=== PATIENT | male | born 1940 | race Caucasian/White ===

== ENCOUNTER → 2017-12-02 09:15 | Outpatient (CLI) | payer OTHER, SELFPAY ==
[2017-12-02 10:15] LABS: Add Manual Diff / Slide Review NO; Basophils Percent Auto 0.9 % (0-2); Eosinophils Percent Auto 2.8 % (2-4); Hematocrit 45.8 % (41-53); Hemoglobin 15.9 g/dL (13.5-17.5); Lymphocytes Percent Auto 15.2 % (25-40); Mean Corpuscular HGB Conc 34.8 % (30-36); Mean Corpuscular Hemoglobin 34.3 PG (26-34); Mean Corpuscular Volume 98.5 fL (80-100); Monocytes Percent Auto 8.2 % (3-14); Neutrophils Absolute Auto 5300 /uL (3000-5900); Neutrophils Percent Auto 72.9 % (50-75); Platelet Count 234 X10^3/uL (150-400); Red Blood Cell Count 4.65 X10^6/uL (4.5-5.9); Red Cell Distribution Width 12.9 % (11.6-14.8); White Blood Cell Count 7.3 X10^3/uL (4.5-11.0)
[2017-12-02 10:36] LABS: Alanine Aminotransferase 32 IU/L (21-72); Albumin 4.3 g/dL (3.5-5.0); Albumin Globulin Ratio 1.4 (1.0-2.8); Alkaline Phosphatase 86 U/L (38-126); Aspartate Aminotransferase 28 IU/L (17-59); BUN Creatinine Ratio 14.4 (6-22); Bilirubin Total 0.9 mg/dL (0.2-1.3); Cholesterol 197 mg/dL (140-199); Estimated Glomerular Filt Rate > 60.0 mL/min (>60); Glucose 118 mg/dL (80-110); HDL Cholesterol 64 mg/dL (40-60); HEMOLYSIS < 15 (0-50); LDL Cholesterol Calculated 93 mg/dL (<100); Sodium 140 mmol/L (137-145); Total Protein 7.3 g/dL (6.3-8.2); Triglycerides 199 mg/dL (35-150)
[2017-12-02 11:02] LABS: Thyroid Stimulating Hormone 1.26 uIU/mL (0.47-4.68)
[2017-12-02 12:19] LABS: Appearance Urine UA CLEAR; Bilirubin Urine UA NEGATIVE (NEGATIVE); Color Urine UA YELLOW; Glucose Urine UA NEGATIVE (Normal); Ketones Urine UA NEGATIVE (NEGATIVE); Leukocyte Esterase Urine UA NEGATIVE (NEGATIVE); Nitrite Urine UA NEGATIVE (NEGATIVE); Occult Blood Urine UA NEGATIVE (Negative); Protein Urine UA NEGATIVE (Negative)
[2017-12-02 12:35] LABS: Culture Indicated Urine Cult Not Indicated; Squamous Epithelial Cell Urine 0-1 /HPF; WBC Urine 0-1/HPF (0-5/HPF)
== END ==
PROVIDERS: PCP Family Medicine; Visit Provider Family Medicine
DX: I10 Essential (primary) hypertension (principal); E78.5 Hyperlipidemia, unspecified; Z12.5 Encounter for screening for malignant neoplasm of prostate
CPT/HCPCS: 36415; 80053; 80061; 81001; 84153; 84443; 85025

== ENCOUNTER → 2018-05-24 09:34 | Outpatient (CLI) | payer OTHER, SELFPAY ==
[2018-05-24 10:29] LABS: Hematocrit 44.9 % (41-53); Hemoglobin 15.9 g/dL (13.5-17.5); Mean Corpuscular HGB Conc 35.3 % (30-36); Platelet Count 246 X10^3/uL (150-400); Red Blood Cell Count 4.53 X10^6/uL (4.5-5.9); Red Cell Distribution Width 12.7 % (11.6-14.8); White Blood Cell Count 5.5 X10^3/uL (4.5-11.0)
[2018-05-24 10:44] LABS: Alanine Aminotransferase 43 IU/L (21-72); Albumin 4.6 g/dL (3.5-5.0); Albumin Globulin Ratio 1.8 (1.0-2.8); Alkaline Phosphatase 77 U/L (38-126); Aspartate Aminotransferase 44 IU/L (17-59); BUN Creatinine Ratio 18.8 (6-22); Bilirubin Total 0.6 mg/dL (0.2-1.3); Blood Urea Nitrogen 15 mg/dL (9-20); Calcium 10.7 mg/dL (8.4-10.2); Carbon Dioxide 28 mmol/L (22-32); Chloride 94 mmol/L (98-107); Cholesterol 176 mg/dL (140-199); Estimated Glomerular Filt Rate > 60.0 mL/min (>60); Globulin 2.6 g/dL (1.7-4.1); Glucose 100 mg/dL (80-110); HDL Cholesterol 83 mg/dL (40-60); HEMOLYSIS < 15 (0-50); LDL Cholesterol Calculated 64 mg/dL (<100); Potassium 4.3 mmol/L (3.4-5.1); Sodium 140 mmol/L (137-145); Total Protein 7.2 g/dL (6.3-8.2); Triglycerides 144 mg/dL (35-150)
[2018-05-24 11:29] LABS: Thyroid Stimulating Hormone 0.83 uIU/mL (0.47-4.68)
== END ==
PROVIDERS: PCP Family Medicine; Visit Provider Family Medicine
DX: E78.5 Hyperlipidemia, unspecified (principal); I10 Essential (primary) hypertension; R73.9 Hyperglycemia, unspecified; Z51.81 Encounter for therapeutic drug level monitoring
CPT/HCPCS: 36415; 80053; 80061; 84443; 85027

== ENCOUNTER → 2018-10-27 09:17 | Outpatient (CLI) | payer OTHER, SELFPAY ==
[2018-10-27 09:58] LABS: Add Manual Diff / Slide Review NO; Basophils Absolute Auto 0 /uL (0-100); Basophils Percent Auto 0.9 % (0-2); Eosinophils Absolute Auto 200 /uL (0-450); Eosinophils Percent Auto 3.2 % (2-4); Hematocrit 47.5 % (41-53); Hemoglobin 16.6 g/dL (13.5-17.5); Lymphocytes Absolute Auto 1100 /uL (1100-4500); Lymphocytes Percent Auto 20.4 % (25-40); Mean Corpuscular Hemoglobin 34.3 PG (26-34); Mean Corpuscular Volume 98.1 fL (80-100); Monocytes Absolute Auto 600 /uL (0-900); Monocytes Percent Auto 11.4 % (3-14); Neutrophils Absolute Auto 3300 /uL (1500-7000); Neutrophils Percent Auto 64.1 % (50-75); Platelet Count 272 X10^3/uL (150-400); Red Blood Cell Count 4.84 X10^6/uL (4.5-5.9); Red Cell Distribution Width 12.8 % (11.6-14.8); White Blood Cell Count 5.2 X10^3/uL (4.5-11.0)
[2018-10-27 10:10] LABS: Alanine Aminotransferase 50 IU/L (21-72); Albumin 4.3 g/dL (3.5-5.0); Albumin Globulin Ratio 1.5 (1.0-2.8); Alkaline Phosphatase 81 U/L (38-126); Aspartate Aminotransferase 45 IU/L (17-59); BUN Creatinine Ratio 22.5 (6-22); Bilirubin Total 0.8 mg/dL (0.2-1.3); Blood Urea Nitrogen 18 mg/dL (9-20); Calcium 10.1 mg/dL (8.4-10.2); Carbon Dioxide 29 mmol/L (22-32); Chloride 91 mmol/L (98-107); Cholesterol 152 mg/dL (140-199); Estimated Glomerular Filt Rate > 60.0 mL/min (>60); Globulin 2.9 g/dL (1.7-4.1); Glucose 99 mg/dL (80-110); HDL Cholesterol 56 mg/dL (40-60); HEMOLYSIS < 15 (0-50); LDL Cholesterol Calculated 60 mg/dL (<100); Potassium 3.7 mmol/L (3.4-5.1); Sodium 132 mmol/L (137-145); Total Protein 7.2 g/dL (6.3-8.2); Triglycerides 181 mg/dL (35-150)
== END ==
PROVIDERS: PCP Family Medicine; Visit Provider Family Medicine
DX: E78.5 Hyperlipidemia, unspecified (principal); I10 Essential (primary) hypertension; M10.9 Gout, unspecified
CPT/HCPCS: 36415; 80053; 80061; 85025

== ENCOUNTER → 2018-12-13 14:42 | Outpatient (CLI) | payer OTHER, SELFPAY ==
[2018-12-13 15:40] LABS: BUN Creatinine Ratio 17.5 (6-22); Blood Urea Nitrogen 14 mg/dL (9-20); Calcium 10.3 mg/dL (8.4-10.2); Carbon Dioxide 29 mmol/L (22-32); Chloride 92 mmol/L (98-107); Estimated Glomerular Filt Rate > 60.0 mL/min (>60); Glucose 116 mg/dL (80-110); HEMOLYSIS < 15 (0-50); Magnesium 1.2 mg/dL (1.6-2.3); Potassium 3.6 mmol/L (3.4-5.1); Sodium 133 mmol/L (137-145)
[2018-12-13 16:12] LABS: Thyroid Stimulating Hormone 1.16 uIU/mL (0.47-4.68)
[2018-12-15 16:52] LABS: Osmolality, Serum 280 mosm/kg (260-310)
== END ==
PROVIDERS: PCP Family Medicine; Visit Provider Internal Medicine Cardiovascular Disease
DX: I48.91 Unspecified atrial fibrillation (principal); E87.1 Hypo-osmolality and hyponatremia
CPT/HCPCS: 36415; 80048; 83735; 83930; 84443

== ENCOUNTER → 2018-12-15 07:52 | Outpatient (CLI) | payer OTHER, SELFPAY ==
--- NOTE | 2018-12-15 | DI.ECHO.S_ITS ---
[facility] +---------+ [facility] +---------+ : : [address] : : : : [id number] : : : : Phone: [phone]+ Echocardiogram Report + + :Name: LAY DUNHAM Study Date: 12/15/2018 Height: 73 in : :[facility] Weight: 210 lb : : Gender: Male BSA: 2.2 m2 : :: 1940 Age: 78 yrs BP: 160/78 mmHg: :Reason For Study: Atrial fibrillation : :Ordering Physician: Amaya : :Philippeiwdixon Performed By: Razia Suarez : :Referring: Dorothy Rosa : + + Interpretation Summary The left ventricle is normal in size. The ejection fraction is estimated to be 45-50%. Compared to the prior exam, the left ventricular function is reduced. There is hypokinesis of mid to distal anterior septum, apex, mid to distal anterior wall, mid to distal anterolateral as well as posterolateral wall and distal inferior septum. In comparison to previous study worsening hypokinesis of anterolateral and posterolateral wall seen. MV E/A: 3.3 Med Peak E' Pancho: 4.2 cm/sec E/E' med: 28.7 The right ventricle is grossly normal size. The right ventricular systolic function is normal. The aortic valve is moderately calcified. Leaflet mobility is moderately reduced. The peak aortic velocity is 2.5 m/sec. The peak aortic velocity on the previous exam was 2.9 m/sec. The aortic valve mean gradient is 15 mmHg. The calculated aortic valve area is 1.2 cm2. There is mild to moderate aortic stenosis. There is mild aortic regurgitation. Compared to the prior echo study, there has been no change in the severity of aortic regurgitation. There is mild tricuspid regurgitation. The right ventricular systolic pressure is estimated to be at least 46 mmHg based on an estimated right atrial pressure of 3 mm Hg. Compared to the prior echo exam, there has been an increase in the severity of pulmonary hypertension. Procedure: A two-dimensional transthoracic echocardiogram with color flow and Doppler was performed. The study quality was technically adequate. Comparison is made with the echocardiogram of 11-01-17. The patient was in normal sinus rhythm during the exam. Left Ventricle: The left ventricle is normal in size. There is normal left ventricular wall thickness. There is no thrombus. The ejection fraction is estimated to be 45-50%. Compared to the prior exam, the left ventricular function is reduced. There is hypokinesis of mid to distal anterior septum, apex, mid to distal anterior wall, mid to distal anterolateral as well as posterolateral wall and distal inferior septum. In comparison to previous study worsening hypokinesis of anterolateral and posterolateral wall seen. MV E/A: 3.3 Med Peak E' Pancho: 4.2 cm/sec E/E' med: 28.7. Right Ventricle: The right ventricle is grossly normal size. The right ventricular systolic function is normal. Atria: The left atrium is moderately dilated. The left atrium has mildly increased in size since the prior echo exam. Right atrium not well visualized. The interatrial septum is intact with no evidence for an atrial septal defect. Mitral Valve: The mitral valve leaflets appear mildly thickened, but open well. There is mild mitral annular calcification. The mitral valve leaflets are slightly calcified. There is systolic anterior motion of the chordal apparatus. There is mild mitral regurgitation. Aortic Valve: The aortic valve is moderately calcified. Leaflet mobility is moderately reduced. The aortic valve is not well visualized. The calculated aortic valve area is 1.2 cm2. The aortic valve area is 1.1 centimeters squared by planimetry. The peak aortic velocity is 2.5 m/sec. The peak aortic velocity on the previous exam was 2.9 m/sec. The aortic valve mean gradient is 15 mmHg. Severity ratio is 0.28. There is mild to moderate aortic stenosis. There is no hemodynamically significant valvular aortic stenosis. There is mild aortic regurgitation. Compared to the prior echo study, there has been no change in the severity of aortic regurgitation. Tricuspid Valve: The tricuspid valve leaflets are thin and pliable. There is mild tricuspid regurgitation. The right ventricular systolic pressure is estimated to be at least 46 mmHg based on an estimated right atrial pressure of 3 mm Hg. Compared to the prior echo exam, there has been an increase in the severity of pulmonary hypertension. Pulmonic Valve: The pulmonic valve is not well seen, but is grossly normal. There is mild to moderate pulmonic regurgitation. Great Vessels: The aortic root is normal size. The ascending aorta is mildly enlarged. The aortic arch is normal in size. There has been no significant change since the previous study. The IVC is of normal diameter and collapses greater than 50% with a sniff. This suggests a low right atrial pressure of 3 mm Hg. Pericardium/ Pleura There is no pericardial effusion. There is no pleural effusion. MMode/2D Measurements & Calculations LVIDd: 5.1 cm LVOT diam: 2.3 cm LVIDs: 3.3 cm Ao root diam: 3.7 cm FS: 35.5 % Aortic Jxn: 3.2 cm EPSS: 1.3 cm asc Aorta Diam: 3.7 cm IVSd: 1.0 cm Ao Arch Diam (Prox Trans): 3.1 cm LVPWd: 0.90 cm LV vu. diameter/BSA (cm/m^2): 2.3 LV sys. diameter/BSA (cm/m^2): 1.5 LA dimension: 5.1 cm RA long axis: 5.6 cm LA A2 area: 29.5 cm2 RA area: 21.6 cm2 LA A4 area: 26.3 cm2 RA vol: 70.3 ml LA length (vol): 6.3 cm RA : 32.0 ml/m2 LA vol: 104.8 ml IVC diam: 2.0 cm LA vol index: 47.7 ml/m2 RVDd major: 6.2 cm RVD1 (basal): 4.1 cm RVD2 (mid): 3.7 cm CAROLYNE (plan): 1.1 cm2 Doppler Measurements & Calculations Ao V2 max: 264.6 cm/sec LVOT Max Pancho: 79.9 cm/sec Ao V2 mean: 179.7 cm/sec LV V1 max P.6 mmHg Ao max P.0 mmHg LV V1 VTI: 18.3 cm Ao mean P.0 mmHg CAROLYNE(I,D): 1.2 cm2 Ao V2 VTI: 65.8 cm CAROLYNE(V,D): 1.3 cm2 sev ratio: 0.28 CAROLYNE indexed to BSA (cm^2/m^2): 0.55 MV E max pancho: 120.9 cm/sec TR max pancho: 325.9 cm/sec MV A max pancho: 36.6 cm/sec TR max P.5 mmHg MV E/A: 3.3 PA V2 max: 89.1 cm/sec Med Peak E' Pancho: 4.2 cm/sec PA V2 mean: 50.6 cm/sec E/E' med: 28.7 PA mean P.2 mmHg Lat Peak E' Pancho: 8.8 cm/sec PA Accel Time: 0.08 sec E/E' lat: 13.7 E/e' average: 21.2 MV dec time: 0.17 sec MV P1/2t: 51.5 msec MV 2t max pancho: 121.2 cm/sec SV(LVOT): 78.8 ml MVA(2t): 4.3 cm2 Reading Physician:HALEY
== END ==
PROVIDERS: PCP Family Medicine; Visit Provider Internal Medicine Cardiovascular Disease
DX: I08.3 Combined rheumatic disorders of mitral, aortic and tricuspid valves (principal); I48.91 Unspecified atrial fibrillation; I77.89 Other specified disorders of arteries and arterioles
CPT/HCPCS: 93306

== ENCOUNTER → 2019-01-19 11:01 | Outpatient (CLI) | payer OTHER, SELFPAY ==
[2019-01-19 12:50] LABS: BUN Creatinine Ratio 13.8 (6-22); Blood Urea Nitrogen 11 mg/dL (9-20); Calcium 10.1 mg/dL (8.4-10.2); Carbon Dioxide 29 mmol/L (22-32); Chloride 92 mmol/L (98-107); Estimated Glomerular Filt Rate > 60.0 mL/min (>60); Glucose 108 mg/dL (80-110); HEMOLYSIS < 15 (0-50); Magnesium 1.3 mg/dL (1.6-2.3); Potassium 3.5 mmol/L (3.4-5.1); Sodium 134 mmol/L (137-145)
[2019-01-20 14:54] LABS: Calcium 10.4 mg/dL (8.6-10.3); Parathyroid Hormone, Intact 74 pg/mL (14-64)
== END ==
PROVIDERS: PCP Family Medicine; Visit Provider Internal Medicine Cardiovascular Disease
DX: I48.91 Unspecified atrial fibrillation (principal)
CPT/HCPCS: 36415; 80048; 83735; 83970

== ENCOUNTER → 2019-01-25 13:43 | Outpatient (CLI) | payer OTHER, SELFPAY ==
--- NOTE | 2019-01-25 14:47 | PM.TREADMILL ---
Cardiac Stress Test Report Referral & Results Date Patient Seen: 01/25/19 Requesting provider: Amaya Singh Indication: Atrial fibrillation Rest ECG: Atrial fibrillation with controlled ventricular response and PVCs Procedure Note: After both written and verbal informed consent the patient had an IV started by the diagnostic imaging RN, and then was hooked up to the treadmill monitoring system. The Lexiscan material, and then the Cardiolite tracer, were administered sequentially. An additional 3 min was spent monitoring the patient while supine on the gurney. The patient had a normal response to all infused materials. Impression: Normal response to materials as above Please see perfusion imaging report for details regarding possible ischemia Please note: Actual ECG tracings can be found in the PACS system.
--- NOTE | 2019-01-27 07:39 | DI.NM.S_ITS ---
DATE OF SERVICE: 01/25/2019 REFERRING PROVIDER: Amaya Singh MD INDICATIONS: The patient is a 78-year-old male with known moderate aortic stenosis, coronary artery disease, and atrial fibrillation. CARDIAC STRESS: The patient received 0.4 mg of regadenoson per protocol with a normal hemodynamic response. His resting heart rate was 78 bpm in atrial fibrillation and increased to a maximum of 91 bpm. He had occasional PVCs but no other arrhythmias besides his atrial fibrillation. He had no chest discomfort. His resting ECG shows no significant ST segment abnormalities and there are no significant ST segment shifts with exercise. Per protocol, 25.0 mCi of technetium-99 Myoview was injected and the patient was imaged 20 minutes later using a gated SPECT acquisition protocol. He returned the following day and was reinjected with an additional 25.7 mCi of technetium-99 Myoview and was imaged 30 minutes later, again using a gated SPECT acquisition protocol. FINDINGS: 1. Raw Data: There is fair myocardial tracer uptake. The lung/heart ratio is normal at 0.32 with a normal TID ratio of 1.05. 2. Quantitative Gated SPECT: Post-stress ejection fraction is estimated at 58% with hypokinesis of the distal anterior wall, apex, and distal inferior wall. This hypokinesis appears to persist to some degree on the resting images, although with some improvement. There are no other focal wall motion abnormalities. The resting ejection fraction is 60% with an end-diastolic volume of 161 mL. 3. Myocardial Perfusion Imaging: Post-stress supine images show a severe perfusion defect in the distal anterior wall, apex, and distal inferior wall, including the septum. This defect persists on the prone images. The resting images show a similar perfusion defect, although with some improvement, particularly at the periphery of the defect. CONCLUSIONS: 1. Abnormal myocardial perfusion study. 2. Moderate-sized partially reversible but predominantly fixed perfusion defect involving the distal portion of the anterior wall, apex, and distal inferior wall and septum. 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 3. Borderline reduced left ventricular systolic function with a wall motion abnormality in the distribution above that appears to improve slightly on the resting images, again suggesting scar intermixed with ischemia. 4. No angina or ECG evidence of ischemia with pharmacologic stress. He had underlying atrial fibrillation with controlled ventricular response with occasional PVCs but no complex ventricular ectopy. Red Polk - RS/fn/ts doc#: [id number]/job#: [id number] dd: 01/26/2019 14:45:00 dt: 01/27/2019 06:51:00 DICTATING MD/COPIES TO: Obed Sexton MD; Amaya Singh MD COPIES MNE: VIDA; CJ
== END ==
PROVIDERS: PCP Family Medicine; Visit Provider Nurse Practitioner
DX: I35.0 Nonrheumatic aortic (valve) stenosis (principal); I25.10 Atherosclerotic heart disease of native coronary artery without angina pectoris; I48.91 Unspecified atrial fibrillation
CPT/HCPCS: 78452; 93016; 93017; 93018; A9502; J2785

== ENCOUNTER → 2019-02-22 10:48 | Outpatient (CLI) | payer OTHER, SELFPAY ==
[2019-02-22 11:41] LABS: Blood Urea Nitrogen 12 mg/dL (9-20); Calcium 10.7 mg/dL (8.4-10.2); Carbon Dioxide 34 mmol/L (22-32); Chloride 94 mmol/L (98-107); Estimated Glomerular Filt Rate > 60.0 mL/min (>60); Glucose 118 mg/dL (80-110); HEMOLYSIS < 15 (0-50); Magnesium 1.4 mg/dL (1.6-2.3); Sodium 137 mmol/L (137-145)
== END ==
PROVIDERS: Family Provider Family Medicine; PCP Family Medicine; Visit Provider Internal Medicine Cardiovascular Disease
DX: E83.42 Hypomagnesemia (principal); E83.52 Hypercalcemia
CPT/HCPCS: 36415; 80048; 83735

== ENCOUNTER → 2019-03-06 08:50 | Outpatient (CLI) | payer OTHER, SELFPAY ==
[2019-03-06 09:46] LABS: Alanine Aminotransferase 18 IU/L (21-72); Albumin 4.3 g/dL (3.5-5.0); Albumin Globulin Ratio 1.3 (1.0-2.8); Alkaline Phosphatase 85 U/L (38-126); Aspartate Aminotransferase 24 IU/L (17-59); BUN Creatinine Ratio 16.7 (6-22); Bilirubin Total 0.8 mg/dL (0.2-1.3); Blood Urea Nitrogen 15 mg/dL (9-20); Calcium 10.3 mg/dL (8.4-10.2); Carbon Dioxide 31 mmol/L (22-32); Chloride 98 mmol/L (98-107); Cholesterol 186 mg/dL (140-199); Estimated Glomerular Filt Rate > 60.0 mL/min (>60); Globulin 3.2 g/dL (1.7-4.1); Glucose 120 mg/dL (80-110); HDL Cholesterol 61 mg/dL (40-60); HEMOLYSIS < 15 (0-50); LDL Cholesterol Calculated 82 mg/dL (<100); Potassium 3.9 mmol/L (3.4-5.1); Sodium 138 mmol/L (137-145); Total Protein 7.5 g/dL (6.3-8.2); Triglycerides 213 mg/dL (35-150)
== END ==
PROVIDERS: PCP Family Medicine; Visit Provider Family Medicine
DX: I10 Essential (primary) hypertension (principal); E78.5 Hyperlipidemia, unspecified
CPT/HCPCS: 36415; 80053; 80061

== ENCOUNTER → 2019-03-07 14:01 | Outpatient (CLI) | payer OTHER, SELFPAY ==
[2019-03-07 15:56] LABS: Hemoglobin A1C% w Est Avg Glu 5.2 % (4.0-6.0)
== END ==
PROVIDERS: PCP Family Medicine; Visit Provider Family Medicine
DX: R73.09 Other abnormal glucose (principal)
CPT/HCPCS: 83036

== ENCOUNTER → 2019-03-16 11:52 | Outpatient (CLI) | payer OTHER, SELFPAY ==
[2019-03-16 14:06] LABS: Blood Urea Nitrogen 16 mg/dL (9-20); Calcium 10.7 mg/dL (8.4-10.2); Carbon Dioxide 28 mmol/L (22-32); Chloride 99 mmol/L (98-107); Estimated Glomerular Filt Rate > 60.0 mL/min (>60); Glucose 123 mg/dL (80-110); HEMOLYSIS < 15 (0-50); Magnesium 1.6 mg/dL (1.6-2.3); Sodium 139 mmol/L (137-145)
== END ==
PROVIDERS: PCP Family Medicine; Visit Provider Internal Medicine Cardiovascular Disease
DX: I10 Essential (primary) hypertension (principal)
CPT/HCPCS: 36415; 80048; 83735

== ENCOUNTER → 2019-06-20 13:08 | Outpatient (CLI) | payer OTHER, SELFPAY ==
[2019-06-20 13:46] LABS: Blood Urea Nitrogen 15 mg/dL (9-20); Calcium 10.2 mg/dL (8.4-10.2); Carbon Dioxide 30 mmol/L (22-32); Chloride 97 mmol/L (98-107); Estimated Glomerular Filt Rate > 60.0 mL/min (>60); Glucose 120 mg/dL (80-110); HEMOLYSIS < 15 (0-50); Potassium 4.2 mmol/L (3.4-5.1); Sodium 136 mmol/L (137-145)
== END ==
PROVIDERS: PCP Family Medicine; Visit Provider Internal Medicine Cardiovascular Disease
DX: I10 Essential (primary) hypertension (principal)
CPT/HCPCS: 36415; 80048

== ENCOUNTER → 2019-12-03 10:20 | Outpatient (CLI) | payer MEDICARE, SELFPAY ==
[2019-12-03 11:14] LABS: Add Manual Diff / Slide Review NO; Basophils Absolute Auto 0 /uL (0-100); Basophils Percent Auto 0.7 % (0-2); Eosinophils Absolute Auto 100 /uL (0-450); Eosinophils Percent Auto 1.9 % (2-4); Hematocrit 46.3 % (41-53); Hemoglobin 16.2 g/dL (13.5-17.5); Lymphocytes Absolute Auto 1200 /uL (1100-4500); Lymphocytes Percent Auto 18.5 % (25-40); Mean Corpuscular Hemoglobin 34.9 PG (26-34); Mean Corpuscular Volume 99.8 fL (80-100); Monocytes Absolute Auto 500 /uL (0-900); Monocytes Percent Auto 8.2 % (3-14); Neutrophils Absolute Auto 4700 /uL (1500-7000); Neutrophils Percent Auto 70.7 % (50-75); Platelet Count 222 X10^3/uL (150-400); Red Blood Cell Count 4.63 X10^6/uL (4.5-5.9); Red Cell Distribution Width 13.4 % (11.6-14.8); White Blood Cell Count 6.6 X10^3/uL (4.5-11.0)
[2019-12-03 11:18] LABS: Hemoglobin A1C% w Est Avg Glu 5.4 % (4.0-6.0)
[2019-12-03 11:30] LABS: Alanine Aminotransferase 25 IU/L (<50); Albumin 4.4 g/dL (3.5-5.0); Albumin Globulin Ratio 1.5 (1.0-2.8); Alkaline Phosphatase 141 U/L (38-126); Aspartate Aminotransferase 34 IU/L (17-59); BUN Creatinine Ratio 13.3 (6-22); Bilirubin Total 0.7 mg/dL (0.2-1.3); Blood Urea Nitrogen 11 mg/dL (9-20); Calcium 10.4 mg/dL (8.4-10.2); Carbon Dioxide 29 mmol/L (22-32); Chloride 99 mmol/L (98-107); Cholesterol 164 mg/dL (140-199); Estimated Glomerular Filt Rate > 60.0 mL/min (>60); Globulin 2.9 g/dL (1.7-4.1); Glucose 121 mg/dL (80-110); HDL Cholesterol 61 mg/dL (40-60); HEMOLYSIS < 15 (0-50); LDL Cholesterol Calculated 71 mg/dL (<100); Sodium 138 mmol/L (137-145); Total Protein 7.3 g/dL (6.3-8.2); Triglycerides 162 mg/dL (35-150)
[2019-12-03 12:13] LABS: Thyroid Stimulating Hormone 1.06 uIU/mL (0.47-4.68)
[2019-12-03 14:05] LABS: Appearance Urine UA CLEAR; Bilirubin Urine UA NEGATIVE (NEGATIVE); Color Urine UA YELLOW; Glucose Urine UA NEGATIVE (Negative); Ketones Urine UA TRACE (NEGATIVE); Leukocyte Esterase Urine UA NEGATIVE (NEGATIVE); Nitrite Urine UA NEGATIVE (Negative); Occult Blood Urine UA NEGATIVE (Negative); Protein Urine UA 1+ (Negative); pH Urine UA 7.5 (4.5-8.0)
== END ==
PROVIDERS: PCP Internal Medicine; Referring Provider Family Medicine; Visit Provider Family Medicine
DX: E78.5 Hyperlipidemia, unspecified (principal); I10 Essential (primary) hypertension; L98.9 Disorder of the skin and subcutaneous tissue, unspecified; R73.9 Hyperglycemia, unspecified; Z86.79 Personal history of other diseases of the circulatory system
CPT/HCPCS: 36415; 80053; 80061; 81003; 83036; 84443; 85025

== ENCOUNTER 2020-04-04 03:48 | Emergency (ER) | payer MEDICARE, SELFPAY ==
[2020-04-04 03:50] VITALS: BP 183/101; PULSE 72; RESP 18; TEMP 36.6; O2SAT 97
--- NOTE | 2020-04-04 03:54 | DI.CT.S_ITS ---
PROCEDURE: CT HEAD/BRAIN WO CON INDICATIONS: Fall on Eliquis with laceration right-sided head TECHNIQUE: Noncontrast 4.5 mm thick angled axial sections acquired from the foramen magnum to the vertex, with coronal and sagittal reformats. For radiation dose reduction, the following was used: automated exposure control, adjustment of mA and/or kV according to patient size. COMPARISON: None. FINDINGS: Image quality: Excellent. CSF spaces: Basal cisterns are patent. No extra-axial fluid collections. The ventricles are symmetric in size and shape. Brain: No intracranial bleeds or masses. There is cerebral volume loss for age, with resultant ventricular and sulcal prominence. There are periventricular and deep white matter chronic small vessel ischemic changes. There is intracranial internal carotid artery atherosclerosis. Skull and face: Calvarium and visualized facial bones appear intact, without suspicious lesions. Right frontal scalp laceration Sinuses: Visualized sinuses and mastoids are clear. IMPRESSION: 1. No acute intracranial process. Right frontal scalp laceration. 2. Moderate atrophy and chronic microvascular ischemic changes. The above findings are concordant with preliminary report. Dictated by: Erika Bai M.D. on 04/04/2020 at 7:36 Approved by: Erika Bai M.D. on 04/04/2020 at 7:37
--- NOTE | 2020-04-04 03:54 | ED.GENADULT ---
HPI - General Adult General Chief complaint: Trauma Stated complaint: fell out of bed/cut on forehead Time Seen by Provider: 04/04/20 03:50 Source: patient Mode of arrival: Ambulatory Limitations: no limitations History of Present Illness HPI narrative: 79-year-old male on Eliquis for atrial fibrillation here for evaluation of injuries that he sustained when he rolled out of bed this evening. Patient states that he thinks he was just sleeping to close the edge of the bed and he rolled out of bed hitting his head on a nightstand. No loss conscious. No neck pain. Did sustain a cut to his right forehead abrasion left side of his face. No other injuries reported from the event by the patient. Modified trauma called secondary to his fall on Eliquis. Related Data Home Medications Medication Instructions Recorded Confirmed ASPIRIN (Aspirin EC) 81 mg PO Q DAY #0 11/30/10 03/17/20 latanoprost [Xalatan] 1 drp OPHTH QDAY #0 11/23/11 03/17/20 cholecalciferol (vitamin D3) 125 5,000 unit PO DAILY 04/18/19 03/17/20 mcg (5,000 unit) capsule magnesium oxide 800 mg PO DAILY 04/18/19 03/17/20 kkvwuqhhqjse-hddhneji-bdyavz 1 tab PO DAILY 04/18/19 03/17/20 omega-3 fatty acids-fish oil 360 1 cap PO DAILY 04/18/19 03/17/20 mg-1,200 mg capsule potassium chloride 20 mEq 20 meq PO DAILY 04/18/19 03/17/20 tablet,extended release colchicine 0.6 mg tablet 0.6 mg PO BID PRN tab 12/17/19 03/17/20 omeprazole 20 mg capsule,delayed 20 mg PO DAILY 12/17/19 03/17/20 release timolol 0.5 % eye drops 1 drop EYE-BOTH .Q MORNING ml 12/17/19 03/17/20 Previous Rx's Medication Instructions Recorded apixaban 5 mg tablet 5 mg PO BID #60 tab 04/18/19 atorvastatin 40 mg tablet 40 mg PO HS #90 tab 04/18/19 lisinopril 40 mg tablet 40 mg PO DAILY #90 tab 12/17/19 hydrochlorothiazide 25 mg tablet See Rx Instructions .ROUTE 02/26/20 .COMPLEX #45 tablet metoprolol tartrate 100 mg tablet See Rx Instructions .ROUTE 02/26/20 .COMPLEX #180 tablet amlodipine 5 mg tablet 5 mg PO BID #180 tab 03/17/20 Allergies Allergy/AdvReac Type Severity Reaction Status Date / Time No Known Drug Allergies Allergy Verified 03/17/20 10:14 Review of Systems Constitutional Constitutional: Denies headache(s) ENT Ears, Nose, Mouth, and Throat: Denies headache(s) and Denies neck pain Cardiovascular Cardiovascular: Denies chest pain and Denies dyspnea Respiratory Respiratory: Denies dyspnea Musculoskeletal Musculoskeletal: Denies arthralgias, Denies back pain, Denies myalgias and Denies neck pain Integumentary/Breasts Skin/Breast: Denies rash Comments: Cut to right forehead abrasion left side of his Neurologic Neurologic: Denies behavioral changes and Denies headache(s) Psychiatric Psychiatric: Denies behavioral changes Hematologic/Lymphatic Comments: On anticoagulation Allergic/Immunologic Allergic/Immunologic: Denies urticaria Patient History Medical History Aortic stenosis (Chronic) Bilateral carotid artery disease (Chronic) CAD (coronary atherosclerotic disease) (Chronic 11/30/10) Chronic gout, unspecified, 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) Essential (primary) hypertension (Chronic 02/09/16) GERD without esophagitis (Chronic) Hypercalcemia (Chronic) Hyperglycemia (Chronic) Hyperlipidemia (Chronic) Hyperparathyroidism (Chronic) 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) Ischemic cardiomyopathy (Chronic) Permanent atrial fibrillation (Chronic) Rheumatoid arthritis (Chronic) Social History Smoking Status: Never smoker alcohol intake: current Smoking Status: Never smoker Exam Initial Vital Signs Initial Vital Signs: Vital Signs Temperature 97.8 F 04/04/20 03:50 Pulse Rate 72 04/04/20 03:50 Respiratory Rate 18 04/04/20 03:50 Blood Pressure 183/101 H 04/04/20 03:50 Pulse Oximetry 97 04/04/20 03:50 Const General: cooperative, healthy appearing, comfortable and well developed Limitations: mental status not altered HENMT Head: laceration Nose: external nose normal Face and sinus: abrasion Mouth: oral mucosae normal Teeth and gingiva: dentition normal Resp Effort & Inspection: normal respiratory effort Cardio Rate: regular rate Skin Other: 4 cm linear laceration to the right forehead. Patient with a quarter-size abrasion to the left cheek. No active bleeding. Neuro General: patient alert, patient awake and patient oriented x3 Extrem General: normal to inspection and capillary refill normal Psych Appearance: grossly normal and well kempt Procedures Laceration Repair Laceration 1: Site: other (Right forehead) Side (If applicable): right Size (cm): 4 Description: linear Depth: simple, single layer Local Anesthetic: lidocaine 1% and with bicarb Amount of anesthesia used (mL): 5 Pre-repair: wound explored Skin layer closed with: other (Chromic) Size (cm): 4-0 Number of sutures: 6 Technique: simple, interrupted Scores GCS [place] coma scale eye opening: Spontaneous Mounika coma scale verbal response: Orientated [place] coma scale motor response: Obey commands Mounika coma scale total score: 15 Nexus Score for C-Spine Focal Neurologic deficit present: No Midline spinal tenderness present: No Altered level of conciousness present: No Intoxication present: No Distracting Injury Present: No Nexus Criteria for C-spine: 0 Course Orders Ordered: ED Orders 04/04/20 03:54 CT head/brain wo con Stat Discontinued Medications Bacitracin (Bacitracin) 1 applic TOP NOW ONE Stop: 04/04/20 04:06 Last Admin: 04/04/20 04:09 Dose: 1 applic Documented by: AIDA Diphtheria/Tetanus/Acell Pertussis (Adacel) 0.5 ml IM .ONCE ONE Stop: 04/04/20 04:06 Last Admin: 04/04/20 04:10 Dose: 0.5 ml Documented by: AIDA Lidocaine/Sodium Bicarbonate (Buffered Lidocaine 10 Ml Syr) 10 ml INJ NOW ONE Stop: 04/04/20 04:06 Last Admin: 04/04/20 04:09 Dose: 10 ml Documented by: AIDA Vital Signs Vital signs: Vital Signs - 8 hr 04/04/20 03:50 04/04/20 04:02 Temperature 97.8 F Pulse Rate 72 64 Respiratory Rate 18 16 Blood Pressure 183/101 H 148/71 H Pulse Oximetry 97 96 Medical Decision Making Imaging Data CT scan - head: Radiologist's Impression: No acute bleed MDM Narrative Medical decision making narrative: Head CT is unremarkable. This does appear to be a mechanical fall as he rolled out of bed. The laceration on his right forehead was closed as described above. The abrasion left studies for Headings no intervention. No other injuries were reported from the patient or found on the exam from the event. Will hold on further radiologic studies for now. His cervical spine is cleared by nexus criteria. Patient was given care instructions return precautions. His tetanus shot was updated. He expressed understanding and agreement. Discharge Plan Departure Patient Disposition: Home Clinical Impression: Laceration, Abrasion of skin Fall Qualifiers: Encounter type: initial encounter Qualified Code(s): W19.XXXA - Unspecified fall, initial encounter Instructions: DI for Laceration Repair Activity Restrictions/Additional Instructions: Continue all of your medications as directed. The stitches that were placed today are absorbable and should come out on their own. After 24 hours you can shower like normal. Use soap and water like normal. Contact your primary provider for follow-up. Your tetanus shot was updated today. Return to the emergency department for any new or worsening symptoms Prescriptions: No Action ASPIRIN (Aspirin EC) 81 mg PO Q DAY Qty: 0 RF: 0 latanoprost [Xalatan] 0.005 % drops 1 drp OPHTH QDAY Qty: 0 RF: 0 hydrochlorothiazide 25 mg tablet See Rx Instructions .ROUTE .COMPLEX Qty: 45 RF: 1 metoprolol tartrate 100 mg tablet See Rx Instructions .ROUTE .COMPLEX Qty: 180 RF: 1 Eliquis 5 mg tablet 5 mg PO BID Qty: 60 RF: 0 atorvastatin 40 mg tablet 40 mg PO HS Qty: 90 RF: 1 potassium chloride 20 mEq tablet extended release 20 meq PO DAILY RF: 0 magnesium oxide 400 mg magnesium tablet 800 mg PO DAILY RF: 0 pzupdocroxkx-lbehwtcl-hmsjff Tablet 1 tab PO DAILY RF: 0 omega-3 fatty acids-fish oil [Fish Oil] 360-1,200 mg capsule 1 cap PO DAILY RF: 0 cholecalciferol (vitamin D3) 5,000 unit capsule 5,000 unit PO DAILY RF: 0 timolol 0.5 % drops 1 drop EYE-BOTH .Q MORNING RF: 0 omeprazole 20 mg capsule,delayed release(DR/EC) 20 mg PO DAILY RF: 0 colchicine 0.6 mg tablet 0.6 mg PO BID PRNRF: 0 lisinopril 40 mg tablet 40 mg PO DAILY Qty: 90 RF: 3 amlodipine 5 mg tablet 5 mg PO BID Qty: 180 RF: 1 Referrals: Shukri Plata MD [Primary Care Provider] -
[2020-04-04 04:02] VITALS: BP 148/71; PULSE 64; RESP 16; O2SAT 96
[2020-04-04] MEDS: LIDO 1%/SOD BICARB 8.4% (10ML) 10 ML SYRINGE INJ (04:09)
[2020-04-04] MEDS: BACITRACIN OINT 0.9 GM PCKT 1 APPLIC TOP (04:09)
[2020-04-04] MEDS: TET,DIPH,PERTUSS(ACELL),VAC/PF 0.5 ML SYRINGE IM (04:10)
--- NOTE | 2020-04-04 04:13 | PC.NURSE ---
Elodia MADSEN charting and assessing under supervision of Iman Mathews RN.
[2020-04-04 04:38] VITALS: BP 138/65; PULSE 63; RESP 16; O2SAT 97
== END 2020-04-04 04:46 | disposition home or self-care (01) ==
PROVIDERS: Emergency Provider Emergency Medicine; PCP Internal Medicine
DX: S01.81XA Laceration without foreign body of other part of head, initial encounter (principal); W06.XXXA Fall from bed, initial encounter; I48.91 Unspecified atrial fibrillation; Z79.01 Long term (current) use of anticoagulants; Z23 Encounter for immunization
CPT/HCPCS: 12013; 70450; 90471; 99284; 90715

== ENCOUNTER 2020-05-28 20:27 | Emergency (ER) | payer MEDICARE, SELFPAY ==
[2020-05-28 20:30] VITALS: BP 156/97; PULSE 89; RESP 20; TEMP 36.9; O2SAT 97
--- NOTE | 2020-05-28 20:31 | DI.CT.S_ITS ---
PROCEDURE: CT HEAD/BRAIN WO CON INDICATIONS: fall, +anticoag, unable to ambulate after fall TECHNIQUE: Noncontrast 4.5 mm thick angled axial sections acquired from the foramen magnum to the vertex, with coronal and sagittal reformats. For radiation dose reduction, the following was used: automated exposure control, adjustment of mA and/or kV according to patient size. COMPARISON: [facility], CT, CT HEAD/BRAIN WO CON, 04/04/2020, 4:05. FINDINGS: Image quality: Excellent. CSF spaces: Basal cisterns are patent. No extra-axial fluid collections. The ventricles are symmetric in size and shape. Brain: No intracranial bleeds or masses. There is marked cerebral volume loss for age, with resultant ventricular and sulcal prominence. There are extensive periventricular and deep white matter chronic small vessel ischemic changes. There is intracranial internal carotid artery atherosclerosis. Skull and face: Calvarium and visualized facial bones appear intact, without suspicious lesions. Sinuses: Visualized sinuses and mastoids are clear. IMPRESSION: 1. No acute intracranial findings. 2. Extensive findings likely associated with chronic microvascular ischemic changes. Dictated by: Em Veloz M.D. on 05/28/2020 at 20:51 Approved by: Em Veloz M.D. on 05/28/2020 at 20:53
--- NOTE | 2020-05-28 20:56 | PC.NURSE ---
He has superficial scratch like lac on left cheek,cleaned with soap and water.
[2020-05-28 21:16] LABS: Bacteria Urine None Seen
[2020-05-28 21:18] LABS: Appearance Urine UA CLEAR; Bilirubin Urine UA NEGATIVE (NEGATIVE); Color Urine UA YELLOW; Glucose Urine UA NEGATIVE (Negative); Ketones Urine UA NEGATIVE (NEGATIVE); Leukocyte Esterase Urine UA NEGATIVE (NEGATIVE); Nitrite Urine UA NEGATIVE (Negative); Occult Blood Urine UA NEGATIVE (Negative); Protein Urine UA 2+ (Negative); Urobilinogen Urine UA 0.2 E.U./dL (0.2)
[2020-05-28 21:27] LABS: Add Manual Diff / Slide Review NO; Basophils Absolute Auto 100 /uL (0-100); Basophils Percent Auto 0.9 % (0-2); Eosinophils Absolute Auto 200 /uL (0-450); Eosinophils Percent Auto 2.1 % (2-4); Hematocrit 44.4 % (41-53); Hemoglobin 15.2 g/dL (13.5-17.5); Lymphocytes Absolute Auto 1300 /uL (1100-4500); Lymphocytes Percent Auto 17.4 % (25-40); Mean Corpuscular HGB Conc 34.3 % (30-36); Mean Corpuscular Hemoglobin 34.2 PG (26-34); Mean Corpuscular Volume 99.8 fL (80-100); Monocytes Absolute Auto 800 /uL (0-900); Monocytes Percent Auto 10.3 % (3-14); Neutrophils Absolute Auto 5400 /uL (1500-7000); Neutrophils Percent Auto 69.3 % (50-75); Platelet Count 212 X10^3/uL (150-400); Red Blood Cell Count 4.45 X10^6/uL (4.5-5.9); White Blood Cell Count 7.8 X10^3/uL (4.5-11.0)
[2020-05-28 21:29] LABS: Culture Indicated Urine Cult Not Indicated; RBC Urine 0-1/HPF (0-5/HPF); WBC Urine 0-1/HPF (0-5/HPF)
[2020-05-28 21:35] LABS: Alanine Aminotransferase 22 IU/L (<50); Albumin 4.2 g/dL (3.5-5.0); Albumin Globulin Ratio 1.4 (1.0-2.8); Alkaline Phosphatase 83 U/L (38-126); Aspartate Aminotransferase 28 IU/L (17-59); BUN Creatinine Ratio 12.6 (6-22); Bilirubin Total 0.6 mg/dL (0.2-1.3); Blood Urea Nitrogen 14 mg/dL (9-20); Calcium 9.9 mg/dL (8.4-10.2); Carbon Dioxide 27 mmol/L (22-32); Chloride 97 mmol/L (98-107); Estimated Glomerular Filt Rate > 60.0 mL/min (>60); Glucose 111 mg/dL (80-110); HEMOLYSIS < 15 (0-50); Potassium 3.6 mmol/L (3.4-5.1); Sodium 135 mmol/L (137-145); Total Protein 7.2 g/dL (6.3-8.2)
--- NOTE | 2020-05-28 22:15 | ED.FALL ---
HPI - Fall General Chief Complaint: Trauma Stated Complaint: fall Time Seen by Provider: 05/28/20 21:07 Source: patient and family Mode of arrival: Family Vehicle History of Present Illness HPI Narrative: 80-year-old gentleman with a history of atrial fibrillation on Eliquis, hypertension, hyperlipidemia who was leaning over to clean up after his dog and after leaning down continued to fall forward. He has a small abrasion to the right side of his cheek and does report minor contusion to his head is he landed on the ground. Once down he had some difficulty standing again due to bilateral lower extremity weakness. He complains of no headache, no altered mental status, no recent fevers, cough abdominal pain, chest pain, dyspnea. He had his both note that he has been far less active over the last number of months to years and as he has become less active he has become more deconditioned, having more gait instability and more overall weakness. Related Data Home Medications Medication Instructions Recorded Confirmed ASPIRIN (Aspirin EC) 81 mg PO Q DAY #0 11/30/10 03/17/20 latanoprost [Xalatan] 1 drp [facility] QDAY #0 11/23/11 03/17/20 cholecalciferol (vitamin D3) 125 5,000 unit PO DAILY 04/18/19 03/17/20 mcg (5,000 unit) capsule magnesium oxide 800 mg PO DAILY 04/18/19 03/17/20 qskgicqsyhxi-akgithse-fdestw 1 tab PO DAILY 04/18/19 03/17/20 omega-3 fatty acids-fish oil 360 1 cap PO DAILY 04/18/19 03/17/20 mg-1,200 mg capsule potassium chloride 20 mEq 20 meq PO DAILY 04/18/19 03/17/20 tablet,extended release colchicine 0.6 mg tablet 0.6 mg PO BID PRN tab 12/17/19 03/17/20 omeprazole 20 mg capsule,delayed 20 mg PO DAILY 12/17/19 03/17/20 release timolol 0.5 % eye drops 1 drop EYE-BOTH .Q MORNING ml 12/17/19 03/17/20 Previous Rx's Medication Instructions Recorded apixaban 5 mg tablet 5 mg PO BID #60 tab 04/18/19 atorvastatin 40 mg tablet 40 mg PO HS #90 tab 04/18/19 lisinopril 40 mg tablet 40 mg PO DAILY #90 tab 12/17/19 hydrochlorothiazide 25 mg tablet See Rx Instructions .ROUTE 02/26/20 .COMPLEX #45 tablet metoprolol tartrate 100 mg tablet See Rx Instructions .ROUTE 02/26/20 .COMPLEX #180 tablet amlodipine 5 mg tablet 5 mg PO BID #180 tab 03/17/20 Allergies Allergy/AdvReac Type Severity Reaction Status Date / Time No Known Drug Allergies Allergy Verified 03/17/20 10:14 Review of Systems Review of Systems Narrative: Remainder of review of systems including constitutional, ENT, cardiovascular, respiratory, GI, , musculoskeletal, skin, neurologic and psychiatric systems reviewed and are unremarkable except as noted in HPI. 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 Able to give a complete and coherent history. HEENT: Moist mucous membranes, normal sclera with reactive pupils, mild abrasion to the left cheek and angle of the jaw not requiring any suturing Neck: No midline tenderness, supple Respiratory: Lungs are clear to auscultation, no wheezing no rales no rhonchi. Full and symmetrical air movement Cardiac: Regular rate and rhythm no murmurs no bruits Skin: Warm and dry, no rashes Neurologic: Globally weak but Grossly neurologically intact with no obvious asymmetries or abnormalities Extremities: Minor abrasion to the left wrist and right elbow, well perfused Psych: Cooperative, appropriate insight and affect Initial Vital Signs Initial Vital Signs: Vital Signs Temperature 98.4 F 05/28/20 20:30 Pulse Rate 89 05/28/20 20:30 Respiratory Rate 20 05/28/20 20:30 Blood Pressure 156/97 H 05/28/20 20:30 Pulse Oximetry 97 05/28/20 20:30 Course Orders Ordered: ED Orders 05/28/20 20:31 CT head/brain wo con Stat 05/28/20 21:17 Complete Blood Count AUTO DIFF Stat Comprehensive Metabolic Panel Stat 05/28/20 21:42 Urinalysis and Microscopic Stat Vital Signs Vital signs: Vital Signs - 8 hr 05/28/20 22:26 Pulse Rate 90 Respiratory Rate 14 Blood Pressure 120/67 Pulse Oximetry 96 MDM - Fall Medical Records Attestation: I reviewed the patient's medical records. Lab Data Attestation: I reviewed the patient's lab results. Result diagrams: 05/28/20 21:17 05/28/20 21:17 Labs: Lab Results 05/28/20 05/28/20 05/28/20 Range/Units 21:10 21:17 21:17 WBC 7.8 (4.5-11.0) X10^3/uL RBC 4.45 L (4.5-5.9) X10^6/uL Hgb 15.2 (13.5-17.5) g/dL Hct 44.4 (41-53) % MCV 99.8 (80-100) fL MCH 34.2 H (26-34) PG MCHC 34.3 (30-36) % RDW 13.0 (11.6-14.8) % Plt Count 212 (150-400) X10^3/uL Neut % (Auto) 69.3 (50-75) % Lymph % (Auto) 17.4 L (25-40) % [place] % (Auto) 10.3 (3-14) % Eos % (Auto) 2.1 (2-4) % Baso % (Auto) 0.9 (0-2) % Neut # (Auto) 5400 (8110-6374) /uL Lymph # (Auto) 1300 (6289-5162) /uL [place] # (Auto) 800 (0-900) /uL Eos # (Auto) 200 (0-450) /uL Baso # (Auto) 100 (0-100) /uL Sodium 135 L (137-145) mmol/L Potassium 3.6 (3.4-5.1) mmol/L Chloride 97 L (98-107) mmol/L Carbon Dioxide 27 (22-32) mmol/L BUN 14 (9-20) mg/dL Creatinine 1.11 (0.66-1.25) mg/dL Estimated GFR > 60.0 (>60) mL/min BUN/Creatinine Ratio 12.6 (6-22) Glucose 111 H (80-110) mg/dL Calcium 9.9 (8.4-10.2) mg/dL Total Bilirubin 0.6 (0.2-1.3) mg/dL AST 28 (17-59) IU/L ALT 22 (<50) IU/L Alkaline Phosphatase 83 (38-126) U/L Total Protein 7.2 (6.3-8.2) g/dL Albumin 4.2 (3.5-5.0) g/dL Globulin 3.0 (1.7-4.1) g/dL Albumin/Globulin Ratio 1.4 (1.0-2.8) Urine Color Yellow Urine Appearance Clear Urine pH 7.0 (4.5-8.0) Ur Specific [place] 1.010 (1.000-1.035) Urine Protein 2+ H (Negative) Urine Glucose (UA) Negative (Negative) g/dL Urine Ketones Negative (NEGATIVE) Urine Occult Blood Negative (Negative) Urine Nitrate Negative (Negative) Urine Bilirubin Negative (NEGATIVE) Urine Urobilinogen 0.2 (0.2) E.U./dL Ur Leukocyte Esterase Negative (NEGATIVE) Urine RBC 0-1/hpf (0-5/HPF) Urine WBC 0-1/hpf (0-5/HPF) Urine Bacteria None seen (None) Ur Culture Indicated? Cult not indicated Imaging Data CT scan - head: Radiologist's Impression: No acute intracranial findings Dr Em Veloz [facility] Narrative Medical decision making narrative: 80-year-old gentleman with increasing overall decondition, lower extremity weakness gait instability with a topple forward today as he was bending over. As he is on Eliquis, CT scan of the head was obtained that revealed no intracranial hemorrhage or other anomalies. No other significant trauma and he is reassured. We did spend some time talking about overall deconditioning and how this does pose a significant risk to his overall health and risk of falling. Was interested in the idea physical therapy for gait training and strengthening help. Will talk with his primary care doctor about following up on physical therapy. At this time he is safe for discharge home. Discharge Plan Departure Patient Disposition: Home Clinical Impression: Fall Qualifiers: Encounter type: initial encounter Qualified Code(s): W19.XXXA - Unspecified fall, initial encounter Discharge Date/Time: 05/28/20 22:26 Instructions: How to Prevent Falls Activity Restrictions/Additional Instructions: Thank you for coming in today The abrasion on the left side of your jaw will heal nicely. There is no additional treatment that is required. In the emergency room today we did do a CT scan of your brain because of the fall. There is no bleeding on the inside. Lab work was very reassuring with no suggestion of infection that might be compounding your weakness. I do think that overall aging and deconditioning is going to continue to cause problems for you with gait, stability and increase your risk for falling. I would recommend using a walking stick, cane or walker if your walking on uneven surfaces and take extraordinary care when bending over (as you were doing today) Please contact Dr. Plata's office to see if he would be willing to initiate a referral for physical therapy for balance and gait stability as well as overall deconditioning. I am glad that there were no significant findings noted today. I wish you well Prescriptions: No Action ASPIRIN (Aspirin EC) 81 mg PO Q DAY Qty: 0 RF: 0 latanoprost [Xalatan] 0.005 % drops 1 drp [facility] QDAY Qty: 0 RF: 0 hydrochlorothiazide 25 mg tablet See Rx Instructions .ROUTE .COMPLEX Qty: 45 RF: 1 metoprolol tartrate 100 mg tablet See Rx Instructions .ROUTE .COMPLEX Qty: 180 RF: 1 Eliquis 5 mg tablet 5 mg PO BID Qty: 60 RF: 0 atorvastatin 40 mg tablet 40 mg PO HS Qty: 90 RF: 1 potassium chloride 20 mEq tablet extended release 20 meq PO DAILY RF: 0 magnesium oxide 400 mg magnesium tablet 800 mg PO DAILY RF: 0 qswagnepzjko-quuyeypi-oagswe Tablet 1 tab PO DAILY RF: 0 omega-3 fatty acids-fish oil [Fish Oil] 360-1,200 mg capsule 1 cap PO DAILY RF: 0 cholecalciferol (vitamin D3) 5,000 unit capsule 5,000 unit PO DAILY RF: 0 timolol 0.5 % drops 1 drop EYE-BOTH .Q MORNING RF: 0 omeprazole 20 mg capsule,delayed release(DR/EC) 20 mg PO DAILY RF: 0 colchicine 0.6 mg tablet 0.6 mg PO BID PRNRF: 0 lisinopril 40 mg tablet 40 mg PO DAILY Qty: 90 RF: 3 amlodipine 5 mg tablet 5 mg PO BID Qty: 180 RF: 1 Referrals: Shukri Plata MD [Primary Care Provider] -
[2020-05-28 22:26] VITALS: BP 120/67; PULSE 90; RESP 14; O2SAT 96
== END 2020-05-28 22:26 | disposition home or self-care (01) ==
PROVIDERS: Emergency Provider Emergency Medicine; PCP Internal Medicine
DX: S00.81XA Abrasion of other part of head, initial encounter (principal); S09.90XA Unspecified injury of head, initial encounter; I48.91 Unspecified atrial fibrillation; Z79.01 Long term (current) use of anticoagulants; W19.XXXA Unspecified fall, initial encounter
CPT/HCPCS: 36415; 70450; 80053; 81001; 85025; 99284

== ENCOUNTER 2020-10-28 11:15 | Outpatient (RCR) | payer MEDICARE, SELFPAY ==
--- NOTE | 2020-08-12 16:25 | PT.OIE ---
Current Diagnoses Unspecified abnormalities of gait and mobility (08/12/20) Weakness (08/12/20) Past Medical History (Last Reviewed 05/29/20 @ 04:52 by Mary Ellen Hurley MD) Aortic stenosis Bilateral carotid artery disease CAD (coronary atherosclerotic disease) (11/30/10) Chronic gout, unspecified, without tophus (tophi) (11/30/10) Essential (primary) hypertension (02/09/16) GERD without esophagitis Hypercalcemia Hyperglycemia Hyperlipidemia Hyperparathyroidism 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) Ischemic cardiomyopathy Permanent atrial fibrillation Rheumatoid arthritis Visit Care Team Role Provider Type Shukri Plata MD Attending Provider Physician Primary Care Provider Referring Provider Specialty: Internal Medicine Address: [address] [place] [address], [address], [facility] Email: [email or web address] Physical Therapy Initial Evaluation PT-OP-A Visit Information Start: 08/11/20 13:23 Freq: Status: Active Protocol: Document 08/12/20 13:50 [facility] (Rec: 08/12/20 14:32 [facility] [id number]) Out-Patient Physical Therapy Visit Information Visit Information Visit Type Initial Evaluation Visit Note 07/27 Visit Start Time 13:49 Visit Stop Time 14:30 Total Visit Minutes 41 Visit Number 1 Number of GRINDING AND POLISHING LABORER Visits 0 PT-OP-B Current Condition Start: 08/11/20 13:23 Freq: Status: Active Protocol: Document 08/12/20 13:50 [facility] (Rec: 08/12/20 14:32 [facility] [id number]) Current Condition History of Current Condition Onset Date over past year Current Complaints dec balance & LE strength History of Current Condition Pt reports he has a couple falls this year and had never fallen until Jul 2018. He stood up 1x and took 3 steps then fell over. He has had a couple of falls since then too . He is concerned about weakness in the legs and concerned about getting up from the ground after a fall. He does walk the dog several times a day and he goes up/ down the stairs w/hand rails. He feels like he should do it more to strengthen though. In Nov, he had taken dog out for a walk and went to bend over to cone picker dog poop (reprots ground was uneven). He fell to his knees to tree trunk. He was unable to get up d/t nothing to hang on to. He had a couple neighbors help him up . 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 Denies pain Treatment Goals Patient/Caregiver Goals improve balance, LE strength and be able to get up/down from ground w/o holding on to something Personal Factors Other Personal Factors That May Effect Afib, gout (occ flare ups), Therapy/Recovery falls, (checked alcohol abuse- but after discussion pt is a regular drinker ~3 scotches a night but not during day) PT-OP-C Subjective Start: 08/11/20 13:23 Freq: Status: Active Protocol: Document 08/12/20 13:50 [facility] (Rec: 08/12/20 14:32 [facility] [id number]) Patient Questionnaires Lower Extremity Functional Scale LEFS Score 44 PT-OP-D Balance Start: 08/11/20 13:23 Freq: Status: Active Protocol: Document 08/12/20 13:50 [facility] (Rec: 08/12/20 14:32 [facility] [id number]) Balance Tests Gur[place]a Balance Test [place]a Balance Test Score 37 Single Limb Standing Single Limb- Right 0 Single Limb- Left 0 PT-OP-E Functional Tests Start: 08/11/20 13:23 Freq: Status: Active Protocol: Document 08/12/20 13:50 [facility] (Rec: 08/12/20 14:32 [facility] [id number]) Functional Tests 30 Second Sit to Stand Test Score 12 w/heavy arm use Comments [place] chair Dynamic Gait Index (DGI) Score 18 Five Times Sit to Stand Test Score 14 sec w/ ehavy arm use Comments [place] chair Functional Gait Assessment Score 13 PT-OP-G Mobility & Gait Start: 08/11/20 13:23 Freq: Status: Active Protocol: Document 08/12/20 13:50 [facility] (Rec: 08/12/20 14:32 [facility] [id number]) OP Gait Assessment Comments Gait Comments dec push off B w/lat leaning PT-OP-M Strength Start: 08/11/20 13:23 Freq: Status: Active Protocol: Document 08/12/20 13:50 [facility] (Rec: 08/12/20 14:32 [facility] [id number]) Hip Strength Hip Manual Muscle Testing Right Flexion (L2) 3+ Fair+ Abduction 3 Fair External Rotation 3+ Fair+ Left Flexion (L2) 3+ Fair+ Abduction 3+ Fair+ External Rotation 3+ Fair+ Internal Rotation 3+ Fair+ Knee Strength Knee Manual Muscle Testing Right Flexion (S2) 4 Good Extension (L3) 3+ Fair+ Left Flexion (S2) 4- Good- Extension (L3) 4- Good- Ankle/Foot Strength Ankle and Foot Manual Muscle Testing Right Dorsiflexion (L4) 4 Good Plantarflexion (S1) 4 Good Left Dorsiflexion (L4) 4- Good- Plantarflexion (S1) 4- Good- Comments seated PF testing B PT-OP-Q Treatments Start: 08/11/20 13:23 Freq: Status: Active Protocol: Document 08/12/20 13:50 [facility] (Rec: 08/12/20 14:32 [facility] [id number]) Therapeutic Exercises Supine Exercises SLR Side bilateral Reps/Minutes 10 bridge Side bilateral Reps/Minutes 10 x5 sec Standing Exercises sit <>stand Reps/Minutes 10 Comments w/hands PT-OP-T Assessment and Plan Start: 08/11/20 13:23 Freq: Status: Active Protocol: Document 08/12/20 13:50 [facility] (Rec: 08/12/20 14:32 [facility] [id number]) Physical Therapy Assessment Rehab Potential Rehabilitation Potential Good Evaluation Complexity Number of Personal Factors/Comorbidities 3 or More Number of Body Systems Impaired 4 or More Clinical Presentation at Evaluation Evolving Impairments Impairments Activity Tolerance,Balance, Functional Activities, Functional Mobility,Gait, Strength,Transfers Goals strength Short Term Goal (STG) Pt will be indep with HEP STG Duration 09/12/20 dynamic balance Short Term Goal (STG) Pt will improve DGI score to 20/24 to dec risk for falls. STG Duration 09/13/20 Correction Goal (LTG) Pt will improve FGA score to at least 23/30 to show low risk for falls. LTG Duration 10/11/20 GURROLA Short Term Goal (STG) Pt will imrpove GURROLA balance score to at least 45 to be less likely to fall and safe ambulator w/o AD. STG Duration 09/13/20 Steam Fitter Supervisor Maintenance Goal (LTG) Pt will improve GURROLA score to 50 in order to show improved safety with outdoor/community ambulation. LTG Duration 10/11/20 transfers Short Term Goal (STG) Pt will be able to do sit to stand without UE use. STG Duration 09/13/20 Correction Goal (LTG) Pt will be able to get up/down from ground without use of outside support. LTG Duration 10/11/20 sit to stand Short Term Goal (STG) Pt will be able to do 5x sit to folded towel machine operator 12 sec w/ UE use to show improved stability & strength STG Duration 09/12/20 Steam Fitter Supervisor Maintenance Goal (LTG) Pt will be able to do 5x sit to folded towel machine operator 12 sec w/o UE use to show improved stability & strength LTG Duration 10/10/20 Assessment Summary Assessment Pt presents w/decreased balance and LE strength as evidenced by standardized testing & MMT with increased risk for falls based on GURROLA, DGI and FGA. He has dec ability to get up/down from chair without signficant UE use and has had multipel falls over the past year with issues getting up if he does not have UE support. He would benefit from skilled PT to work on overall LE strength, functional ability w/up/down from chairs and ground and balance. Physical Therapy Plan Frequency and Duration Frequency of Treatment 2x/Week Duration of Treatment 2 months Plan of Care Start Date 08/12/20 Plan of Care End Date 10/10/20 Therapeutic Interventions Therapeutic Interventions Aquatic Therapy,Balance Training,Gait Training,Home Exercise Program,Manual Therapy,Neuromuscular Re- education,Patient/Caregiver Education,Self-Care/Home Management,Taping,Therapeutic Activities,Therapeutic Exercises Next Visit Focus/Plan Next Note Type Treatment Note Next Visit Plan review HEP, balance board, seated stepper, leg press, standing balance
--- NOTE | 2020-08-12 16:25 | PT.OPPOC ---
Physical, Occupational & Speech Therapy At [facility] Current Diagnoses Unspecified abnormalities of gait and mobility (08/12/20) Weakness (08/12/20) Visit Care Team Role Provider Type Shukri Plata MD Attending Provider Physician Primary Care Provider Referring Provider Specialty: Internal Medicine Address: [address] [place] [address], [facility] Email: [email or web address] Plan Of Care PT-OP-T Assessment and Plan Start: 08/11/20 13:23 Freq: Status: Active Protocol: Document 08/12/20 13:50 [facility] (Rec: 08/12/20 14:32 [facility] [id number]) Physical Therapy Assessment Rehab Potential Rehabilitation Potential Good Evaluation Complexity Number of Personal Factors/Comorbidities 3 or More Number of Body Systems Impaired 4 or More Clinical Presentation at Evaluation Evolving Impairments Impairments Activity Tolerance,Balance, Functional Activities, Functional Mobility,Gait, Strength,Transfers Goals strength Short Term Goal (STG) Pt will be indep with HEP STG Duration 09/12/20 dynamic balance Short Term Goal (STG) Pt will improve DGI score to 20/24 to dec risk for falls. STG Duration 09/13/20 Hand Straightener Goal (LTG) Pt will improve FGA score to at least 23/30 to show low risk for falls. LTG Duration 10/11/20 GURROLA Short Term Goal (STG) Pt will imrpove GURROLA balance score to at least 45 to be less likely to fall and safe ambulator w/o AD. STG Duration 09/13/20 Custodial Goal (LTG) Pt will improve GURROLA score to 50 in order to show improved safety with outdoor/community ambulation. LTG Duration 10/11/20 transfers Short Term Goal (STG) Pt will be able to do sit to stand without UE use. STG Duration 09/13/20 Custodial Goal (LTG) Pt will be able to get up/down from ground without use of outside support. LTG Duration 10/11/20 sit to stand Short Term Goal (STG) Pt will be able to do 5x sit to nursing service director 12 sec w/ UE use to show improved stability & strength STG Duration 09/12/20 Hand Straightener Goal (LTG) Pt will be able to do 5x sit to nursing service director 12 sec w/o UE use to show improved stability & strength LTG Duration 10/10/20 Assessment Summary Assessment Pt presents w/decreased balance and LE strength as evidenced by standardized testing & MMT with increased risk for falls based on GURROLA, DGI and FGA. He has dec ability to get up/down from chair without signficant UE use and has had multipel falls over the past year with issues getting up if he does not have UE support. He would benefit from skilled PT to work on overall LE strength, functional ability w/up/down from chairs and ground and balance. Physical Therapy Plan Frequency and Duration Frequency of Treatment 2x/Week Duration of Treatment 2 months Plan of Care Start Date 08/12/20 Plan of Care End Date 10/10/20 Therapeutic Interventions Therapeutic Interventions Aquatic Therapy,Balance Training,Gait Training,Home Exercise Program,Manual Therapy,Neuromuscular Re- education,Patient/Caregiver Education,Self-Care/Home Management,Taping,Therapeutic Activities,Therapeutic Exercises Next Visit Focus/Plan Next Note Type Treatment Note Next Visit Plan review HEP, balance board, seated stepper, leg press, standing balance Plan of Care Dates Plan of Care Start Date 08/12/20 Plan of Care End Date 10/10/20 Electronically Signed by: Yvonne Cantu, PT 08/13/20 4422 Please Sign and Return: I have reviewed this Plan of Care and certify that the skilled therapy services above are required to meet the patient?s needs. Physician Signature Date Printed Name and Credentials Clinical Instructor Signature Printed Name and Credentials
--- NOTE | 2020-08-14 14:28 | PT.OTN ---
Current Diagnoses Unspecified abnormalities of gait and mobility (08/14/20) Weakness (08/14/20) Physical Therapy Treatment Note PT-OP-A Visit Information Start: 08/11/20 13:23 Freq: Status: Active Protocol: Document 08/14/20 13:41 [facility] (Rec: 08/14/20 14:22 [facility] [id number]) Out-Patient Physical Therapy Visit Information Visit Information Visit Type Treatment Note Visit Note 08/27 Visit Start Time 13:47 Visit Stop Time 14:25 Total Visit Minutes 38 Visit Number 2 Number of RECORDS MANAGEMENT SPECIALIST Visits 0 PT-OP-B Current Condition Start: 08/11/20 13:23 Freq: Status: Active Protocol: Document 08/12/20 13:50 [facility] (Rec: 08/12/20 14:32 [facility] [id number]) Current Condition History of Current Condition Onset Date over past year Current Complaints dec balance & LE strength History of Current Condition Pt reports he has a couple falls this year and had never fallen until Jul 2018. He stood up 1x and took 3 steps then fell over. He has had a couple of falls since then too . He is concerned about weakness in the legs and concerned about getting up from the ground after a fall. He does walk the dog several times a day and he goes up/ down the stairs w/hand rails. He feels like he should do it more to strengthen though. In Nov, he had taken dog out for a walk and went to bend over to picker box operator dog poop (reprots ground was uneven). He fell to his knees to tree trunk. He was unable to get up d/t nothing to hang on to. He had a couple neighbors help him up . 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 Denies pain Treatment Goals Patient/Caregiver Goals improve balance, LE strength and be able to get up/down from ground w/o holding on to something Personal Factors Other Personal Factors That May Effect Afib, gout (occ flare ups), Therapy/Recovery falls, (checked alcohol abuse- but after discussion pt is a regular drinker ~3 scotches a night but not during day) PT-OP-C Subjective Start: 08/11/20 13:23 Freq: Status: Active Protocol: Document 08/14/20 13:41 [facility] (Rec: 08/14/20 14:22 [facility] [id number]) OP-PT Subjective Patient Comments Patient Comments Pt reports being wiped out after IE PT-OP-D Balance Start: 08/11/20 13:23 Freq: Status: Active Protocol: Document 08/12/20 13:50 [facility] (Rec: 08/12/20 14:32 [facility] [id number]) Balance Tests Gurrola Balance Test Gurrola Balance Test Score 37 Single Limb Standing Single Limb- Right 0 Single Limb- Left 0 PT-OP-E Functional Tests Start: 08/11/20 13:23 Freq: Status: Active Protocol: Document 08/12/20 13:50 [facility] (Rec: 08/12/20 14:32 [facility] [id number]) Functional Tests 30 Second Sit to Stand Test Score 12 w/heavy arm use Comments [place] chair Dynamic Gait Index (DGI) Score 18 Five Times Sit to Stand Test Score 14 sec w/ ehavy arm use Comments [place] chair Functional Gait Assessment Score 13 PT-OP-G Mobility & Gait Start: 08/11/20 13:23 Freq: Status: Active Protocol: Document 08/12/20 13:50 [facility] (Rec: 08/12/20 14:32 [facility] [id number]) OP Gait Assessment Comments Gait Comments dec push off B w/lat leaning PT-OP-M Strength Start: 08/11/20 13:23 Freq: Status: Active Protocol: Document 08/12/20 13:50 [facility] (Rec: 08/12/20 14:32 [facility] [id number]) Hip Strength Hip Manual Muscle Testing Right Flexion (L2) 3+ Fair+ Abduction 3 Fair External Rotation 3+ Fair+ Left Flexion (L2) 3+ Fair+ Abduction 3+ Fair+ External Rotation 3+ Fair+ Internal Rotation 3+ Fair+ Knee Strength Knee Manual Muscle Testing Right Flexion (S2) 4 Good Extension (L3) 3+ Fair+ Left Flexion (S2) 4- Good- Extension (L3) 4- Good- Ankle/Foot Strength Ankle and Foot Manual Muscle Testing Right Dorsiflexion (L4) 4 Good Plantarflexion (S1) 4 Good Left Dorsiflexion (L4) 4- Good- Plantarflexion (S1) 4- Good- Comments seated PF testing B PT-OP-Q Treatments Start: 08/11/20 13:23 Freq: Status: Active Protocol: Document 08/14/20 13:41 [facility] (Rec: 08/14/20 14:22 [facility] [id number]) Cardio Equipment Recumbent Stepper (Sci-Fit) Duration (Minutes) 6 Resistance 2 Seat Position 13 Gym Equipment Shuttle Recovery Bilateral Squats Resistance 75# Shuttle Recovery Platform Stable Reps/Time 2x12 Shuttle Balance blue clips Comments fwd & side: WBOS fwd: staggered stance B & NBOS Therapeutic Exercises Supine Exercises hip ER Side bilateral Equipment Used L2 Reps/Minutes 10x2 SLR Side bilateral Reps/Minutes 12 bridge Side bilateral Reps/Minutes 12 x5 sec Sidelying Exercises clamshell Side bilateral Reps/Minutes 10 Standing Exercises resisted walk Standing Exercise Name fwd/back Side bilateral Equipment Used yellow Reps/Minutes 20ft side step Side bilateral Equipment Used yellow Reps/Minutes 20ft sit <>stand Reps/Minutes 10 Comments w/hands Neuro Re-Education Treatment Balance Activities hurdles Details over 6 hurdles reciprocally fwd Reps/Duration 6x fwd, 2x B side Comments 1 hand on rail Self-Care/Home Management Treatment Education Other Education inc H2O intake, that mm soreness is normal after inc activity PT-OP-T Assessment and Plan Start: 08/11/20 13:23 Freq: Status: Active Protocol: Document 08/14/20 13:41 [facility] (Rec: 08/14/20 14:22 [facility] [id number]) Physical Therapy Assessment Goals strength Short Term Goal (STG) Pt will be indep with HEP STG Duration 09/12/20 dynamic balance Short Term Goal (STG) Pt will improve DGI score to 20/24 to dec risk for falls. STG Duration 09/13/20 [facility] Goal (LTG) Pt will improve FGA score to at least 23/30 to show low risk for falls. LTG Duration 10/11/20 GURROLA Short Term Goal (STG) Pt will imrpove GURROLA balance score to at least 45 to be less likely to fall and safe ambulator w/o AD. STG Duration 09/13/20 [facility] Goal (LTG) Pt will improve GURROLA score to 50 in order to show improved safety with outdoor/community ambulation. LTG Duration 10/11/20 transfers Short Term Goal (STG) Pt will be able to do sit to stand without UE use. STG Duration 09/13/20 [facility] Goal (LTG) Pt will be able to get up/down from ground without use of outside support. LTG Duration 10/11/20 sit to stand Short Term Goal (STG) Pt will be able to do 5x sit to linotype operator 12 sec w/ UE use to show improved stability & strength STG Duration 09/12/20 Product Scientist Goal (LTG) Pt will be able to do 5x sit to linotype operator 12 sec w/o UE use to show improved stability & strength LTG Duration 10/10/20 Assessment Summary Assessment Pt did require frequent touches to rail when on balance board and required to start w/both hands on hand holds and slowly let go. Required occ rest breaks and is fatigued by session Physical Therapy Plan Frequency and Duration Frequency of Treatment 2x/Week Duration of Treatment 2 months Plan of Care Start Date 08/12/20 Plan of Care End Date 10/10/20 Next Visit Focus/Plan Next Note Type Treatment Note Next Visit Plan progress balance and exercises
--- NOTE | 2020-08-22 12:48 | PT.OTN ---
Current Diagnoses Unspecified abnormalities of gait and mobility (08/22/20) Weakness (08/22/20) Physical Therapy Treatment Note PT-OP-A Visit Information Start: 08/11/20 13:23 Freq: Status: Active Protocol: Document 08/22/20 12:06 [facility] (Rec: 08/22/20 12:48 [facility] [id number]) Out-Patient Physical Therapy Visit Information Visit Information Visit Type Treatment Note Visit Note 09/24 Visit Start Time 12:00 Visit Stop Time 12:42 Total Visit Minutes 42 Visit Number 3 Number of AUTOMATIC DRILL OPERATOR Visits 1 PT-OP-B Current Condition Start: 08/11/20 13:23 Freq: Status: Active Protocol: Document 08/12/20 13:50 [facility] (Rec: 08/12/20 14:32 [facility] [id number]) Current Condition History of Current Condition Onset Date over past year Current Complaints dec balance & LE strength History of Current Condition Pt reports he has a couple falls this year and had never fallen until Jul 2018. He stood up 1x and took 3 steps then fell over. He has had a couple of falls since then too . He is concerned about weakness in the legs and concerned about getting up from the ground after a fall. He does walk the dog several times a day and he goes up/ down the stairs w/hand rails. He feels like he should do it more to strengthen though. In Nov, he had taken dog out for a walk and went to bend over to scrap picker dog poop (reprots ground was uneven). He fell to his knees to tree trunk. He was unable to get up d/t nothing to hang on to. He had a couple neighbors help him up . 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 Denies pain Treatment Goals Patient/Caregiver Goals improve balance, LE strength and be able to get up/down from ground w/o holding on to something Personal Factors Other Personal Factors That May Effect Afib, gout (occ flare ups), Therapy/Recovery falls, (checked alcohol abuse- but after discussion pt is a regular drinker ~3 scotches a night but not during day) PT-OP-C Subjective Start: 08/11/20 13:23 Freq: Status: Active Protocol: Document 08/22/20 12:06 [facility] (Rec: 08/22/20 12:48 [place] [id number]) OP-PT Subjective Patient Comments Patient Comments Pt reports nothing new since last visit. PT-OP-D Balance Start: 08/11/20 13:23 Freq: Status: Active Protocol: Document 08/12/20 13:50 [facility] (Rec: 08/12/20 14:32 [facility] [id number]) Balance Tests Gurrola Balance Test Gurrola Balance Test Score 37 Single Limb Standing Single Limb- Right 0 Single Limb- Left 0 PT-OP-E Functional Tests Start: 08/11/20 13:23 Freq: Status: Active Protocol: Document 08/12/20 13:50 [facility] (Rec: 08/12/20 14:32 [facility] [id number]) Functional Tests 30 Second Sit to Stand Test Score 12 w/heavy arm use Comments [place]a chair Dynamic Gait Index (DGI) Score 18 Five Times Sit to Stand Test Score 14 sec w/ ehavy arm use Comments [place]a chair Functional Gait Assessment Score 13 PT-OP-G Mobility & Gait Start: 08/11/20 13:23 Freq: Status: Active Protocol: Document 08/12/20 13:50 [facility] (Rec: 08/12/20 14:32 [facility] [id number]) OP Gait Assessment Comments Gait Comments dec push off B w/lat leaning PT-OP-M Strength Start: 08/11/20 13:23 Freq: Status: Active Protocol: Document 08/12/20 13:50 [facility] (Rec: 08/12/20 14:32 [facility] [id number]) Hip Strength Hip Manual Muscle Testing Right Flexion (L2) 3+ Fair+ Abduction 3 Fair External Rotation 3+ Fair+ Left Flexion (L2) 3+ Fair+ Abduction 3+ Fair+ External Rotation 3+ Fair+ Internal Rotation 3+ Fair+ Knee Strength Knee Manual Muscle Testing Right Flexion (S2) 4 Good Extension (L3) 3+ Fair+ Left Flexion (S2) 4- Good- Extension (L3) 4- Good- Ankle/Foot Strength Ankle and Foot Manual Muscle Testing Right Dorsiflexion (L4) 4 Good Plantarflexion (S1) 4 Good Left Dorsiflexion (L4) 4- Good- Plantarflexion (S1) 4- Good- Comments seated PF testing B PT-OP-Q Treatments Start: 08/11/20 13:23 Freq: Status: Active Protocol: Document 08/22/20 12:06 [facility] (Rec: 08/22/20 12:48 [facility] [id number]) Cardio Equipment Recumbent Stepper (Sci-Fit) Duration (Minutes) 6 Resistance 2 Seat Position 13 Gym Equipment Shuttle Balance blue clips Comments fwd: WBOS/NBOS with EO/EC side: WBOS/NBOS Therapeutic Exercises Supine Exercises SLR Side bilateral Reps/Minutes 10 bridge Side bilateral Reps/Minutes 2x10 x5 sec Sidelying Exercises clamshell Side bilateral Equipment Used TB #2 Reps/Minutes 10 Standing Exercises side step Side bilateral Equipment Used yellow Reps/Minutes 20ft sit <>stand Reps/Minutes 10 Comments w/hands Neuro Re-Education Treatment Balance Activities hurdles Details over 6 hurdles reciprocally fwd Reps/Duration 6x fwd, 4x B side Comments 5# ankle weights Self-Care/Home Management Treatment Education Other Education Discussed what pt would like to get out of therapy sessions . Pt states, I would like to get stronger, especially on my left leg. PT-OP-T Assessment and Plan Start: 08/11/20 13:23 Freq: Status: Active Protocol: Document 08/22/20 12:06 [facility] (Rec: 08/22/20 12:48 [facility] [id number]) Physical Therapy Assessment Goals strength Short Term Goal (STG) Pt will be indep with HEP STG Duration 09/12/20 dynamic balance Short Term Goal (STG) Pt will improve DGI score to 20/24 to dec risk for falls. STG Duration 09/13/20 [facility] Goal (LTG) Pt will improve FGA score to at least 23/30 to show low risk for falls. LTG Duration 10/11/20 GURROLA Short Term Goal (STG) Pt will imrpove GURROLA balance score to at least 45 to be less likely to fall and safe ambulator w/o AD. STG Duration 09/13/20 Elevator Pilot Goal (LTG) Pt will improve GURROLA score to 50 in order to show improved safety with outdoor/community ambulation. LTG Duration 10/11/20 transfers Short Term Goal (STG) Pt will be able to do sit to stand without UE use. STG Duration 09/13/20 Elevator Pilot Goal (LTG) Pt will be able to get up/down from ground without use of outside support. LTG Duration 10/11/20 sit to stand Short Term Goal (STG) Pt will be able to do 5x sit to inspector tool 12 sec w/ UE use to show improved stability & strength STG Duration 09/12/20 Elevator Pilot Goal (LTG) Pt will be able to do 5x sit to inspector tool 12 sec w/o UE use to show improved stability & strength LTG Duration 10/10/20 Assessment Summary Assessment Pt was able to hover hands over bar with 5# ankle weights during gait training with hurdles today when fwd stepping. When lateral stepping, pt needed single hand on rail. Pt requires short rest breaks throughout session. Pt would benefit from skilled therapy to increase strength and balance to avoid falls. Physical Therapy Plan Frequency and Duration Frequency of Treatment 2x/Week Duration of Treatment 2 months Plan of Care Start Date 08/12/20 Plan of Care End Date 10/10/20 Therapeutic Interventions Therapeutic Interventions Aquatic Therapy,Balance Training,Gait Training,Home Exercise Program,Manual Therapy,Neuromuscular Re- education,Patient/Caregiver Education,Self-Care/Home Management,Taping,Therapeutic Activities,Therapeutic Exercises Next Visit Focus/Plan Next Note Type Treatment Note Next Visit Plan work on picking up items off cones on floor, tandem stance for balance; continue progressing balance and strengthening exercises.
--- NOTE | 2020-08-25 16:56 | PT.OTN ---
Current Diagnoses Unspecified abnormalities of gait and mobility (08/25/20) Weakness (08/25/20) Physical Therapy Treatment Note PT-OP-A Visit Information Start: 08/11/20 13:23 Freq: Status: Active Protocol: Document 08/25/20 11:55 [facility] (Rec: 08/25/20 12:42 [facility] [id number]) Out-Patient Physical Therapy Visit Information Visit Information Visit Type Treatment Note Visit Note 10/25 Visit Start Time 11:54 Visit Stop Time 12:35 Total Visit Minutes 41 Visit Number 4 Number of TRAIN ATTENDANT Visits 2 PT-OP-B Current Condition Start: 08/11/20 13:23 Freq: Status: Active Protocol: Document 08/12/20 13:50 [facility] (Rec: 08/12/20 14:32 [facility] [id number]) Current Condition History of Current Condition Onset Date over past year Current Complaints dec balance & LE strength History of Current Condition Pt reports he has a couple falls this year and had never fallen until Jul 2018. He stood up 1x and took 3 steps then fell over. He has had a couple of falls since then too . He is concerned about weakness in the legs and concerned about getting up from the ground after a fall. He does walk the dog several times a day and he goes up/ down the stairs w/hand rails. He feels like he should do it more to strengthen though. In Nov, he had taken dog out for a walk and went to bend over to flower picker dog poop (reprots ground was uneven). He fell to his knees to tree trunk. He was unable to get up d/t nothing to hang on to. He had a couple neighbors help him up . 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 Denies pain Treatment Goals Patient/Caregiver Goals improve balance, LE strength and be able to get up/down from ground w/o holding on to something Personal Factors Other Personal Factors That May Effect Afib, gout (occ flare ups), Therapy/Recovery falls, (checked alcohol abuse- but after discussion pt is a regular drinker ~3 scotches a night but not during day) PT-OP-C Subjective Start: 08/11/20 13:23 Freq: Status: Active Protocol: Document 08/25/20 11:55 [facility] (Rec: 08/25/20 12:42 [facility] [id number]) OP-PT Subjective Patient Comments Patient Comments Pt felt fine after last tx session and has nothing new to report. PT-OP-D Balance Start: 08/11/20 13:23 Freq: Status: Active Protocol: Document 08/12/20 13:50 [facility] (Rec: 08/12/20 14:32 [facility] [id number]) Balance Tests Gurrola Balance Test Gurrola Balance Test Score 37 Single Limb Standing Single Limb- Right 0 Single Limb- Left 0 PT-OP-E Functional Tests Start: 08/11/20 13:23 Freq: Status: Active Protocol: Document 08/12/20 13:50 [facility] (Rec: 08/12/20 14:32 [facility] [id number]) Functional Tests 30 Second Sit to Stand Test Score 12 w/heavy arm use Comments [place]a chair Dynamic Gait Index (DGI) Score 18 Five Times Sit to Stand Test Score 14 sec w/ ehavy arm use Comments [place]a chair Functional Gait Assessment Score 13 PT-OP-G Mobility & Gait Start: 08/11/20 13:23 Freq: Status: Active Protocol: Document 08/12/20 13:50 [facility] (Rec: 08/12/20 14:32 [facility] [id number]) OP Gait Assessment Comments Gait Comments dec push off B w/lat leaning PT-OP-M Strength Start: 08/11/20 13:23 Freq: Status: Active Protocol: Document 08/12/20 13:50 [facility] (Rec: 08/12/20 14:32 [facility] [id number]) Hip Strength Hip Manual Muscle Testing Right Flexion (L2) 3+ Fair+ Abduction 3 Fair External Rotation 3+ Fair+ Left Flexion (L2) 3+ Fair+ Abduction 3+ Fair+ External Rotation 3+ Fair+ Internal Rotation 3+ Fair+ Knee Strength Knee Manual Muscle Testing Right Flexion (S2) 4 Good Extension (L3) 3+ Fair+ Left Flexion (S2) 4- Good- Extension (L3) 4- Good- Ankle/Foot Strength Ankle and Foot Manual Muscle Testing Right Dorsiflexion (L4) 4 Good Plantarflexion (S1) 4 Good Left Dorsiflexion (L4) 4- Good- Plantarflexion (S1) 4- Good- Comments seated PF testing B PT-OP-Q Treatments Start: 08/11/20 13:23 Freq: Status: Active Protocol: Document 08/25/20 11:55 [facility] (Rec: 08/25/20 12:42 [facility] [id number]) Cardio Equipment Recumbent Stepper (Sci-Fit) Duration (Minutes) 6 Resistance 2 Seat Position 13 Other 0.45 Gym Equipment Shuttle Recovery Bilateral Squats Resistance 75#, 87# Shuttle Recovery Platform Stable Reps/Time 2x12 Shuttle Balance blue clips Comments Fwd: WBOS/NBOS head turns R/L and up/down Side: WBOS, NBOS with single hand support Therapeutic Exercises Standing Exercises sit <>stand Standing Exercise Name working on not relying as heavily on UEs Reps/Minutes 2x6 Comments 6 foam pad on chair Therapeutic Activity Therapeutic Activity Picking up Name picking up objects from floor Comments 1. picking up ontiveros bags from cones 2. picking up ontiveros bags from floor Neuro Re-Education Treatment Balance Activities blue foam Details balance Reps/Duration 2 min Comments 1. WBOS 2. NBOS Tandem Stance Details bilateral Reps/Duration x60 sec Comments 1. tandem for balance 2. straddle stance practicing lifting toe then heel PT-OP-T Assessment and Plan Start: 08/11/20 13:23 Freq: Status: Active Protocol: Document 08/25/20 11:55 [facility] (Rec: 08/25/20 12:42 [facility] [id number]) Physical Therapy Assessment Goals strength Short Term Goal (STG) Pt will be indep with HEP STG Duration 09/12/20 dynamic balance Short Term Goal (STG) Pt will improve DGI score to 20/24 to dec risk for falls. STG Duration 09/13/20 Snf Goal (LTG) Pt will improve FGA score to at least 23/30 to show low risk for falls. LTG Duration 10/11/20 GURROLA Short Term Goal (STG) Pt will imrpove GURROLA balance score to at least 45 to be less likely to fall and safe ambulator w/o AD. STG Duration 09/13/20 Horse Exerciser Goal (LTG) Pt will improve GURROLA score to 50 in order to show improved safety with outdoor/community ambulation. LTG Duration 10/11/20 transfers Short Term Goal (STG) Pt will be able to do sit to stand without UE use. STG Duration 09/13/20 Snf Goal (LTG) Pt will be able to get up/down from ground without use of outside support. LTG Duration 10/11/20 sit to stand Short Term Goal (STG) Pt will be able to do 5x sit to customer supply coordinator 12 sec w/ UE use to show improved stability & strength STG Duration 09/12/20 Snf Goal (LTG) Pt will be able to do 5x sit to customer supply coordinator 12 sec w/o UE use to show improved stability & strength LTG Duration 10/10/20 Assessment Summary Assessment Pt able to increase weight from 75 to 87# on shuttle recovery today. He did better not tapping hands to bar during balance work. During sit<>stands, pt was able to complete 2 sets of 6 with foam pad on chair; first set using UEs on knees to help stand and second set no UE assistance. Pt was happy at end of session stating today was challenging but I feel my strength is going to improve quickly. Physical Therapy Plan Frequency and Duration Frequency of Treatment 2x/Week Duration of Treatment 2 months Plan of Care Start Date 08/12/20 Plan of Care End Date 10/10/20 Therapeutic Interventions Therapeutic Interventions Aquatic Therapy,Balance Training,Gait Training,Home Exercise Program,Manual Therapy,Neuromuscular Re- education,Patient/Caregiver Education,Self-Care/Home Management,Taping,Therapeutic Activities,Therapeutic Exercises Next Visit Focus/Plan Next Note Type Treatment Note Next Visit Plan Continue progressing balanance and strength exercises. Review HEP and add one more exercise to HEP next session.
--- NOTE | 2020-09-03 11:02 | PT.OTN ---
Current Diagnoses Unspecified abnormalities of gait and mobility (09/03/20) Weakness (09/03/20) Physical Therapy Treatment Note PT-OP-A Visit Information Start: 08/11/20 13:23 Freq: Status: Active Protocol: Document 09/03/20 10:19 MA (Rec: 09/03/20 11:01 MA [id number]) Out-Patient Physical Therapy Visit Information Visit Information Visit Type Treatment Note Visit Start Time 10:15 Visit Stop Time 10:55 Total Visit Minutes 40 Visit Number 5 Number of TRAVERSE ROD ASSEMBLER Visits 3 PT-OP-B Current Condition Start: 08/11/20 13:23 Freq: Status: Active Protocol: Document 08/12/20 13:50 LR (Rec: 08/12/20 14:32 [facility] [id number]) Current Condition History of Current Condition Onset Date over past year Current Complaints dec balance & LE strength History of Current Condition Pt reports he has a couple falls this year and had never fallen until Jul 2018. He stood up 1x and took 3 steps then fell over. He has had a couple of falls since then too . He is concerned about weakness in the legs and concerned about getting up from the ground after a fall. He does walk the dog several times a day and he goes up/ down the stairs w/hand rails. He feels like he should do it more to strengthen though. 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 He fell to his knees to tree trunk. He was unable to get up d/t nothing to hang on to. He had a couple neighbors help him up . 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 Denies pain Treatment Goals Patient/Caregiver Goals improve balance, LE strength and be able to get up/down from ground w/o holding on to something Personal Factors Other Personal Factors That May Effect Afib, gout (occ flare ups), Therapy/Recovery falls, (checked alcohol abuse- but after discussion pt is a regular drinker ~3 scotches a night but not during day) PT-OP-C Subjective Start: 08/11/20 13:23 Freq: Status: Active Protocol: Document 09/03/20 10:19 MA (Rec: 09/03/20 11:01 MA [id number]) OP-PT Subjective Patient Comments Patient Comments Pt was a little tired after last session but was not sore at all. PT-OP-D Balance Start: 08/11/20 13:23 Freq: Status: Active Protocol: Document 08/12/20 13:50 LR (Rec: 08/12/20 14:32 [facility] [id number]) Balance Tests Gurrola Balance Test Gurrola Balance Test Score 37 Single Limb Standing Single Limb- Right 0 Single Limb- Left 0 PT-OP-E Functional Tests Start: 08/11/20 13:23 Freq: Status: Active Protocol: Document 09/03/20 11:01 MA (Rec: 09/03/20 11:02 MA [id number]) Functional Tests Dynamic Gait Index (DGI) Score 19 PT-OP-G Mobility & Gait Start: 08/11/20 13:23 Freq: Status: Active Protocol: Document 08/12/20 13:50 LR (Rec: 08/12/20 14:32 [facility] [id number]) OP Gait Assessment Comments Gait Comments dec push off B w/lat leaning PT-OP-M Strength Start: 08/11/20 13:23 Freq: Status: Active Protocol: Document 08/12/20 13:50 [facility] (Rec: 08/12/20 14:32 [facility] [id number]) Hip Strength Hip Manual Muscle Testing Right Flexion (L2) 3+ Fair+ Abduction 3 Fair External Rotation 3+ Fair+ Left Flexion (L2) 3+ Fair+ Abduction 3+ Fair+ External Rotation 3+ Fair+ Internal Rotation 3+ Fair+ Knee Strength Knee Manual Muscle Testing Right Flexion (S2) 4 Good Extension (L3) 3+ Fair+ Left Flexion (S2) 4- Good- Extension (L3) 4- Good- Ankle/Foot Strength Ankle and Foot Manual Muscle Testing Right Dorsiflexion (L4) 4 Good Plantarflexion (S1) 4 Good Left Dorsiflexion (L4) 4- Good- Plantarflexion (S1) 4- Good- Comments seated PF testing B PT-OP-Q Treatments Start: 08/11/20 13:23 Freq: Status: Active Protocol: Document 09/03/20 10:19 MA (Rec: 09/03/20 11:01 MA [id number]) Cardio Equipment Recumbent Elliptical (Biodex) Duration (Minutes) 6 Resistance 3 Seat Position 11 Therapeutic Exercises Supine Exercises SLR Side bilateral Reps/Minutes 10 bridge Side bilateral Reps/Minutes 2x10 Sidelying Exercises clamshell Side bilateral Reps/Minutes 2x10 Standing Exercises Hip ext Standing Exercise Name Hip extension Resistance yellow band Reps/Minutes 2x10 Step Ups Standing Exercise Name fwd & lateral Side bilateral Equipment Used rail used for balance Reps/Minutes 10x ea side step Side bilateral Equipment Used yellow Reps/Minutes 20ft sit <>stand Reps/Minutes 5x Comments took 10 second with use of UEs Neuro Re-Education Treatment Balance Activities blue foam Details balance Reps/Duration 2 min Comments SL & double leg Tandem Stance Details bilateral Reps/Duration x10 Comments straddle stance practicing lifting toe then heel PT-OP-T Assessment and Plan Start: 08/11/20 13:23 Freq: Status: Active Protocol: Document 09/03/20 10:19 MA (Rec: 09/03/20 11:01 MA [id number]) Physical Therapy Assessment Goals strength Short Term Goal (STG) Pt will be indep with HEP 09/03/20 GOAL MET STG Duration Achieved dynamic balance Short Term Goal (STG) Pt will improve DGI score to 20/24 to dec risk for falls. 09/03/20 -Progressing STG Duration 09/13/20 Surgical Corsetier Goal (LTG) Pt will improve FGA score to at least 23/30 to show low risk for falls. LTG Duration 10/11/20 GURROLA Short Term Goal (STG) Pt will imrpove GURROLA balance score to at least 45 to be less likely to fall and safe ambulator w/o AD. STG Duration 09/13/20 Surgical Corsetier Goal (LTG) Pt will improve GURROLA score to 50 in order to show improved safety with outdoor/community ambulation. LTG Duration 10/11/20 transfers Short Term Goal (STG) Pt will be able to do sit to stand without UE use. 09/03/20-GOAL MET STG Duration ACHIEVED Alf Goal (LTG) Pt will be able to get up/down from ground without use of outside support. LTG Duration 10/11/20 sit to stand Short Term Goal (STG) Pt will be able to do 5x sit to superintendent production 12 sec w/ UE use to show improved stability & strength 09/03/20-GOAL MET - 10 sec for 5 sit<>stands with UE use STG Duration ACHIEVED Surgical Corsetier Goal (LTG) Pt will be able to do 5x sit to superintendent production 12 sec w/o UE use to show improved stability & strength LTG Duration 10/10/20 Assessment Summary Assessment Pt was able to complete 5 sit< >stands using UEs in 10 seconds as well as a single sit<>stand without use of UEs to complete two short term goals. His DGI score improved from 18 to 19/24 with pt continuing to have some difficulty with horizontal head turns and changes in speed. Physical Therapy Plan Frequency and Duration Frequency of Treatment 2x/Week Duration of Treatment 2 months Plan of Care Start Date 08/12/20 Plan of Care End Date 10/10/20 Therapeutic Interventions Therapeutic Interventions Aquatic Therapy,Balance Training,Gait Training,Home Exercise Program,Manual Therapy,Neuromuscular Re- education,Patient/Caregiver Education,Self-Care/Home Management,Taping,Therapeutic Activities,Therapeutic Exercises Next Visit Focus/Plan Next Note Type Treatment Note Next Visit Plan STG of Gurrola Balance Test if time; contine progressing balance and strength exercises .
--- NOTE | 2020-09-15 12:00 | PT.OTN ---
Current Diagnoses Unspecified abnormalities of gait and mobility (09/15/20) Weakness (09/15/20) Physical Therapy Treatment Note PT-OP-A Visit Information Start: 08/11/20 13:23 Freq: Status: Active Protocol: Document 09/15/20 11:25 [facility] (Rec: 09/15/20 12:00 [facility] [id number]) Out-Patient Physical Therapy Visit Information Visit Information Visit Type Treatment Note Visit Start Time 11:20 Visit Stop Time 11:58 Total Visit Minutes 38 Visit Number 6 Number of PATENT DRAFTER Visits 0 PT-OP-B Current Condition Start: 08/11/20 13:23 Freq: Status: Active Protocol: Document 08/12/20 13:50 [facility] (Rec: 08/12/20 14:32 [facility] [id number]) Current Condition History of Current Condition Onset Date over past year Current Complaints dec balance & LE strength History of Current Condition Pt reports he has a couple falls this year and had never fallen until Jul 2018. He stood up 1x and took 3 steps then fell over. He has had a couple of falls since then too . He is concerned about weakness in the legs and concerned about getting up from the ground after a fall. He does walk the dog several times a day and he goes up/ down the stairs w/hand rails. He feels like he should do it more to strengthen though. 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 He fell to his knees to tree trunk. He was unable to get up d/t nothing to hang on to. He had a couple neighbors help him up . 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 Denies pain Treatment Goals Patient/Caregiver Goals improve balance, LE strength and be able to get up/down from ground w/o holding on to something Personal Factors Other Personal Factors That May Effect Afib, gout (occ flare ups), Therapy/Recovery falls, (checked alcohol abuse- but after discussion pt is a regular drinker ~3 scotches a night but not during day) PT-OP-C Subjective Start: 08/11/20 13:23 Freq: Status: Active Protocol: Document 09/15/20 11:25 [facility] (Rec: 09/15/20 12:00 [facility] [id number]) OP-PT Subjective Patient Comments Patient Comments Pt reports he has enjoyed working with other therapist too. His is now doing night walks d/t them thinking that may have to do with his falls PT-OP-D Balance Start: 08/11/20 13:23 Freq: Status: Active Protocol: Document 08/12/20 13:50 [facility] (Rec: 08/12/20 14:32 [facility] [id number]) Balance Tests Gurrola Balance Test Gurrola Balance Test Score 37 Single Limb Standing Single Limb- Right 0 Single Limb- Left 0 PT-OP-E Functional Tests Start: 08/11/20 13:23 Freq: Status: Active Protocol: Document 09/03/20 11:01 MA (Rec: 09/03/20 11:02 MA [id number]) Functional Tests Dynamic Gait Index (DGI) Score 19 PT-OP-G Mobility & Gait Start: 08/11/20 13:23 Freq: Status: Active Protocol: Document 08/12/20 13:50 [facility] (Rec: 08/12/20 14:32 [facility] [id number]) OP Gait Assessment Comments Gait Comments dec push off B w/lat leaning PT-OP-M Strength Start: 08/11/20 13:23 Freq: Status: Active Protocol: Document 08/12/20 13:50 [facility] (Rec: 08/12/20 14:32 [facility] [id number]) Hip Strength Hip Manual Muscle Testing Right Flexion (L2) 3+ Fair+ Abduction 3 Fair External Rotation 3+ Fair+ Left Flexion (L2) 3+ Fair+ Abduction 3+ Fair+ External Rotation 3+ Fair+ Internal Rotation 3+ Fair+ Knee Strength Knee Manual Muscle Testing Right Flexion (S2) 4 Good Extension (L3) 3+ Fair+ Left Flexion (S2) 4- Good- Extension (L3) 4- Good- Ankle/Foot Strength Ankle and Foot Manual Muscle Testing Right Dorsiflexion (L4) 4 Good Plantarflexion (S1) 4 Good Left Dorsiflexion (L4) 4- Good- Plantarflexion (S1) 4- Good- Comments seated PF testing B PT-OP-Q Treatments Start: 08/11/20 13:23 Freq: Status: Active Protocol: Document 09/15/20 11:25 [facility] (Rec: 09/15/20 12:00 [facility] [id number]) Cardio Equipment Recumbent Elliptical (Biodex) Duration (Minutes) 6 Resistance 5 Seat Position 12 Gym Equipment Shuttle Recovery Bilateral Squats Resistance 87#, 100# Shuttle Recovery Platform Stable Reps/Time 2x12 Shuttle Balance blue clips Comments Fwd: WBOS/NBOS head turns R/L and up/down Side: WBOS, NBOS with single hand support Therapeutic Exercises Standing Exercises Hip ext Standing Exercise Name Hip extension Resistance yellow band Equipment Used cues for posture Reps/Minutes 10 Step Ups Standing Exercise Name fwd Side bilateral Resistance 5 in step Equipment Used rail used for balance Reps/Minutes 10x ea resisted walk Standing Exercise Name fwd/back Side bilateral Equipment Used yellow Reps/Minutes 20ft side step Side bilateral Equipment Used yellow Reps/Minutes 20ft Neuro Re-Education Treatment Balance Activities toe taps Surface 6 in step Reps/Duration 10 B EC Surface firm Comments WBOS & NBOS trials blue foam Details balance Comments 1. WBOS EO/EC trials 2. NBOS 3. staggered stance 4. marching Tandem Stance Details bilateral Comments 1. standing 2. fwd walking on line 20fx2 3. tandem walk on line 20ftx2 w/rail 1 hand PT-OP-T Assessment and Plan Start: 08/11/20 13:23 Freq: Status: Active Protocol: Document 09/15/20 11:25 [facility] (Rec: 09/15/20 12:00 [facility] [id number]) Physical Therapy Assessment Goals strength Short Term Goal (STG) Pt will be indep with HEP 09/03/20 GOAL MET STG Duration Achieved dynamic balance Short Term Goal (STG) Pt will improve DGI score to 20/24 to dec risk for falls. 09/03/20 -Progressing STG Duration 09/13/20 [employer] Goal (LTG) Pt will improve FGA score to at least 23/30 to show low risk for falls. LTG Duration 10/11/20 GURROLA Short Term Goal (STG) Pt will imrpove GURROLA balance score to at least 45 to be less likely to fall and safe ambulator w/o AD. STG Duration 09/13/20 [employer] Goal (LTG) Pt will improve GURROLA score to 50 in order to show improved safety with outdoor/community ambulation. LTG Duration 10/11/20 transfers Short Term Goal (STG) Pt will be able to do sit to stand without UE use. 09/03/20-GOAL MET STG Duration ACHIEVED Longterm Goal (LTG) Pt will be able to get up/down from ground without use of outside support. LTG Duration 10/11/20 sit to stand Short Term Goal (STG) Pt will be able to do 5x sit to greige goods inspector 12 sec w/ UE use to show improved stability & strength 09/03/20-GOAL MET - 10 sec for 5 sit<>stands with UE use STG Duration ACHIEVED Longterm Goal (LTG) Pt will be able to do 5x sit to greige goods inspector 12 sec w/o UE use to show improved stability & strength LTG Duration 10/10/20 Assessment Summary Assessment Pt fatigues with treatment and is challenged by exercises but was able to tolerate more standing today with intermittant seated rest breaks. Physical Therapy Plan Frequency and Duration Frequency of Treatment 2x/Week Duration of Treatment 2 months Plan of Care Start Date 08/12/20 Plan of Care End Date 10/10/20 Next Visit Focus/Plan Next Note Type Treatment Note Next Visit Plan contine progressing balance and strength exercises.
--- NOTE | 2020-09-18 11:15 | PT.OTN ---
Current Diagnoses Unspecified abnormalities of gait and mobility (09/18/20) Weakness (09/18/20) Physical Therapy Treatment Note PT-OP-A Visit Information Start: 08/11/20 13:23 Freq: Status: Active Protocol: Document 09/18/20 10:35 [facility] (Rec: 09/18/20 11:14 [facility] [id number]) Out-Patient Physical Therapy Visit Information Visit Information Visit Type Treatment Note Visit Start Time 10:34 Visit Stop Time 11:14 Total Visit Minutes 40 Visit Number 7 Number of INFORMATION TECHNOLOGY AUDITOR Visits 0 PT-OP-B Current Condition Start: 08/11/20 13:23 Freq: Status: Active Protocol: Document 08/12/20 13:50 [facility] (Rec: 08/12/20 14:32 [facility] [id number]) Current Condition History of Current Condition Onset Date over past year Current Complaints dec balance & LE strength History of Current Condition Pt reports he has a couple falls this year and had never fallen until Jul 2018. He stood up 1x and took 3 steps then fell over. He has had a couple of falls since then too . He is concerned about weakness in the legs and concerned about getting up from the ground after a fall. He does walk the dog several times a day and he goes up/ down the stairs w/hand rails. He feels like he should do it more to strengthen though. 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 He fell to his knees to tree trunk. He was unable to get up d/t nothing to hang on to. He had a couple neighbors help him up . 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 Denies pain Treatment Goals Patient/Caregiver Goals improve balance, LE strength and be able to get up/down from ground w/o holding on to something Personal Factors Other Personal Factors That May Effect Afib, gout (occ flare ups), Therapy/Recovery falls, (checked alcohol abuse- but after discussion pt is a regular drinker ~3 scotches a night but not during day) PT-OP-C Subjective Start: 08/11/20 13:23 Freq: Status: Active Protocol: Document 09/18/20 10:35 [facility] (Rec: 09/18/20 11:14 [facility] [id number]) OP-PT Subjective Patient Comments Patient Comments Pt reports having a constipation problem for the past few days. He thinks he doesn't drink enough water. PT-OP-D Balance Start: 08/11/20 13:23 Freq: Status: Active Protocol: Document 08/12/20 13:50 [facility] (Rec: 08/12/20 14:32 [facility] [id number]) Balance Tests Gurrola Balance Test Gurrola Balance Test Score 37 Single Limb Standing Single Limb- Right 0 Single Limb- Left 0 PT-OP-E Functional Tests Start: 08/11/20 13:23 Freq: Status: Active Protocol: Document 09/03/20 11:01 MA (Rec: 09/03/20 11:02 MA [id number]) Functional Tests Dynamic Gait Index (DGI) Score 19 PT-OP-G Mobility & Gait Start: 08/11/20 13:23 Freq: Status: Active Protocol: Document 08/12/20 13:50 [facility] (Rec: 08/12/20 14:32 [facility] [id number]) OP Gait Assessment Comments Gait Comments dec push off B w/lat leaning PT-OP-M Strength Start: 08/11/20 13:23 Freq: Status: Active Protocol: Document 08/12/20 13:50 [facility] (Rec: 08/12/20 14:32 [facility] [id number]) Hip Strength Hip Manual Muscle Testing Right Flexion (L2) 3+ Fair+ Abduction 3 Fair External Rotation 3+ Fair+ Left Flexion (L2) 3+ Fair+ Abduction 3+ Fair+ External Rotation 3+ Fair+ Internal Rotation 3+ Fair+ Knee Strength Knee Manual Muscle Testing Right Flexion (S2) 4 Good Extension (L3) 3+ Fair+ Left Flexion (S2) 4- Good- Extension (L3) 4- Good- Ankle/Foot Strength Ankle and Foot Manual Muscle Testing Right Dorsiflexion (L4) 4 Good Plantarflexion (S1) 4 Good Left Dorsiflexion (L4) 4- Good- Plantarflexion (S1) 4- Good- Comments seated PF testing B PT-OP-Q Treatments Start: 08/11/20 13:23 Freq: Status: Active Protocol: Document 09/18/20 10:35 [facility] (Rec: 09/18/20 11:14 [facility] [id number]) Cardio Equipment Recumbent Elliptical (Biodex) Duration (Minutes) 6 Resistance 6 Seat Position 12 Gym Equipment Shuttle Recovery Bilateral Squats Resistance 100# Shuttle Recovery Platform Stable Reps/Time 2x12 Shuttle Balance blue clips Comments Fwd: WBOS/NBOS head turns R/L and up/down Side: WBOS, NBOS w/R/L head turns Therapeutic Exercises Standing Exercises squat Standing Exercise Name mini Side bilateral Equipment Used rail for balance Reps/Minutes 10 Step Ups Standing Exercise Name fwd Side bilateral Resistance 5 in step Equipment Used rail used for balance Reps/Minutes 10x ea resisted walk Standing Exercise Name fwd/back Side bilateral Equipment Used yellow Reps/Minutes 20ftx2 side step Side bilateral Equipment Used yellow Reps/Minutes 20ftx2 Neuro Re-Education Treatment Balance Activities toe taps Surface 8 in step Reps/Duration 10 B EC Surface firm Comments WBOS & NBOS & staggered stance trials blue foam Details balance Comments 1. WBOS EO/EC trials 2. NBOS 3. staggered stance 4. marching Tandem Stance Details bilateral Comments 1. standing 2. fwd walking on line 20fx2 3. tandem walk on line 20ftx2 w/rail 1 hand hurdles Details over 6 Comments fwdx4, side x2 B w/rail prn for balance PT-OP-T Assessment and Plan Start: 08/11/20 13:23 Freq: Status: Active Protocol: Document 09/18/20 10:35 [facility] (Rec: 09/18/20 11:14 [facility] [id number]) Physical Therapy Assessment Goals strength Short Term Goal (STG) Pt will be indep with HEP 09/03/20 GOAL MET STG Duration Achieved dynamic balance Short Term Goal (STG) Pt will improve DGI score to 20/24 to dec risk for falls. 09/03/20 -Progressing STG Duration 09/13/20 Negative Turner Apprentice Goal (LTG) Pt will improve FGA score to at least 23/30 to show low risk for falls. LTG Duration 10/11/20 GURROLA Short Term Goal (STG) Pt will imrpove GURROLA balance score to at least 45 to be less likely to fall and safe ambulator w/o AD. STG Duration 09/13/20 Negative Turner Apprentice Goal (LTG) Pt will improve UGRROLA score to 50 in order to show improved safety with outdoor/community ambulation. LTG Duration 10/11/20 transfers Short Term Goal (STG) Pt will be able to do sit to stand without UE use. 09/03/20-GOAL MET STG Duration ACHIEVED Correction Goal (LTG) Pt will be able to get up/down from ground without use of outside support. LTG Duration 10/11/20 sit to stand Short Term Goal (STG) Pt will be able to do 5x sit to industrial yard brake coupler 12 sec w/ UE use to show improved stability & strength 09/03/20-GOAL MET - 10 sec for 5 sit<>stands with UE use STG Duration ACHIEVED Correction Goal (LTG) Pt will be able to do 5x sit to industrial yard brake coupler 12 sec w/o UE use to show improved stability & strength LTG Duration 10/10/20 Assessment Summary Assessment Pt did better with all balance tasks today especailly balance board and may be able to try red clips next session. He did well with tolerating longer periods of standing today also. Physical Therapy Plan Frequency and Duration Frequency of Treatment 2x/Week Duration of Treatment 2 months Plan of Care Start Date 08/12/20 Plan of Care End Date 10/10/20 Next Visit Focus/Plan Next Note Type Treatment Note Next Visit Plan contine progressing balance and strength exercises.
--- NOTE | 2020-09-23 11:08 | PT.OTN ---
Current Diagnoses Unspecified abnormalities of gait and mobility (09/23/20) Weakness (09/23/20) Physical Therapy Treatment Note PT-OP-A Visit Information Start: 08/11/20 13:23 Freq: Status: Active Protocol: Document 09/23/20 10:34 [facility] (Rec: 09/23/20 11:08 [facility] [id number]) Out-Patient Physical Therapy Visit Information Visit Information Visit Type Treatment Note Visit Start Time 10:33 Visit Stop Time 11:06 Total Visit Minutes 33 Visit Number 8 Number of NEURO INTENSIVIST PHYSICIAN Visits 0 PT-OP-B Current Condition Start: 08/11/20 13:23 Freq: Status: Active Protocol: Document 08/12/20 13:50 [facility] (Rec: 08/12/20 14:32 [facility] [id number]) Current Condition History of Current Condition Onset Date over past year Current Complaints dec balance & LE strength History of Current Condition Pt reports he has a couple falls this year and had never fallen until Jul 2018. He stood up 1x and took 3 steps then fell over. He has had a couple of falls since then too . He is concerned about weakness in the legs and concerned about getting up from the ground after a fall. He does walk the dog several times a day and he goes up/ down the stairs w/hand rails. He feels like he should do it more to strengthen though. In Nov, he had taken dog out for a walk and went to bend over to olive picker dog poop (reprots ground was uneven). He fell to his knees to tree trunk. He was unable to get up d/t nothing to hang on to. He had a couple neighbors help him up . 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 Denies pain Treatment Goals Patient/Caregiver Goals improve balance, LE strength and be able to get up/down from ground w/o holding on to something Personal Factors Other Personal Factors That May Effect Afib, gout (occ flare ups), Therapy/Recovery falls, (checked alcohol abuse- but after discussion pt is a regular drinker ~3 scotches a night but not during day) PT-OP-C Subjective Start: 08/11/20 13:23 Freq: Status: Active Protocol: Document 09/23/20 10:34 [facility] (Rec: 09/23/20 11:08 [facility] [id number]) OP-PT Subjective Patient Comments Patient Comments Pt reports he got his 1st covid shot Firday and was feeling so weak from standing for 1.5 hours in line ot get in and had to sit in a w/c once in d/t fatigue. Reports this AM he feels a little tired. Legs have been achy. PT-OP-D Balance Start: 08/11/20 13:23 Freq: Status: Active Protocol: Document 08/12/20 13:50 [facility] (Rec: 08/12/20 14:32 [facility] [id number]) Balance Tests Gurrola Balance Test Gurrola Balance Test Score 37 Single Limb Standing Single Limb- Right 0 Single Limb- Left 0 PT-OP-E Functional Tests Start: 08/11/20 13:23 Freq: Status: Active Protocol: Document 09/03/20 11:01 [facility] (Rec: 09/03/20 11:02 [facility] [id number]) Functional Tests Dynamic Gait Index (DGI) Score 19 PT-OP-G Mobility & Gait Start: 08/11/20 13:23 Freq: Status: Active Protocol: Document 08/12/20 13:50 [facility] (Rec: 08/12/20 14:32 [facility] [id number]) OP Gait Assessment Comments Gait Comments dec push off B w/lat leaning PT-OP-M Strength Start: 08/11/20 13:23 Freq: Status: Active Protocol: Document 08/12/20 13:50 [facility] (Rec: 08/12/20 14:32 [facility] [id number]) Hip Strength Hip Manual Muscle Testing Right Flexion (L2) 3+ Fair+ Abduction 3 Fair External Rotation 3+ Fair+ Left Flexion (L2) 3+ Fair+ Abduction 3+ Fair+ External Rotation 3+ Fair+ Internal Rotation 3+ Fair+ Knee Strength Knee Manual Muscle Testing Right Flexion (S2) 4 Good Extension (L3) 3+ Fair+ Left Flexion (S2) 4- Good- Extension (L3) 4- Good- Ankle/Foot Strength Ankle and Foot Manual Muscle Testing Right Dorsiflexion (L4) 4 Good Plantarflexion (S1) 4 Good Left Dorsiflexion (L4) 4- Good- Plantarflexion (S1) 4- Good- Comments seated PF testing B PT-OP-Q Treatments Start: 08/11/20 13:23 Freq: Status: Active Protocol: Document 09/23/20 10:34 [facility] (Rec: 09/23/20 11:08 [facility] [id number]) Cardio Equipment Recumbent Stepper (Sci-Fit) Duration (Minutes) 7 Resistance 3 Seat Position 13 Gym Equipment Shuttle Balance red clips Details gradual dec of UE use Comments fwd &side: WBOS fwd: NBOS Therapeutic Exercises Standing Exercises resisted walk Standing Exercise Name fwd/back Side bilateral Equipment Used yellow Reps/Minutes 20ftx2 side step Side bilateral Equipment Used yellow Reps/Minutes 20ftx2 sit <>stand Reps/Minutes 1x no hands, 8 x w/hands Neuro Re-Education Treatment Balance Activities backwards Details big fast steps Reps/Duration 50ft head turns Details vertical & horizontal Reps/Duration 50ftx4 EC Surface firm Comments 1.WBOS & NBOS & staggered stance trials 2. fwd walk 50ft Tandem Stance Comments 1. standing 2. tandem walk on line 20ftx2 w/rail 1 hand hurdles Details over 6 Comments fwdx4, side x2 B w/rail prn for balance PT-OP-T Assessment and Plan Start: 08/11/20 13:23 Freq: Status: Active Protocol: Document 09/23/20 10:34 [facility] (Rec: 09/23/20 11:08 [facility] [id number]) Physical Therapy Assessment Goals strength Short Term Goal (STG) Pt will be indep with HEP 09/03/20 GOAL MET STG Duration Achieved dynamic balance Short Term Goal (STG) Pt will improve DGI score to 20/24 to dec risk for falls. 09/03/20 -Progressing STG Duration 09/13/20 Long-Term Goal (LTG) Pt will improve FGA score to at least 23/30 to show low risk for falls. LTG Duration 10/11/20 GURROLA Short Term Goal (STG) Pt will imrpove GURROLA balance score to at least 45 to be less likely to fall and safe ambulator w/o AD. STG Duration 09/13/20 Patent Paralegal Goal (LTG) Pt will improve GURROLA score to 50 in order to show improved safety with outdoor/community ambulation. LTG Duration 10/11/20 transfers Short Term Goal (STG) Pt will be able to do sit to stand without UE use. 09/03/20-GOAL MET STG Duration ACHIEVED Patent Paralegal Goal (LTG) Pt will be able to get up/down from ground without use of outside support. LTG Duration 10/11/20 sit to stand Short Term Goal (STG) Pt will be able to do 5x sit to clinical services assistant 12 sec w/ UE use to show improved stability & strength 09/03/20-GOAL MET - 10 sec for 5 sit<>stands with UE use STG Duration ACHIEVED Patent Paralegal Goal (LTG) Pt will be able to do 5x sit to clinical services assistant 12 sec w/o UE use to show improved stability & strength LTG Duration 10/10/20 Assessment Summary Assessment Pt had imrpoved performance w/ head turns w/walking & w/EC standing on firm surface today . He was fatigued easier though and was not able to tolerate his full session. Physical Therapy Plan Frequency and Duration Frequency of Treatment 2x/Week Duration of Treatment 2 months Plan of Care Start Date 08/12/20 Plan of Care End Date 10/10/20 Next Visit Focus/Plan Next Note Type Treatment Note Next Visit Plan contine progressing balance and strength exercises.
--- NOTE | 2020-09-25 11:14 | PT.OTN ---
Current Diagnoses Unspecified abnormalities of gait and mobility (09/25/20) Weakness (09/25/20) Physical Therapy Treatment Note PT-OP-A Visit Information Start: 08/11/20 13:23 Freq: Status: Active Protocol: Document 09/25/20 10:37 [facility] (Rec: 09/25/20 11:14 [facility] [id number]) Out-Patient Physical Therapy Visit Information Visit Information Visit Type Treatment Note Visit Note 03/27 Visit Start Time 10:33 Visit Stop Time 11:11 Total Visit Minutes 38 Visit Number 9 Number of BIOSTATISTICS PROFESSOR Visits 0 PT-OP-B Current Condition Start: 08/11/20 13:23 Freq: Status: Active Protocol: Document 08/12/20 13:50 [facility] (Rec: 08/12/20 14:32 [facility] [id number]) Current Condition History of Current Condition Onset Date over past year Current Complaints dec balance & LE strength History of Current Condition Pt reports he has a couple falls this year and had never fallen until Jul 2018. He stood up 1x and took 3 steps then fell over. He has had a couple of falls since then too . He is concerned about weakness in the legs and concerned about getting up from the ground after a fall. He does walk the dog several times a day and he goes up/ down the stairs w/hand rails. He feels like he should do it more to strengthen though. In Nov, he had taken dog out for a walk and went to bend over to corn picker dog poop (reprots ground was uneven). He fell to his knees to tree trunk. He was unable to get up d/t nothing to hang on to. He had a couple neighbors help him up . 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 Denies pain Treatment Goals Patient/Caregiver Goals improve balance, LE strength and be able to get up/down from ground w/o holding on to something Personal Factors Other Personal Factors That May Effect Afib, gout (occ flare ups), Therapy/Recovery falls, (checked alcohol abuse- but after discussion pt is a regular drinker ~3 scotches a night but not during day) PT-OP-C Subjective Start: 08/11/20 13:23 Freq: Status: Active Protocol: Document 09/25/20 10:37 [facility] (Rec: 09/25/20 11:14 [facility] [id number]) OP-PT Subjective Patient Comments Patient Comments Pt reports he is feeling better today. he did okay after last session. PT-OP-D Balance Start: 08/11/20 13:23 Freq: Status: Active Protocol: Document 08/12/20 13:50 [facility] (Rec: 08/12/20 14:32 [facility] [id number]) Balance Tests Gurrola Balance Test Gurrola Balance Test Score 37 Single Limb Standing Single Limb- Right 0 Single Limb- Left 0 PT-OP-E Functional Tests Start: 08/11/20 13:23 Freq: Status: Active Protocol: Document 09/03/20 11:01 [facility] (Rec: 09/03/20 11:02 [facility] [id number]) Functional Tests Dynamic Gait Index (DGI) Score 19 PT-OP-G Mobility & Gait Start: 08/11/20 13:23 Freq: Status: Active Protocol: Document 08/12/20 13:50 [facility] (Rec: 08/12/20 14:32 [facility] [id number]) OP Gait Assessment Comments Gait Comments dec push off B w/lat leaning PT-OP-M Strength Start: 08/11/20 13:23 Freq: Status: Active Protocol: Document 08/12/20 13:50 [facility] (Rec: 08/12/20 14:32 [facility] [id number]) Hip Strength Hip Manual Muscle Testing Right Flexion (L2) 3+ Fair+ Abduction 3 Fair External Rotation 3+ Fair+ Left Flexion (L2) 3+ Fair+ Abduction 3+ Fair+ External Rotation 3+ Fair+ Internal Rotation 3+ Fair+ Knee Strength Knee Manual Muscle Testing Right Flexion (S2) 4 Good Extension (L3) 3+ Fair+ Left Flexion (S2) 4- Good- Extension (L3) 4- Good- Ankle/Foot Strength Ankle and Foot Manual Muscle Testing Right Dorsiflexion (L4) 4 Good Plantarflexion (S1) 4 Good Left Dorsiflexion (L4) 4- Good- Plantarflexion (S1) 4- Good- Comments seated PF testing B PT-OP-Q Treatments Start: 08/11/20 13:23 Freq: Status: Active Protocol: Document 09/25/20 10:37 [facility] (Rec: 09/25/20 11:14 [facility] [id number]) Cardio Equipment Recumbent Elliptical (Biodex) Duration (Minutes) 6 Resistance 6 Seat Position 11 Gym Equipment Shuttle Balance red clips Details gradual dec of UE use Comments fwd &side: WBOS fwd: NBOS Therapeutic Exercises Standing Exercises PF Side bilateral Equipment Used rail Reps/Minutes 20 squat Standing Exercise Name mini Side bilateral Equipment Used rail for balance Reps/Minutes 10 resisted walk Standing Exercise Name fwd/back Side bilateral Equipment Used red Reps/Minutes 20ftx2 side step Side bilateral Equipment Used red Reps/Minutes 20ftx2 Neuro Re-Education Treatment Balance Activities backwards Details big fast steps Reps/Duration 50ft head turns Details vertical & horizontal Reps/Duration 50ftx4 toe taps Surface 12 in step Reps/Duration 10 B EC Surface firm Comments 1.WBOS & NBOS & staggered stance trials 2. fwd walk 50ft Tandem Stance Comments 1. standing 2.fwd walking on line 2x20ft 3. tandem walk on line 20ftx2 w/rail 1 hand hurdles Details over 6 Comments fwdx4, side x2 B w/rail prn for balance PT-OP-T Assessment and Plan Start: 08/11/20 13:23 Freq: Status: Active Protocol: Document 09/25/20 10:37 [facility] (Rec: 09/25/20 11:14 [facility] [id number]) Physical Therapy Assessment Goals strength Short Term Goal (STG) Pt will be indep with HEP 09/03/20 GOAL MET STG Duration Achieved dynamic balance Short Term Goal (STG) Pt will improve DGI score to 20/24 to dec risk for falls. 09/03/20 -Progressing STG Duration 09/13/20 Fdc Goal (LTG) Pt will improve FGA score to at least 23/30 to show low risk for falls. LTG Duration 10/11/20 GURROLA Short Term Goal (STG) Pt will imrpove GURROLA balance score to at least 45 to be less likely to fall and safe ambulator w/o AD. STG Duration 09/13/20 Psychological Aide Goal (LTG) Pt will improve GURROLA score to 50 in order to show improved safety with outdoor/community ambulation. LTG Duration 10/11/20 transfers Short Term Goal (STG) Pt will be able to do sit to stand without UE use. 09/03/20-GOAL MET STG Duration ACHIEVED Psychological Aide Goal (LTG) Pt will be able to get up/down from ground without use of outside support. LTG Duration 10/11/20 sit to stand Short Term Goal (STG) Pt will be able to do 5x sit to office machine repair shop supervisor 12 sec w/ UE use to show improved stability & strength 09/03/20-GOAL MET - 10 sec for 5 sit<>stands with UE use STG Duration ACHIEVED Fdc Goal (LTG) Pt will be able to do 5x sit to office machine repair shop supervisor 12 sec w/o UE use to show improved stability & strength LTG Duration 10/10/20 Assessment Summary Assessment Pt fatigued again more today with exercise. Red clips is a large challenge for pt w/a lot of shaking. He did well with hurdles w/a couple reps w/o use of rail. Physical Therapy Plan Frequency and Duration Frequency of Treatment 2x/Week Duration of Treatment 2 months Plan of Care Start Date 08/12/20 Plan of Care End Date 10/10/20 Next Visit Focus/Plan Next Note Type Progress Note Next Visit Plan new POC, contine progressing balance and strength exercises .
--- NOTE | 2020-09-30 11:17 | PT.OTN ---
Current Diagnoses Unspecified abnormalities of gait and mobility (09/30/20) Weakness (09/30/20) Physical Therapy Treatment Note PT-OP-A Visit Information Start: 08/11/20 13:23 Freq: Status: Active Protocol: Document 09/30/20 10:33 [facility] (Rec: 09/30/20 11:16 [facility] [id number]) Out-Patient Physical Therapy Visit Information Visit Information Visit Type Progress Note Visit Note 07/27 Visit Start Time 10:36 Visit Stop Time 11:10 Total Visit Minutes 34 Visit Number 10 Number of PATIENT SAFETY TECH Visits 0 PT-OP-B Current Condition Start: 08/11/20 13:23 Freq: Status: Active Protocol: Document 08/12/20 13:50 [facility] (Rec: 08/12/20 14:32 [facility] [id number]) Current Condition History of Current Condition Onset Date over past year Current Complaints dec balance & LE strength History of Current Condition Pt reports he has a couple falls this year and had never fallen until Jul 2018. He stood up 1x and took 3 steps then fell over. He has had a couple of falls since then too . He is concerned about weakness in the legs and concerned about getting up from the ground after a fall. He does walk the dog several times a day and he goes up/ down the stairs w/hand rails. He feels like he should do it more to strengthen though. In Nov, he had taken dog out for a walk and went to bend over to clam picker dog poop (reprots ground was uneven). He fell to his knees to tree trunk. He was unable to get up d/t nothing to hang on to. He had a couple neighbors help him up . 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 Denies pain Treatment Goals Patient/Caregiver Goals improve balance, LE strength and be able to get up/down from ground w/o holding on to something Personal Factors Other Personal Factors That May Effect Afib, gout (occ flare ups), Therapy/Recovery falls, (checked alcohol abuse- but after discussion pt is a regular drinker ~3 scotches a night but not during day) PT-OP-C Subjective Start: 08/11/20 13:23 Freq: Status: Active Protocol: Document 09/30/20 10:33 [facility] (Rec: 09/30/20 11:16 [facility] [id number]) OP-PT Subjective Patient Comments Patient Comments Pt asks for more exercises at home. reports consitpation issue is making abdomen feel off PT-OP-D Balance Start: 08/11/20 13:23 Freq: Status: Active Protocol: Document 09/30/20 10:33 [facility] (Rec: 09/30/20 11:16 [facility] [id number]) Balance Tests Gurrola Balance Test Gurrola Balance Test Score 49 PT-OP-E Functional Tests Start: 08/11/20 13:23 Freq: Status: Active Protocol: Document 09/30/20 10:33 [facility] (Rec: 09/30/20 11:16 [facility] [id number]) Functional Tests Dynamic Gait Index (DGI) Score 22 Five Times Sit to Stand Test Score 3x in 13 sec Comments w/o hands unable to do mroe than 3x Functional Gait Assessment Score 18 PT-OP-G Mobility & Gait Start: 08/11/20 13:23 Freq: Status: Active Protocol: Document 08/12/20 13:50 [facility] (Rec: 08/12/20 14:32 [facility] [id number]) OP Gait Assessment Comments Gait Comments dec push off B w/lat leaning PT-OP-M Strength Start: 08/11/20 13:23 Freq: Status: Active Protocol: Document 09/30/20 10:33 [facility] (Rec: 09/30/20 11:16 [facility] [id number]) Hip Strength Hip Manual Muscle Testing Right Flexion (L2) 4- Good- Abduction 4 Good External Rotation 4- Good- Internal Rotation 4- Good- Left Flexion (L2) 3+ Fair+ Abduction 4- Good- External Rotation 4- Good- Internal Rotation 4- Good- Knee Strength Knee Manual Muscle Testing Right Flexion (S2) 5 Normal Extension (L3) 5 Normal Left Flexion (S2) 5 Normal Extension (L3) 4+ Good+ Ankle/Foot Strength Ankle and Foot Manual Muscle Testing Right Dorsiflexion (L4) 5 Normal Plantarflexion (S1) 5 Normal Left Dorsiflexion (L4) 5 Normal Plantarflexion (S1) 5 Normal Comments seated PF testing B PT-OP-Q Treatments Start: 08/11/20 13:23 Freq: Status: Active Protocol: Document 09/30/20 10:33 [facility] (Rec: 09/30/20 11:16 [facility] [id number]) Gym Equipment Shuttle Recovery Unilateral Squats Details b Resistance 50# Shuttle Recovery Platform Stable Reps/Time 15 Bilateral Squats Resistance 100# Shuttle Recovery Platform Stable Reps/Time 2x15 Therapeutic Exercises Standing Exercises hip abd Side bilateral Equipment Used lvl 1 Self-Care/Home Management Treatment Education Other Education HEP and progression and to do by counter or other safe sturdy area and sit down to tie and untie legs right next to counter. Shaniqua myrick MD re: constipation PT-OP-T Assessment and Plan Start: 08/11/20 13:23 Freq: Status: Active Protocol: Document 09/30/20 10:33 [facility] (Rec: 09/30/20 11:16 [facility] [id number]) Physical Therapy Assessment Goals strength Short Term Goal (STG) Pt will be indep with HEP 09/03/20 GOAL MET STG Duration Achieved Detention Goal (LTG) Pt will score at least 4+/5 on on LE MMT B LTG Duration 11/30/20 dynamic balance Short Term Goal (STG) Pt will improve DGI score to 20/24 to dec risk for falls. 09/03/20 -Progressing STG Duration achieved Detention Goal (LTG) Pt will improve FGA score to at least 23/30 to show low risk for falls. 09/30- LTG Duration 11/30/20 GURROLA Short Term Goal (STG) Pt will imrpove GURROLA balance score to at least 45 to be less likely to fall and safe ambulator w/o AD. STG Duration achieved Health Specialist Goal (LTG) Pt will improve GURROLA score to 50 in order to show improved safety with outdoor/community ambulation. 09/30- LTG Duration 11/30/20 transfers Short Term Goal (STG) Pt will be able to do sit to stand without UE use. 09/03/20-GOAL MET STG Duration ACHIEVED Health Specialist Goal (LTG) Pt will be able to get up/down from ground without use of outside support. 09/30-can w/UE support LTG Duration 11/30/20 sit to stand Short Term Goal (STG) Pt will be able to do 5x sit to instructor technical training 12 sec w/ UE use to show improved stability & strength 09/03/20-GOAL MET - 10 sec for 5 sit<>stands with UE use STG Duration ACHIEVED Detention Goal (LTG) Pt will be able to do 5x sit to instructor technical training 12 sec w/o UE use to show improved stability & strength 09/30--3x in 13 sec LTG Duration 11/30/20 Assessment Summary Assessment Pt is making excellent progress towards goals with therapy. He has shown significant imrpovements in his strength and balance and pt aware of progress. He still has dec activity tolerance and dec overall strength and balance and would beneift from cont PT to cont ot wrk on these deficits. Pt noting some constipation issues so was encouraged to call re: these. Added hip abd & ext & PF in standing for HEP. Physical Therapy Plan Frequency and Duration Frequency of Treatment 1-2x/weeks Duration of Treatment 2 months Plan of Care Start Date 09/30/20 Plan of Care End Date 11/30/20 Therapeutic Interventions Therapeutic Interventions Aquatic Therapy,Balance Training,Gait Training,Home Exercise Program,Manual Therapy,Neuromuscular Re- education,Patient/Caregiver Education,Self-Care/Home Management,Taping,Therapeutic Activities,Therapeutic Exercises Next Visit Focus/Plan Next Note Type Treatment Note Next Visit Plan contine progressing balance and strength exercises.
--- NOTE | 2020-09-30 11:17 | PT.OPPOC ---
Physical, Occupational & Speech Therapy At [facility] Current Diagnoses Unspecified abnormalities of gait and mobility (09/30/20) Weakness (09/30/20) Visit Care Team Role Provider Type Shukri Plata MD Attending Provider Physician Primary Care Provider Referring Provider Specialty: Internal Medicine Address: [address] [place] [address], [address], [facility] Email: [email or web address] Plan Of Care PT-OP-T Assessment and Plan Start: 08/11/20 13:23 Freq: Status: Active Protocol: Document 09/30/20 10:33 [facility] (Rec: 09/30/20 11:16 [facility] [id number]) Physical Therapy Assessment Goals strength Short Term Goal (STG) Pt will be indep with HEP 09/03/20 GOAL MET STG Duration Achieved Metal Cutter Goal (LTG) Pt will score at least 4+/5 on on LE MMT B LTG Duration 11/30/20 dynamic balance Short Term Goal (STG) Pt will improve DGI score to 20/24 to dec risk for falls. 09/03/20 -Progressing STG Duration achieved Custodial Goal (LTG) Pt will improve FGA score to at least 23/30 to show low risk for falls. 09/30- LTG Duration 11/30/20 GURROLA Short Term Goal (STG) Pt will imrpove GURROLA balance score to at least 45 to be less likely to fall and safe ambulator w/o AD. STG Duration achieved Custodial Goal (LTG) Pt will improve GURROLA score to 50 in order to show improved safety with outdoor/community ambulation. 09/30- LTG Duration 11/30/20 transfers Short Term Goal (STG) Pt will be able to do sit to stand without UE use. 09/03/20-GOAL MET STG Duration ACHIEVED Custodial Goal (LTG) Pt will be able to get up/down from ground without use of outside support. 09/30-can w/UE support LTG Duration 11/30/20 sit to stand Short Term Goal (STG) Pt will be able to do 5x sit to volunteer services coordinator 12 sec w/ UE use to show improved stability & strength 09/03/20-GOAL MET - 10 sec for 5 sit<>stands with UE use STG Duration ACHIEVED Custodial Goal (LTG) Pt will be able to do 5x sit to volunteer services coordinator 12 sec w/o UE use to show improved stability & strength 09/30--3x in 13 sec LTG Duration 11/30/20 Assessment Summary Assessment Pt is making excellent progress towards goals with therapy. He has shown significant imrpovements in his strength and balance and pt aware of progress. He still has dec activity tolerance and dec overall strength and balance and would beneift from cont PT to cont ot wrk on these deficits. Pt noting some constipation issues so was encouraged to call re: these. Added hip abd & ext & PF in standing for HEP. Physical Therapy Plan Frequency and Duration Frequency of Treatment 1-2x/weeks Duration of Treatment 2 months Plan of Care Start Date 09/30/20 Plan of Care End Date 11/30/20 Therapeutic Interventions Therapeutic Interventions Aquatic Therapy,Balance Training,Gait Training,Home Exercise Program,Manual Therapy,Neuromuscular Re- education,Patient/Caregiver Education,Self-Care/Home Management,Taping,Therapeutic Activities,Therapeutic Exercises Next Visit Focus/Plan Next Note Type Treatment Note Next Visit Plan contine progressing balance and strength exercises. Plan of Care Dates Plan of Care Start Date 09/30/20 Plan of Care End Date 11/30/20 Electronically Signed by: Yvonne Cantu, PT 09/30/20 [id number] Please Sign and Return: I have reviewed this Plan of Care and certify that the skilled therapy services above are required to meet the patient?s needs. Physician Signature Date Printed Name and Credentials Clinical Instructor Signature Printed Name and Credentials
--- NOTE | 2020-10-02 11:14 | PT.OTN ---
Current Diagnoses Unspecified abnormalities of gait and mobility (10/02/20) Weakness (10/02/20) Physical Therapy Treatment Note PT-OP-A Visit Information Start: 08/11/20 13:23 Freq: Status: Active Protocol: Document 10/02/20 10:37 [facility] (Rec: 10/02/20 11:14 [facility] [id number]) Out-Patient Physical Therapy Visit Information Visit Information Visit Type Treatment Note Visit Note 08/27 Visit Start Time 10:34 Visit Stop Time 11:13 Total Visit Minutes 39 Visit Number 11 Number of NEEDLE BOARD REPAIRER Visits 0 PT-OP-B Current Condition Start: 08/11/20 13:23 Freq: Status: Active Protocol: Document 08/12/20 13:50 [facility] (Rec: 08/12/20 14:32 [facility] [id number]) Current Condition History of Current Condition Onset Date over past year Current Complaints dec balance & LE strength History of Current Condition Pt reports he has a couple falls this year and had never fallen until Jul 2018. He stood up 1x and took 3 steps then fell over. He has had a couple of falls since then too . He is concerned about weakness in the legs and concerned about getting up from the ground after a fall. He does walk the dog several times a day and he goes up/ down the stairs w/hand rails. He feels like he should do it more to strengthen though. In Nov, he had taken dog out for a walk and went to bend over to knot picker cloth dog poop (reprots ground was uneven). He fell to his knees to tree trunk. He was unable to get up d/t nothing to hang on to. He had a couple neighbors help him up . 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 Denies pain Treatment Goals Patient/Caregiver Goals improve balance, LE strength and be able to get up/down from ground w/o holding on to something Personal Factors Other Personal Factors That May Effect Afib, gout (occ flare ups), Therapy/Recovery falls, (checked alcohol abuse- but after discussion pt is a regular drinker ~3 scotches a night but not during day) PT-OP-C Subjective Start: 08/11/20 13:23 Freq: Status: Active Protocol: Document 10/02/20 10:37 [facility] (Rec: 10/02/20 11:14 [facility] [id number]) OP-PT Subjective Patient Comments Patient Comments Pt reprots having a BM tuesday and feels much better now so did not end up calling PT-OP-D Balance Start: 08/11/20 13:23 Freq: Status: Active Protocol: Document 09/30/20 10:33 [facility] (Rec: 09/30/20 11:16 [facility] [id number]) Balance Tests Gurrola Balance Test Gurrola Balance Test Score 49 PT-OP-E Functional Tests Start: 08/11/20 13:23 Freq: Status: Active Protocol: Document 09/30/20 10:33 [facility] (Rec: 09/30/20 11:16 [facility] [id number]) Functional Tests Dynamic Gait Index (DGI) Score 22 Five Times Sit to Stand Test Score 3x in 13 sec Comments w/o hands unable to do mroe than 3x Functional Gait Assessment Score 18 PT-OP-G Mobility & Gait Start: 08/11/20 13:23 Freq: Status: Active Protocol: Document 08/12/20 13:50 [facility] (Rec: 08/12/20 14:32 [facility] [id number]) OP Gait Assessment Comments Gait Comments dec push off B w/lat leaning PT-OP-M Strength Start: 08/11/20 13:23 Freq: Status: Active Protocol: Document 09/30/20 10:33 [facility] (Rec: 09/30/20 11:16 [facility] [id number]) Hip Strength Hip Manual Muscle Testing Right Flexion (L2) 4- Good- Abduction 4 Good External Rotation 4- Good- Internal Rotation 4- Good- Left Flexion (L2) 3+ Fair+ Abduction 4- Good- External Rotation 4- Good- Internal Rotation 4- Good- Knee Strength Knee Manual Muscle Testing Right Flexion (S2) 5 Normal Extension (L3) 5 Normal Left Flexion (S2) 5 Normal Extension (L3) 4+ Good+ Ankle/Foot Strength Ankle and Foot Manual Muscle Testing Right Dorsiflexion (L4) 5 Normal Plantarflexion (S1) 5 Normal Left Dorsiflexion (L4) 5 Normal Plantarflexion (S1) 5 Normal Comments seated PF testing B PT-OP-Q Treatments Start: 08/11/20 13:23 Freq: Status: Active Protocol: Document 10/02/20 10:37 [facility] (Rec: 10/02/20 11:14 [facility] [id number]) Cardio Equipment Recumbent Stepper (Sci-Fit) Duration (Minutes) 7 Resistance 5 Seat Position 13 Gym Equipment Shuttle Recovery Unilateral Squats Details b Resistance 50# Shuttle Recovery Platform Stable Reps/Time 15 Bilateral Squats Resistance 112# Shuttle Recovery Platform Stable Reps/Time 2x20 Shuttle Balance blue clips Details hitting balloon w/aide w/fwd WBOS & NBOS Comments Fwd: WBOS/NBOS & staggered stance B Side: WBOS, NBOS Therapeutic Exercises Standing Exercises PF Side bilateral Equipment Used rail Reps/Minutes 20 squat Standing Exercise Name mini Side bilateral Equipment Used rail for balance Reps/Minutes 12 resisted walk Standing Exercise Name fwd/back Side bilateral Equipment Used red Reps/Minutes 20ftx2 side step Side bilateral Equipment Used red Reps/Minutes 20ftx2 Neuro Re-Education Treatment Balance Activities SLS Details B trials EC Surface firm Comments 1.WBOS & NBOS & staggered stance trials Tandem Stance Details B trials hurdles Details over 6 Comments fwdx4, side x2 B w/rail rarely prn for balance PT-OP-T Assessment and Plan Start: 08/11/20 13:23 Freq: Status: Active Protocol: Document 10/02/20 10:37 [facility] (Rec: 10/02/20 11:14 [facility] [id number]) Physical Therapy Assessment Goals strength Short Term Goal (STG) Pt will be indep with HEP 09/03/20 GOAL MET STG Duration Achieved Snf Goal (LTG) Pt will score at least 4+/5 on on LE MMT B LTG Duration 11/30/20 dynamic balance Short Term Goal (STG) Pt will improve DGI score to 20/24 to dec risk for falls. 09/03/20 -Progressing STG Duration achieved Snf Goal (LTG) Pt will improve FGA score to at least 23/30 to show low risk for falls. LTG Duration 11/30/20 GURROLA Short Term Goal (STG) Pt will imrpove GURROLA balance score to at least 45 to be less likely to fall and safe ambulator w/o AD. STG Duration achieved Ferryboat Helper Goal (LTG) Pt will improve GURROLA score to 50 in order to show improved safety with outdoor/community ambulation. 09/30- LTG Duration 11/30/20 transfers Short Term Goal (STG) Pt will be able to do sit to stand without UE use. 09/03/20-GOAL MET STG Duration ACHIEVED Snf Goal (LTG) Pt will be able to get up/down from ground without use of outside support. 09/30-can w/UE support LTG Duration 11/30/20 sit to stand Short Term Goal (STG) Pt will be able to do 5x sit to gum rolling machine tender 12 sec w/ UE use to show improved stability & strength 09/03/20-GOAL MET - 10 sec for 5 sit<>stands with UE use STG Duration ACHIEVED Snf Goal (LTG) Pt will be able to do 5x sit to gum rolling machine tender 12 sec w/o UE use to show improved stability & strength 09/30--3x in 13 sec LTG Duration 11/30/20 Assessment Summary Assessment Pt is fatiguing still with session but is tolerating inc resistance. He does have dec balance on unstable surfaces and was significantly challenged by hitting balloon on board. Physical Therapy Plan Frequency and Duration Frequency of Treatment 1-2x/weeks Duration of Treatment 2 months Plan of Care Start Date 09/30/20 Plan of Care End Date 11/30/20 Next Visit Focus/Plan Next Note Type Treatment Note Next Visit Plan contine progressing balance and strength exercises.
--- NOTE | 2020-10-13 12:35 | PT.OTN ---
Current Diagnoses Unspecified abnormalities of gait and mobility (10/13/20) Weakness (10/13/20) Physical Therapy Treatment Note PT-OP-A Visit Information Start: 08/11/20 13:23 Freq: Status: Active Protocol: Document 10/13/20 11:53 [facility] (Rec: 10/13/20 12:35 [facility] [id number]) Out-Patient Physical Therapy Visit Information Visit Information Visit Type Treatment Note Visit Note 09/24 Visit Start Time 11:50 Visit Stop Time 12:28 Total Visit Minutes 38 Visit Number 12 Number of BEAM HOUSE INSPECTOR Visits 1 PT-OP-B Current Condition Start: 08/11/20 13:23 Freq: Status: Active Protocol: Document 08/12/20 13:50 [facility] (Rec: 08/12/20 14:32 [facility] [id number]) Current Condition History of Current Condition Onset Date over past year Current Complaints dec balance & LE strength History of Current Condition Pt reports he has a couple falls this year and had never fallen until Jul 2018. He stood up 1x and took 3 steps then fell over. He has had a couple of falls since then too . He is concerned about weakness in the legs and concerned about getting up from the ground after a fall. He does walk the dog several times a day and he goes up/ down the stairs w/hand rails. He feels like he should do it more to strengthen though. In Nov, he had taken dog out for a walk and went to bend over to coal picker dog poop (reprots ground was uneven). He fell to his knees to tree trunk. He was unable to get up d/t nothing to hang on to. He had a couple neighbors help him up . 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 Denies pain Treatment Goals Patient/Caregiver Goals improve balance, LE strength and be able to get up/down from ground w/o holding on to something Personal Factors Other Personal Factors That May Effect Afib, gout (occ flare ups), Therapy/Recovery falls, (checked alcohol abuse- but after discussion pt is a regular drinker ~3 scotches a night but not during day) PT-OP-C Subjective Start: 08/11/20 13:23 Freq: Status: Active Protocol: Document 10/13/20 11:53 [facility] (Rec: 10/13/20 12:35 [facility] [id number]) OP-PT Subjective Patient Comments Patient Comments I had my second covid shot on Tuesday and I didn't feel good all weekend. I am going to try therapy today but if I think I can't do it, we will cut it short PT-OP-D Balance Start: 08/11/20 13:23 Freq: Status: Active Protocol: Document 09/30/20 10:33 [facility] (Rec: 09/30/20 11:16 [facility] [id number]) Balance Tests Gurrola Balance Test Gurrola Balance Test Score 49 PT-OP-E Functional Tests Start: 08/11/20 13:23 Freq: Status: Active Protocol: Document 09/30/20 10:33 [facility] (Rec: 09/30/20 11:16 [facility] [id number]) Functional Tests Dynamic Gait Index (DGI) Score 22 Five Times Sit to Stand Test Score 3x in 13 sec Comments w/o hands unable to do mroe than 3x Functional Gait Assessment Score 18 PT-OP-G Mobility & Gait Start: 08/11/20 13:23 Freq: Status: Active Protocol: Document 08/12/20 13:50 [facility] (Rec: 08/12/20 14:32 [facility] [id number]) OP Gait Assessment Comments Gait Comments dec push off B w/lat leaning PT-OP-M Strength Start: 08/11/20 13:23 Freq: Status: Active Protocol: Document 09/30/20 10:33 [facility] (Rec: 09/30/20 11:16 [facility] [id number]) Hip Strength Hip Manual Muscle Testing Right Flexion (L2) 4- Good- Abduction 4 Good External Rotation 4- Good- Internal Rotation 4- Good- Left Flexion (L2) 3+ Fair+ Abduction 4- Good- External Rotation 4- Good- Internal Rotation 4- Good- Knee Strength Knee Manual Muscle Testing Right Flexion (S2) 5 Normal Extension (L3) 5 Normal Left Flexion (S2) 5 Normal Extension (L3) 4+ Good+ Ankle/Foot Strength Ankle and Foot Manual Muscle Testing Right Dorsiflexion (L4) 5 Normal Plantarflexion (S1) 5 Normal Left Dorsiflexion (L4) 5 Normal Plantarflexion (S1) 5 Normal Comments seated PF testing B PT-OP-Q Treatments Start: 08/11/20 13:23 Freq: Status: Active Protocol: Document 10/13/20 11:53 [facility] (Rec: 10/13/20 12:35 [facility] [id number]) Cardio Equipment Recumbent Stepper (Sci-Fit) Duration (Minutes) 8 Resistance 5 Seat Position 13 Therapeutic Exercises Standing Exercises PF Side bilateral Equipment Used rail Reps/Minutes 20 Hip ext Standing Exercise Name Hip extension & ABD for HEP Side bilateral Resistance lvl 1 TB Equipment Used cues for posture Reps/Minutes 10 resisted walk Standing Exercise Name fwd/back/lateral Side bilateral Equipment Used lvl 1 TB Reps/Minutes 20ftx2 sit <>stand Reps/Minutes x8 with hands Neuro Re-Education Treatment Balance Activities SLS Details B trials Equipment //bars Comments Single hand on bar blue foam Details balance Comments EO/EC Tandem Stance Details B trials Surface blue foam Comments 1. modified tandem 2. tandem PT-OP-T Assessment and Plan Start: 08/11/20 13:23 Freq: Status: Active Protocol: Document 10/13/20 11:53 [facility] (Rec: 10/13/20 12:35 [facility] [id number]) Physical Therapy Assessment Goals strength Short Term Goal (STG) Pt will be indep with HEP 09/03/20 GOAL MET STG Duration Achieved Usp Goal (LTG) Pt will score at least 4+/5 on on LE MMT B LTG Duration 11/30/20 dynamic balance Short Term Goal (STG) Pt will improve DGI score to 20/24 to dec risk for falls. 09/03/20 -Progressing STG Duration achieved Gamb Cutter Goal (LTG) Pt will improve FGA score to at least 23/30 to show low risk for falls. 09/30- LTG Duration 11/30/20 GURROLA Short Term Goal (STG) Pt will imrpove GURROLA balance score to at least 45 to be less likely to fall and safe ambulator w/o AD. STG Duration achieved Gamb Cutter Goal (LTG) Pt will improve GURROLA score to 50 in order to show improved safety with outdoor/community ambulation. 09/30- LTG Duration 11/30/20 transfers Short Term Goal (STG) Pt will be able to do sit to stand without UE use. 09/03/20-GOAL MET STG Duration ACHIEVED Usp Goal (LTG) Pt will be able to get up/down from ground without use of outside support. 09/30-can w/UE support LTG Duration 11/30/20 sit to stand Short Term Goal (STG) Pt will be able to do 5x sit to contour grinder 12 sec w/ UE use to show improved stability & strength 09/03/20-GOAL MET - 10 sec for 5 sit<>stands with UE use STG Duration ACHIEVED Gamb Cutter Goal (LTG) Pt will be able to do 5x sit to contour grinder 12 sec w/o UE use to show improved stability & strength 09/30--3x in 13 sec LTG Duration 11/30/20 Assessment Summary Assessment Pt was fatigued easily today due to not feeling well over the weekend after his second covid shot. Took mutiple seated rest breaks and requested we not do the shuttle balance because he thought it would make him feel worse. Pt did well balancing today with his eyes closed needing only CGA while standing on blue foam. During SL stance, pt requires one hand on bar. Next week see if pt is feeling better and can take less rest breaks Physical Therapy Plan Frequency and Duration Frequency of Treatment 1-2x/weeks Duration of Treatment 2 months Plan of Care Start Date 09/30/20 Plan of Care End Date 11/30/20 Therapeutic Interventions Therapeutic Interventions Aquatic Therapy,Balance Training,Gait Training,Home Exercise Program,Manual Therapy,Neuromuscular Re- education,Patient/Caregiver Education,Self-Care/Home Management,Taping,Therapeutic Activities,Therapeutic Exercises Next Visit Focus/Plan Next Note Type Treatment Note Next Visit Plan continue progressing balance and strength exercises with less breaks
--- NOTE | 2020-10-28 12:01 | PT.OTN ---
Current Diagnoses Unspecified abnormalities of gait and mobility (10/28/20) Weakness (10/28/20) Physical Therapy Treatment Note PT-OP-A Visit Information Start: 08/11/20 13:23 Freq: Status: Active Protocol: Document 10/28/20 11:20 [facility] (Rec: 10/28/20 12:01 [facility] [id number]) Out-Patient Physical Therapy Visit Information Visit Information Visit Type Treatment Note Visit Note 10/25 Visit Start Time 11:18 Visit Stop Time 11:51 Total Visit Minutes 32 Visit Number 13 Number of DINING ROOM MANAGER Visits 0 PT-OP-B Current Condition Start: 08/11/20 13:23 Freq: Status: Active Protocol: Document 08/12/20 13:50 [facility] (Rec: 08/12/20 14:32 [facility] [id number]) Current Condition History of Current Condition Onset Date over past year Current Complaints dec balance & LE strength History of Current Condition Pt reports he has a couple falls this year and had never fallen until Jul 2018. He stood up 1x and took 3 steps then fell over. He has had a couple of falls since then too . He is concerned about weakness in the legs and concerned about getting up from the ground after a fall. He does walk the dog several times a day and he goes up/ down the stairs w/hand rails. He feels like he should do it more to strengthen though. In Nov, he had taken dog out for a walk and went to bend over to picking tech dog poop (reprots ground was uneven). He fell to his knees to tree trunk. He was unable to get up d/t nothing to hang on to. He had a couple neighbors help him up . 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 Denies pain Treatment Goals Patient/Caregiver Goals improve balance, LE strength and be able to get up/down from ground w/o holding on to something Personal Factors Other Personal Factors That May Effect Afib, gout (occ flare ups), Therapy/Recovery falls, (checked alcohol abuse- but after discussion pt is a regular drinker ~3 scotches a night but not during day) PT-OP-C Subjective Start: 08/11/20 13:23 Freq: Status: Active Protocol: Document 10/28/20 11:20 [facility] (Rec: 10/28/20 12:01 [facility] [id number]) OP-PT Subjective Patient Comments Patient Comments Pt reports last week was a tough one w/constipation. Notes saw MD yesterday and discussed with him. NOtes he still feels like energy is dec PT-OP-D Balance Start: 08/11/20 13:23 Freq: Status: Active Protocol: Document 09/30/20 10:33 [facility] (Rec: 09/30/20 11:16 [facility] [id number]) Balance Tests Gurrola Balance Test Gurrola Balance Test Score 49 PT-OP-E Functional Tests Start: 08/11/20 13:23 Freq: Status: Active Protocol: Document 09/30/20 10:33 [facility] (Rec: 09/30/20 11:16 [facility] [id number]) Functional Tests Dynamic Gait Index (DGI) Score 22 Five Times Sit to Stand Test Score 3x in 13 sec Comments w/o hands unable to do mroe than 3x Functional Gait Assessment Score 18 PT-OP-G Mobility & Gait Start: 08/11/20 13:23 Freq: Status: Active Protocol: Document 08/12/20 13:50 [facility] (Rec: 08/12/20 14:32 [facility] [id number]) OP Gait Assessment Comments Gait Comments dec push off B w/lat leaning PT-OP-M Strength Start: 08/11/20 13:23 Freq: Status: Active Protocol: Document 09/30/20 10:33 [facility] (Rec: 09/30/20 11:16 [facility] [id number]) Hip Strength Hip Manual Muscle Testing Right Flexion (L2) 4- Good- Abduction 4 Good External Rotation 4- Good- Internal Rotation 4- Good- Left Flexion (L2) 3+ Fair+ Abduction 4- Good- External Rotation 4- Good- Internal Rotation 4- Good- Knee Strength Knee Manual Muscle Testing Right Flexion (S2) 5 Normal Extension (L3) 5 Normal Left Flexion (S2) 5 Normal Extension (L3) 4+ Good+ Ankle/Foot Strength Ankle and Foot Manual Muscle Testing Right Dorsiflexion (L4) 5 Normal Plantarflexion (S1) 5 Normal Left Dorsiflexion (L4) 5 Normal Plantarflexion (S1) 5 Normal Comments seated PF testing B PT-OP-Q Treatments Start: 08/11/20 13:23 Freq: Status: Active Protocol: Document 10/28/20 11:20 [facility] (Rec: 10/28/20 12:01 [facility] [id number]) Cardio Equipment Recumbent Elliptical (Biodex) Duration (Minutes) 6 Resistance 7 Seat Position 11 Gym Equipment Shuttle Recovery Bilateral Squats Resistance 112# Shuttle Recovery Platform Stable Reps/Time 2x15 Therapeutic Exercises Standing Exercises PF Side bilateral Equipment Used rail Reps/Minutes 20 resisted walk Standing Exercise Name fwd/back/lateral Side bilateral Equipment Used red Reps/Minutes 20ftx2 ea Neuro Re-Education Treatment Balance Activities SLS Details B trials backwards Details big fast steps Reps/Duration 50ftx2 head turns Details vertical & horizontal Reps/Duration 50ftx2 blue foam Details balance Reps/Duration WBOS, NBOS & staggereds tance Comments EO/EC Tandem Stance Details B trials Comments tandem hurdles Details over 6 Comments fwdx4, side x2 B w/rail rarely prn for balance PT-OP-T Assessment and Plan Start: 08/11/20 13:23 Freq: Status: Active Protocol: Document 10/28/20 11:20 [facility] (Rec: 10/28/20 12:01 [facility] [id number]) Physical Therapy Assessment Goals strength Short Term Goal (STG) Pt will be indep with HEP 09/03/20 GOAL MET STG Duration Achieved Diesel Powerplant Supervisor Goal (LTG) Pt will score at least 4+/5 on on LE MMT B LTG Duration 11/30/20 dynamic balance Short Term Goal (STG) Pt will improve DGI score to 20/24 to dec risk for falls. 09/03/20 -Progressing STG Duration achieved Diesel Powerplant Supervisor Goal (LTG) Pt will improve FGA score to at least 23/30 to show low risk for falls. 09/30-18 LTG Duration 11/30/20 GURROLA Short Term Goal (STG) Pt will imrpove GURROLA balance score to at least 45 to be less likely to fall and safe ambulator w/o AD. STG Duration achieved Diesel Powerplant Supervisor Goal (LTG) Pt will improve GURROLA score to 50 in order to show improved safety with outdoor/community ambulation. 09/30- LTG Duration 11/30/20 transfers Short Term Goal (STG) Pt will be able to do sit to stand without UE use. 09/03/20-GOAL MET STG Duration ACHIEVED Diesel Powerplant Supervisor Goal (LTG) Pt will be able to get up/down from ground without use of outside support. 09/30-can w/UE support LTG Duration 11/30/20 sit to stand Short Term Goal (STG) Pt will be able to do 5x sit to business control manager 12 sec w/ UE use to show improved stability & strength 09/03/20-GOAL MET - 10 sec for 5 sit<>stands with UE use STG Duration ACHIEVED Diesel Powerplant Supervisor Goal (LTG) Pt will be able to do 5x sit to business control manager 12 sec w/o UE use to show improved stability & strength 09/30--3x in 13 sec LTG Duration 11/30/20 Assessment Summary Assessment Pt did well with balance exercises today with good performance especailly with head turns in garcia. Difficulty w/activity tolerance w/ backwards walking as he fatigues when focusing on large steps. Physical Therapy Plan Frequency and Duration Frequency of Treatment 1-2x/weeks Duration of Treatment 2 months Plan of Care Start Date 09/30/20 Plan of Care End Date 11/30/20 Next Visit Focus/Plan Next Note Type Treatment Note Next Visit Plan continue progressing balance and strength exercises with less breaks
--- NOTE | 2021-03-12 17:58 | PT.OPDS ---
Current Diagnoses Unspecified abnormalities of gait and mobility (10/28/20) Weakness (10/28/20) Visit Care Team Role Provider Type Shukri Plata MD Attending Provider Physician Primary Care Provider Referring Provider Specialty: Internal Medicine Address: [address] [place] [address], [address] [place] [address], [address] Email: [email or web address] Visit Number Visit Number 13 Discharge Summary PT-OP-B Current Condition Start: 08/11/20 13:23 Freq: Status: Active Protocol: Document 08/12/20 13:50 [facility] (Rec: 08/12/20 14:32 [facility] [id number]) Current Condition History of Current Condition Onset Date over past year Current Complaints dec balance & LE strength History of Current Condition Pt reports he has a couple falls this year and had never fallen until Jul 2018. He stood up 1x and took 3 steps then fell over. He has had a couple of falls since then too . He is concerned about weakness in the legs and concerned about getting up from the ground after a fall. He does walk the dog several times a day and he goes up/ down the stairs w/hand rails. He feels like he should do it more to strengthen though. In Nov, he had taken dog out for a walk and went to bend over to picker dog poop (reprots ground was uneven). He fell to his knees to tree trunk. He was unable to get up d/t nothing to hang on to. He had a couple neighbors help him up . 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 Denies pain Treatment Goals Patient/Caregiver Goals improve balance, LE strength and be able to get up/down from ground w/o holding on to something Personal Factors Other Personal Factors That May Effect Afib, gout (occ flare ups), Therapy/Recovery falls, (checked alcohol abuse- but after discussion pt is a regular drinker ~3 scotches a night but not during day) PT-OP-C Subjective Start: 08/11/20 13:23 Freq: Status: Active Protocol: Document 10/28/20 11:20 [facility] (Rec: 10/28/20 12:01 [facility] [id number]) OP-PT Subjective Patient Comments Patient Comments Pt reports last week was a tough one w/constipation. Notes saw MD yesterday and discussed with him. NOtes he still feels like energy is dec PT-OP-D Balance Start: 08/11/20 13:23 Freq: Status: Active Protocol: Document 09/30/20 10:33 [facility] (Rec: 09/30/20 11:16 [facility] [id number]) Balance Tests Gasca Balance Test Gasca Balance Test Score 49 PT-OP-E Functional Tests Start: 08/11/20 13:23 Freq: Status: Active Protocol: Document 09/30/20 10:33 [facility] (Rec: 09/30/20 11:16 [facility] [id number]) Functional Tests Dynamic Gait Index (DGI) Score 22 Five Times Sit to Stand Test Score 3x in 13 sec Comments w/o hands unable to do mroe than 3x Functional Gait Assessment Score 18 PT-OP-G Mobility & Gait Start: 08/11/20 13:23 Freq: Status: Active Protocol: Document 08/12/20 13:50 [facility] (Rec: 08/12/20 14:32 [facility] [id number]) OP Gait Assessment Comments Gait Comments dec push off B w/lat leaning PT-OP-M Strength Start: 08/11/20 13:23 Freq: Status: Active Protocol: Document 09/30/20 10:33 [facility] (Rec: 09/30/20 11:16 [facility] [id number]) Hip Strength Hip Manual Muscle Testing Right Flexion (L2) 4- Good- Abduction 4 Good External Rotation 4- Good- Internal Rotation 4- Good- Left Flexion (L2) 3+ Fair+ Abduction 4- Good- External Rotation 4- Good- Internal Rotation 4- Good- Knee Strength Knee Manual Muscle Testing Right Flexion (S2) 5 Normal Extension (L3) 5 Normal Left Flexion (S2) 5 Normal Extension (L3) 4+ Good+ Ankle/Foot Strength Ankle and Foot Manual Muscle Testing Right Dorsiflexion (L4) 5 Normal Plantarflexion (S1) 5 Normal Left Dorsiflexion (L4) 5 Normal Plantarflexion (S1) 5 Normal Comments seated PF testing B PT-OP-T Assessment and Plan Start: 08/11/20 13:23 Freq: Status: Active Protocol: Document 03/12/21 17:58 [facility] (Rec: 03/12/21 17:58 [facility] [id number]) Physical Therapy Assessment Assessment Summary Assessment Pt was last seen 4 months ago and was called to make further apointments but did not return call. DC d/t no longer attending PT Physical Therapy Plan Discharge Physical Therapy Discharge Reasons No Longer Attending PT
== END 2021-03-13 07:46 | disposition home or self-care (01) ==
LOC: PHYS 11:15
PROVIDERS: PCP Internal Medicine; Referring Provider Internal Medicine; Visit Provider Internal Medicine
DX: R26.9 Unspecified abnormalities of gait and mobility (principal); R53.1 Weakness
CPT/HCPCS: 97110; 97112; 97162; 97530; 97535

== ENCOUNTER 2020-12-22 23:21 | Inpatient (IN) | payer MEDICARE, SELFPAY ==
--- NOTE | 2020-12-22 23:32 | DI.RAD.S_ITS ---
PROCEDURE: XR CHEST 1V INDICATIONS: fall, hip fracture. TECHNIQUE: One view of the chest was acquired. COMPARISON: None. FINDINGS: Surgical changes and devices: None. Lungs and pleura: Lungs are abnormal, with reduced inspiratory volume and what appears to be a mild pulmonary edema pattern. This could represent an artifact of the reduced inspiration. No trauma found.. No pleural effusions or pneumothorax. Mediastinum: Mediastinal contours appear normal. Heart size is normal. Bones and chest wall: No suspicious bony lesions. Overlying soft tissues appear unremarkable. IMPRESSION: The inspiratory volume is prominently reduced. There may be mild pulmonary edema but crowding of the bronchovascular markings also could explain this appearance given the degree of reduced inspiration. The heart size is not enlarged when reduced inspiration is taken into account. Dictated by: Radames Keller M.D. on 12/23/2020 at 9:04 Approved by: Radames Keller M.D. on 12/23/2020 at 9:05
--- NOTE | 2020-12-22 23:33 | DI.CT.S_ITS ---
PROCEDURE: CT HEAD/BRAIN WO CON INDICATIONS: fall, patient unsure how TECHNIQUE: Noncontrast 4.5 mm thick angled axial sections acquired from the foramen magnum to the vertex, with coronal and sagittal reformats. For radiation dose reduction, the following was used: automated exposure control, adjustment of mA and/or kV according to patient size. COMPARISON: [facility], CT, CT HEAD/BRAIN WO CON, 05/28/2020, 20:32. [facility], CT, CT HEAD/BRAIN WO CON, 04/04/2020, 4:05. FINDINGS: Image quality: Excellent. CSF spaces: Basal cisterns are patent. No extra-axial fluid collections. The ventricles are symmetric in size and shape. Brain: No intracranial bleeds or masses. There is cerebral volume loss for age, with resultant ventricular and sulcal prominence. There are periventricular and deep white matter chronic small vessel ischemic changes. There is intracranial internal carotid artery atherosclerosis. Skull and face: Calvarium and visualized facial bones appear intact, without suspicious lesions. Sinuses: Visualized sinuses and mastoids are clear. IMPRESSION: Mild microvascular atherosclerotic change in the deep white matter of each hemisphere, expected for age. This pattern was previously present in May of 2020 and has not worsened. No mass hemorrhage or acute ischemic injury is suspected. Dictated by: Radames Keller M.D. on 12/23/2020 at 8:29 Approved by: Radames Keller M.D. on 12/23/2020 at 8:30
--- NOTE | 2020-12-22 23:34 | ED_ITS ---
HPI - Fall General Chief Complaint: Extremity Injury, Lower Stated Complaint: Hip fx Time Seen by Provider: 12/22/20 23:32 Source: patient and EMS Mode of arrival: EMS Limitations: no limitations History of Present Illness HPI Narrative: This is a 80-year-old male who states he had a ground level fall this evening. Patient is unsure if it was a mechanical. He states he med been dizzy but he is not sure. He remembers falling, representing the ground he is not sure exactly why he fell. He denies headache, he denies neck pain. Denies any chest pain or shortness of breath. No abdominal pain. No back pain. He does have pain in his left hip. Patient denies any pain elsewhere. He denies any numbness tingling or weakness. He is able to move his foot without issue. Patient states he does have a glass of scotch nights. He states has a history of AFib and is on Eliquis. He also takes medication for high blood pressure and a statin. Patient denies any prior cardiac stents. He denies any other surge kayleigh. He denies any tobacco use, 0-2 alcoholic drinks daily and no illicit. Patient states he normally has one glass of scotch which he did have tonight. Patient states he lives with his . Related Data Home Medications Medication Instructions Recorded Confirmed ASPIRIN (Aspirin EC) 81 mg PO Q DAY #0 11/30/10 12/23/20 latanoprost [Xalatan] 1 drp [facility] QDAY #0 11/23/11 12/23/20 cholecalciferol (vitamin D3) 125 5,000 unit PO DAILY 04/18/19 12/23/20 mcg (5,000 unit) capsule magnesium oxide 800 mg PO DAILY 04/18/19 10/27/20 sskrhwyecyuj-udvwzsuw-rhxpjx tablet 1 tab PO DAILY 04/18/19 12/23/20 omega-3 fatty acids-fish oil 360 1 cap PO DAILY 04/18/19 12/23/20 mg-1,200 mg capsule potassium chloride 20 mEq 20 meq PO DAILY 04/18/19 12/23/20 tablet,extended release colchicine 0.6 mg tablet 0.6 mg PO BID PRN tab 12/17/19 12/23/20 omeprazole 20 mg capsule,delayed 20 mg PO DAILY 12/17/19 10/27/20 release timolol 0.5 % eye drops 1 drop EYE-BOTH .Q MORNING ml 12/17/19 12/23/20 Previous Rx's Medication Instructions Recorded apixaban 5 mg tablet 5 mg PO BID #60 tab 04/18/19 atorvastatin 40 mg tablet 40 mg PO HS #90 tab 04/18/19 lisinopril 40 mg tablet 40 mg PO DAILY #90 tab 12/17/19 amlodipine 5 mg tablet 5 mg PO BID #180 tab 03/17/20 hydrochlorothiazide 25 mg tablet 12.5 mg PO DAILY #45 tab 07/14/20 metoprolol tartrate 100 mg tablet 100 mg PO BID #180 tab 07/14/20 Allergies Allergy/AdvReac Type Severity Reaction Status Date / Time No Known Drug Allergies Allergy Verified 12/23/20 00:06 Review of Systems Review of Systems ROS Unobtainable: All systems reviewed & are unremarkable except as noted in HPI and below 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 HEENT: Atraumatic, pupils are equal round reactive to light, extraocular movements are intact, nares are clear, TMs are clear with no fluid, there is no conjunctival pallor. Throat is clear without any exudates, erythema, tonsillar enlargement or uvular deviation, no facial droop. Clear speech. HEART: Regular rate and rhythm without murmur, clicks, rubs. No carotid bruits, pulses are equal in upper and lower extremities LUNGS:Lungs clear to auscultation, no wheezes, rales, crackles, chest moves symmetrically ABD:bowel sounds normal, soft, non-tender, no guarding, rebound, rigidity, no masses noted, no hepatosplenomegaly :No CVA tenderness BACK: No cervical, thoracic or lumbar vertebral point tenderness. MSCL: Left hip is tender, externally rotated and slightly shortened, no muscle atrophy, patient has normal range of motion of his right lower extremity, patient is actually able to help lift himself off the bed and his pelvis to take his pants.. He has sensation throughout his left lower extremity. 2+ dorsalis pedis bladder. No cyanosis, pallor or other skin changes noted. NEURO:CN 2-12 intact, sensation normal Initial Vital Signs Initial Vital Signs: Vital Signs Temperature 97.9 F 12/23/20 00:06 Pulse Rate 71 12/23/20 00:06 Respiratory Rate 16 12/23/20 00:06 Blood Pressure 156/81 H 12/23/20 00:06 Pulse Oximetry 96 12/23/20 00:06 Scores GCS [employer] coma scale eye opening: Spontaneous Mounika coma scale verbal response: Orientated Mounika coma scale motor response: Obey commands [employer] coma scale total score: 15 Course Orders Ordered: ED Orders 12/22/20 23:32 XR chest 1V Stat 12/22/20 23:33 CT head/brain wo con Stat 12/22/20 23:35 XR hip w pel if done LT 2V Stat 12/22/20 23:37 Basic Metabolic Panel Stat Complete Blood Count AUTO DIFF Stat Ethanol (ETOH) Stat Partial Thromboplastin Time Stat Prothrombin Time INR Stat Troponin & CK Cardiac Panel Stat 12/22/20 23:50 Type and Screen Stat 12/23/20 00:35 COVID19 - ADMIT (COOK CHIEF swab/PCR) Stat 12/23/20 02:00 Consult to Orthopedic Surgery Urgent Sodium Chloride (Normal Saline 0.9%) 1,000 mls @ 150 mls/hr IV CONT AVINASH Last Infusion: 12/23/20 02:29 Dose: 0 mls/hr Documented by: Admin: 12/23/20 00:21 Dose: 150 mls/hr Documented by: [email or web address] Sodium Chloride (Normal Saline 0.9%) 1,000 mls @ 125 mls/hr IV CONT AVINASH Last Admin: 12/23/20 02:38 Dose: 125 mls/hr Documented by: SRAVANTHI Morphine Sulfate (Morphine 2 Mg/Ml Inj) 2 mg IV Q4HR PRN PRN Reason: Pain, Mild (1-3) Ondansetron HCl (Ondansetron 4 Mg/2 Ml Inj) 4 mg IV Q4HR PRN PRN Reason: Nausea And Vomiting Discontinued Medications Acetaminophen (Acetaminophen 325 Mg Tablet) 975 mg PO NOW ONE Stop: 12/23/20 02:06 Last Admin: 12/23/20 02:12 Dose: 975 mg Documented by: HOLGER Lidocaine HCl (Lidocaine 2% (Glydo) 6 Ml Gel) 6 ml TOP NOW ONE Stop: 12/23/20 00:51 Last Admin: 12/23/20 01:05 Dose: 6 ml Documented by: HOLGER Consultations Consultation #1: Dr. Torres will see the patient in the morning. Asked for admission to Medicine for medical clearance. Plan to hold [employer]. Time: 01:54 Consultation #2: Dr. Rivera accepts for admission for Dr. Plata. Reviewed patient's past medical history, labs and plan from orthopedic surgery. Time: 01:59 Vital Signs Vital signs: Vital Signs - 8 hr 12/23/20 00:06 12/23/20 00:14 12/23/20 00:15 Temperature 97.9 F Pulse Rate 71 82 81 Respiratory Rate 16 24 23 Blood Pressure 156/81 H 161/82 H Pulse Oximetry 96 96 95 12/23/20 00:30 12/23/20 01:00 12/23/20 01:30 Temperature Pulse Rate 80 79 87 Respiratory Rate 25 H 28 H 20 Blood Pressure 169/79 H 167/79 H 141/76 H Pulse Oximetry 96 95 94 12/23/20 02:00 Temperature Pulse Rate 84 Respiratory Rate 20 Blood Pressure 150/74 H Pulse Oximetry 95 MDM - Fall Lab Data Attestation: I reviewed the patient's lab results. Result diagrams: 12/22/20 23:37 12/22/20 23:37 Labs: Lab Results 12/22/20 12/22/20 12/22/20 Range/Units 23:37 23:37 23:37 WBC 10.0 (4.5-11.0) X10^3/uL RBC 4.31 L (4.5-5.9) X10^6/uL Hgb 15.0 (13.5-17.5) g/dL Hct 43.7 (41-53) % MCV 101.4 H (80-100) fL MCH 34.9 H (26-34) PG MCHC 34.4 (30-36) % RDW 13.1 (11.6-14.8) % Plt Count 246 (150-400) X10^3/uL Neut % (Auto) 70.5 (50-75) % Lymph % (Auto) 17.0 L (25-40) % Gregory % (Auto) 10.5 (3-14) % Eos % (Auto) 1.4 L (2-4) % Baso % (Auto) 0.6 (0-2) % Neut # (Auto) 7000 (7159-7450) /uL Lymph # (Auto) 1700 (4586-2933) /uL Gregory # (Auto) 1100 H (0-900) /uL Eos # (Auto) 100 (0-450) /uL Baso # (Auto) 100 (0-100) /uL PT 11.8 (10.1-12.7) SECONDS INR 1.0 (0.9-1.3) APTT 33 (26.4-36.2) SECONDS Sodium 135 L (137-145) mmol/L Potassium 3.5 (3.4-5.1) mmol/L Chloride 95 L (98-107) mmol/L Carbon Dioxide 28 (22-32) mmol/L BUN 14 (9-20) mg/dL Creatinine 0.86 (0.66-1.25) mg/dL Estimated GFR > 60.0 (>60) mL/min BUN/Creatinine Ratio 16.3 (6-22) Glucose 120 H (80-110) mg/dL Calcium 9.9 (8.4-10.2) mg/dL Total Creatine Kinase 29 L (55-170) U/L CK-MB (CK-2) TNP CK-MB (CK-2) Rel Index TNP Troponin I < 0.012 (0.01-0.034) ng/mL Ethyl Alcohol 203 H ( - 10) mg/dL SARS-CoV-2 (PCR) (Negative) Blood Type Antibody Screen 12/22/20 12/23/20 Range/Units 23:50 00:35 WBC (4.5-11.0) X10^3/uL RBC (4.5-5.9) X10^6/uL Hgb (13.5-17.5) g/dL Hct (41-53) % MCV (80-100) fL MCH (26-34) PG MCHC (30-36) % RDW (11.6-14.8) % Plt Count (150-400) X10^3/uL Neut % (Auto) (50-75) % Lymph % (Auto) (25-40) % Gregory % (Auto) (3-14) % Eos % (Auto) (2-4) % Baso % (Auto) (0-2) % Neut # (Auto) (1571-8768) /uL Lymph # (Auto) (9935-6496) /uL Gregory # (Auto) (0-900) /uL Eos # (Auto) (0-450) /uL Baso # (Auto) (0-100) /uL PT (10.1-12.7) SECONDS INR (0.9-1.3) APTT (26.4-36.2) SECONDS Sodium (137-145) mmol/L Potassium (3.4-5.1) mmol/L Chloride (98-107) mmol/L Carbon Dioxide (22-32) mmol/L BUN (9-20) mg/dL Creatinine (0.66-1.25) mg/dL Estimated GFR (>60) mL/min BUN/Creatinine Ratio (6-22) Glucose (80-110) mg/dL Calcium (8.4-10.2) mg/dL Total Creatine Kinase (55-170) U/L CK-MB (CK-2) CK-MB (CK-2) Rel Index Troponin I (0.01-0.034) ng/mL Ethyl Alcohol ( - 10) mg/dL SARS-CoV-2 (PCR) Negative (Negative) Blood Type O Positive Antibody Screen Negative Imaging Data CT scan - head: Radiologist's Impression: Moderate nonspecific periventricular deep white matter disease. Chest x-ray: Radiologist's Impression: Low lung volumes. Extremity x-ray #1: Radiologist's Impression: Inter trochanteric fracture proximal left femur. ECG Data Attestation: I personally reviewed and interpreted this ECG as follows: Interpretation: AFib, rate of 70, QRS of 112 and QTC 453. Patient has prior from 03/05/2016 which showed first-degree AV block. Patient has Q-wave in 3 an in and Q-wave in V1 V2 which appears similar. MDM Narrative Medical decision making narrative: This is a 80-year-old male who comes with ground level fall possibly mechanically but patient was unsure. His alcohol was elevated he does have a scotch normally. According to his he has been shaky occasionally in the morning but they have never really appreciate any withdrawal symptoms. Patient's labs do not show any major abnormalities, head CT was negative, patient has a left hip fracture. Discussed with orthopedic surgery who will see the patient in the morning. Patient is on Eliquis this is to be held in anticipation of surgery. Discussed with Dr. Rivera who is covering for Dr. Plata and accepts. Discharge Plan Departure Patient Disposition: Admitted As Inpatient Clinical Impression: Closed hip fracture Qualifiers: Encounter type: initial encounter Laterality: left Qualified Code(s): S72.002A - Fracture of unspecified part of neck of left femur, initial encounter for closed fracture Admit Date/Time: 12/23/20 02:01 Admit Provider: Amos Rivera
--- NOTE | 2020-12-22 23:35 | DI.RAD.S_ITS ---
PROCEDURE: XR HIP W PEL IF DONE LT 2V INDICATIONS: left hip pain TECHNIQUE: AP pelvis with lateral view(s) of the left hip(s). COMPARISON: None. FINDINGS: Bones: No dislocations. Pelvic ring appears intact. No suspicious bony lesions. There is an inter trochanteric left hip fracture, slightly displaced. Soft tissues: The visualized bowel gas pattern is normal. No suspicious soft tissue calcifications. IMPRESSION: There is a presumed acute left inter trochanteric hip fracture. Slight displacement. Dictated by: Radames Keller M.D. on 12/23/2020 at 9:03 Approved by: Radames Keller M.D. on 12/23/2020 at 9:04
[2020-12-22 23:40] LABS: Add Manual Diff / Slide Review NO; Basophils Absolute Auto 100 /uL (0-100); Basophils Percent Auto 0.6 % (0-2); Eosinophils Absolute Auto 100 /uL (0-450); Eosinophils Percent Auto 1.4 % (2-4); Hematocrit 43.7 % (41-53); Lymphocytes Absolute Auto 1700 /uL (1100-4500); Mean Corpuscular HGB Conc 34.4 % (30-36); Mean Corpuscular Hemoglobin 34.9 PG (26-34); Mean Corpuscular Volume 101.4 fL (80-100); Monocytes Absolute Auto 1100 /uL (0-900); Monocytes Percent Auto 10.5 % (3-14); Neutrophils Absolute Auto 7000 /uL (1500-7000); Neutrophils Percent Auto 70.5 % (50-75); Platelet Count 246 X10^3/uL (150-400); Red Blood Cell Count 4.31 X10^6/uL (4.5-5.9); Red Cell Distribution Width 13.1 % (11.6-14.8)
[2020-12-22 23:43] LABS: Prothrombin Time 11.8 SECONDS (10.1-12.7)
[2020-12-22 23:47] LABS: BUN Creatinine Ratio 16.3 (6-22); Blood Urea Nitrogen 14 mg/dL (9-20); Calcium 9.9 mg/dL (8.4-10.2); Carbon Dioxide 28 mmol/L (22-32); Chloride 95 mmol/L (98-107); Creatine Kinase 29 U/L (55-170); Estimated Glomerular Filt Rate > 60.0 mL/min (>60); Glucose 120 mg/dL (80-110); HEMOLYSIS 16 (0-50); Potassium 3.5 mmol/L (3.4-5.1); Sodium 135 mmol/L (137-145)
[2020-12-22 23:51] LABS: Ethanol (ETOH) 203 mg/dL
[2020-12-22 23:54] LABS: PTT Partial Thromboplastin Tim 33 SECONDS (26.4-36.2)
[2020-12-22 23:59] LABS: Troponin I < 0.012 ng/mL (0.01-0.034)
[2020-12-23] VITALS (15 sets, daily range): BP systolic 135–169; BP diastolic 74–93; PULSE 71–102; RESP 12–28; TEMP 36.4–37.7; O2SAT 93–96; BMI 28.5
--- NOTE | 2020-12-23 00:10 | PC.NURSE ---
Pt arrived with pelvic binder in place
[2020-12-23] MEDS: SODIUM CHLORIDE 0.9% 1,000 ML 150 ML IV (00:21)
[2020-12-23] MEDS: LIDOCAINE 2% (GLYDO) 6 ML GEL TOP (01:05)
[2020-12-23 01:37] LABS: COVID19 - ADMIT (NP swab/PCR) Negative (Negative)
[2020-12-23] MEDS: ACETAMINOPHEN 325 MG TABLET 975 MG PO (02:12)
[2020-12-23] MEDS: SODIUM CHLORIDE 0.9% 1,000 ML 125 ML IV ×2 (02:38→06:40)
--- NOTE | 2020-12-23 03:21 | PC.ADMIT ---
[address] [place] [address] Admission Note: The patient,Red Polk,80 y/o, was given written information regarding hospital policies, unit procedures and contact persons. Patient's smoking status: Never smoker. Vital Signs - 8 hr 12/23/20 00:06 12/23/20 00:14 12/23/20 00:15 Temperature 97.9 F Pulse Rate 71 82 81 Respiratory Rate 16 24 23 Blood Pressure 156/81 H 161/82 H Pulse Oximetry 96 96 95 12/23/20 00:30 12/23/20 01:00 12/23/20 01:30 Temperature Pulse Rate 80 79 87 Respiratory Rate 25 H 28 H 20 Blood Pressure 169/79 H 167/79 H 141/76 H Pulse Oximetry 96 95 94 12/23/20 02:00 12/23/20 02:30 Temperature 99.1 F Pulse Rate 84 86 Respiratory Rate 20 18 Blood Pressure 150/74 H 156/81 H Pulse Oximetry 95 94 Patient arrived via bed to room 209 at 0225 accompanied by ER nurse. Transferred to floor bed, patient tolerated well. Oriented to floor, call light given, bed alarm set. Denies any further questions at this time.
[2020-12-23] MEDS: MORPHINE 2 MG/ML INJ IV ×2 (06:40→14:35)
--- NOTE | 2020-12-23 07:29 | PM.HP.1 ---
History of Present Illness History of Present Illness Date Patient Seen: 12/23/20 Time Patient Seen: 07:29 Chief complaint: Hip fx Narrative: 80-year-old male admitted via the emergency department with hip fracture. Was up with his normal routine preparing for bed when he had some sort of fall. Patient is not exactly sure of the nature of his fall thinks most likely it was a mechanical fall. Denies any syncope near-syncope sense of palpitations chest pain. Does consume alcohol in the evenings and his alcohol level was elevated based on evaluation in the ER. In any event he was admitted to my service prior to surgery by Orthopedic surgery for medical clearance prior to surgery Patient is chronically anticoagulated with Eliquis because of his chronic atrial fibrillation. Patient is uncertain as to when he took his prior dose. Certainly took it in the morning of the 22 of December and I discussed with his spouse and is unclear, she thinks probably he took it prior to falling but neither she nor the patient can actually remember with any certainty. 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) Ischemic cardiomyopathy Permanent atrial fibrillation Rheumatoid arthritis Family & Social History Social History: household members spouse Prior Living Arrangements House Safety & Behavioral: Feels Safe in Current Yes Environment Been Physically Hurt or No Threatened By a Person Suicidal Ideation Description None Tobacco & Substance use: Smoking Status Never smoker alcohol intake current alcohol intake frequency other Substance Use Type does not use Meds Home Medications and Allergies Home Medications Medication Instructions Recorded Confirmed Type ASPIRIN (Aspirin EC) 81 mg PO Q DAY #0 11/30/10 12/23/20 History latanoprost [Xalatan] 1 drp OPH QDAY #0 11/23/11 12/23/20 History apixaban 5 mg tablet 5 mg PO BID #60 tab 04/18/19 12/23/20 Rx atorvastatin 40 mg tablet 40 mg PO HS #90 tab 04/18/19 12/23/20 Rx cholecalciferol (vitamin D3) 125 5,000 unit PO DAILY 04/18/19 12/23/20 History mcg (5,000 unit) capsule magnesium oxide 800 mg PO DAILY 04/18/19 10/27/20 History wvimapngdasr-pjbvqmfw-cljdsv tablet 1 tab PO DAILY 04/18/19 12/23/20 History omega-3 fatty acids-fish oil 360 1 cap PO DAILY 04/18/19 12/23/20 History mg-1,200 mg capsule potassium chloride 20 mEq 20 meq PO DAILY 04/18/19 12/23/20 History tablet,extended release colchicine 0.6 mg tablet 0.6 mg PO BID PRN tab 12/17/19 12/23/20 History lisinopril 40 mg tablet 40 mg PO DAILY #90 tab 12/17/19 12/23/20 Rx omeprazole 20 mg capsule,delayed 20 mg PO DAILY 12/17/19 10/27/20 History release timolol 0.5 % eye drops 1 drop EYE-BOTH .Q MORNING ml 12/17/19 12/23/20 History amlodipine 5 mg tablet 5 mg PO BID #180 tab 03/17/20 12/23/20 Rx hydrochlorothiazide 25 mg tablet 12.5 mg PO DAILY #45 tab 07/14/20 12/23/20 Rx metoprolol tartrate 100 mg tablet 100 mg PO BID #180 tab 07/14/20 12/23/20 Rx Allergies Allergy/AdvReac Type Severity Reaction Status Date / Time No Known Drug Allergies Allergy Verified 12/23/20 00:06 Review of Systems Constitutional Constitutional: Denies excessive sweating, Denies fever(s), Denies headache(s), Denies weakness, Denies weight gain and Denies weight loss Eyes Eyes: Denies change in vision, Denies itchy eyes, Denies loss of vision and Denies other visual disturbances ENT Ears, Nose, Mouth, and Throat: No change in voice, No dysphagia, No dizziness, No otalgia, No headache(s), No hoarseness, No lip swelling, No neck pain, No sore throat, No throat swelling and No tongue swelling Cardiovascular Cardiovascular: Denies chest pain, Denies syncope, Denies rapid heart rate, Denies irregular heart rhythm, Denies palpitations, Denies dyspnea, Denies dyspnea on exertion and Denies slow heart rate Respiratory Respiratory: Denies chest congestion, Denies cough, Denies hemoptysis, Denies dyspnea, Denies dyspnea on exertion, Denies stridor and Denies wheezing Gastrointestinal Gastrointestinal: Denies abdominal pain, Denies bloating, Denies change in bowel habits, Denies change in stool character, Denies dysphagia, Denies nausea, Denies vomiting and Denies hematemesis Genitourinary Genitourinary: Denies hematuria, Denies difficulty urinating and Denies urinary frequency Musculoskeletal Musculoskeletal: Denies abnormal gait and Denies neck pain Integumentary/Breasts Skin/Breast: Denies bleeding lesions, Denies change in pigmentation, Denies changing lesions, Denies new lesions, Denies rash, Denies skin swelling, Denies sores and Denies jaundice Neurologic Neurologic: Denies abnormal speech, Denies abnormal gait, Denies behavioral changes, Denies confusion, Denies dizziness, Denies syncope, Denies headache(s), Denies loss of vision, Denies memory loss, Denies seizure-like activity, Denies paresthesias and Denies weakness Psychiatric Psychiatric: Denies behavioral changes, Denies change in appetite, Denies confusion, Denies difficulty concentrating, Denies auditory hallucinations, Denies memory loss, Denies mood swings and Denies suicidal ideation Endocrine Endocrine: Denies excessive sweating, Denies flushing, Denies polyuria and Denies palpitations Hematologic/Lymphatic Hematologic/Lymphatic: Denies easy bleeding, Denies easy bruising and Denies lymphadenopathy Allergic/Immunologic Allergic/Immunologic: Denies urticaria, Denies itchy eyes, Denies lip swelling, Denies throat swelling, Denies tongue swelling and Denies wheezing Exam Vital Signs (past 8 hours): - 12/23/20 00:06 12/23/20 00:14 12/23/20 00:15 Temperature 97.9 F Pulse Rate 71 82 81 Respiratory Rate 16 24 23 Blood Pressure 156/81 H 161/82 H Pulse Oximetry 96 96 95 12/23/20 00:30 12/23/20 01:00 12/23/20 01:30 Temperature Pulse Rate 80 79 87 Respiratory Rate 25 H 28 H 20 Blood Pressure 169/79 H 167/79 H 141/76 H Pulse Oximetry 96 95 94 12/23/20 02:00 12/23/20 02:30 Temperature 99.1 F Pulse Rate 84 86 Respiratory Rate 20 18 Blood Pressure 150/74 H 156/81 H Pulse Oximetry 95 94 Oxygen Delivery Method Room Air Narrative Exam Narrative: Elderly male in no obvious distress lying very motionless in hospital bed HEENT-normocephalic atraumatic Neck-no lymphadenopathy Lungs-clear with good breath sounds Heart-irregular rate and rhythm high-pitched systolic ejection murmur along the right sternal border without particular radiation, unchanged from previous Abdomen-positive bowel tones soft nontender, abdomen covered with scattered small seborrheic keratosis ease thought to be rash by nursing staff Extremities-no cyanosis clubbing or edema Objective Labs Result Diagrams: 12/22/20 23:37 12/22/20 23:37 Labs: Laboratory Results - last 24 hr 12/22/20 12/22/20 12/22/20 23:37 23:37 23:37 WBC 10.0 RBC 4.31 L Hgb 15.0 Hct 43.7 MCV 101.4 H MCH 34.9 H MCHC 34.4 RDW 13.1 Plt Count 246 Neut % (Auto) 70.5 Lymph % (Auto) 17.0 L [place] % (Auto) 10.5 Eos % (Auto) 1.4 L Baso % (Auto) 0.6 Neut # (Auto) 7000 Lymph # (Auto) 1700 [place] # (Auto) 1100 H Eos # (Auto) 100 Baso # (Auto) 100 PT 11.8 INR 1.0 APTT 33 Sodium 135 L Potassium 3.5 Chloride 95 L Carbon Dioxide 28 BUN 14 Creatinine 0.86 Estimated GFR > 60.0 BUN/Creatinine Ratio 16.3 Glucose 120 H Calcium 9.9 Total Creatine Kinase 29 L CK-MB (CK-2) TNP CK-MB (CK-2) Rel Index TNP Troponin I < 0.012 Ethyl Alcohol 203 H SARS-CoV-2 (PCR) Blood Type Antibody Screen 12/22/20 12/23/20 23:50 00:35 WBC RBC Hgb Hct MCV MCH MCHC RDW Plt Count Neut % (Auto) Lymph % (Auto) [place] % (Auto) Eos % (Auto) Baso % (Auto) Neut # (Auto) Lymph # (Auto) [place] # (Auto) Eos # (Auto) Baso # (Auto) PT INR APTT Sodium Potassium Chloride Carbon Dioxide BUN Creatinine Estimated GFR BUN/Creatinine Ratio Glucose Calcium Total Creatine Kinase CK-MB (CK-2) CK-MB (CK-2) Rel Index Troponin I Ethyl Alcohol SARS-CoV-2 (PCR) Negative Blood Type O Positive Antibody Screen Negative Assessment & Plan Assessment & Plan narrative: 1. Status post fall with inter trochanteric fracture of hip-surgical repair per Orthopedic surgery. I have held his Eliquis since admission and would recommend probably at least 24 hours off of this medication prior to surgery. That would put surgery sometime tomorrow. Given that I do not feel he is medically ready for surgery until sometime on the 24 of December, I have ordered a diet for him and released his NPO status until midnight tonight. I have turned down to gentle IV fluids. Exact timing of surgery tomorrow Tuesday the will be up to Orthopedic surgery. 2. Coronary artery disease-patient with known coronary disease as well as carotid disease with an ischemic cardiomyopathy with ejection fraction of about 45-50%. He is completely asymptomatic however. He also has mild aortic stenosis again is asymptomatic. I would continue his usual medications certainly is beta-nancy therapy in the perioperative. He is on 2 other antihypertensives. Blood pressure is minimally elevated at the moment. Should probably be on most of his usual medications in the perioperative. With the exception of his blood thinner for his atrial fibrillation stroke reduction risk. I have continued his amlodipine, his metoprolol, and his lisinopril for now. These can be held prior to surgery although seemingly if surgery is going to be late tomorrow at the end schedule cases than he likely should have his morning medications without change 3. VTE prophylaxis-SCDs will be employed and patient be put back on Eliquis following his surgery but for now no anticoagulation of course 4. Code status-patient requests full code in the event of a sudden cardiac or respiratory arrest which is not anticipated Patient deserves inpatient hospitalization given the nature of his fall with fracture need for surgery. He will be in the hospital greater than 48 hours including 2 separate midnights I also discussed his admission and care with his spouse Nadege over the phone. She will be in to see him later today. Quality VTE Deep Vein Thrombosis/Pulmonary Embolism Present on Admission: No
--- NOTE | 2020-12-23 08:23 | PC.NURSE ---
Assess- Patients CIWA score this morning a 1, patient's face clammy. He is pleasant but seems a bit withdrawn and down about falling and fx his l.hip. IVF infusing. Will give patient is po medications this morning and DR. Plata has been into see patient. He states that patient will go to surgery most likely tomorrow, ortho will see patient prior for consult. He will be able to eat breakfast and states that he wants to rest, morphine given to patient helpful.
[2020-12-23] MEDS: AMLODIPINE 5 MG TABLET PO ×2 (09:04→22:26)
[2020-12-23] MEDS: METOPROLOL IR 50 MG TABLET 100 MG PO ×2 (09:04→22:27)
[2020-12-23] MEDS: MAGNESIUM OXIDE 400 MG TABLET PO ×2 (09:04→22:26)
[2020-12-23] MEDS: VIT C/E/ZN/COPPR/LUTEIN/ZEAXAN CAPSULE 1 CAP PO (09:04)
[2020-12-23] MEDS: TIMOLOL 0.5% OPHTH 1 DROPS EYE-BOTH (09:04)
[2020-12-23] MEDS: FISH OIL 1,000 MG CAPSULE 1000 MG PO (09:04)
[2020-12-23] MEDS: lisinopriL 20 MG TABLET 40 MG PO (09:04)
--- NOTE | 2020-12-23 14:35 | CM.DANOTE ---
Discharge Planning/Care Management CM Discharge Assessment Start: 12/23/20 14:32 Freq: Status: Active Protocol: Document 12/23/20 14:32 ITV (Rec: 12/23/20 14:35 ITV [id number]) Discharge Planning Assessment Advance Directives? Yes Advance Directives on File No History Provided By Patient,Medical Record Prior Living Arrangements House Household Members spouse Independent with ADL's Yes Is patient alert and oriented? Yes Patient/Family Preference Senior Care Facility Comment likely will need: pt requests to be on list for [facility] in case of need. Medicare Choice List Provided Yes Review Status In Process
--- NOTE | 2020-12-23 14:36 | CM.DANOTE ---
Addendum entered by Niyah Pepe LPN 12/23/20 14:59: [facility]. Original Note: Discharge Planning/Care Management DCP: assessment: case received, EMR reviewed and met with pt and his Nadege. Introduced self and role. Pt is a 80 year old male who admitted early this morning 0200 to care of PCP Dr. Plata. Consulting: orthopedic team Payer: Medicare and [facility] Admission status: INPT: confirmed by UR RN. Pt with a fall at home resulting in hip fracture. Surgery is planned for 12/24 per [facility] Low's discussion with ortho MERLE Iverson (no note is yet available re this). Discussed rehab options post d/c with both pt and Nadege agreeing that snf setting is likely needed, although will not know for certain until after surgery, OT and PT etc. (pt is noted to be quite a bit taller and heavier that Nadege and both agree she would not be of help to him until he is able to mobilize with basic ADLs by self.) Medicare snf choice list: discussed: decision: [facility] (the only snf in their home [facility]). Referral: to [facility]: reviewing: acceptance anticipated. COVID vaccine status: both Nadege and pt fully vaccinated with Nadege having proof of cards in pictures on her phone: info provided to [facility]. P: follow post surgery to make sure PT and OT are involved and follow. Pt is assured that if snf is not needed it will be fine to release the referral. CM Discharge Assessment Start: 12/23/20 14:32 Freq: Status: Active Protocol: Document 12/23/20 14:32 ITV (Rec: 12/23/20 14:35 ITV [id number]) Discharge Planning Assessment Advance Directives? Yes Advance Directives on File No History Provided By Patient,Medical Record Prior Living Arrangements House Household Members spouse Independent with ADL's Yes Is patient alert and oriented? Yes Patient/Family Preference [facility] Comment likely will need: pt requests to be on list for [facility] in case of need. Medicare Choice List Provided Yes Review Status In Process
--- NOTE | 2020-12-23 14:55 | PC.NURSE ---
Patient given 2mg of iv morphine for discomfort to l.hip. He is visiting with his and doing well. Waffle cushion put under l.coccyx and patient more comfortable.
--- NOTE | 2020-12-23 18:05 | P.CONS_ITS ---
History of Present Illness Consult details Date Patient Seen: 12/23/20 Time Patient Seen: 18:08 Chief complaint: Hip fx Reason for consult: Left hip fracture Requesting provider: Shukri Plata Narrative: 80-year-old gentleman who fell early this morning. Patient is unsure if it was a mechanical fall. Was complaining of feeling dizzy before falling. Denies any loss of consciousness. Denies any other injuries besides the left hip from the fall. Meds Home Medications and Allergies Home Medications Medication Instructions Recorded Confirmed Type ASPIRIN (Aspirin EC) 81 mg PO Q DAY #0 11/30/10 12/23/20 History latanoprost [Xalatan] 1 drp OPHTH QDAY #0 11/23/11 12/23/20 History apixaban 5 mg tablet 5 mg PO BID #60 tab 04/18/19 12/23/20 Rx atorvastatin 40 mg tablet 40 mg PO HS #90 tab 04/18/19 12/23/20 Rx cholecalciferol (vitamin D3) 125 5,000 unit PO DAILY 04/18/19 12/23/20 History mcg (5,000 unit) capsule magnesium oxide 800 mg PO DAILY 04/18/19 10/27/20 History gyvjitdxzoju-knpiwyah-inkubd tablet 1 tab PO DAILY 04/18/19 12/23/20 History omega-3 fatty acids-fish oil 360 1 cap PO DAILY 04/18/19 12/23/20 History mg-1,200 mg capsule potassium chloride 20 mEq 20 meq PO DAILY 04/18/19 12/23/20 History tablet,extended release colchicine 0.6 mg tablet 0.6 mg PO BID PRN tab 12/17/19 12/23/20 History lisinopril 40 mg tablet 40 mg PO DAILY #90 tab 12/17/19 12/23/20 Rx omeprazole 20 mg capsule,delayed 20 mg PO DAILY 12/17/19 10/27/20 History release timolol 0.5 % eye drops 1 drop EYE-BOTH .Q MORNING ml 12/17/19 12/23/20 History amlodipine 5 mg tablet 5 mg PO BID #180 tab 03/17/20 12/23/20 Rx hydrochlorothiazide 25 mg tablet 12.5 mg PO DAILY #45 tab 07/14/20 12/23/20 Rx metoprolol tartrate 100 mg tablet 100 mg PO BID #180 tab 07/14/20 12/23/20 Rx Allergies Allergy/AdvReac Type Severity Reaction Status Date / Time No Known Drug Allergies Allergy Verified 12/23/20 00:06 Review of Systems Review of Systems ROS: Yes All systems reviewed with the patient and are negative except as otherwise documented Exam Vital Signs (past 8 hours): - 12/23/20 12:00 12/23/20 15:20 Temperature 97.6 F 99.2 F Pulse Rate 102 H 91 H Respiratory Rate 22 20 Blood Pressure 153/88 H Pulse Oximetry 95 Oxygen Delivery Method Room Air Oxygen Flow Rate 0 Narrative Exam Narrative: Patient is lying in bed alert and oriented x3 with no sign of any distress. No sign of any injury involving the upper extremities. Normal range of motion of the upper extremities without any pain or instability. Compartments are soft. No sign of any head or neck injury from the fall. Normal range of motion of the right lower extremity. No pain with motion of the right lower extremity. Some shortening and rotation of the left lower extremity. The compartments are soft. Palpable pedal pulses. Brisk cap refill. No sign of any swelling or instability to the ankle or knee. Objective Labs Result Diagrams: 12/22/20 23:37 12/22/20 23:37 Labs: Laboratory Results - last 24 hr 12/22/20 12/22/20 12/22/20 23:37 23:37 23:37 WBC 10.0 RBC 4.31 L Hgb 15.0 Hct 43.7 MCV 101.4 H MCH 34.9 H MCHC 34.4 RDW 13.1 Plt Count 246 Neut % (Auto) 70.5 Lymph % (Auto) 17.0 L [place] % (Auto) 10.5 Eos % (Auto) 1.4 L Baso % (Auto) 0.6 Neut # (Auto) 7000 Lymph # (Auto) 1700 [place] # (Auto) 1100 H Eos # (Auto) 100 Baso # (Auto) 100 PT 11.8 INR 1.0 APTT 33 Sodium 135 L Potassium 3.5 Chloride 95 L Carbon Dioxide 28 BUN 14 Creatinine 0.86 Estimated GFR > 60.0 BUN/Creatinine Ratio 16.3 Glucose 120 H Calcium 9.9 Total Creatine Kinase 29 L CK-MB (CK-2) TNP CK-MB (CK-2) Rel Index TNP Troponin I < 0.012 Ethyl Alcohol 203 H SARS-CoV-2 (PCR) Blood Type Antibody Screen 12/22/20 12/23/20 23:50 00:35 WBC RBC Hgb Hct MCV MCH MCHC RDW Plt Count Neut % (Auto) Lymph % (Auto) [place] % (Auto) Eos % (Auto) Baso % (Auto) Neut # (Auto) Lymph # (Auto) [place] # (Auto) Eos # (Auto) Baso # (Auto) PT INR APTT Sodium Potassium Chloride Carbon Dioxide BUN Creatinine Estimated GFR BUN/Creatinine Ratio Glucose Calcium Total Creatine Kinase CK-MB (CK-2) CK-MB (CK-2) Rel Index Troponin I Ethyl Alcohol SARS-CoV-2 (PCR) Negative Blood Type O Positive Antibody Screen Negative Assessment & Plan Assessment & Plan narrative: Patient is status post fall resulting in a left intratrochanteric proximal femur fracture. Due to the fracture nature this is something that will require surgical treatment. I went over the injury as well as treatment options with the patient. We discussed operative versus non operative treatment and the risks and limitations associated with both. Patient understands the risks and limitations associated with the surgery. Patient is not medically cleared today due to his blood thinner. We will hopefully be able to do his surgery sometime tomorrow. This has been related to both him and his today. The risk, benefits, alternatives, possible complications, operative course, and postop outcomes were discussed. Complications including but not limiting to bleeding, infection, fracture, nerve injury, continued pain postoperatively or instability postoperatively were discussed in detail. Medical complications including but not limited to deep venous thrombosis event, anesthesia complications with excessive bleeding, vascular events or cardiac events and other possible complications were discussed in detail. Need for postoperative rehabilitation and anticipated hospital stay and clinical course were discussed in detail. Patient acknowledges understanding and elects to proceed with surgery.
[2020-12-23] MEDS: ATORVASTATIN 20 MG TABLET 40 MG PO (22:27)
[2020-12-23] MEDS: LATANOPROST 0.005% OPHTH 2.5 ML 1 DROPS EYE-BOTH (22:28)
[2020-12-24] VITALS (19 sets, daily range): BP systolic 140–175; BP diastolic 77–107; PULSE 78–111; RESP 14–22; TEMP 36.4–38.2; O2SAT 92–97
--- NOTE | 2020-12-24 | DI.RAD.S_ITS ---
PROCEDURE: XR HIP W PEL IF DONE LT 2V INDICATIONS: ORIF LEFT HIP TECHNIQUE: 2 view(s) of the hip acquired. COMPARISON: [facility], CR, XR HIP W PEL IF DONE LT 2V, 12/22/2020, 23:57. FINDINGS: Bones: Patient is status post lateral buttressing plate and dynamic hip screw placement establishing virtual anatomic alignment across the inter trochanteric acute left hip fracture., with hardware components in expected positions. The hip joint appears congruent. The visualized bony structures appear intact. Soft tissues: Overlying postoperative changes are noted. No suspicious soft tissue densities. IMPRESSION: Normal alignment established after placement dynamic hip screw and lateral buttressing plate across the area of inter trochanteric left hip fracture. Dictated by: Radames Keller M.D. on 12/25/2020 at 9:56 Approved by: Radames Keller M.D. on 12/25/2020 at 9:57
[2020-12-24] MEDS: SODIUM CHLORIDE 0.9% 1,000 ML 125 ML IV (00:29)
[2020-12-24] MEDS: PANTOPRAZOLE DR 40 MG TABLET PO (06:10)
--- NOTE | 2020-12-24 08:28 | P.PN_ITS ---
Subjective Subjective Date Patient Seen: 12/24/20 Time Patient Seen: 08:30 Interval history: Patient had a reasonably good night. Managed to sleep and catch up on his rest Orthopedic surgery saw him last evening and apparently he is scheduled for late this afternoon as expected No new complaints or issues Exam Vital Signs (past 8 hours): - 12/24/20 05:36 12/24/20 07:00 Temperature 98.6 F Pulse Rate 89 Respiratory Rate 18 Blood Pressure 161/91 H Pulse Oximetry 95 95 Oxygen Delivery Method Room Air Oxygen Flow Rate 0 Objective Labs Result Diagrams: 12/22/20 23:37 12/22/20 23:37 [facility] Medical History Aortic stenosis Bilateral carotid artery disease CAD (coronary atherosclerotic disease) (11/30/10) Chronic gout, unspecified, without tophus (tophi) (11/30/10) Essential (primary) hypertension (02/09/16) GERD without esophagitis Hypercalcemia Hyperglycemia Hyperlipidemia Hyperparathyroidism 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 Status post fall with left hip fracture-orthopedic surgical repair later today. Postoperative management as per Ortho. 2. Hypertension-patient is been persistently minimally hypertensive here. I am going to continue his usual oral medications including giving him a dose this morning since his surgeries not till late this afternoon. 3. Patient's other medical problems include his coronary disease etcetera are stable. Continue usual meds. 4. Disposition-patient anticipating going to shelter for recovery prior to returning home after his surgery. I think this makes sense I am out of the office for a few days beginning this afternoon, my partner Dr. Rivera, will see patient in my absence. I discussed this with patient as well. Note: Greater than 20 minutes was spent evaluating the patient on the floor, including examining the patient, discussing clinical course with clinical and nursing staff, reviewing clinical course in the computer, preparing documentation and writing orders for continued management of care, discussing status with family as appropriate, reviewing plans for the next 24 hours with both patient/family and nursing staff as appropriate. Quality VTE Deep Vein Thrombosis/Pulmonary Embolism Present on Admission: No
[2020-12-24] MEDS: lisinopriL 20 MG TABLET 40 MG PO (08:57)
[2020-12-24] MEDS: METOPROLOL IR 50 MG TABLET 100 MG PO ×2 (09:02→20:30)
[2020-12-24] MEDS: TIMOLOL 0.5% OPHTH 1 DROPS EYE-BOTH (09:09)
[2020-12-24] MEDS: VIT C/E/ZN/COPPR/LUTEIN/ZEAXAN CAPSULE 1 CAP PO (09:11)
--- NOTE | 2020-12-24 12:02 | CM.DPC ---
DCP Cont: Checked in with patient and , Nadege, who is at bedside. Introduced self and role. Patient was sitting up in bed, alert and oriented, NPO. His surgery for his hip is scheduled for approximately 1600 today. confirmed that [facility] is the plan at this time. Will also have to see how patient does after his surgery, for he will then be working with P.T. P: DCP to continue to follow. Will go ahead and complete a PASSR. Plan is for [facility] at discharge. He is Medicare, and would qualify by 12/26, Tuesday. Chela Liriano RN/[employer]
[2020-12-24] MEDS: LACTATED RINGERS 1,000 ML 42 ML IV (17:19)
--- NOTE | 2020-12-24 17:28 | SUR.HOLD ---
Pt verified Name and on wristband. Pt's wrist watch given to . Ring on Left hand taped. Pt unable to remove.
--- NOTE | 2020-12-24 17:38 | PM.PREOP ---
Pre-operative Note COVID-19 COVID-19 status: Negative Interval Note History & Physical reviewed/Exam performed by Physician: Yes Changes to H&P: No
[2020-12-24] MEDS: CEFAZOLIN 1 GM VIAL IV (18:30)
--- NOTE | 2020-12-24 19:06 | SUR.OPER ---
Supine on padded [place] table with bilateral legs secured in padded positioning boots and suspended in positioning spars, operative leg in traction per surgeon. Head on one pillow. Arm on non-operative side secured on padded armboard <90 degrees abduction. Arm on operative side padded and resting across chest then secured with tape over sheet. Padded perineal post in place per surgeon.
[2020-12-24] MEDS: BUPIVACAINE 0.5% W/ EPI (PF) 30 ML VIAL INJ (19:09)
--- NOTE | 2020-12-24 19:40 | PM.OP.1 ---
Operative Date/Time/Diagnoses Date of procedure: 12/24/20 Time of procedure: 18:40 Pre-op diagnosis: Left intertrochanteric proximal femur fracture Post-op diagnosis: same Procedure & Clinicians Procedure: Open reduction internal fixation of a proximal femur fracture Same procedure as scheduled: Yes Indications: Intertrochanteric proximal femur fracture Surgeon: Himanshu Torres Click Yes if Unassisted: Yes Anesthesia Type: General Operative Notes Findings: Displaced intertrochanteric proximal femur fracture Closure Type: primary Specimen(s): none sent Applied: implant(s) (4 hole 135 degree dynamic hip screw with a 100 mm screw) Estimated Blood Loss (mL): 50 Blood products transfused: none Procedure in detail: On date of service patient was met in the holding area where his operative site was signed and witnessed by the OR staff. Surgery was once again discussed with the patient in remaining questions or concerns he had were answered fully. Patient was taken back to the operating theater. Spinal anesthesia was administered and then patient was transferred to the fracture table. Great care was taken to ensure that all bony prominences were appropriately padded. Both legs were placed into traction boots but only the right leg was placed under distraction and internal rotation in order to reduce the fracture. C-arm was brought in to verify reduction the fracture. Once we were satisfied with overall reduction, the right leg was prepped and draped in the normal sterile fashion. Ten blade was used to incise through skin and fascial tissue. Deep knife was then used to incise through the ITB band. Young elevator was then used to elevate the vastus lateralis off the femur given us good visualization of the lateral femur. 135 degree guide was placed in a guide pin was placed into the femoral head. AP and lateral views were used to verify pin positioning. Once were satisfied with the position of the pin it was measured and an 80 mm screw was placed. This was then followed by a 4 hole 135 degree plate. The plate was then secured to the bone with fully threaded 4.5 cortical screws. Final x-rays were obtained. The wound was copiously irrigated and closed in layered fashion. Patient was taken to the PACU in stable condition. Complications: none Post-operative Condition: stable Disposition: PACU Plan for aftercare: Patient can be partial weight-bearing to the left lower extremity.
[2020-12-24] MEDS: MAGNESIUM HYDROXIDE 30 ML UDC PO (20:30)
[2020-12-24] MEDS: DOCUSATE 100 MG CAPSULE PO (20:30)
[2020-12-24] MEDS: MAGNESIUM OXIDE 400 MG TABLET PO (20:30)
[2020-12-24] MEDS: LACTATED RINGERS 1,000 ML 125 ML IV (20:30)
[2020-12-24] MEDS: ATORVASTATIN 20 MG TABLET 40 MG PO (20:30)
[2020-12-24] MEDS: AMLODIPINE 5 MG TABLET PO (20:30)
[2020-12-24] MEDS: APIXABAN 5 MG TABLET PO (21:58)
[2020-12-24] MEDS: LATANOPROST 0.005% OPHTH 2.5 ML 1 DROPS EYE-BOTH (22:00)
--- NOTE | 2020-12-24 22:55 | PC.NURSE ---
Patient went to surgery at 1656. Returned to floor at 1999. A&O x3. Denies pain when laying still, 3/10 when moving. LR @ 125 into right AC. SCDs on. Cap refill <2 sec, dressing cdi, ice pack applied to hip. Educated on proper moving mechanics, pillow placed between knees. Pitts catheter draining mathew urine. Tele: Goyo nguyen. Call light within reach, bed low.
[2020-12-25] VITALS (7 sets, daily range): BP systolic 134–154; BP diastolic 61–94; PULSE 75–98; RESP 16–18; TEMP 36.6–37.7; O2SAT 90–96
[2020-12-25] MEDS: CEFAZOLIN 1 GM VIAL 2 GM IV ×2 (03:48→12:25)
[2020-12-25 06:06] LABS: Hematocrit 38.3 % (41-53); Hemoglobin 13.1 g/dL (13.5-17.5); Mean Corpuscular HGB Conc 34.3 % (30-36); Mean Corpuscular Hemoglobin 34.3 PG (26-34); Platelet Count 179 X10^3/uL (150-400); Red Blood Cell Count 3.83 X10^6/uL (4.5-5.9); Red Cell Distribution Width 12.8 % (11.6-14.8); White Blood Cell Count 12.6 X10^3/uL (4.5-11.0)
[2020-12-25] MEDS: PANTOPRAZOLE DR 40 MG TABLET PO (06:24)
[2020-12-25] MEDS: OXYCODONE IR 10 MG TABLET PO ×4 (07:46→21:20)
--- NOTE | 2020-12-25 07:53 | P.PN_ITS ---
Subjective Subjective Date Patient Seen: 12/25/20 Time Patient Seen: 07:53 Interval history: Patient seen and evaluated this morning. Patient did well overnight. Has minimal left hip pain only with movement. Says he is hungry this morning. Has no complaints of chest pain dizziness lightheadedness shortness of breath. No bowel movement since hospitalization. Off anticoagulation. Blood pressures are still running a little bit high. Exam Vital Signs (past 8 hours): - 12/25/20 04:00 Temperature 98.6 F Pulse Rate 75 Respiratory Rate 16 Blood Pressure 151/84 H Pulse Oximetry 93 Oxygen Delivery Method Room Air Oxygen Flow Rate 0 Narrative Exam Narrative: Gen.: Alert no apparent distress HEENT: Pupils equal round and reactive or mucosa is moist neck is supple Cardio: S1-S2 systolic murmur present heart irregular Respiratory: Normal respiratory effort some small crackles at lung bases Abdomen: Soft nontender no rebound or guarding Extremities: Incision over left hip shows no signs of significant bleeding. 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 Mildly anemic today with a hemoglobin of 13.1. Atrial fibrillation. Patient has atrial fibrillation with chronic anticoagulation. His Eliquis has been held for surgery. Will go ahead and resume that 24 hours after surgery if okay with the orthopedic surgery for prevention and prophylaxis of thromboemboli. Coronary artery disease chronic and stable. No signs of chest pain at this p oint. Congestive heart failure systolic chronic plan. Patient has stable chronic systolic heart failure. No significant signs of fluid overload some mild crackles on exam I think this just postoperatively not him mobilizing yet. Continue to monitor output and signs and symptoms for heart failure. Essential hypertension blood pressure is still elevated. Continue to adjust blood pressure medication for adequate blood pressure control Disposition and plan. Obviously advancing diet. Working on mobilization. Hopefully remove Pitts catheter. Continue with stool softeners to help with bow el movement. Depending on ability to ambulate and move. May need short-stay shelter placement to help with ambulation. Quality VTE Deep Vein Thrombosis/Pulmonary Embolism Present on Admission: No
[2020-12-25] MEDS: lisinopriL 20 MG TABLET 40 MG PO (08:10)
[2020-12-25] MEDS: METOPROLOL IR 50 MG TABLET 100 MG PO ×2 (08:10→21:03)
[2020-12-25] MEDS: MAGNESIUM OXIDE 400 MG TABLET PO ×2 (08:10→21:02)
[2020-12-25] MEDS: hydroCHLOROthiazide 25 MG TABLET PO (08:11)
[2020-12-25] MEDS: AMLODIPINE 5 MG TABLET PO ×2 (08:11→21:03)
[2020-12-25] MEDS: FISH OIL 1,000 MG CAPSULE 1000 MG PO (08:12)
[2020-12-25] MEDS: ASPIRIN EC 81 MG TABLET PO (08:12)
[2020-12-25] MEDS: POTASSIUM CHLORIDE 20 MEQ TAB PO (08:12)
[2020-12-25] MEDS: DOCUSATE 100 MG CAPSULE PO ×2 (08:12→21:03)
[2020-12-25] MEDS: VIT C/E/ZN/COPPR/LUTEIN/ZEAXAN CAPSULE 1 CAP PO (08:12)
[2020-12-25] MEDS: TIMOLOL 0.5% OPHTH 1 DROPS EYE-BOTH (08:13)
[2020-12-25] MEDS: CHOLECALCIFEROL (VITAMIN D3) 5,000 UNIT TABLET 5000 UNIT PO (08:16)
--- NOTE | 2020-12-25 11:36 | PT.IIE ---
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 Pt is an effective verbal communicator. Mobility and Gait Pt reports ongoing balance and strength concerns for which he was seen in outpatient PT earlier this year. Prior to this most recent fall, pt states he had not fallen in several months. He does not typically use any assistive device and states he can walk around the block at least one time but a maximum of two times. Pt's notes that he tends to drag his left foot and wears out the left sole of his shoes more quickly than the right. Activities of Daily Living and IADL's Pt states he is independent with all ADL's. Social History Household Members spouse Living Arrangements House Number of Floors (Floors) Two Floors Number of Stairs To Enter/Railing? level entrance through the garage and back door Home Environment High Toilet,Walk in Shower, Built-In Shower Seat Home Equipment Grab Bars In Shower Employment Status Retired Additional Social History Comment Pt lives in [place] with his , Nadege. M2 PT-IP Current Condition Start: 12/25/20 08:39 Freq: NEEDED Status: Active Protocol: Document 12/25/20 11:36 AW (Rec: 12/25/20 12:20 AW [id number]) Physical Therapy Current Condition Current Condition Evaluation Date 12/25/20 Treatment Diagnosis L proximal femur fx s/p ORIF; difficulty in walking Onset Date 12/23/20 Precautions Other Precautions 50% PWB LLE (clarified after evaluation). Attempted to contact surgeon for clarification but no response by time of evaluation. Proceeded as if TTWB LLE. Weight Bearing Status Weight Bearing Status Partial Weight Bearing Allowed Weight Bearing Amount (enter % 50% PWB LLE or #) (%) M3 PT-IP Subjective Start: 12/25/20 08:39 Freq: NEEDED Status: Active Protocol: Document 12/25/20 11:36 AW (Rec: 12/25/20 12:20 AW [id number]) Subjective Physical Therapy Visit Type Type Initial Evaluation Visit Start Time 11:00 Visit Stop Time 11:36 Total Visit Minutes 36 Notes Pt's , Nadege, was present throughout evaluation Number of POWER LINE INSTALLER AND REPAIRER Visits 0 Physical Therapy Visit Comments Patient Comments Pt is willing to participate with PT Patient Goals Improve strength for ability to take care of himself. Therapy Pain Assessment Pain When Pain Assessed During Mobility Pain Present Pain Present Pain Reported Location Left Hip Intensity 6 Scale Used 6/10 with any movement or weightbearing. Description Sharp,With Movement Pain Management Techniques Apply Cold,Modification of Treatment,Timing of Activity with Medications M4 PT-IP Mobility and Gait Start: 12/25/20 08:39 Freq: NEEDED Status: Active Protocol: Document 12/25/20 11:36 AW (Rec: 12/25/20 12:20 AW [id number]) PT-Bed Mobility Assessment Supine to Sit Supine to Sit Moderate Assistance,1 Person Assistance,Head of Bed Elevated,Bedrails Scooting Scooting to Edge of Bed Moderate Assistance PT-Transfer Assessment Sit to and From Stand Sit to and from Stand Maximum Assistance,1 Person Assistance,Use of Upper Extremities Equipment Transfer Assistive Device Gait Belt,Front Wheeled Walker Orthotic/Prosthetic Devices or Brace: No Transfers Transfer Destination Chair Transfer Technique Stand Step Pivot Transfer Ability Level of Assist Maximum Assistance,1 Person Assistance,2 Person Assistance ,Use of Upper Extremities Comments Mobility Comments Pt was sitting up in bed as PT arrived. BP was 132/85 HR 82. With HOB at ~40 degrees, pt required mod assist mostly for movement of the LLE to complete supine to sit. He scooted to EOB mod assist and sat with both feet on the floor. PT educated pt on PWB/ TTWB status and demonstrated pivot transfers toward chair set up on right side. Pt needed max verbal cues and max assist to stand from the bed and max assist to pivot on right foot. Pt was unsuccessful with TTWB LLE; it was unclear how much weight he was putting on the LLE. Pt needed assist for sitting due to poor control of descent. Educated pt on level of assist required for safe transfers and recommendation for SNF rehab. Pt (reluctantly) and his were in agreement. BP was 141/61 HR 83 after transfer. Pt was left with ice pack on left hip, call light and tray table in reach. Gait Assessment Comments Gait Comments Pt unable at this time. Stair Climbing Assessment Comments Stair Climbing Comments Not assessed. PT-Balance Assessment Sitting Balance and Reactions Static Sitting Balance Ability Good Dynamic Sitting Balance Ability Fair Standing Balance and Reactions Static Standing Balance Ability Poor Dynamic Standing Balance Ability Poor Device Used FWW Balance Tests Single Limb Standing RLE unable; LLE NT M5 PT-IP Objective Assessments Start: 12/25/20 08:39 Freq: NEEDED Status: Active Protocol: Document 12/25/20 11:36 AW (Rec: 12/25/20 12:20 AW [id number]) Orientation Orientation/Cognition Level of Alertness Alert Orientation Name,Day of Week,Place, Situation Language Function Ability No Deficits Noted Safety Awareness Understands Safety Issues, Decreased Safety Awareness Memory Description No Deficits Noted Gross Range of Motion Lower Extremity ROM Assessment Left Impaired Strength Upper Extremity Strength Assessment Within Functional Limits Lower Extremity Strength Assessment Bilaterally Impaired Hip R 3/5; L 3-/5 Knee R 4-/5; L 3/5 Ankle R 4/5; L 4-/5 Sensation Assessment Sensation Gross Sensation WNL Muscle Tone Muscle Tone WNL Yes M6 PT-IP Treatment Start: 12/25/20 08:39 Freq: NEEDED Status: Active Protocol: Document 12/25/20 11:36 AW (Rec: 12/25/20 12:20 AW [id number]) Physical Therapy Treatment Exercises Exercises Ankle Pumps,Gluteal Sets,Quad Sets Education Education Provided Weight Bearing Status,Post-Op Packet,Safety Other Treatments Other Treatment Performed Educated pt on PT plan of care , weightbearing status, and recommendation for SNF rehab. M7 PT-IP Assessment and Plan Start: 12/25/20 08:39 Freq: NEEDED Status: Active Protocol: Document 12/25/20 11:36 AW (Rec: 12/25/20 12:20 AW [id number]) PT Summary Assessment and Plan Potential Rehabilitation Potential Good Status of Condition at Evaluation Evolving Summary Impairments Pain,ROM,Strength,Balance,Bed Mobility,Transfers,Gait, Activity Tolerance Assessment Summary Art is a 80 yo man seen for PT evaluation on POD1 following ORIF for left intertrochanteric hip fracture . He has long-standing balance and strength deficits but is independent without assistive device at baseline. He states his falls have not increased in frequency. On evaluation, pt required mod assist for bed mobility with HOB raised to 40 degrees, max assist x 1-2 for sit to stand and transfers . Pt has difficulty maintaining 50% PWB LLE and requires assist to monitor. Pt will require SNF rehab to improve strength and mobility independence. Goals Bed Mobility Goal Standby Assistance Transfer Goal Minimal Assistance,Front Wheeled Walker Gait Goal Minimal Assistance,Front Wheel Walker Gait Distance 25 Days to Meet Goals 10 Frequency of Treatment Frequency Of Treatment Twice a Day Treatment Plan Physical Therapy Treatment Plan Bed Mobility Training,Transfer Training,Gait Training, Therapeutic Exercise,Balance Retraining,Post Op Education, Discharge Planning,Hot or Cold Pack,Neuromuscular Re-ed Other Recommendations and Next Treatment Recommend OT consult - Focus communicate to CM. Next visit: Assess LLE WB with scale, transfers, ther ex. Precautions Other Precautions 50% PWB LLE, falls Recommendations To Nursing Amount of Assist Needed 2 Person Assist Discharge Recommendations PT Discharge Recommendations SNF Rehab Transportation Needs at Discharge Wheelchair/Cabulance
--- NOTE | 2020-12-25 12:02 | PM.PNPO.1 ---
Subjective Subjective Date Patient Seen: 12/25/20 Time Patient Seen: 12:03 Interval history: Patient states he is doing well overall and is in moderate discomfort at rest. He notes that his pain is worsened with activity. He denies fever, chills, nausea, chest pain, or shortness of breath at this time. He reports good sensation throughout the bilateral lower extremities. Exam Vital Signs (past 8 hours): - 12/25/20 07:15 12/25/20 08:10 Temperature 98.6 F Pulse Rate 82 82 Respiratory Rate 17 Blood Pressure 154/94 H 154/94 H Pulse Oximetry 95 Oxygen Delivery Method Room Air Oxygen Flow Rate 0 Narrative Exam Narrative: 80-year-old male postop day 1 status post left ORIF of intertrochanteric hip fracture. Patient is resting comfortably in bed, is in no acute distress, is alert and oriented x3. Skin is warm and dry, and the skin surrounding the incision site is free of erythema, warmth, induration, or discharge. Dressing over the incision site is clean, dry, and intact. Good sensation appreciated throughout the bilateral lower extremities to light touch. Ankle dorsiflexion, plantar flexion, eversion, inversion performed bilaterally without difficulty or discomfort. DP pulses palpated bilaterally. Calves are soft nontender, negative Homans sign. No other signs of DVT appreciated. Const General: cooperative, healthy appearing and comfortable Resp Effort & Inspection: normal respiratory effort and able to speak in complete sentences Skin General: no rashes or lesions noted Objective Labs Result Diagrams: 12/25/20 05:20 12/22/20 23:37 Labs: Laboratory Results - last 24 hr 12/25/20 05:20 WBC 12.6 H RBC 3.83 L Hgb 13.1 L Hct 38.3 L MCV 100.0 MCH 34.3 H MCHC 34.3 RDW 12.8 Plt Count 179 PFSH Medical History Aortic stenosis Bilateral carotid artery disease CAD (coronary atherosclerotic disease) (11/30/10) Chronic gout, unspecified, without tophus (tophi) (11/30/10) Essential (primary) hypertension (02/09/16) GERD without esophagitis Hypercalcemia Hyperglycemia Hyperlipidemia Hyperparathyroidism 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 Current pain management regimen is to be continued as it is adequately controlled the patient's pain level at this time. Will continue to monitor the patient's progress. Time Spent With Patient Time with patient: less than 15 minutes Quality VTE Deep Vein Thrombosis/Pulmonary Embolism Present on Admission: No
--- NOTE | 2020-12-25 14:05 | PT.IPTN ---
Current Diagnoses Displaced intertrochanteric fracture of left femur, initial encounter for closed fracture (12/23/20) Surgery Performed Operation Date: 12/24/20 16:00 Actual Procedures p ORIF Hip DHS(Left) - Himanshu Torres MD Physical Therapy Treatment Note M2 PT-IP Current Condition Start: 12/25/20 08:39 Freq: NEEDED Status: Active Protocol: Document 12/25/20 11:36 AW (Rec: 12/25/20 12:20 AW [id number]) Physical Therapy Current Condition Current Condition Evaluation Date 12/25/20 Treatment Diagnosis L proximal femur fx s/p ORIF; difficulty in walking Onset Date 12/23/20 Precautions Other Precautions 50% PWB LLE (clarified after evaluation). Attempted to contact surgeon for clarification but no response by time of evaluation. Proceeded as if TTWB LLE. Weight Bearing Status Weight Bearing Status Partial Weight Bearing Allowed Weight Bearing Amount (enter % 50% PWB LLE or #) (%) M3 PT-IP Subjective Start: 12/25/20 08:39 Freq: NEEDED Status: Active Protocol: Document 12/25/20 14:07 AW (Rec: 12/25/20 14:26 AW [id number]) Subjective Physical Therapy Visit Type Type Treatment Note Visit Start Time 13:40 Visit Stop Time 14:05 Total Visit Minutes 25 Physical Therapy Visit Comments Patient Comments Pt requesting return to bed Therapy Pain Assessment Pain When Pain Assessed During Mobility Pain Present Pain Present Pain Reported Location Left Hip Intensity 9 Scale Used Numeric (0 - 10) Description Sharp,With Movement Pain Behaviors Facial Grimacing,Guarding Pain Management Techniques Apply Cold,Modification of Treatment,Timing of Activity with Medications M4 PT-IP Mobility and Gait Start: 12/25/20 08:39 Freq: NEEDED Status: Active Protocol: Document 12/25/20 14:07 AW (Rec: 12/25/20 14:26 AW [id number]) PT-Bed Mobility Assessment Sit to Supine Sit to Supine Maximum Assistance,1 Person Assistance,Head of Bed Elevated,Bedrails PT-Transfer Assessment Sit to and From Stand Sit to and from Stand Maximum Assistance,1 Person Assistance,Use of Upper Extremities Equipment Transfer Assistive Device Gait Belt,Front Wheeled Walker Orthotic/Prosthetic Devices or Brace: No Transfers Transfer Destination Bed Transfer Technique Stand Step Pivot Transfer Ability Level of Assist Maximum Assistance,1 Person Assistance,2 Person Assistance ,Use of Upper Extremities Comments Mobility Comments Pt was sitting on chair as PT arrived. BP 140/93 HR 92. He scooted forward SBA and then stood from the chair max assist with cues for LLE PWB 50%. In standing, pt reported primarily weightbearing on RLE . With left foot on scale, pt was able to maintain no more than 75# WB on LLE in static stance. Instructed pt to increase weightbearing for sensory calibration but pt was unwilling due to sharply increased pain. Pt then completed max assist transfer to bed (raised 3 from lowest position). Pt was unable to elevate the LLE enough during transfer for dynamic WB assessment. After a brief rest period, pt stood from the bed max assist x 2. PT instructed pt to scoot toward HOB in sitting but pt decided to stand and was able to take side steps with heavy cueing for weight shift and sequencing. Pt completed sit to supine max assist to lift the operative leg. He was able to scoot himself up on the bed with trendelenburg assist and cues for RLE push mod assist. Pt was positioned with call light and tray table in reach, bed alarm on for safety . Gait Assessment Gait Gait Assistance Required: Maximum Assistance,1 Person Assist Distance (Feet) 2 Assistive Devices Assistive Device Gait Belt,Front Wheeled Walker Factors Limiting Gait Function Factors Limiting Gait Function Decreased Activity Tolerance, Decreased Strength,Difficulty Following Directions,Limited Range of Motion,Pain,Poor Balance,Poor Safety Awareness Comments Gait Comments Side steps at bedside. Pt is unsteady on his feet and requiring max cues for knee extension, assist for walker management and stability. It is unclear how much weight pt is bearing on his LLE during steps/transfers as he is unable to elevate his foot enough for PT to assess. PT-Balance Assessment Sitting Balance and Reactions Static Sitting Balance Ability Good Dynamic Sitting Balance Ability Fair Standing Balance and Reactions Static Standing Balance Ability Poor Dynamic Standing Balance Ability Poor Device Used FWW M5 PT-IP Objective Assessments Start: 12/25/20 08:39 Freq: NEEDED Status: Active Protocol: Document 12/25/20 11:36 AW (Rec: 12/25/20 12:20 AW [id number]) Orientation Orientation/Cognition Level of Alertness Alert Orientation Name,Day of Week,Place, Situation Language Function Ability No Deficits Noted Safety Awareness Understands Safety Issues, Decreased Safety Awareness Memory Description No Deficits Noted Gross Range of Motion Lower Extremity ROM Assessment Left Impaired Strength Upper Extremity Strength Assessment Within Functional Limits Lower Extremity Strength Assessment Bilaterally Impaired Hip R 3/5; L 3-/5 Knee R 4-/5; L 3/5 Ankle R 4/5; L 4-/5 Sensation Assessment Sensation Gross Sensation WNL Muscle Tone Muscle Tone WNL Yes M6 PT-IP Treatment Start: 12/25/20 08:39 Freq: NEEDED Status: Active Protocol: Document 12/25/20 14:07 AW (Rec: 12/25/20 14:26 AW [id number]) Physical Therapy Treatment Exercises Exercises Ankle Pumps,Gluteal Sets,Quad Sets Education Education Provided Weight Bearing Status,Safety Other Treatments Other Treatment Performed Pt education for 50% PWB. M7 PT-IP Assessment and Plan Start: 12/25/20 08:39 Freq: NEEDED Status: Active Protocol: Document 12/25/20 14:07 AW (Rec: 12/25/20 14:26 AW [id number]) PT Summary Assessment and Plan Summary Progress Towards Goals Slow Progress due to Pain,Slow Progress due to Activity Tolerance Assessment Summary Treatment focused on sit to stand and transfers with 50% PWB LLE. Pt continues to require max assist for all mobility and has limited activity tolerance. He will require SNF rehab to improve strength and mobility independence. Goals Bed Mobility Goal Standby Assistance Transfer Goal Minimal Assistance,Front Wheeled Walker Gait Goal Minimal Assistance,Front Wheel Walker Gait Distance 25 Days to Meet Goals 10 Frequency of Treatment Frequency Of Treatment Twice a Day Treatment Plan Physical Therapy Treatment Plan Bed Mobility Training,Transfer Training,Gait Training, Therapeutic Exercise,Balance Retraining,Post Op Education, Discharge Planning,Hot or Cold Pack,Neuromuscular Re-ed Other Recommendations and Next Treatment transfers, bed mob, ther ex Focus Precautions Other Precautions 50% PWB LLE, falls Recommendations To Nursing Amount of Assist Needed 2 Person Assist Discharge Recommendations PT Discharge Recommendations SNF Rehab Transportation Needs at Discharge Wheelchair/Cabulance
--- NOTE | 2020-12-25 14:40 | PC.NURSE ---
Pt received lying in bed, alert Ox3. VSS, afebrile on RA. LS diminished, slight crackles auscultated. Pt denies pain while lying in bed. Pain increases to 8-10 /10 with movement. +CMS to LLE. Dressing to posterior hip C/D/I. PT able to transfer pt to chair with PWB to LLE. Pt with LBM x 3days ago, declining laxatives this afternoon requesting to wait one more day. MD Burton at bedside this a.m. encouraging activity and patient to take laxative, eloquis held per recommendation till this evening. Pt reports pain increasing up to 9-10/10 with movement back to bed this afternoon. Declined IV prn hydromorphone. He reports pain well controlled with PRN 10 mg oxycodone. Pitts remains as patient with reservations about removing, ok with Ortho to keep in place. Clear yellow urine draining adequate amount. Good po intake this shift.Encouraged coughing, deep breathing, and q 2 hour turning. Plan for d/c to [facility] ([facility]) tomorrow.
[2020-12-25] MEDS: MAGNESIUM HYDROXIDE 30 ML UDC PO (21:02)
[2020-12-25] MEDS: ATORVASTATIN 20 MG TABLET 40 MG PO (21:02)
[2020-12-25] MEDS: APIXABAN 5 MG TABLET PO (21:03)
[2020-12-25] MEDS: SODIUM CHLORIDE 0.9% FLUSH 10 ML IV (21:04)
[2020-12-25] MEDS: LATANOPROST 0.005% OPHTH 2.5 ML 1 DROPS EYE-BOTH (21:07)
[2020-12-26] MEDS: PANTOPRAZOLE DR 40 MG TABLET PO (05:15)
[2020-12-26 05:35] VITALS: BP 149/98; PULSE 74; RESP 16; TEMP 36.9; O2SAT 94
--- NOTE | 2020-12-26 08:16 | CM.DPC ---
DCP: continued: Pt is post op day 2 today after hip surgery. PT saw pt and recommended addition of OT. Order for OT is obtained. Will be checking in with pt and his as therapy continues. At this time, plan is [facility]Rehab when pt stable for same. Will be following for the next few days.
--- NOTE | 2020-12-26 08:28 | P.PN_ITS ---
Subjective Subjective Date Patient Seen: 12/26/20 Time Patient Seen: 08:28 Interval history: Patient did well yesterday some pain with ambulation. Wants to get up and get a shower today. Anticipating discharge to long term facility. Eating okay. No bowel movement yet. Blood pressure is better. Pain is well controlled without activity. Patient is on anticoagulation with aspirin and Eliquis. Exam Vital Signs (past 8 hours): - 12/26/20 05:35 Temperature 98.5 F Pulse Rate 74 Respiratory Rate 16 Blood Pressure 149/98 H Pulse Oximetry 94 Oxygen Delivery Method Room Air Oxygen Flow Rate 0 Narrative Exam Narrative: Gen.: Alert good historian some mild difficulty with word finding he says as normal HEENT: Pupils equal round and reactive or mucosa is moist neck is supple Cardio: S1-S2 irregular rate and rhythm Respiratory: Lungs are clear to auscultation no wheezes or crackles normal respiratory effort. 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 Operatively followed by Orthopedic surgery doing well working on ambulation hopefully Pitts catheter can be removed Atrial fibrillation. Patient has atrial fibrillation with chronic anti coagulation. On Eliquis and aspirin. No signs of bleeding doing well. Coronary artery disease chronic and stable. No signs of chest pain at this point. Continue beta-nancy Congestive heart failure systolic chronic plan. Patient has stable chronic systolic heart failure. No signs of concerning heart failure at this point or fluid overload. Essential hypertension blood pressure is still elevated. Blood pressure improved today. Disposition and plan. To skilled unit nursing facility DC telemetry monitoring. Home meds were reinstituted on his discharge paperwork. Will let orthopedic surgery discharge patient with orders for follow-up for them and pain medication. Quality VTE Deep Vein Thrombosis/Pulmonary Embolism Present on Admission: No
[2020-12-26] MEDS: FISH OIL 1,000 MG CAPSULE 1000 MG PO (08:29)
[2020-12-26] MEDS: POTASSIUM CHLORIDE 20 MEQ TAB PO (08:30)
[2020-12-26] MEDS: hydroCHLOROthiazide 25 MG TABLET PO (08:30)
[2020-12-26] MEDS: ASPIRIN EC 81 MG TABLET PO (08:31)
[2020-12-26] MEDS: CHOLECALCIFEROL (VITAMIN D3) 5,000 UNIT TABLET 5000 UNIT PO (08:31)
[2020-12-26] MEDS: MAGNESIUM OXIDE 400 MG TABLET PO ×2 (08:31→21:17)
[2020-12-26] MEDS: APIXABAN 5 MG TABLET PO ×2 (08:31→21:16)
[2020-12-26] MEDS: METOPROLOL IR 50 MG TABLET 100 MG PO ×2 (08:31→21:17)
[2020-12-26 08:32] VITALS: BP 129/75; PULSE 106; PULSE 111; RESP 14; TEMP 36.8; O2SAT 95
[2020-12-26] MEDS: lisinopriL 20 MG TABLET 40 MG PO (08:32)
[2020-12-26] MEDS: DOCUSATE 100 MG CAPSULE PO ×2 (08:33→21:17)
[2020-12-26] MEDS: SODIUM CHLORIDE 0.9% FLUSH 10 ML IV ×2 (08:33→21:19)
[2020-12-26] MEDS: AMLODIPINE 5 MG TABLET PO ×2 (08:33→21:16)
[2020-12-26] MEDS: VIT C/E/ZN/COPPR/LUTEIN/ZEAXAN CAPSULE 1 CAP PO (08:36)
[2020-12-26] MEDS: OXYCODONE IR 10 MG TABLET PO ×2 (08:40→18:32)
[2020-12-26] MEDS: TIMOLOL 0.5% OPHTH 1 DROPS EYE-BOTH (08:42)
[2020-12-26] MEDS: ACETAMINOPHEN 325 MG TABLET 975 MG PO (10:44)
--- NOTE | 2020-12-26 10:45 | OT.IP.EVAL ---
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 (Rec: 12/26/20 12:11 [facility] [id number]) Medical Review Prior Functional Status Medical History Reviewed Yes Communication WNL. Pt is an effective verbal communicator. Mobility and Gait Pt reports ongoing balance and strength concerns for which he was seen in outpatient PT earlier this year. Prior to this most recent fall, pt states he had not fallen in several months. He does not typically use any assistive device and states he can walk around the block at least one time but a maximum of two times. Pt's notes that he tends to drag his left foot and wears out the left sole of his shoes more quickly than the right. Activities of Daily Living and IADL's Pt states he is independent with all ADL's. Pt states assist with cooking and cleaning needs. Pt use of pill organizer and pays the bills. Social History Household Members spouse Living Arrangements House Number of Floors (Floors) Two Floors Number of Stairs To Enter/Railing? level entrance through the garage and back door Home Environment High Toilet,Walk in Shower, Built-In Shower Seat Home Equipment Grab Bars In Shower Employment Status Retired Additional Social History Comment Pt lives in [place] with his , Nadege. M2 OT-IP Current Condition Start: 12/26/20 11:40 Freq: Status: Active Protocol: Document 12/26/20 09:45 [facility] (Rec: 12/26/20 12:11 [facility] [id number]) Occupational Therapy Current Condition Current Condition Evaluation Date 12/26/20 Treatment Diagnosis Left proximal femur FX s/p ORIF, decreased mobility Diagnosis Onset Date 12/23/20 Weight Bearing Status Weight Bearing Status Partial Weight Bearing Allowed Weight Bearing Amount (enter % 50% PWB for LLE. or #) (%) M3 OT- IP Subjective and Pain Start: 12/26/20 11:40 Freq: Status: Active Protocol: Document 12/26/20 09:45 [facility] (Rec: 12/26/20 12:11 [facility] [id number]) OT- Subjective Occupational Therapy Visit Type Type Initial Evaluation Visit Start Time 09:45 Visit Stop Time 10:45 Total Visit Minutes 60 Occupational Therapy Visit Comments Patient Comments Pt wanting to shower, however due to decreased mobility opted for his safety to best do sponge bath from [facility]. Patient/Caregiver Goals TO go to SNF to get stronger and then home. OT Pain Assessment Pain When Pain Assessed At Rest Pain Present Pain Present Denied Pain M4 OT- IP ADL's Start: 12/26/20 11:40 Freq: Status: Active Protocol: Document 12/26/20 09:45 [facility] (Rec: 12/26/20 12:11 [facility] [id number]) OT [id number] Comments OT Self-Feeding Comments Not at meal time. OT ADL-Grooming General Evaluation Grooming Ability Minimal Assistance Areas Needing Assistance Combing/Brushing Hair Comments OT Grooming Comments having to assist to comb the left side of his head due to left hand tremors. OT ADL-Oral Care Comments Oral Care Comments Not performed. OT ADL-Dressing General Eval Lower Body Dressing Ability Maximum Assistance Comments OT Dressing Comments MAX-total for brief and socks. Educated pt to paramjit LLE first and take out last for the brief. Pt needing to use his hands to help raise his LLE up. OT ADL-Toileting General Evaluation Toileting Ability Maximum Assistance Areas Needing Assistance Manage Clothing,Perform Perineal Hygiene Devices Toileting Assistive Devices Commode Comments OT Toileting Comments MAX A X2 to stand to FWW and assist for all hygiene needs. OT ADL-Bathing Bathing Type Bathing Type Sponge Bath General Evaluation Bathing Ability Maximal Assistance Areas Needing Assistance Wash/Dry Back,Wash/Dry Perineal Area,Wash/Dry Lower Extremities Comments OT Bathing Comments Able to help out while seated on BSC. Pt states looking to take the shower doors off the shower so able to put tub bench versus shower chair in place. M5 OT- IP IADL's Start: 12/26/20 11:40 Freq: Status: Active Protocol: Document 12/26/20 09:45 [facility] (Rec: 12/26/20 12:11 [facility] [id number]) OT-Instrumental Activities of Daily Living Home Safety Awareness Awareness of Need for Assistance at Home Good Awareness Medication Management Medication Management Comments Pt states use of pill organizer at home. Money Management Money Management Caregiver Provides Assistance Money Management Comments does the bills by computer. Meal Preparation Meal Preparation Comments At this time pt will need assistance for all IADL needs. M6 OT- IP Functional Cognition Start: 12/26/20 11:40 Freq: Status: Active Protocol: Document 12/26/20 09:45 [facility] (Rec: 12/26/20 12:11 [facility] [id number]) Cognitive Factors Limiting Selfcare Function Cognitive Ability Level of Alertness Alert Patient Orientation Name,Age,Birthday,Month,Date, Year,Day of Week,Place, Situation Attention Span Ability Capable of Focused Attention, Capable of Sustained Attention Ability to Follow Commands Able to Follow One Step Commands Safety Awareness Decreased Ability to Apply Precautions,Underestimates Need for Assistance Cognitive Comments Cognitive Assessment Comments Pt having difficulty to follow PWB for LLE due to weakness. As pt tires, places more weight on his LLE. Pt needing step by step cues for mobility needs , cues to un-weight his leg to able to assist to scoot forwards in bed. OT- Vision and Hearing OT- Hearing Assessment OT- Hearing Assessment WFL OT- Vision Assessment Visual Acuity Glasses For Reading M7 OT- IP Mobility and Balance Start: 12/26/20 11:40 Freq: Status: Active Protocol: Document 12/26/20 09:45 [facility] (Rec: 12/26/20 12:11 [facility] [id number]) OT- Bed Mobility Assessment Supine to Sit Supine to Sit Assist Maximum Assistance,2 Person Assistance,Head of Bed Elevated,Bedrails Scooting Scooting to Edge of Bed Maximum Assistance,1 Person Assistance OT-Transfer Assessment Sit to and From Stand Sit to and from Stand Maximum Assistance,2 Person Assistance Transfers Transfer Ability Maximum Assistance,2 Person Assistance Technique Transfer Destination Bed,Bedside Commode,Chair Transfer Technique Stand Step Pivot Devices Transfer Assistive Devices Gait Belt,Front Wheeled Walker Comments Mobility Comments Dependent to assist to move his LLE , and help get his trunk upright. MAX A X 2 for transfer with heavy use of arms on the FWW, assist to guide the FWW and for his balance. MAX A X 1 to help lower down to the recliner. OT- Gait Assessment Comments Gait Ability Comments Only transfer at this time by OT/PT, nursing best to use mechanical lift for safety as pt inconsistent to follow PWB especially when he tires. OT- Balance Assessment Sitting Balance and Reactions Static Sitting Balance Ability Good Dynamic Sitting Balance Ability Fair Standing Balance and Reactions Static Standing Balance Ability Poor Dynamic Standing Balance Ability Poor M8 OT- IP Objective Assessments Start: 12/26/20 11:40 Freq: Status: Active Protocol: Document 12/26/20 09:45 [facility] (Rec: 12/26/20 12:11 [facility] [id number]) OT Gross Range of Motion Upper Extremity Range of Motion Assessment Within Functional Limits OT Strength Upper Extremity Strength Assessment Within Functional Limits OT- Coordination Assessment Upper Extremity Finger to Nose Test Left UE Impaired Comments Coordination Comments left lightly off finger to nose. Pt's hand tremor in AM per pt left side more than right. M9 OT- IP Assessment and Plan Start: 12/26/20 11:40 Freq: Status: Active Protocol: Document 12/26/20 09:45 [facility] (Rec: 12/26/20 12:11 [facility] [id number]) OT Summary Assessment and Plan Potential Rehabilitation Potential Fair Analytic Complexity at Evaluation Moderate Summary OT Impairments Pain,Strength,Balance, Coordination,Functional Cognition,Functional Mobility, Grooming,Dressing,Toileting, Bathing,Toilet Transfers, Shower Transfers,Activity Tolerance Progress Towards Goals Slow Progress due to Pain,Slow Progress due to Medical Issues,Slow Progress due to Activity Tolerance Assessment Summary Pt MOD complexity. Prior to sx , pt already had decreased activity tolerance and just able to walk a block at home. Pt now needing 2 person assist for bed mobility and transfers and having difficulty to maintain 50% PWB for LLE especially as pt tires. Pt looking to go to skilled rehab prior to going home as in pt's current condition to great for his to assist him at home. Goals Self-Feeding Goal Independent Grooming Goal Independent Dressing Goal Minimal Assistance Toileting Goal Independent Bathing Goal Minimal Assistance Toilet Transfer Goal Contact Guard Assistance Shower Transfer Goal Minimal Assistance Patient/Caregiver Education Goal Demonstrate Post-Op Precautions Days to Meet Goals 30 Frequency of Treatment Frequency Of Treatment Once a Day Treatment Plan OT Treatment Plan ADL Training,Functional Cognition Training,Functional Mobility,Patient/Family Education,Discharge Planning Other Treatment Recommendations and Next Education for LB dressing Treatment Focus equipment. Discharge Recommendations OT Discharge Recommendations SNF Rehab Transportation Needs at Discharge Wheelchair/Cabulance
--- NOTE | 2020-12-26 10:47 | P.PN_ITS ---
Subjective Subjective Date Patient Seen: 12/26/20 Time Patient Seen: 07:30 Interval history: Pain has been moderate to severe. Denies fever or chills. No nausea or vomiting. Exam Vital Signs (past 8 hours): - 12/26/20 05:35 12/26/20 08:32 Temperature 98.5 F 98.2 F Pulse Rate 74 111 H Respiratory Rate 16 14 Blood Pressure 149/98 H 129/75 Pulse Oximetry 94 95 Oxygen Delivery Method Room Air Oxygen Flow Rate 0 Narrative Exam Narrative: 80-year-old male resting comfortably in bed in no apparent distress. Left hip dressing is clean, dry and intact. Motor functions intact distal left lower extremity. Sensation is grossly intact to light touch distal left lower extremity. Both lower extremities are warm and dry. 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 Patient can be partial weight-bearing to the left lower extremity. Patient is on aspirin and Eliquis for anticoagulation. Patient currently 2 person assist. Physical therapy has [facility]. Likely [facility] tomorrow unless patient progresses to the point where he would be safe to be discharged home. Quality VTE Deep Vein Thrombosis/Pulmonary Embolism Present on Admission: No
--- NOTE | 2020-12-26 10:56 | PT.IPTN ---
Current Diagnoses Displaced intertrochanteric fracture of left femur, initial encounter for closed fracture (12/23/20) Surgery Performed Operation Date: 12/24/20 16:00 Actual Procedures p ORIF Hip DHS(Left) - Himanshu Torres MD Physical Therapy Treatment Note M2 PT-IP Current Condition Start: 12/25/20 08:39 Freq: NEEDED Status: Active Protocol: Document 12/25/20 11:36 AW (Rec: 12/25/20 12:20 AW [id number]) Physical Therapy Current Condition Current Condition Evaluation Date 12/25/20 Treatment Diagnosis L proximal femur fx s/p ORIF; difficulty in walking Onset Date 12/23/20 Precautions Other Precautions 50% PWB LLE (clarified after evaluation). Attempted to contact surgeon for clarification but no response by time of evaluation. Proceeded as if TTWB LLE. Weight Bearing Status Weight Bearing Status Partial Weight Bearing Allowed Weight Bearing Amount (enter % 50% PWB LLE or #) (%) M3 PT-IP Subjective Start: 12/25/20 08:39 Freq: NEEDED Status: Active Protocol: Document 12/26/20 10:56 AB (Rec: 12/26/20 11:58 AB [email or web address]) Subjective Physical Therapy Visit Type Type Treatment Note Visit Start Time 10:56 Visit Stop Time 11:40 Total Visit Minutes 44 Number of BUNCH BREAKER Visits 0 Physical Therapy Visit Comments Patient Comments pt is agreeable to do PT Therapy Pain Assessment Pain When Pain Assessed At Rest Pain Present Pain Present Pain Reported Location Left Hip Intensity 4 Scale Used increases to 8/10 with mobility Pain Behaviors Guarding,Holding Area Pain Management Techniques Distraction,Modification of Treatment,Re-positioning, Timing of Activity with Medications M4 PT-IP Mobility and Gait Start: 12/25/20 08:39 Freq: NEEDED Status: Active Protocol: Document 12/26/20 10:56 AB (Rec: 12/26/20 11:58 AB [id number]) PT-Transfer Assessment Sit to and From Stand Sit to and from Stand Maximum Assistance,2 Person Assistance,Use of Upper Extremities Equipment Transfer Assistive Device Gait Belt,Front Wheeled Walker Orthotic/Prosthetic Devices or Brace: No Comments Mobility Comments pt sitting on chair. completed heel slides prior to mobility. educated on LLE weight bearing restriction of 50% PWB. educated on techniques on how to do sit<> stand and maintain weight bearing restriction. attempted sit to stand x 4 reps but unable to complete despite max A x 2 provided. pt with (+) LUE/hand tremor. completed seated push-up with 5 sec hold x 5 reps. PT assisted LLE to maintain weight bearing restriction. max cues provided with all tasks. attempted sit to stand again from chair x 2 attempts. completed standing using FWW max A x 2 and max cues but pt unable to maintain weight bearing restriciton despite assitance provided. positioned pt on chair. call light and table placed within reach. Gait Assessment Comments Gait Comments unable at this time M5 PT-IP Objective Assessments Start: 12/25/20 08:39 Freq: NEEDED Status: Active Protocol: Document 12/25/20 11:36 AW (Rec: 12/25/20 12:20 AW [id number]) Orientation Orientation/Cognition Level of Alertness Alert Orientation Name,Day of Week,Place, Situation Language Function Ability No Deficits Noted Safety Awareness Understands Safety Issues, Decreased Safety Awareness Memory Description No Deficits Noted Gross Range of Motion Lower Extremity ROM Assessment Left Impaired Strength Upper Extremity Strength Assessment Within Functional Limits Lower Extremity Strength Assessment Bilaterally Impaired Hip R 3/5; L 3-/5 Knee R 4-/5; L 3/5 Ankle R 4/5; L 4-/5 Sensation Assessment Sensation Gross Sensation WNL Muscle Tone Muscle Tone WNL Yes M6 PT-IP Treatment Start: 12/25/20 08:39 Freq: NEEDED Status: Active Protocol: Document 12/26/20 10:56 AB (Rec: 12/26/20 11:58 AB [id number]) Physical Therapy Treatment Education Education Provided Weight Bearing Status,Safety M7 PT-IP Assessment and Plan Start: 12/25/20 08:39 Freq: NEEDED Status: Active Protocol: Document 12/26/20 10:56 AB (Rec: 12/26/20 11:58 AB [id number]) PT Summary Assessment and Plan Potential Rehabilitation Potential Good Summary Impairments Pain,ROM,Strength,Balance, Coordination,Sensation,Tone, Cognition,Bed Mobility, Transfers,Gait,Activity Tolerance Progress Towards Goals Slow Progress due to Pain,Slow Progress due to Activity Tolerance Assessment Summary pt requires max A x 2 to total A x 2 with mobility and unable to ambulate at this time. pt unable to maintain 50 % PWB on LLE during standing despite max A x 2 provided. pt will require SNF rehab at this time to improve strength and mobility. Goals Bed Mobility Goal Standby Assistance Transfer Goal Minimal Assistance,Front Wheeled Walker Gait Goal Minimal Assistance,Front Wheel Walker Gait Distance 25 Days to Meet Goals 10 Frequency of Treatment Frequency Of Treatment Twice a Day Treatment Plan Physical Therapy Treatment Plan Bed Mobility Training,Transfer Training,Gait Training, Therapeutic Exercise,Balance Retraining,Post Op Education, Discharge Planning,Hot or Cold Pack,Neuromuscular Re-ed Precautions Other Precautions 50% PWB LLE, falls Recommendations To Nursing Amount of Assist Needed Mechanical Lift Discharge Recommendations PT Discharge Recommendations SNF Rehab Transportation Needs at Discharge Wheelchair/Cabulance
[2020-12-26 11:35] VITALS: BP 142/82; PULSE 74; RESP 15; TEMP 36.8; O2SAT 95
--- NOTE | 2020-12-26 13:45 | PT.IPTN ---
Current Diagnoses Displaced intertrochanteric fracture of left femur, initial encounter for closed fracture (12/23/20) Surgery Performed Operation Date: 12/24/20 16:00 Actual Procedures p ORIF Hip DHS(Left) - Himanshu Torres MD Physical Therapy Treatment Note M2 PT-IP Current Condition Start: 12/25/20 08:39 Freq: NEEDED Status: Active Protocol: Document 12/25/20 11:36 AW (Rec: 12/25/20 12:20 AW [id number]) Physical Therapy Current Condition Current Condition Evaluation Date 12/25/20 Treatment Diagnosis L proximal femur fx s/p ORIF; difficulty in walking Onset Date 12/23/20 Precautions Other Precautions 50% PWB LLE (clarified after evaluation). Attempted to contact surgeon for clarification but no response by time of evaluation. Proceeded as if TTWB LLE. Weight Bearing Status Weight Bearing Status Partial Weight Bearing Allowed Weight Bearing Amount (enter % 50% PWB LLE or #) (%) M3 PT-IP Subjective Start: 12/25/20 08:39 Freq: NEEDED Status: Active Protocol: Document 12/26/20 13:45 AB (Rec: 12/26/20 14:52 AB [email or web address]) Subjective Physical Therapy Visit Type Type Treatment Note Visit Start Time 13:45 Visit Stop Time 14:30 Total Visit Minutes 45 Number of SHOW HORSE DRIVER Visits 0 Physical Therapy Visit Comments Patient Comments pt is agreeable to do PT Therapy Pain Assessment Pain When Pain Assessed At Rest Pain Present Pain Present Pain Reported Location Left Hip Intensity 4 Scale Used Numeric (0 - 10) Pain Management Techniques Apply Cold,Distraction, Elevation,Modification of Treatment,Re-positioning, Timing of Activity with Medications M4 PT-IP Mobility and Gait Start: 12/25/20 08:39 Freq: NEEDED Status: Active Protocol: Document 12/26/20 13:45 AB (Rec: 12/26/20 14:52 AB [email or web address]) PT-Bed Mobility Assessment Sit to Supine Sit to Supine Maximum Assistance,1 Person Assistance,2 Person Assistance PT-Transfer Assessment Sit to and From Stand Sit to and from Stand Maximum Assistance,2 Person Assistance,Use of Upper Extremities Equipment Transfer Assistive Device Sliding Board Transfers Transfer Destination Bed Transfer Technique Lateral Scoot Transfer Ability Level of Assist Maximum Assistance,2 Person Assistance,Use of Upper Extremities Comments Mobility Comments educated pt on use of slide board. positioned slide board on pt max A x 2 and max cues. pt completed lateral scoot slide board transfer max A x 2 and max cues. required max A to maintain PWB on LLE. completed sit to supine max A x 1-2 and max cues. max A to elevate LLE up on bed. completed supine LE exercises: quads sets with 5 sec hold, heel slides and ankle pumps. educated spouse on how to assist pt with heel sldies. positioned pt in bed. call light and table placed within reach. ice pack provided. Left pt with spouse in room. M5 PT-IP Objective Assessments Start: 12/25/20 08:39 Freq: NEEDED Status: Active Protocol: Document 12/25/20 11:36 AW (Rec: 12/25/20 12:20 AW [id number]) Orientation Orientation/Cognition Level of Alertness Alert Orientation Name,Day of Week,Place, Situation Language Function Ability No Deficits Noted Safety Awareness Understands Safety Issues, Decreased Safety Awareness Memory Description No Deficits Noted Gross Range of Motion Lower Extremity ROM Assessment Left Impaired Strength Upper Extremity Strength Assessment Within Functional Limits Lower Extremity Strength Assessment Bilaterally Impaired Hip R 3/5; L 3-/5 Knee R 4-/5; L 3/5 Ankle R 4/5; L 4-/5 Sensation Assessment Sensation Gross Sensation WNL Muscle Tone Muscle Tone WNL Yes M6 PT-IP Treatment Start: 12/25/20 08:39 Freq: NEEDED Status: Active Protocol: Document 12/26/20 13:45 AB (Rec: 12/26/20 14:52 AB [email or web address]) Physical Therapy Treatment Exercises Exercises Ankle Pumps,Quad Sets,Heel Slides Education Education Provided Weight Bearing Status,Safety M7 PT-IP Assessment and Plan Start: 12/25/20 08:39 Freq: NEEDED Status: Active Protocol: Document 12/26/20 13:45 AB (Rec: 12/26/20 14:52 AB [email or web address]) PT Summary Assessment and Plan Potential Rehabilitation Potential Fair Summary Impairments Pain,ROM,Strength,Balance, Coordination,Sensation,Tone, Cognition,Bed Mobility, Transfers,Gait,Activity Tolerance Progress Towards Goals Slow Progress due to Pain,Slow Progress due to Medical Issues,Slow Progress due to Activity Tolerance Assessment Summary pt continues to require 2 person max A with mobility. completed slide board transfer with max A x 2 and max cues. pt requires increase time to complete tasks and requires increase reaction time to complete instructions. Pt will require SNF rehab to improve strength and mobility. Goals Bed Mobility Goal Minimal Assistance Transfer Goal Moderate Assistance,Front Wheeled Walker Gait Goal Moderate Assistance,Front Wheel Walker Gait Distance 25 Days to Meet Goals 10 Frequency of Treatment Frequency Of Treatment Twice a Day Treatment Plan Physical Therapy Treatment Plan Bed Mobility Training,Transfer Training,Gait Training, Therapeutic Exercise,Balance Retraining,Post Op Education, Discharge Planning,Hot or Cold Pack,Neuromuscular Re-ed Precautions Other Precautions 50% PWB LLE, falls Recommendations To Nursing Amount of Assist Needed Mechanical Lift Discharge Recommendations PT Discharge Recommendations SNF Rehab Transportation Needs at Discharge Wheelchair/Cabulance
[2020-12-26 15:36] VITALS: BP 125/84; PULSE 93; RESP 16; TEMP 36.7; O2SAT 96
[2020-12-26] MEDS: BISACODYL 10 MG SUPP PR (15:45)
[2020-12-26 19:24] VITALS: BP 135/98; PULSE 83; RESP 18; TEMP 37.1; O2SAT 95
[2020-12-26] MEDS: ATORVASTATIN 20 MG TABLET 40 MG PO (21:16)
[2020-12-26] MEDS: LATANOPROST 0.005% OPHTH 2.5 ML 1 DROPS EYE-BOTH (21:17)
[2020-12-26 23:45] VITALS: BP 142/79; PULSE 96; RESP 16; TEMP 37.1; O2SAT 94
[2020-12-27 05:15] VITALS: BP 140/75; PULSE 99; RESP 16; TEMP 36.9; O2SAT 94
[2020-12-27] MEDS: PANTOPRAZOLE DR 40 MG TABLET PO (06:04)
[2020-12-27 08:19] VITALS: PULSE 94; O2SAT 94
[2020-12-27 08:30] VITALS: BP 135/83; PULSE 54; RESP 18; TEMP 37.2; O2SAT 93
[2020-12-27] MEDS: CHOLECALCIFEROL (VITAMIN D3) 5,000 UNIT TABLET 5000 UNIT PO (08:34)
[2020-12-27] MEDS: FISH OIL 1,000 MG CAPSULE 1000 MG PO (08:34)
[2020-12-27 08:35] VITALS: BP 135/83
[2020-12-27] MEDS: AMLODIPINE 5 MG TABLET PO (08:35)
[2020-12-27] MEDS: METOPROLOL IR 50 MG TABLET 100 MG PO (08:35)
[2020-12-27] MEDS: MAGNESIUM OXIDE 400 MG TABLET PO (08:35)
[2020-12-27] MEDS: OXYCODONE IR 10 MG TABLET PO ×2 (08:35→12:35)
[2020-12-27] MEDS: DOCUSATE 100 MG CAPSULE PO (08:35)
[2020-12-27] MEDS: VIT C/E/ZN/COPPR/LUTEIN/ZEAXAN CAPSULE 1 CAP PO (08:35)
[2020-12-27] MEDS: lisinopriL 20 MG TABLET 40 MG PO (08:35)
[2020-12-27] MEDS: POTASSIUM CHLORIDE 20 MEQ TAB PO (08:35)
[2020-12-27] MEDS: ASPIRIN EC 81 MG TABLET PO (08:35)
[2020-12-27] MEDS: hydroCHLOROthiazide 25 MG TABLET PO (08:35)
[2020-12-27] MEDS: APIXABAN 5 MG TABLET PO (08:35)
[2020-12-27] MEDS: SODIUM CHLORIDE 0.9% FLUSH 10 ML IV (08:36)
[2020-12-27] MEDS: TIMOLOL 0.5% OPHTH 1 DROPS EYE-BOTH (08:37)
--- NOTE | 2020-12-27 09:30 | PT.IPTN ---
Current Diagnoses Displaced intertrochanteric fracture of left femur, initial encounter for closed fracture (12/23/20) Surgery Performed Operation Date: 12/24/20 16:00 Actual Procedures p ORIF Hip DHS(Left) - Himanshu Torres MD Physical Therapy Treatment Note M2 PT-IP Current Condition Start: 12/25/20 08:39 Freq: NEEDED Status: Active Protocol: Document 12/25/20 11:36 AW (Rec: 12/25/20 12:20 AW [id number]) Physical Therapy Current Condition Current Condition Evaluation Date 12/25/20 Treatment Diagnosis L proximal femur fx s/p ORIF; difficulty in walking Onset Date 12/23/20 Precautions Other Precautions 50% PWB LLE (clarified after evaluation). Attempted to contact surgeon for clarification but no response by time of evaluation. Proceeded as if TTWB LLE. Weight Bearing Status Weight Bearing Status Partial Weight Bearing Allowed Weight Bearing Amount (enter % 50% PWB LLE or #) (%) M3 PT-IP Subjective Start: 12/25/20 08:39 Freq: NEEDED Status: Active Protocol: Document 12/27/20 09:06 CLB (Rec: 12/27/20 12:43 CLB [id number]) Subjective Physical Therapy Visit Type Type Treatment Note Visit Start Time 09:06 Visit Stop Time 09:30 Total Visit Minutes 24 Notes Nadege present during tx. Number of REAMING MACHINE TENDER Visits 1 Physical Therapy Visit Comments Patient Comments pt is agreeable to do PT Therapy Pain Assessment Pain When Pain Assessed During Mobility Pain Present Pain Present Pain Reported Location Left Hip Intensity 8 Scale Used Numeric (0 - 10) Pain Management Techniques Distraction,Elevation, Modification of Treatment,Re- positioning,Timing of Activity with Medications M4 PT-IP Mobility and Gait Start: 12/25/20 08:39 Freq: NEEDED Status: Active Protocol: Document 12/27/20 09:06 CLB (Rec: 12/27/20 12:43 CLB [id number]) PT-Bed Mobility Assessment Sit to Supine Sit to Supine Moderate Assistance,2 Person Assistance,Head of Bed Elevated,Bedrails Scooting Scooting to Edge of Bed Moderate Assistance PT-Transfer Assessment Sit to and From Stand Sit to and from Stand Maximum Assistance,2 Person Assistance,Use of Upper Extremities Equipment Transfer Assistive Device Gait Belt,Front Wheeled Walker Transfers Transfer Destination Chair Transfer Ability Level of Assist Maximum Assistance,2 Person Assistance,Use of Upper Extremities Comments Mobility Comments Pt performed HS and QS in supine. Pt requiring Mod A x2 to EOB with max verbal cues for sequencing. Pt then cued for standing to prevent increased WB of LLE, Pt stood Max A x2 and was able to stand ~2 minutes as OT assisted with pericare and pulling up brief. Bed was moved and chair moved behind pt, pt required Max A with verbal and tactile cues to reach back for chair and to slow descent. Pt left in reclined chair with all needs within reach. Informed RN of pt progress. Gait Assessment Comments Gait Comments unable at this time M5 PT-IP Objective Assessments Start: 12/25/20 08:39 Freq: NEEDED Status: Active Protocol: Document 12/25/20 11:36 AW (Rec: 12/25/20 12:20 AW [id number]) Orientation Orientation/Cognition Level of Alertness Alert Orientation Name,Day of Week,Place, Situation Language Function Ability No Deficits Noted Safety Awareness Understands Safety Issues, Decreased Safety Awareness Memory Description No Deficits Noted Gross Range of Motion Lower Extremity ROM Assessment Left Impaired Strength Upper Extremity Strength Assessment Within Functional Limits Lower Extremity Strength Assessment Bilaterally Impaired Hip R 3/5; L 3-/5 Knee R 4-/5; L 3/5 Ankle R 4/5; L 4-/5 Sensation Assessment Sensation Gross Sensation WNL Muscle Tone Muscle Tone WNL Yes M6 PT-IP Treatment Start: 12/25/20 08:39 Freq: NEEDED Status: Active Protocol: Document 12/27/20 09:06 CLB (Rec: 12/27/20 12:43 CLB [id number]) Physical Therapy Treatment Exercises Exercises Quad Sets,Heel Slides Education Education Provided Weight Bearing Status,Safety M7 PT-IP Assessment and Plan Start: 12/25/20 08:39 Freq: NEEDED Status: Active Protocol: Document 12/27/20 09:06 CLB (Rec: 12/27/20 12:43 CLB [id number]) PT Summary Assessment and Plan Potential Rehabilitation Potential Fair Summary Impairments Pain,ROM,Strength,Balance, Coordination,Sensation,Tone, Cognition,Bed Mobility, Transfers,Gait,Activity Tolerance Progress Towards Goals Slow Progress due to Pain,Slow Progress due to Medical Issues,Slow Progress due to Activity Tolerance Assessment Summary Pt requiring Mod A for bed mobility and Max A for sit<> stand. Pt continues to require heavy assist and heavy use of UE's on walker in standing. Pt will require SNF rehab to increase strength for functional mobility. Goals Bed Mobility Goal Minimal Assistance Transfer Goal Moderate Assistance,Front Wheeled Walker Gait Goal Moderate Assistance,Front Wheel Walker Gait Distance 25 Days to Meet Goals 10 Treatment Plan Physical Therapy Treatment Plan Bed Mobility Training,Transfer Training,Gait Training, Therapeutic Exercise,Balance Retraining,Post Op Education, Discharge Planning,Hot or Cold Pack,Neuromuscular Re-ed Precautions Other Precautions 50% PWB LLE, falls Recommendations To Nursing Amount of Assist Needed Mechanical Lift Discharge Recommendations PT Discharge Recommendations SNF Rehab Transportation Needs at Discharge Wheelchair/Cabulance
--- NOTE | 2020-12-27 09:34 | OT.IP.TRT ---
Current Diagnoses Displaced intertrochanteric fracture of left femur, initial encounter for closed fracture (12/23/20) Surgery Performed Operation Date: 12/24/20 16:00 Actual Procedures p ORIF Hip DHS(Left) - Himanshu Torres MD Occupational Therapy Treatment Note M2 OT-IP Current Condition Start: 12/26/20 11:40 Freq: Status: Active Protocol: Document 12/26/20 09:45 [facility] (Rec: 12/26/20 12:11 CCC [id number]) Occupational Therapy Current Condition Current Condition Evaluation Date 12/26/20 Treatment Diagnosis Left proximal femur FX s/p ORIF, decreased mobility Diagnosis Onset Date 12/23/20 Weight Bearing Status Weight Bearing Status Partial Weight Bearing Allowed Weight Bearing Amount (enter % 50% PWB for LLE. or #) (%) M3 OT- IP Subjective and Pain Start: 12/26/20 11:40 Freq: Status: Active Protocol: Document 12/27/20 13:20 CGR (Rec: 12/27/20 13:27 CGR [id number]) OT- Subjective Occupational Therapy Visit Type Type Progress Note Visit Start Time 09:07 Visit Stop Time 09:34 Total Visit Minutes 27 Notes co-treat with P.T. OT Pain Assessment Pain When Pain Assessed At Rest Pain Present Pain Present Denied Pain M4 OT- IP ADL's Start: 12/26/20 11:40 Freq: Status: Active Protocol: Document 12/27/20 13:20 CGR (Rec: 12/27/20 13:27 CGR [id number]) OT [id number] Comments OT Self-Feeding Comments Not meal time OT ADL-Grooming General Evaluation Grooming Ability Standby Assistance Areas Needing Assistance Retrieving/Set-up of Grooming Items,Face Washing Comments OT Grooming Comments seated in chair OT ADL-Oral Care General Eval Oral Care Ability Standby Assistance Areas of Assistance Brushing Teeth Comments Oral Care Comments seated in chair OT ADL-Dressing General Eval Lower Body Dressing Ability Total Assistance Areas Needing Assistance Underpants/Brief,Socks Comments OT Dressing Comments clean briefs donned after small BM. OT ADL-Toileting General Evaluation Toileting Ability Total Assistance Areas Needing Assistance Perform Perineal Hygiene Comments OT Toileting Comments Pt with small BM upon standing . Needed total assist for back pericare. OT ADL-Bathing Comments OT Bathing Comments Not performed M5 OT- IP IADL's Start: 12/26/20 11:40 Freq: Status: Active Protocol: Document 12/26/20 09:45 CCC (Rec: 12/26/20 12:11 CCC [id number]) OT-Instrumental Activities of Daily Living Home Safety Awareness Awareness of Need for Assistance at Home Good Awareness Medication Management Medication Management Comments Pt states use of pill organizer at home. Money Management Money Management Caregiver Provides Assistance Money Management Comments does the bills by computer. Meal Preparation Meal Preparation Comments At this time pt will need assistance for all IADL needs. M6 OT- IP Functional Cognition Start: 12/26/20 11:40 Freq: Status: Active Protocol: Document 12/27/20 13:20 CGR (Rec: 12/27/20 13:27 CGR [id number]) Cognitive Factors Limiting Selfcare Function Cognitive Ability Level of Alertness Alert,Confusional State Patient Orientation Month,Date,Year,Place, Situation Attention Span Ability Capable of Focused Attention, Capable of Sustained Attention Cognitive Comments Cognitive Assessment Comments Pt with improved ability to follow commands on this date. Pt appears confused with some instruction and needs extra time for processing. M7 OT- IP Mobility and Balance Start: 12/26/20 11:40 Freq: Status: Active Protocol: Document 12/27/20 13:20 CGR (Rec: 12/27/20 13:27 CGR [id number]) OT- Bed Mobility Assessment Supine to Sit Supine to Sit Assist Moderate Assistance,2 Person Assistance Scooting Scooting to Edge of Bed Moderate Assistance,2 Person Assistance OT-Transfer Assessment Sit to and From Stand Sit to and from Stand Maximum Assistance,2 Person Assistance Transfers Transfer Ability Maximum Assistance,2 Person Assistance Technique Transfer Destination Bed,Chair Transfer Technique movement of bed, replaced with chair. Devices Transfer Assistive Devices Gait Belt,Front Wheeled Walker Comments Mobility Comments Pt stood x2 but was unable to perform pivot. Bed removed from behind him and chair replaced behind him. OT- Gait Assessment Comments Gait Ability Comments Not performed OT- Balance Assessment Sitting Balance and Reactions Static Sitting Balance Ability Fair Dynamic Sitting Balance Ability Fair M8 OT- IP Objective Assessments Start: 12/26/20 11:40 Freq: Status: Active Protocol: Document 12/26/20 09:45 CCC (Rec: 12/26/20 12:11 CCC [id number]) OT Gross Range of Motion Upper Extremity Range of Motion Assessment Within Functional Limits OT Strength Upper Extremity Strength Assessment Within Functional Limits OT- Coordination Assessment Upper Extremity Finger to Nose Test Left UE Impaired Comments Coordination Comments left lightly off finger to nose. Pt's hand tremor in AM per pt left side more than right. M9 OT- IP Assessment and Plan Start: 12/26/20 11:40 Freq: Status: Active Protocol: Document 12/27/20 13:20 CGR (Rec: 12/27/20 13:27 CGR [id number]) OT Summary Assessment and Plan Potential Rehabilitation Potential Fair Analytic Complexity at Evaluation Moderate Summary OT Impairments Pain,Strength,Balance, Coordination,Functional Cognition,Functional Mobility, Grooming,Dressing,Toileting, Bathing,Toilet Transfers, Shower Transfers,Activity Tolerance Progress Towards Goals Slow Progress due to Pain,Slow Progress due to Medical Issues,Slow Progress due to Activity Tolerance Assessment Summary Pt is progressing with his functional mobility but still unable to take steps at this time. Pt needs extra time for comprehension and ADLs. Pt will continue to benefit from OT services. Recommend d/c to SNF. Goals Self-Feeding Goal Independent Grooming Goal Independent Dressing Goal Minimal Assistance Toileting Goal Independent Bathing Goal Minimal Assistance Toilet Transfer Goal Contact Guard Assistance Shower Transfer Goal Minimal Assistance Patient/Caregiver Education Goal Demonstrate Post-Op Precautions Days to Meet Goals 30 Frequency of Treatment Frequency Of Treatment Once a Day Treatment Plan OT Treatment Plan ADL Training,Functional Cognition Training,Functional Mobility,Patient/Family Education,Discharge Planning Other Treatment Recommendations and Next Education for LB dressing Treatment Focus equipment. Discharge Recommendations OT Discharge Recommendations SNF Rehab Transportation Needs at Discharge Wheelchair/Cabulance
--- NOTE | 2020-12-27 10:55 | P.DS_ITS ---
History of Present Illness History of Present Illness Date Patient Seen: 12/27/20 Time Patient Seen: 10:56 Date of Onset of Symptoms: 12/23/20 Chief complaint: Hip fx Narrative: Please see history and physical dictated by Dr. Plata. Here for left hip fracture Discharge Providers Provider Date of admission: 12/23/20 02:01 Discharge Date: 12/27/20 Primary care physician: Shukri Plata MD Consults: 12/24/20 19:35 Consult to Discharge Planning Routine Comment: Consult to Physical Therapy Evaluate & Treat Comment: Physician Instructions: Evaluate and Treat Consult to Respiratory Therapy Evaluate & Treat Comment: Physician Instructions: Evaluate and treat 12/26/20 07:32 Consult to Orthopedic Surgery Routine Comment: Not reordered after surgery Consulting Provider: Shukri Plata Reason for consultation: Lt hip fracture and repair Has provider been notified: Yes 12/26/20 08:15 Consult to Occupational Therapy Evaluate & Treat Comment: Physician Instructions: Evaluate and treat Discharge provider: Obed Waddell MD Summary Hospital Course Discharge Diagnosis: Left hip fracture status post ORIF Atrial fibrillation Coronary artery disease Congestive heart failure systolic chronic Essential hypertension Hospital Course: Left hip fracture patient was admitted and Dr. Torres was consulted. He was taken to the OR and repair was done. Patient had minimal blood loss and otherwise had done well. Pain control was moderately difficult and was eventually placed on oxycodone. Seems to be doing well at this time. Otherwise is meeting goals. Will need care with rehab until able to do what he needs to do. Was felt to be doing extremely well. No complications Atrial fibrillation patient was followed closely through the course of his admission had no significant increase in heart rate or concern. He will be discharged on his usual medicine. Coronary artery disease. No evidence of significant issues. No chest pain. Patient did well and has continued to do well. Hypertension. Blood pressures been well managed. Has no issues will be discharged on his regular medication. Status at Discharge Cognitive/behavioral status at discharge: oriented Functional status at discharge: wheelchair bound Overall status at discharge: patient is progressing back to baseline Exam Vital Signs (past 8 hours): - 12/27/20 05:15 12/27/20 08:19 12/27/20 08:30 Temperature 98.4 F 99.0 F Pulse Rate 99 H 94 H 54 L Respiratory Rate 16 18 Blood Pressure 140/75 135/83 Pulse Oximetry 94 94 93 12/27/20 08:35 Temperature Pulse Rate Respiratory Rate Blood Pressure 135/83 Pulse Oximetry Oxygen Delivery Method Room Air Oxygen Flow Rate 0 Narrative Exam Narrative: Alert elderly male sitting in chair no acute distress. 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 Will be discharged today. Discharge Plan Discharge Plan Patient Disposition: SNF Under care of provider: facility provider Consult as needed: Dental, Hearing, Mental health, Podiatry and Vision Discharge orders & Medications Prescriptions: New oxycodone 10 mg Tablet 10 mg PO Q3HR PRN (Reason: Pain, Severe (7-10)) Qty: 42 RF: 0 oxycodone 10 mg tablet 10 mg PO Q6H PRN (Reason: pain) Qty: 42 RF: 0 Continued ASPIRIN (Aspirin EC) 81 mg PO Q DAY Qty: 0 RF: 0 latanoprost [Xalatan] 0.005 % drops 1 drp OPHTH QDAY Qty: 0 RF: 0 hydrochlorothiazide 25 mg tablet 12.5 mg PO DAILY Qty: 45 RF: 1 metoprolol tartrate 100 mg tablet 100 mg PO BID Qty: 180 RF: 1 Eliquis 5 mg tablet 5 mg PO BID Qty: 60 RF: 0 atorvastatin 40 mg tablet 40 mg PO HS Qty: 90 RF: 1 potassium chloride 20 mEq tablet extended release 20 meq PO DAILY RF: 0 magnesium oxide 400 mg magnesium tablet 800 mg PO DAILY RF: 0 luiwbvhigupb-ycokkahh-iuhhny Tablet 1 tab PO DAILY RF: 0 omega-3 fatty acids-fish oil [Fish Oil] 360-1,200 mg capsule 1 cap PO DAILY RF: 0 cholecalciferol (vitamin D3) 5,000 unit capsule 5,000 unit PO DAILY RF: 0 timolol 0.5 % drops 1 drop EYE-BOTH .Q MORNING RF: 0 colchicine 0.6 mg tablet 0.6 mg PO BID PRN (Reason: Pain (Scale Score 1-3)) RF: 0 lisinopril 40 mg tablet 40 mg PO DAILY Qty: 90 RF: 3 amlodipine 5 mg tablet 5 mg PO BID Qty: 180 RF: 1 Follow up/Referrals: Shukri Plata MD [Primary Care Provider] - 1 Month Himanshu Torres MD [Physician] - 2 Weeks Discharge Health Status Care Plan Goals: Normal ambulation and home Multidrug resistant organism: No MDRO Precautions: [place] Diet/Activity/Treatments Diet: Low-sodium Liquid consistency: Normal/Thin Food texture: Regular Activity: As per orthopedist Skin/Wound/Dressing Care Report to your healthcare provider any signs of infection, such as:: chills, f ever, night sweats, increased pain, unusual drainage and unusual redness Dressing: As per Orthopedics [facility] Rehabilitation [facility] Reason for rehabilitation: Post-operative therapy Rehab type: Physical therapy and Occupational therapy Restrictions to mobility: 50 percent weight bearing left hip Discharge Data Primary Care Provider: Shukri Plata Quality VTE Deep Vein Thrombosis/Pulmonary Embolism Present on Admission: No
--- NOTE | 2020-12-27 11:04 | P.PN_ITS ---
Subjective Subjective Date Patient Seen: 12/27/20 Time Patient Seen: 11:04 Interval history: Pain has been moderate. Denies fever or chills. No nausea or vomiting. Slow to mobilize with physical therapy. He is able stand but not yet walk. Exam Vital Signs (past 8 hours): - 12/27/20 05:15 12/27/20 08:19 12/27/20 08:30 Temperature 98.4 F 99.0 F Pulse Rate 99 H 94 H 54 L Respiratory Rate 16 18 Blood Pressure 140/75 135/83 Pulse Oximetry 94 94 93 12/27/20 08:35 Temperature Pulse Rate Respiratory Rate Blood Pressure 135/83 Pulse Oximetry Oxygen Delivery Method Room Air Oxygen Flow Rate 0 Narrative Exam Narrative: Neurovascular intact left lower extremity. Dressings are clean dry and intact without any strike through. 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 Patient can be partial weight-bearing to the left lower extremity. Patient is on aspirin and Eliquis for anticoagulation. Patient currently 2 person assist. Physical t herapy has recommended penitentiary facility placement. Likely discharge to penitentiary facility today unless patient progresses to the point where he would be safe to be discharged home. Follow up in 2 weeks after DC with Dr. Torres Time Spent With Patient Time with patient: less than 15 minutes Quality VTE Deep Vein Thrombosis/Pulmonary Embolism Present on Admission: No
[2020-12-27 11:38] LABS: COVID19 -Nasal RAPID Negative (Negative)
--- NOTE | 2020-12-27 11:40 | CM.DPC ---
DCP: continued: Pt now with a d/c to [facility] order. Dr. Chairez was recreation professor for medical service today and has completed the snf orders with orthopedic imput from Dr. Ortiz. PASRR/ reviewed, faxed, placed to snf packet and copy to scan file. Rapid COVID test in process. Will fax results once these are available. Have spoken with [facility] and she confirms she will send a w/c van to pick pt up at 1300. Met with pt and his to update them and both state they are comfortable with the d/c today. Copy of IMM #2 provided to them. [facility] is updated. P: [facility] today as per above.
--- NOTE | 2020-12-27 13:38 | PC.NURSE ---
Pt out via w/c by [facility] personnel with packet and all belongings.
== END 2020-12-27 13:38 | DRG 481 ==
LOC: ED 12-23 02:00 → AC 12-23 02:02
PROVIDERS: Family Medicine; Orthopaedic Surgery; Admitting Provider Family Medicine; Emergency Provider Emergency Medicine; PCP Internal Medicine; Referring Provider Emergency Medicine; Visit Provider Internal Medicine
PROC: 0QS704Z Reposition Left Upper Femur with Internal Fixation Device, Open Approach (ICD-10-PCS; principal; 2020-12-24 16:00)
DX: S72.142A Displaced intertrochanteric fracture of left femur, initial encounter for closed fracture (principal); I48.21 Permanent atrial fibrillation; I50.22 Chronic systolic (congestive) heart failure; I11.0 Hypertensive heart disease with heart failure; W18.30XA Fall on same level, unspecified, initial encounter; Z79.01 Long term (current) use of anticoagulants; E78.5 Hyperlipidemia, unspecified; M1A.9XX0 Chronic gout, unspecified, without tophus (tophi); K21.9 Gastro-esophageal reflux disease without esophagitis; I25.5 Ischemic cardiomyopathy; Z20.822 Contact with and (suspected) exposure to COVID-19; Y92.9 Unspecified place or not applicable
CPT/HCPCS: 36415; 51702; 70450; 71045; 73502; 76000; 80048; 80320; 81003; 82550; 84484; 85025; 85027; 85610; 85730; 86850; 86900; 86901; 87635; 93005; 93010; 94762; 96360; 96361; 97110; 97162; 97166; 97530; 97535; 99223; 99232; 99284; C9803; A9270; J0690; J2270; J2405; J2704; J3010

== ENCOUNTER → 2021-04-10 15:14 | Outpatient (CLI) | payer MEDICARE, SELFPAY ==
[2021-02-20 10:12] VITALS: BMI 28.5
[2021-04-10 19:13] LABS: Add Manual Diff / Slide Review NO; Basophils Absolute Auto 100 /uL (0-100); Basophils Percent Auto 0.8 % (0-2); Eosinophils Absolute Auto 0 /uL (0-450); Eosinophils Percent Auto 0.6 % (2-4); Hematocrit 43.7 % (41-53); Hemoglobin 14.4 g/dL (13.5-17.5); Lymphocytes Absolute Auto 800 /uL (1100-4500); Lymphocytes Percent Auto 12.3 % (25-40); Mean Corpuscular Hemoglobin 32.5 PG (26-34); Mean Corpuscular Volume 98.6 fL (80-100); Monocytes Absolute Auto 700 /uL (0-900); Monocytes Percent Auto 9.8 % (3-14); Neutrophils Absolute Auto 5200 /uL (1500-7000); Neutrophils Percent Auto 76.5 % (50-75); Platelet Count 259 X10^3/uL (150-400); Red Blood Cell Count 4.43 X10^6/uL (4.5-5.9); Red Cell Distribution Width 13.9 % (11.6-14.8); White Blood Cell Count 6.8 X10^3/uL (4.5-11.0)
[2021-04-10 19:26] LABS: Alanine Aminotransferase 26 IU/L (<50); Albumin 3.9 g/dL (3.5-5.0); Albumin Globulin Ratio 1.7 (1.0-2.8); Alkaline Phosphatase 86 U/L (38-126); Aspartate Aminotransferase 26 IU/L (17-59); BUN Creatinine Ratio 15.2 (6-22); Bilirubin Total 0.6 mg/dL (0.2-1.3); Blood Urea Nitrogen 12 mg/dL (9-20); Carbon Dioxide 30 mmol/L (22-32); Chloride 97 mmol/L (98-107); Estimated Glomerular Filt Rate > 60.0 mL/min (>60); Globulin 2.3 g/dL (1.7-4.1); Glucose 93 mg/dL (80-110); HEMOLYSIS < 15 (0-50); Potassium 4.3 mmol/L (3.4-5.1); Sodium 138 mmol/L (137-145); Total Protein 6.2 g/dL (6.3-8.2)
[2021-04-10 19:34] LABS: NT-proBNP (BNP-Adult 18+) 5130 pg/mL (<450)
== END ==
PROVIDERS: PCP Internal Medicine; Referring Provider Internal Medicine; Visit Provider Internal Medicine
DX: I35.0 Nonrheumatic aortic (valve) stenosis (principal); I50.9 Heart failure, unspecified
CPT/HCPCS: 36415; 80053; 83880; 85025

== ENCOUNTER → 2021-05-11 12:27 | Outpatient (CLI) | payer MEDICARE, SELFPAY ==
[2021-02-20 10:12] VITALS: BMI 28.5
[2021-05-11 14:48] LABS: Blood Urea Nitrogen 16 mg/dL (9-20); Calcium 10.4 mg/dL (8.4-10.2); Carbon Dioxide 30 mmol/L (22-32); Chloride 99 mmol/L (98-107); Estimated Glomerular Filt Rate > 60.0 mL/min (>60); Glucose 113 mg/dL (80-110); HEMOLYSIS < 15 (0-50); Magnesium 1.9 mg/dL (1.6-2.3); Potassium 4.3 mmol/L (3.4-5.1); Sodium 138 mmol/L (137-145)
[2021-05-11 14:57] LABS: NT-proBNP (BNP-Adult 18+) 5200 pg/mL (<450)
== END ==
PROVIDERS: PCP Internal Medicine; Referring Provider Internal Medicine; Visit Provider Internal Medicine
DX: I10 Essential (primary) hypertension (principal); N40.1 Benign prostatic hyperplasia with lower urinary tract symptoms; I35.0 Nonrheumatic aortic (valve) stenosis; N13.8 Other obstructive and reflux uropathy; I50.23 Acute on chronic systolic (congestive) heart failure; I25.5 Ischemic cardiomyopathy
CPT/HCPCS: 36415; 80048; 83735; 83880

== ENCOUNTER → 2021-05-13 14:57 | Outpatient (CLI) | payer MEDICARE, SELFPAY ==
[2021-02-20 10:12] VITALS: BMI 28.5
--- NOTE | 2021-05-13 | DI.RAD.S_ITS ---
PROCEDURE: XR CHEST 2V INDICATIONS: CHRONIC SYSTOLIC HEART FAILURE TECHNIQUE: 2 views of the chest were acquired. COMPARISON: [facility], , XR CHEST 1V, 12/22/2020, 23:57. FINDINGS: Surgical changes and devices: None. Lungs and pleura: Blunting of the left costophrenic sulcus, compatible with pleural effusion with adjacent atelectasis. The right lung is well aerated. No pneumothorax. Mediastinum: The cardiac silhouette is partially obscured. Mild calcified atheromatous change of the aorta. Bones and chest wall: No suspicious bony abnormality. Soft tissues appear unremarkable. IMPRESSION: [id number] left pleural effusion with adjacent atelectasis. Dictated by: Fredo Cortes M.D. on 05/13/2021 at 15:23 Approved by: Fredo Cortes M.D. on 05/13/2021 at 15:25
== END ==
PROVIDERS: PCP Internal Medicine; Referring Provider Internal Medicine Cardiovascular Disease; Visit Provider Internal Medicine Cardiovascular Disease
DX: I50.22 Chronic systolic (congestive) heart failure (principal); J90 Pleural effusion, not elsewhere classified; J98.11 Atelectasis
CPT/HCPCS: 71046

== ENCOUNTER → 2021-05-14 15:54 | Outpatient (CLI) | payer MEDICARE, SELFPAY ==
[2021-02-20 10:12] VITALS: BMI 28.5
--- NOTE | 2021-05-14 15:59 | DI.ECHO.S_ITS ---
[facility] +---------+ : : [address] : : : : [id number] : : : : Phone: [phone]+ Echocardiogram Report + + :Name: LAY DUNHAM Study Date: 05/14/2021 Height: 73 in : :[facility] ReadingLocation: Weight: 235 lb : : Gender: Male BSA: 2.3 m2 : :: 1940 Age: 81 yrs BP: 136/85 mmHg: :Reason For Study: CONGESTIVE HEART FAILURE/AORTIC STENOSIS : :Ordering Physician: PAGE, : :MARK Espino Performed By: Nidhi Hand : :Referring: MARK ABEL : + + Interpretation Summary The patient was in atrial fibrillation with heart rates between 53-85 bpm during the exam. The left ventricle is moderately dilated. Left ventricular ejection fraction is estimated to be 30 +/- 5%. December 15, 2018, LV ejection fraction 45 to 50%. There is severe global hypokinesis of the left ventricle. The right ventricle is mild to moderately dilated. Right ventricular systolic function is mildly reduced. There is mild to moderate mitral regurgitation. Compared to the prior echo study, there has been an increase in the severity of mitral regurgitation. The aortic valve is heavily calcified. There is severely reduced leaflet mobility. The aortic valve is not well visualized. The peak aortic velocity is 3.02 m/sec. The peak aortic velocity on the previous exam was 2.5 m/sec. The aortic valve mean gradient is 20.4 mmHg. The calculated aortic valve area is 0.93 cm2. There is severe aortic stenosis. Low gradient likely due to LV dysfunction and low cardiac output. Compared to the prior echo study, there has been an increase in the severity of aortic stenosis. There is moderate tricuspid regurgitation. Compared to the prior echo exam, there has been an increase in TR severity. The right ventricular systolic pressure is estimated to be at least 59 mmHg based on an estimated right atrial pressure of 15 mm Hg. Compared to the prior echo exam, there has been an increase in the severity of pulmonary hypertension. There is a moderate right-sided pleural effusion. Procedure: A two-dimensional transthoracic echocardiogram with color flow and Doppler was performed. The study quality was technically adequate. Comparison is made with the echocardiogram of 12/15/2018. The patient was in atrial fibrillation with heart rates between 53-85 bpm during the exam. The patient had occasional PACs during the exam. Left Ventricle: The left ventricle is moderately dilated. There is normal left ventricular wall thickness. A false chord is noted (normal variant). Left ventricular ejection fraction is estimated to be 30 +/- 5%. There is severe global hypokinesis of the left ventricle. The interventricular septum is flattened, consistent with a right ventricular pressure/volume condition. Diastolic function could not be accurately assessed due to atrial fibrillation. Right Ventricle: The right ventricle is mild to moderately dilated. Right ventricular systolic function is mildly reduced. Atria: There is severe biatrial enlargement. Both atria have mildly increased in size since the prior echo exam. The right atrium is severely dilated. There is no Doppler evidence for an interatrial shunt. Mitral Valve: The mitral valve leaflets are slightly calcified. There is mild to moderate mitral annular calcification. There is mild to moderate mitral regurgitation. There are multiple regurgitant jets present. Compared to the prior echo study, there has been an increase in the severity of mitral regurgitation. Aortic Valve: The aortic valve is heavily calcified. There is severely reduced leaflet mobility. The aortic valve is not well visualized. Aortic valve severity ratio is 0.22. The peak aortic velocity is 3.02 m/sec. The peak aortic velocity on the previous exam was 2.5 m/sec. The aortic valve mean gradient is 20.4 mmHg. The calculated aortic valve area is 0.93 cm2. There is severe aortic stenosis. Compared to the prior echo study, there has been an increase in the severity of aortic stenosis. There is mild aortic regurgitation. Tricuspid Valve: The tricuspid valve is normal. There is moderate tricuspid regurgitation. The right ventricular systolic pressure is estimated to be at least 59 mmHg based on an estimated right atrial pressure of 15 mm Hg. Compared to the prior echo exam, there has been an increase in TR severity. Compared to the prior echo exam, there has been an increase in the severity of pulmonary hypertension. Pulmonic Valve: The pulmonic valve is not well visualized. There is moderate pulmonic regurgitation. Great Vessels: The aortic root is normal size. The ascending aorta is at the upper limits of normal in size. The IVC is dilated (diameter is greater than 2.1 cm) and it collapses less than 50% with a sniff. This suggests a high right atrial pressure of 15 mm Hg. Pericardium/ Pleura There is no pericardial effusion. There is a pleural effusion present. There is a moderate right-sided pleural effusion. MMode/2D Measurements & Calculations LVIDd: 6.3 cm LVOT diam: 2.3 cm LVIDs: 5.3 cm Ao root diam: 3.4 cm FS: 15.7 % asc Aorta Diam: 3.8 cm IVSd: 0.84 cm LVPWd: 0.84 cm LV vu. diameter/BSA (cm/m^2): 2.7 LV sys. diameter/BSA (cm/m^2): 2.3 LA A2 area: 31.2 cm2 RA long axis: 6.8 cm LA A4 area: 30.9 cm2 RA area: 28.1 cm2 LA length (vol): 6.7 cm RA vol: 98.8 ml LA vol: 121.7 ml RA : 42.9 ml/m2 LA vol index: 52.8 ml/m2 IVC diam: 2.6 cm RVD1 (basal): 3.6 cm TAPSE: 1.6 cm Doppler Measurements & Calculations Ao V2 max: 302.4 cm/sec LVOT Max Pancho: 74.3 cm/sec Ao V2 mean: 201.0 cm/sec LV V1 max P.2 mmHg Ao max P.6 mmHg LV V1 VTI: 15.3 cm Ao mean P.4 mmHg CAROLYNE(I,D): 0.93 cm2 Ao V2 VTI: 70.9 cm CAROLYNE(V,D): 1.1 cm2 sev ratio: 0.22 CAROLYNE indexed to BSA (cm^2/m^2): 0.40 MV E max pancho: 109.7 cm/sec TR max pancho: 332.2 cm/sec MV A max pancho: 25.9 cm/sec TR max P.1 mmHg MV E/A: 4.2 PA V2 max: 111.3 cm/sec Med Peak E' Pancho: 5.4 cm/sec PA V2 mean: 69.8 cm/sec E/E' med: 20.4 PA mean P.2 mmHg Lat Peak E' Pancho: 7.9 cm/sec PA pr(Accel): 58.4 mmHg E/E' lat: 13.9 E/e' average: 17.1 MV dec time: 0.20 sec MVA(VTI): 2.4 cm2 MV V2 mean: 76.6 cm/sec SV(LVOT): 65.6 ml MV mean P.9 mmHg MV V2 VTI: 27.4 cm Reading Physician:12:58 PM
== END ==
PROVIDERS: PCP Internal Medicine; Referring Provider Internal Medicine; Visit Provider Internal Medicine
DX: I08.3 Combined rheumatic disorders of mitral, aortic and tricuspid valves; I50.9 Heart failure, unspecified
CPT/HCPCS: 93306

== ENCOUNTER → 2021-05-21 10:35 | Outpatient (CLI) | payer MEDICARE, SELFPAY ==
[2021-02-20 10:12] VITALS: BMI 28.5
[2021-05-21 13:25] LABS: Blood Urea Nitrogen 18 mg/dL (9-20); Calcium 11.1 mg/dL (8.4-10.2); Carbon Dioxide 32 mmol/L (22-32); Chloride 96 mmol/L (98-107); Cholesterol 126 mg/dL (140-199); Estimated Glomerular Filt Rate > 60.0 mL/min (>60); Glucose 112 mg/dL (80-110); HDL Cholesterol 52 mg/dL (40-60); HEMOLYSIS < 15 (0-50); LDL Cholesterol Calculated 51 mg/dL (<100); Potassium 4.6 mmol/L (3.4-5.1); Sodium 138 mmol/L (137-145); Triglycerides 113 mg/dL (35-150)
[2021-05-21 13:26] LABS: NT-proBNP (BNP-Adult 18+) 3150 pg/mL (<450)
== END ==
PROVIDERS: PCP Internal Medicine; Referring Provider Internal Medicine Cardiovascular Disease; Visit Provider Internal Medicine Cardiovascular Disease
DX: I50.22 Chronic systolic (congestive) heart failure (principal); E78.5 Hyperlipidemia, unspecified
CPT/HCPCS: 36415; 80048; 80061; 83880

== ENCOUNTER → 2021-06-04 13:45 | Outpatient (CLI) | payer MEDICARE, SELFPAY ==
[2021-02-20 10:12] VITALS: BMI 28.5
[2021-06-04 17:08] LABS: Blood Urea Nitrogen 30 mg/dL (9-20); Calcium 10.9 mg/dL (8.4-10.2); Carbon Dioxide 31 mmol/L (22-32); Chloride 99 mmol/L (98-107); Estimated Glomerular Filt Rate > 60.0 mL/min (>60); Glucose 103 mg/dL (80-110); HEMOLYSIS < 15 (0-50); Potassium 4.5 mmol/L (3.4-5.1); Sodium 140 mmol/L (137-145)
[2021-06-04 17:14] LABS: NT-proBNP (BNP-Adult 18+) 2260 pg/mL (<450)
== END ==
PROVIDERS: PCP Internal Medicine; Referring Provider Internal Medicine; Visit Provider Internal Medicine
DX: I35.0 Nonrheumatic aortic (valve) stenosis (principal); I25.5 Ischemic cardiomyopathy; I25.10 Atherosclerotic heart disease of native coronary artery without angina pectoris; I48.21 Permanent atrial fibrillation
CPT/HCPCS: 36415; 80048; 83735; 83880

== ENCOUNTER → 2021-07-09 14:39 | Outpatient (CLI) | payer MEDICARE, SELFPAY ==
[2021-02-20 10:12] VITALS: BMI 28.5
[2021-07-09 15:46] LABS: BUN Creatinine Ratio 23.3 (6-22); Blood Urea Nitrogen 30 mg/dL (9-20); Calcium 10.5 mg/dL (8.4-10.2); Carbon Dioxide 31 mmol/L (22-32); Chloride 100 mmol/L (98-107); Estimated Glomerular Filt Rate 53.6 mL/min (>60); Glucose 110 mg/dL (80-110); HEMOLYSIS < 15 (0-50); Potassium 4.7 mmol/L (3.4-5.1); Sodium 138 mmol/L (137-145)
== END ==
PROVIDERS: PCP Internal Medicine; Referring Provider Internal Medicine Cardiovascular Disease; Visit Provider Internal Medicine Cardiovascular Disease
DX: I50.22 Chronic systolic (congestive) heart failure (principal); I35.0 Nonrheumatic aortic (valve) stenosis
CPT/HCPCS: 36415; 80048

== ENCOUNTER → 2021-10-08 15:50 | Outpatient (CLI) | payer MEDICARE, OTHER, SELFPAY ==
[2021-02-20 10:12] VITALS: BMI 28.5
--- NOTE | 2021-10-08 | DI.RAD.S_ITS ---
PROCEDURE: XR CHEST 2V INDICATIONS: s/p open heart TECHNIQUE: 2 views of the chest were acquired. COMPARISON: [facility], CR, XR CHEST 1V, 12/22/2020, 23:57. [facility], CR, XR CHEST 2V, 05/13/2021, 14:54. FINDINGS: Surgical changes and devices: Interval median sternotomy. Lungs and pleura: Right pleural effusion has resolved. Small left basilar pleural effusion and left basilar airspace opacity. Scattered left upper lobe small calcifications unchanged. No pneumothorax. Mediastinum: Mediastinal contours are normal. Heart size is enlarged. Bones and chest wall: No suspicious bony abnormalities. Soft tissues appear unremarkable. IMPRESSION: 1. Interval median sternotomy. 2. Interval resolution of moderate right pleural effusion. 3. Small left pleural effusion with airspace opacity likely compressive atelectasis; however consolidation cannot be excluded and clinical correlation is recommended. Dictated by: Elan Gibbs RRA Interpreted: Elma Dias MD on 10/08/2021 at 16:11 Approved by: Elma Dias MD, PhD on 10/08/2021 at 16:18
== END ==
PROVIDERS: PCP Internal Medicine; Referring Provider Physician Assistant; Visit Provider Physician Assistant
DX: I35.0 Nonrheumatic aortic (valve) stenosis (principal); J90 Pleural effusion, not elsewhere classified; I48.0 Paroxysmal atrial fibrillation; Z95.1 Presence of aortocoronary bypass graft
CPT/HCPCS: 71046

== ENCOUNTER → 2021-10-28 15:06 | Outpatient (CLI) | payer MEDICARE, OTHER, SELFPAY ==
[2021-02-20 10:12] VITALS: BMI 28.5
--- NOTE | 2021-10-28 15:17 | DI.RAD.S_ITS ---
PROCEDURE: XR CHEST 2V INDICATIONS: FOLLOW UP TO HEART SURGERY TECHNIQUE: 2 views of the chest were acquired. COMPARISON: [facility], CR, XR CHEST 2V, 10/08/2021, 15:47. FINDINGS: Surgical changes and devices: Midline sternal wires and left atrial appendage clip noted. Lungs and pleura: Lungs are clear. No pleural effusions or pneumothorax. Mediastinum: Mediastinal contours are normal. Heart size is normal. Bones and chest wall: No suspicious bony abnormalities. Soft tissues appear unremarkable. IMPRESSION: No acute cardiopulmonary findings Approved by: Randall Bruce M.D. on 10/28/2021 at 18:29
== END ==
PROVIDERS: PCP Internal Medicine; Referring Provider Physician Assistant; Visit Provider Physician Assistant
DX: Z09 Encounter for follow-up examination after completed treatment for conditions other than malignant neoplasm (principal); I35.0 Nonrheumatic aortic (valve) stenosis; Z95.1 Presence of aortocoronary bypass graft
CPT/HCPCS: 71046

== ENCOUNTER → 2021-11-20 14:06 | Outpatient (CLI) | payer MEDICARE, OTHER, SELFPAY ==
[2021-02-20 10:12] VITALS: BMI 28.5
[2021-11-20 15:03] LABS: BUN Creatinine Ratio 12.6 (6-22); Blood Urea Nitrogen 13 mg/dL (9-20); Calcium 9.9 mg/dL (8.4-10.2); Carbon Dioxide 30 mmol/L (22-32); Chloride 101 mmol/L (98-107); Estimated Glomerular Filt Rate > 60 mL/min (>60); Glucose 125 mg/dL (80-110); HEMOLYSIS < 15 (0-50); Potassium 4.2 mmol/L (3.4-5.1); Sodium 136 mmol/L (137-145)
== END ==
PROVIDERS: PCP Internal Medicine; Referring Provider Nurse Practitioner Acute Care; Visit Provider Nurse Practitioner Acute Care
DX: I25.119 Atherosclerotic heart disease of native coronary artery with unspecified angina pectoris (principal)
CPT/HCPCS: 36415; 80048

== ENCOUNTER → 2021-12-08 14:51 | Outpatient (CLI) | payer MEDICARE, OTHER, SELFPAY ==
[2021-02-20 10:12] VITALS: BMI 28.5
[2021-12-08 17:05] LABS: BUN Creatinine Ratio 18.3 (6-22); Blood Urea Nitrogen 20 mg/dL (9-20); Calcium 9.7 mg/dL (8.4-10.2); Carbon Dioxide 29 mmol/L (22-32); Chloride 101 mmol/L (98-107); Estimated Glomerular Filt Rate > 60 mL/min (>60); Glucose 137 mg/dL (80-110); HEMOLYSIS < 15 (0-50); Potassium 3.9 mmol/L (3.4-5.1); Sodium 137 mmol/L (137-145)
== END ==
PROVIDERS: PCP Internal Medicine; Referring Provider Nurse Practitioner Acute Care; Visit Provider Nurse Practitioner Acute Care
DX: I25.10 Atherosclerotic heart disease of native coronary artery without angina pectoris (principal)
CPT/HCPCS: 36415; 80048

== ENCOUNTER → 2022-03-05 13:10 | Outpatient (CLI) | payer MEDICARE, OTHER, SELFPAY ==
[2021-02-20 10:12] VITALS: BMI 28.5
[2022-03-05 16:52] LABS: BUN Creatinine Ratio 22.2 (6-22); Blood Urea Nitrogen 24 mg/dL (9-20); Calcium 10.1 mg/dL (8.4-10.2); Carbon Dioxide 26 mmol/L (22-32); Chloride 101 mmol/L (98-107); Estimated Glomerular Filt Rate > 60 mL/min (>60); Glucose 104 mg/dL (80-110); HEMOLYSIS < 15 (0-50); Potassium 4.5 mmol/L (3.4-5.1); Sodium 134 mmol/L (137-145)
== END ==
PROVIDERS: PCP Internal Medicine; Referring Provider Internal Medicine Cardiovascular Disease; Visit Provider Internal Medicine Cardiovascular Disease
DX: I50.42 Chronic combined systolic (congestive) and diastolic (congestive) heart failure (principal)
CPT/HCPCS: 36415; 80048

== ENCOUNTER → 2022-03-08 14:43 | Outpatient (CLI) | payer MEDICARE, OTHER, SELFPAY ==
[2021-02-20 10:12] VITALS: BMI 28.5
--- NOTE | 2022-03-08 14:45 | DI.US.S_ITS ---
PROCEDURE: US EXTREMITY NONVASC LOWER RT INDICATIONS: RIGHT KNEE MASS TECHNIQUE: Real-time scanning was performed of the right posterior knee , with image documentation. COMPARISON: None. FINDINGS: There is an anechoic 3.2 x 2.2 x 1.4 cm fluid collection in the area of interest. IMPRESSION: Simple cyst in the area of interest which may represent a Ruelas's cyst. Dictated by: Em Veloz M.D. on 03/08/2022 at 16:51 Approved by: Em Veloz M.D. on 03/08/2022 at 16:52
== END ==
PROVIDERS: PCP Internal Medicine; Referring Provider Internal Medicine Cardiovascular Disease; Visit Provider Internal Medicine Cardiovascular Disease
DX: M25.861 Other specified joint disorders, right knee (principal)
CPT/HCPCS: 76882

== ENCOUNTER 2022-03-10 12:30 | Outpatient (RCR) | payer MEDICARE, OTHER, SELFPAY ==
[2021-02-20 10:12] VITALS: BMI 28.5
== END 2022-03-10 15:30 ==
LOC: CAR 12:30
PROVIDERS: PCP Internal Medicine; Referring Provider Thoracic Surgery (Cardiothoracic Vascular Surgery); Visit Provider Thoracic Surgery (Cardiothoracic Vascular Surgery)
DX: Z95.1 Presence of aortocoronary bypass graft (principal)
CPT/HCPCS: 93798

== ENCOUNTER → 2022-09-23 17:00 | Outpatient (CLI) | payer MEDICARE, OTHER, SELFPAY ==
[2021-02-20 10:12] VITALS: BMI 28.5
--- NOTE | 2022-09-23 17:02 | DI.RAD.S_ITS ---
PROCEDURE: XR HAND RT MIN 3V INDICATIONS: Right hand swelling and wrist pain w/o trauma TECHNIQUE: 3 views of the hand(s) acquired. COMPARISON: None. FINDINGS: Bones: No fractures or dislocations. Carpal bones are normally aligned. No suspicious bony lesions. Marked interphalangeal joint space narrowing with associated osteophytosis. Questionable erosion versus large subchondral cysts about the 5th PIP joint and 4th distal phalanx base. Additional 1st MTP joint space narrowing with associated osteophytosis and subchondral bone cysts. Soft tissues: No suspicious soft tissue calcifications. IMPRESSION: 1. Marked interphalangeal osteoarthritis. 2. Questionable psoriatic arthritis versus erosive osteoarthritis, given possible erosion versus subchondral cystic change about the 5th PIP joint and 4th distal phalanx base. Dictated by: Jaziel Christianson M.D. on 09/24/2022 at 9:30 Approved by: Jaziel Christianson M.D. on 09/24/2022 at 9:35
--- NOTE | 2022-09-23 17:02 | DI.RAD.S_ITS ---
PROCEDURE: XR WRIST RT MIN 3V INDICATIONS: Right hand swelling and wrist pain w/o trauma TECHNIQUE: 3 views of the wrist were acquired. COMPARISON: [facility], CR, XR HAND RT MIN 3V, 09/23/2022, 17:06. FINDINGS: Bones: No fractures identified. No dislocations. Osseous erosion at the 1st metacarpal head. Possible erosions at the scaphoid and triquetrum and DRUJ. Soft tissues: No suspicious soft tissue calcifications. IMPRESSION: Osseous erosions suggestive of an inflammatory arthropathy. Dictated by: Oscar Barfield M.D. on 09/24/2022 at 9:25 Approved by: Oscar Barfield M.D. on 09/24/2022 at 9:31
== END ==
PROVIDERS: PCP Internal Medicine; Referring Provider Internal Medicine; Visit Provider Internal Medicine
DX: M19.041 Primary osteoarthritis, right hand (principal); M25.531 Pain in right wrist; R60.0 Localized edema
CPT/HCPCS: 73110; 73130

== ENCOUNTER → 2022-10-01 10:58 | Outpatient (CLI) | payer MEDICARE, OTHER, SELFPAY ==
[2021-02-20 10:12] VITALS: BMI 28.5
[2022-10-01 11:39] LABS: Add Manual Diff / Slide Review NO; Basophils Absolute Auto 100 /uL (0-100); Basophils Percent Auto 0.6 % (0-2); Eosinophils Absolute Auto 100 /uL (0-450); Eosinophils Percent Auto 1.6 % (2-4); Hematocrit 40.5 % (41-53); Lymphocytes Absolute Auto 1100 /uL (1100-4500); Lymphocytes Percent Auto 13.4 % (25-40); Mean Corpuscular HGB Conc 34.6 % (30-36); Mean Corpuscular Hemoglobin 34.5 PG (26-34); Mean Corpuscular Volume 99.8 fL (80-100); Monocytes Absolute Auto 700 /uL (0-900); Monocytes Percent Auto 8.9 % (3-14); Neutrophils Absolute Auto 6400 /uL (1500-7000); Neutrophils Percent Auto 75.5 % (50-75); Platelet Count 322 X10^3/uL (150-400); Red Blood Cell Count 4.06 X10^6/uL (4.5-5.9); Red Cell Distribution Width 12.7 % (11.6-14.8); White Blood Cell Count 8.5 X10^3/uL (4.5-11.0)
[2022-10-01 12:14] LABS: Alanine Aminotransferase 21 IU/L (<50); Albumin 3.7 g/dL (3.5-5.0); Albumin Globulin Ratio 1.4 (1.0-2.8); Alkaline Phosphatase 95 U/L (38-126); Aspartate Aminotransferase 23 IU/L (17-59); BUN Creatinine Ratio 21.3 (6-22); Bilirubin Total 0.7 mg/dL (0.2-1.3); Blood Urea Nitrogen 20 mg/dL (9-20); Calcium 10.1 mg/dL (8.4-10.2); Carbon Dioxide 29 mmol/L (22-32); Chloride 96 mmol/L (98-107); Estimated Glomerular Filt Rate > 60 mL/min (>60); Globulin 2.7 g/dL (1.7-4.1); Glucose 124 mg/dL (80-110); HEMOLYSIS < 15 (0-50); Potassium 4.5 mmol/L (3.4-5.1); Sodium 132 mmol/L (137-145); Total Protein 6.4 g/dL (6.3-8.2); Uric Acid 8.7 mg/dL (3.5-8.5)
== END ==
PROVIDERS: PCP Internal Medicine; Referring Provider Internal Medicine; Visit Provider Internal Medicine
DX: E21.3 Hyperparathyroidism, unspecified (principal); E78.5 Hyperlipidemia, unspecified; I10 Essential (primary) hypertension; I48.0 Paroxysmal atrial fibrillation; M1A.9XX0 Chronic gout, unspecified, without tophus (tophi); Z79.01 Long term (current) use of anticoagulants
CPT/HCPCS: 36415; 80053; 84550; 85025

== ENCOUNTER → 2023-04-22 14:13 | Outpatient (CLI) | payer MEDICARE, OTHER, SELFPAY ==
[2021-02-20 10:12] VITALS: BMI 28.5
[2023-04-22 14:51] LABS: Add Manual Diff / Slide Review NO; Basophils Absolute Auto 0 /uL (0-100); Basophils Percent Auto 0.6 % (0-2); Eosinophils Absolute Auto 100 /uL (0-450); Eosinophils Percent Auto 1.9 % (2-4); Hematocrit 42.7 % (41-53); Hemoglobin 14.6 g/dL (13.5-17.5); Lymphocytes Absolute Auto 1100 /uL (1100-4500); Lymphocytes Percent Auto 19.7 % (25-40); Mean Corpuscular HGB Conc 34.2 % (30-36); Mean Corpuscular Hemoglobin 34.3 PG (26-34); Mean Corpuscular Volume 100.2 fL (80-100); Monocytes Absolute Auto 600 /uL (0-900); Monocytes Percent Auto 10.4 % (3-14); Neutrophils Absolute Auto 3800 /uL (1500-7000); Neutrophils Percent Auto 67.4 % (50-75); Platelet Count 206 X10^3/uL (150-400); Red Blood Cell Count 4.26 X10^6/uL (4.5-5.9); White Blood Cell Count 5.7 X10^3/uL (4.5-11.0)
[2023-04-22 15:09] LABS: Alanine Aminotransferase 30 IU/L (<50); Albumin 3.9 g/dL (3.5-5.0); Albumin Globulin Ratio 1.6 (1.0-2.8); Alkaline Phosphatase 99 U/L (38-126); Aspartate Aminotransferase 31 IU/L (17-59); BUN Creatinine Ratio 18.9 (6-22); Bilirubin Total 1.1 mg/dL (0.2-1.3); Blood Urea Nitrogen 20 mg/dL (9-20); Calcium 10.4 mg/dL (8.4-10.2); Carbon Dioxide 31 mmol/L (22-32); Chloride 96 mmol/L (98-107); Estimated Glomerular Filt Rate > 60 mL/min (>60); Globulin 2.5 g/dL (1.7-4.1); Glucose 134 mg/dL (80-110); HEMOLYSIS < 15 (0-50); Potassium 4.6 mmol/L (3.4-5.1); Sodium 133 mmol/L (137-145); Total Protein 6.4 g/dL (6.3-8.2); Uric Acid 6.2 mg/dL (3.5-8.5)
== END ==
PROVIDERS: PCP Internal Medicine; Referring Provider Internal Medicine Rheumatology; Visit Provider Internal Medicine Rheumatology
DX: M1A.9XX1 Chronic gout, unspecified, with tophus (tophi) (principal)
CPT/HCPCS: 36415; 80053; 84550; 85025

== ENCOUNTER → 2023-06-24 10:38 | Outpatient (CLI) | payer MEDICARE, OTHER, SELFPAY ==
[2021-02-20 10:12] VITALS: BMI 28.5
[2023-06-24 12:25] LABS: Add Manual Diff / Slide Review NO; Basophils Absolute Auto 0 /uL (0-100); Basophils Percent Auto 0.6 % (0-2); Eosinophils Absolute Auto 100 /uL (0-450); Eosinophils Percent Auto 1.7 % (2-4); Hematocrit 41.6 % (41-53); Hemoglobin 14.1 g/dL (13.5-17.5); Lymphocytes Absolute Auto 1200 /uL (1100-4500); Lymphocytes Percent Auto 16.9 % (25-40); Mean Corpuscular HGB Conc 33.8 % (30-36); Mean Corpuscular Hemoglobin 34.3 PG (26-34); Mean Corpuscular Volume 101.4 fL (80-100); Monocytes Absolute Auto 500 /uL (0-900); Monocytes Percent Auto 6.8 % (3-14); Neutrophils Absolute Auto 5200 /uL (1500-7000); Platelet Count 225 X10^3/uL (150-400); Red Cell Distribution Width 14.7 % (11.6-14.8)
[2023-06-24 13:21] LABS: Alanine Aminotransferase 26 IU/L (<50); Albumin 3.8 g/dL (3.5-5.0); Albumin Globulin Ratio 1.3 (1.0-2.8); Alkaline Phosphatase 102 U/L (38-126); Aspartate Aminotransferase 26 IU/L (17-59); BUN Creatinine Ratio 23.9 (6-22); Bilirubin Total 0.9 mg/dL (0.2-1.3); Blood Urea Nitrogen 21 mg/dL (9-20); C-Reactive Protein Quant < 0.5 mg/dL (<1.0); Calcium 10.3 mg/dL (8.4-10.2); Carbon Dioxide 28 mmol/L (22-32); Chloride 100 mmol/L (98-107); Creatine Kinase 20 U/L (55-170); Estimated Glomerular Filt Rate > 60 mL/min (>60); Globulin 2.9 g/dL (1.7-4.1); Glucose 137 mg/dL (80-110); HEMOLYSIS < 15 (0-50); Potassium 4.8 mmol/L (3.4-5.1); Sodium 134 mmol/L (137-145); Total Protein 6.7 g/dL (6.3-8.2); Uric Acid 3.3 mg/dL (3.5-8.5)
== END ==
PROVIDERS: PCP Internal Medicine; Referring Provider Internal Medicine Rheumatology; Visit Provider Internal Medicine Rheumatology
DX: M1A.9XX1 Chronic gout, unspecified, with tophus (tophi) (principal)
CPT/HCPCS: 36415; 80053; 82550; 84550; 85025; 86140

== ENCOUNTER → 2023-07-08 15:07 | Outpatient (CLI) | payer MEDICARE, OTHER, SELFPAY ==
[2021-02-20 10:12] VITALS: BMI 28.5
[2023-07-08 16:03] LABS: Add Manual Diff / Slide Review NO; Basophils Absolute Auto 0 /uL (0-100); Basophils Percent Auto 0.6 % (0-2); Eosinophils Absolute Auto 100 /uL (0-450); Eosinophils Percent Auto 1.1 % (2-4); Hematocrit 43.3 % (41-53); Hemoglobin 14.6 g/dL (13.5-17.5); Lymphocytes Absolute Auto 1100 /uL (1100-4500); Lymphocytes Percent Auto 13.5 % (25-40); Mean Corpuscular HGB Conc 33.7 % (30-36); Mean Corpuscular Hemoglobin 34.6 PG (26-34); Mean Corpuscular Volume 102.4 fL (80-100); Monocytes Absolute Auto 500 /uL (0-900); Monocytes Percent Auto 6.5 % (3-14); Neutrophils Absolute Auto 6200 /uL (1500-7000); Neutrophils Percent Auto 78.3 % (50-75); Platelet Count 191 X10^3/uL (150-400); Red Blood Cell Count 4.22 X10^6/uL (4.5-5.9); Red Cell Distribution Width 14.7 % (11.6-14.8); White Blood Cell Count 7.9 X10^3/uL (4.5-11.0)
[2023-07-08 16:36] LABS: Alanine Aminotransferase 26 IU/L (<50); Albumin Globulin Ratio 1.6 (1.0-2.8); Alkaline Phosphatase 107 U/L (38-126); Aspartate Aminotransferase 26 IU/L (17-59); BUN Creatinine Ratio 22.3 (6-22); Bilirubin Total 1.1 mg/dL (0.2-1.3); Blood Urea Nitrogen 21 mg/dL (9-20); C-Reactive Protein Quant < 0.5 mg/dL (<1.0); Calcium 10.6 mg/dL (8.4-10.2); Carbon Dioxide 31 mmol/L (22-32); Chloride 95 mmol/L (98-107); Creatine Kinase 23 U/L (55-170); Estimated Glomerular Filt Rate > 60 mL/min (>60); Globulin 2.5 g/dL (1.7-4.1); Glucose 132 mg/dL (80-110); HEMOLYSIS < 15 (0-50); Potassium 5.2 mmol/L (3.4-5.1); Sodium 130 mmol/L (137-145); Total Protein 6.5 g/dL (6.3-8.2)
== END ==
PROVIDERS: PCP Internal Medicine; Referring Provider Internal Medicine Rheumatology; Visit Provider Internal Medicine Rheumatology
DX: M1A.9XX1 Chronic gout, unspecified, with tophus (tophi) (principal)
CPT/HCPCS: 36415; 80053; 82550; 85025; 86140

== ENCOUNTER → 2023-11-01 10:07 | Outpatient (CLI) | payer MEDICARE, OTHER, SELFPAY ==
[2021-02-20 10:12] VITALS: BMI 28.5
[2023-11-01 13:49] LABS: Add Manual Diff / Slide Review NO; Basophils Absolute Auto 100 /uL (0-100); Eosinophils Absolute Auto 200 /uL (0-450); Hematocrit 45.5 % (41-53); Hemoglobin 15.3 g/dL (13.5-17.5); Lymphocytes Absolute Auto 1400 /uL (1100-4500); Lymphocytes Percent Auto 17.6 % (25-40); Mean Corpuscular HGB Conc 33.7 % (30-36); Mean Corpuscular Hemoglobin 34.9 PG (26-34); Mean Corpuscular Volume 103.7 fL (80-100); Monocytes Absolute Auto 700 /uL (0-900); Monocytes Percent Auto 8.5 % (3-14); Neutrophils Absolute Auto 5700 /uL (1500-7000); Neutrophils Percent Auto 70.9 % (50-75); Platelet Count 200 X10^3/uL (150-400); Red Blood Cell Count 4.39 X10^6/uL (4.5-5.9); Red Cell Distribution Width 14.8 % (11.6-14.8); White Blood Cell Count 8.1 X10^3/uL (4.5-11.0)
[2023-11-01 14:24] LABS: Alanine Aminotransferase 27 IU/L (<50); Albumin 4.4 g/dL (3.5-5.0); Albumin Globulin Ratio 1.6 (1.0-2.8); Alkaline Phosphatase 121 U/L (38-126); Aspartate Aminotransferase 28 IU/L (17-59); BUN Creatinine Ratio 23.3 (6-22); Bilirubin Total 1.3 mg/dL (0.2-1.3); Blood Urea Nitrogen 24 mg/dL (9-20); Calcium 10.3 mg/dL (8.4-10.2); Carbon Dioxide 28 mmol/L (22-32); Chloride 100 mmol/L (98-107); Estimated Glomerular Filt Rate > 60 mL/min (>60); Globulin 2.7 g/dL (1.7-4.1); Glucose 120 mg/dL (80-110); HEMOLYSIS < 15 (0-50); Magnesium 2.4 mg/dL (1.6-2.3); Potassium 4.5 mmol/L (3.4-5.1); Sodium 134 mmol/L (137-145); Total Protein 7.1 g/dL (6.3-8.2)
== END ==
PROVIDERS: PCP Internal Medicine; Referring Provider Internal Medicine; Visit Provider Internal Medicine
DX: E21.3 Hyperparathyroidism, unspecified (principal); I10 Essential (primary) hypertension; E78.5 Hyperlipidemia, unspecified
CPT/HCPCS: 36415; 80053; 83735; 85025

== ENCOUNTER → 2023-11-09 13:36 | Outpatient (CLI) | payer MEDICARE, OTHER, SELFPAY ==
[2021-02-20 10:12] VITALS: BMI 28.5
== END ==
LOC: CAR 13:36
PROVIDERS: PCP Internal Medicine; Referring Provider Internal Medicine; Visit Provider Internal Medicine
DX: R00.1 Bradycardia, unspecified (principal)
CPT/HCPCS: 93246

== ENCOUNTER → 2023-12-01 08:58 | Outpatient (CLI) | payer MEDICARE, OTHER, SELFPAY ==
[2021-02-20 10:12] VITALS: BMI 28.5
--- NOTE | 2023-12-01 08:59 | DI.ECHO.S_ITS ---
[facility]---------+ [facility] : : [address] : : [place] : : [id number] : : Phone: [phone] Echocardiogram Report + + :Name: LAY DUNHAM Study Date: 12/01/2023 Height: 73 in : :[facility] ReadingLocation: Weight: 200 lb : : Gender: Male BSA: 2.2 m2 : :: 1940 Age: 83 yrs BP: 140/88 mmHg: :Reason For Study: CARDIOMYOPATHY : :Ordering Physician: PAGE, : :MARK Espino Performed By: Nidhi Hand : :Referring: MRAK ABEL : + + Interpretation Summary The patient was in atrial fibrillation with heart rates between 55-70 bpm during the exam. The left ventricle is moderately dilated. The ejection fraction is estimated to be 45-50%. Previously,30 +/- 5% with severe global hypokinesis. The right ventricle is mildly dilated. Right ventricular systolic function is at the lower limits of normal. Both atria are severely dilated. Both atria have remained unchanged in size since the prior echo exam. There is mild to moderate mitral regurgitation. No significant change. The aortic valve is heavily calcified. There is severely reduced leaflet mobility. The peak aortic velocity is 3.3 m/sec. The aortic valve mean gradient is 26 mmHg. The calculated aortic valve area is 0.68 cm2. The peak aortic velocity on the previous exam was 3.02 m/sec. sev ratio: 0.18 Stroke-volume index: 24 mL/mA?. Low-flow, low gradient severe aortic stenosis. Mild AR without any significant change. There is mild to moderate tricuspid regurgitation. Previously moderate TR. The right ventricular systolic pressure is estimated to be at least 43 mmHg based on an estimated right atrial pressure of 3 mm Hg. Previously 59 mmHg. Compared to the prior echo exam, there has been a decrease in the severity of pulmonary hypertension. Procedure: A two-dimensional transthoracic echocardiogram with color flow and Doppler was performed. The study quality was technically adequate. Comparison is made with the echocardiogram of 05/14/2021. The patient was in atrial fibrillation with heart rates between 55-70 bpm during the exam. Left Ventricle: The left ventricle is moderately dilated. There is normal left ventricular wall thickness. There has been no significant change since the previous study. There is no thrombus. The ejection fraction is estimated to be 45-50%. Hypokinetic basal inferior wall and basal inferior septum. Diastolic function could not be accurately assessed due to atrial fibrillation. Right Ventricle: The right ventricle is mildly dilated. Right ventricular systolic function is at the lower limits of normal. Atria: The left atrium is severely dilated. Both atria are severely dilated. Both atria have remained unchanged in size since the prior echo exam. The right atrium is severely dilated. There is no Doppler evidence for an interatrial shunt. Mitral Valve: The mitral valve leaflets are slightly calcified. There is moderate mitral annular calcification. There is mild to moderate mitral regurgitation. Aortic Valve: The aortic valve is heavily calcified. There is severely reduced leaflet mobility. There is severe aortic stenosis. The peak aortic velocity is 3.3 m/sec. The aortic valve mean gradient is 26 mmHg. The calculated aortic valve area is 0.68 cm2. The peak aortic velocity on the previous exam was 3.02 m/sec. There is mild aortic regurgitation. Compared to the prior echo study, there has been no change in the severity of aortic regurgitation. Tricuspid Valve: The tricuspid valve is normal. There is mild to moderate tricuspid regurgitation. The right ventricular systolic pressure is estimated to be at least 43 mmHg based on an estimated right atrial pressure of 3 mm Hg. Compared to the prior echo exam, there has been a decrease in the severity of pulmonary hypertension. Pulmonic Valve: The pulmonic valve is not well seen, but is grossly normal. There is no pulmonic valvular regurgitation. Great Vessels: The aortic root is normal size. The dimensions of the ascending aorta are normal. The IVC is of normal diameter and collapses greater than 50% with a sniff. This suggests a low right atrial pressure of 3 mm Hg. Pericardium/ Pleura There is no pericardial effusion. There is no pleural effusion. MMode/2D Measurements & Calculations LVIDd: 6.3 cm LVOT diam: 2.3 cm LVIDs: 4.4 cm Ao root diam: 3.5 cm FS: 29.7 % asc Aorta Diam: 3.6 cm EPSS: 1.6 cm Ao Arch Diam (Prox Trans): 2.7 cm IVSd: 0.74 cm LVPWd: 0.74 cm LV vu. diameter/BSA (cm/m^2): 2.9 LV sys. diameter/BSA (cm/m^2): 2.0 LA A2 area: 31.2 cm2 RA long axis: 7.1 cm LA A4 area: 27.8 cm2 RA area: 29.4 cm2 LA length (vol): 6.8 cm RA vol: 103.0 ml LA vol: 108.9 ml RA : 47.9 ml/m2 LA vol index: 50.6 ml/m2 IVC diam: 1.6 cm TAPSE: 2.0 cm Doppler Measurements & Calculations Ao V2 max: 332.6 cm/sec LVOT Max Pancho: 55.6 cm/sec Ao V2 mean: 235.8 cm/sec LV V1 max P.2 mmHg Ao max P.2 mmHg LV V1 VTI: 12.8 cm Ao mean P.2 mmHg CAROLYNE(I,D): 0.74 cm2 Ao V2 VTI: 70.5 cm CAROLYNE(V,D): 0.68 cm2 sev ratio: 0.18 CAROLYNE indexed to BSA (cm^2/m^2): 0.34 AI P1/2t: 801.5 msec AI dec slope: 159.4 cm/sec2 MV E max pancho: 89.0 cm/sec TR max pancho: 315.9 cm/sec MV A max pancho: 1.0 cm/sec TR max P.9 mmHg MV E/A: 85.7 PA V2 max: 154.7 cm/sec Med Peak E' Pancho: 6.9 cm/sec PA V2 mean: 116.6 cm/sec E/E' med: 13.0 PA mean P.8 mmHg Lat Peak E' Pancho: 13.1 cm/sec PA pr(Accel): 55.0 mmHg E/E' lat: 6.8 E/e' average: 9.9 MV dec time: 0.18 sec SV(LVOT): 52.1 ml Reading Physician:02:25 PM
== END ==
PROVIDERS: PCP Internal Medicine; Referring Provider Internal Medicine; Visit Provider Internal Medicine
DX: I08.3 Combined rheumatic disorders of mitral, aortic and tricuspid valves (principal); I25.5 Ischemic cardiomyopathy; R00.1 Bradycardia, unspecified
CPT/HCPCS: 93306

== ENCOUNTER → 2024-03-28 09:20 | Outpatient (CLI) | payer MEDICARE, OTHER, SELFPAY ==
[2021-02-20 10:12] VITALS: BMI 28.5
[2024-03-28 10:09] LABS: Add Manual Diff / Slide Review NO; Basophils Absolute Auto 100 /uL (0-100); Eosinophils Absolute Auto 200 /uL (0-450); Hematocrit 44.9 % (41-53); Hemoglobin 15.1 g/dL (13.5-17.5); Lymphocytes Absolute Auto 1100 /uL (1100-4500); Lymphocytes Percent Auto 16.1 % (25-40); Mean Corpuscular HGB Conc 33.6 % (30-36); Mean Corpuscular Hemoglobin 34.6 PG (26-34); Mean Corpuscular Volume 102.9 fL (80-100); Monocytes Absolute Auto 400 /uL (0-900); Monocytes Percent Auto 6.7 % (3-14); Neutrophils Absolute Auto 4800 /uL (1500-7000); Neutrophils Percent Auto 73.2 % (50-75); Platelet Count 152 X10^3/uL (150-400); Red Blood Cell Count 4.37 X10^6/uL (4.5-5.9); Red Cell Distribution Width 14.8 % (11.6-14.8); White Blood Cell Count 6.6 X10^3/uL (4.5-11.0)
[2024-03-28 10:47] LABS: Alanine Aminotransferase 25 IU/L (<50); Albumin 3.6 g/dL (3.5-5.0); Albumin Globulin Ratio 1.5 (1.0-2.8); Alkaline Phosphatase 98 U/L (38-126); Aspartate Aminotransferase 23 IU/L (17-59); BUN Creatinine Ratio 20.4 (6-22); Bilirubin Total 1.1 mg/dL (0.2-1.3); Blood Urea Nitrogen 20 mg/dL (9-20); Calcium 10.6 mg/dL (8.4-10.2); Carbon Dioxide 27 mmol/L (22-32); Chloride 102 mmol/L (98-107); Cholesterol 123 mg/dL (140-199); Estimated Glomerular Filt Rate > 60 mL/min (>60); Globulin 2.4 g/dL (1.7-4.1); Glucose 122 mg/dL (80-110); HDL Cholesterol 74 mg/dL (40-60); HEMOLYSIS < 15 (0-50); LDL Cholesterol Calculated 29 mg/dL (<100); Magnesium 1.9 mg/dL (1.6-2.3); Potassium 4.5 mmol/L (3.4-5.1); Sodium 134 mmol/L (137-145); Triglycerides 98 mg/dL (35-150)
[2024-03-28 14:37] LABS: Thyroid Stimulating Hormone 1.08 uIU/mL (0.47-4.68)
== END ==
PROVIDERS: PCP Internal Medicine; Referring Provider Nurse Practitioner; Visit Provider Nurse Practitioner
DX: I10 Essential (primary) hypertension (principal); I25.5 Ischemic cardiomyopathy; E78.5 Hyperlipidemia, unspecified
CPT/HCPCS: 36415; 80053; 80061; 83735; 84439; 84443; 85025

== ENCOUNTER → 2024-07-04 14:37 | Outpatient (CLI) | payer MEDICARE, OTHER, SELFPAY ==
[2021-02-20 10:12] VITALS: BMI 28.5
[2024-07-04 15:08] LABS: Add Manual Diff / Slide Review NO; Basophils Absolute Auto 0 /uL (0-100); Basophils Percent Auto 0.5 % (0-2); Eosinophils Absolute Auto 100 /uL (0-450); Eosinophils Percent Auto 1.4 % (2-4); Hematocrit 44.8 % (41-53); Hemoglobin 14.7 g/dL (13.5-17.5); Lymphocytes Absolute Auto 1000 /uL (1100-4500); Lymphocytes Percent Auto 12.6 % (25-40); Mean Corpuscular HGB Conc 32.7 % (30-36); Mean Corpuscular Hemoglobin 34.1 PG (26-34); Mean Corpuscular Volume 104.4 fL (80-100); Monocytes Absolute Auto 500 /uL (0-900); Monocytes Percent Auto 6.5 % (3-14); Neutrophils Absolute Auto 6400 /uL (1500-7000); Platelet Count 140 X10^3/uL (150-400); Red Blood Cell Count 4.29 X10^6/uL (4.5-5.9); Red Cell Distribution Width 14.7 % (11.6-14.8); White Blood Cell Count 8.2 X10^3/uL (4.5-11.0)
[2024-07-04 15:33] LABS: Alanine Aminotransferase 45 IU/L (<50); Albumin Globulin Ratio 1.8 (1.0-2.8); Alkaline Phosphatase 100 U/L (38-126); Aspartate Aminotransferase 41 IU/L (17-59); BUN Creatinine Ratio 20.6 (6-22); Blood Urea Nitrogen 22 mg/dL (9-20); Calcium 10.4 mg/dL (8.4-10.2); Carbon Dioxide 26 mmol/L (22-32); Chloride 104 mmol/L (98-107); Creatine Kinase 27 U/L (55-170); Estimated Glomerular Filt Rate > 60 mL/min (>60); Globulin 2.2 g/dL (1.7-4.1); Glucose 122 mg/dL (80-110); HEMOLYSIS 16 (0-50); Potassium 4.7 mmol/L (3.4-5.1); Sodium 136 mmol/L (137-145); Total Protein 6.2 g/dL (6.3-8.2); Uric Acid 2.9 mg/dL (3.5-8.5)
== END ==
LOC: LAB 14:39
PROVIDERS: PCP Internal Medicine; Referring Provider Internal Medicine Rheumatology; Visit Provider Internal Medicine Rheumatology
DX: I48.0 Paroxysmal atrial fibrillation (principal); M1A.9XX1 Chronic gout, unspecified, with tophus (tophi)
CPT/HCPCS: 36415; 80053; 82550; 83735; 84550; 85025

== ENCOUNTER → 2024-11-20 07:32 | Outpatient (CLI) | payer MEDICARE, OTHER, SELFPAY ==
[2024-11-05 09:34] VITALS: BMI 28.5
[2024-11-20 08:08] LABS: Add Manual Diff / Slide Review NO; Basophils Absolute Auto 0 /uL (0-100); Basophils Percent Auto 0.6 % (0-2); Eosinophils Absolute Auto 300 /uL (0-450); Eosinophils Percent Auto 3.9 % (2-4); Hematocrit 42.9 % (41-53); Hemoglobin 14.3 g/dL (13.5-17.5); Lymphocytes Absolute Auto 1200 /uL (1100-4500); Mean Corpuscular HGB Conc 33.3 % (30-36); Mean Corpuscular Hemoglobin 34.2 PG (26-34); Mean Corpuscular Volume 102.7 fL (80-100); Monocytes Absolute Auto 500 /uL (0-900); Monocytes Percent Auto 6.7 % (3-14); Neutrophils Absolute Auto 5000 /uL (1500-7000); Neutrophils Percent Auto 71.8 % (50-75); Platelet Count 137 X10^3/uL (150-400); Red Blood Cell Count 4.17 X10^6/uL (4.5-5.9); Red Cell Distribution Width 14.5 % (11.6-14.8)
[2024-11-20 08:20] LABS: Alanine Aminotransferase 27 IU/L (<50); Albumin 3.8 g/dL (3.5-5.0); Albumin Globulin Ratio 1.7 (1.0-2.8); Alkaline Phosphatase 93 U/L (38-126); Aspartate Aminotransferase 25 IU/L (17-59); BUN Creatinine Ratio 24.3 (6-22); Blood Urea Nitrogen 26 mg/dL (9-20); Calcium 10.4 mg/dL (8.4-10.2); Carbon Dioxide 31 mmol/L (22-32); Chloride 102 mmol/L (98-107); Cholesterol 130 mg/dL (140-199); Estimated Glomerular Filt Rate > 60 mL/min (>60); Globulin 2.2 g/dL (1.7-4.1); Glucose 120 mg/dL (70-99); HDL Cholesterol 63 mg/dL (40-60); HEMOLYSIS < 15 (0-50); LDL Cholesterol Calculated 45 mg/dL (<100); Potassium 4.3 mmol/L (3.4-5.1); Sodium 137 mmol/L (137-145); Triglycerides 112 mg/dL (35-150)
== END ==
PROVIDERS: PCP Internal Medicine; Referring Provider Nurse Practitioner; Visit Provider Nurse Practitioner
DX: I48.0 Paroxysmal atrial fibrillation (principal); E78.5 Hyperlipidemia, unspecified
CPT/HCPCS: 36415; 80053; 80061; 85025

== ENCOUNTER → 2024-12-11 14:03 | Outpatient (CLI) | payer MEDICARE, OTHER, SELFPAY ==
[2024-11-05 09:34] VITALS: BMI 28.5
--- NOTE | 2024-12-11 14:05 | DI.US.S_ITS ---
PROCEDURE: US CAROTID DOPPLER BI INDICATIONS: CAROTID ARTERY STENOSIS TECHNIQUE: Color and pulse Doppler interrogation was performed of both carotid systems, with image documentation and velocity measurements. COMPARISON: None. FINDINGS: Stenosis calculations are based on SRU (Society of Radiologists in Ultrasound) criteria. Right side: Brachial blood pressure: 166/75 mm Hg. Common carotid artery peak systolic velocity: 57 cm/sec. Internal carotid artery peak systolic velocity: 111 cm/sec. Internal carotid artery end diastolic velocity: 7 cm/sec. External carotid artery peak systolic velocity: 127 cm/sec. ICA/CCA peak systolic ratio: 1.96 . Gomes scale imaging description: Calcified plaque Percent internal carotid artery stenosis: Mild less than 50% stenosis . Vertebral artery: Right vertebral artery is not visualized. Left side: Brachial blood pressure: 150/70 mm Hg. Common carotid artery peak systolic velocity: 50 cm/sec. Internal carotid artery peak systolic velocity: 87 cm/sec. Internal carotid artery end diastolic velocity: 81 cm/sec. External carotid artery peak systolic velocity: 11 cm/sec. ICA/CCA peak systolic ratio: 1.75 . Gomes scale imaging description: Calcified plaque Percent internal carotid artery stenosis: Mild less than 50% stenosis . Vertebral artery: Flow direction is antegrade. IMPRESSION: 1. In the right carotid artery, there is mild less than 50% stenosis based on peak systolic velocity criteria. 2. In the left carotid artery, there is mild less than 50% stenosis based on peak systolic velocity criteria. 3. Antegrade left vertebral artery. Right vertebral artery is not visualized and may be occluded. Consider CT of the neck for additional evaluation. Dictated by: Elma Dias MD, PhD on 12/12/2024 at 10:00 Approved by: Elma Dias MD, PhD on 12/12/2024 at 10:02
== END ==
PROVIDERS: PCP Internal Medicine; Referring Provider Nurse Practitioner; Visit Provider Nurse Practitioner
DX: I65.23 Occlusion and stenosis of bilateral carotid arteries (principal)
CPT/HCPCS: 93880

== ENCOUNTER 2025-05-10 14:37 | Observation (INO) | payer MEDICARE, OTHER, SELFPAY ==
[2024-11-05 09:34] VITALS: BMI 28.5
[2025-05-10] VITALS (13 sets, daily range): BP systolic 155–191; BP diastolic 75–135; PULSE 55–74; RESP 16–25; TEMP 36.1–36.8; O2SAT 93–100; BMI 25.0
--- NOTE | 2025-05-10 14:54 | DI.CT.S_ITS ---
PROCEDURE: CT STROKE INDICATIONS: Acute double vision, worse looking to the right TECHNIQUE: Noncontrast 4.5 mm thick angled axial sections acquired from the foramen magnum to the vertex, with coronal reformats. For radiation dose reduction, the following was used: automated exposure control, adjustment of mA and/or kV according to patient size. COMPARISON: None. FINDINGS: Image quality: Diagnostic. CSF spaces: Basal cisterns are patent. No extra-axial fluid collections. The ventricles are symmetric in size and shape. Brain: No intracranial bleeds or mass effect. There is cerebral volume loss, with resultant ventricular and sulcal prominence. There are periventricular and deep white matter chronic small vessel ischemic changes. There is intracranial internal carotid artery atherosclerosis. Skull and face: Calvarium and visualized facial bones appear intact, without suspicious lesions. Sinuses: Visualized sinuses and mastoids are clear. IMPRESSION: No acute intracranial pathology. Communication: The above findings were discussed with the ordering clinician, Dr. Hurley, by Dr. You via telephone on 05/10/2025 at 15:25 pm PDT. This study fulfills neurological imaging criteria for inclusion or exclusion of acute stroke therapies based on available published neurological guidelines. Dictated by: Matt You M.D. on 05/10/2025 at 15:15 Approved by: Matt You M.D. on 05/10/2025 at 15:25
--- NOTE | 2025-05-10 14:54 | DI.CT.S_ITS ---
PROCEDURE: CT ANGIO HEAD AND NECK INDICATIONS: Acute double vision, worse looking to the right TECHNIQUE: After the administration of intravenous contrast, 1 mm thick sections acquired from the aortic arch through the [place] of [place]. 3-dimensional lxghklk-qmejjyydi-tlvdunusni (MIP) and/or volume rendering reformats were acquired of the central intracranial vasculature and neck separately. For radiation dose reduction, the following was used: automated exposure control, adjustment of mA and/or kV according to patient size. COMPARISON: Same-day noncontrast head CT. FINDINGS: Image quality: Diagnostic. Cerebral CT Angiogram: Internal carotid arteries: No acute findings. Bilateral tortuous proximal C1 internal carotid arteries. No occlusion. No aneurysm. Anterior cerebral arteries: Unremarkable. No significant stenosis. No occlusion. No aneurysm. Middle cerebral arteries: Unremarkable. No significant stenosis. No occlusion. No aneurysm. Posterior cerebral arteries: Unremarkable. No significant stenosis. No occlusion. No aneurysm. Basilar artery: Unremarkable. No significant stenosis. No occlusion. No aneurysm. Vertebral arteries: Unremarkable as visualized. Dural venous sinuses: Unremarkable given phase of enhancement. Other: Moderate generalized volume loss with moderate microvascular ischemic changes in the supratentorial parenchyma. Neck CT Angiogram: Internal carotid arteries: Unremarkable. No significant stenosis. No dissection or occlusion. Common carotid arteries: Unremarkable. No significant stenosis. No dissection or occlusion. External carotid arteries: Unremarkable. No occlusion. Vertebral arteries: Mild atherosclerotic disease of the V2 right vertebral artery which results in less than 50 percent stenosis. No significant stenosis. No dissection or occlusion. Aortic Arch and Mediastinum: Partially visualized aortic arch unremarkable without evidence of aneurysm. Origins of the great vessels unremarkable. Other: Small bilateral pleural effusions. No visualized filling defect in the upper pulmonary arteries. IMPRESSION: No significant intracranial arterial abnormality is seen. No significant abnormality is seen within the arteries of the neck. Any quantitative measurements of stenosis were performed using NASCET criteria. Dictated by: Matt You M.D. on 05/10/2025 at 15:26 Approved by: Matt You M.D. on 05/10/2025 at 15:29
[2025-05-10 15:12] LABS: Add Manual Diff / Slide Review NO; Hematocrit 42.5 % (41-53); Hemoglobin 14.1 g/dL (13.5-17.5); Lymphocytes Absolute Auto 1000 /uL (1100-4500); Mean Corpuscular HGB Conc 33.3 % (30-36); Mean Corpuscular Hemoglobin 33.8 PG (26-34); Mean Corpuscular Volume 101.6 fL (80-100); Platelet Count 158 X10^3/uL (150-400)
[2025-05-10 15:20] LABS: INR 1.1 (0.9-1.3); Prothrombin Time 12.0 SECONDS (9.4-12.5)
[2025-05-10 15:22] LABS: PTT Partial Thromboplastin Tim 31 SECONDS (25.1-36.5)
--- NOTE | 2025-05-10 15:22 | EKG_ITS ---
[facility] [address] [place] [id number] Test Date: 2025-05-10 Pat Name: Red Polk Department: [facility] Room: Gender: Male [employer]: WINNIE : 1940 Requested By: Order Number: [id number] Reading MD: Shukri Plata MD Measurements Intervals [place] Rate: 63 P: CT: QRS: 48 QRSD: 120 T: 129 QT: 450 QTc: 460 Interpretive Statements Atrial fibrillation Minimal voltage criteria for LVH, may be normal variant ( Aryan product ) Septal infarct , age undetermined Electronically Signed On 05-11-2025 7:24:39 PDT by Shukri Plata MD
[2025-05-10 15:24] LABS: Alanine Aminotransferase 59 IU/L (<50); Albumin 4.0 g/dL (3.5-5.0); Albumin Globulin Ratio 1.6 (1.0-2.8); Alkaline Phosphatase 91 U/L (38-126); Blood Urea Nitrogen 19 mg/dL (9-20); Calcium 10.2 mg/dL (8.4-10.2); Carbon Dioxide 28 mmol/L (22-32); Chloride 100 mmol/L (98-107); Creatine Kinase < 20 U/L (55-170); Estimated Glomerular Filt Rate > 60 mL/min (>60); Globulin 2.5 g/dL (1.7-4.1); Glucose 110 mg/dL (70-99); HEMOLYSIS 18 (0-50); Potassium 4.6 mmol/L (3.4-5.1); Sodium 134 mmol/L (137-145); Total Protein 6.5 g/dL (6.3-8.2)
[2025-05-10 15:35] LABS: Troponin I < 0.012 ng/mL (0.01-0.034)
--- NOTE | 2025-05-10 16:21 | ED.NEUROSD ---
HPI - Neuro Symptoms/Deficit General Chief Complaint: Neuro Symptoms/Deficit Stated Complaint: Visual disturbances, dizzy, since this AM Time Seen by Provider: 05/10/25 14:40 Source: patient, RN notes reviewed and old records reviewed Mode of arrival: Ambulatory Limitations: no limitations History of Present Illness HPI Narrative: 85-year-old male history of atrial fibrillation on aspirin, hypertension, dyslipidemia, with a prior two-vessel CABG patient presents with complaint of double vision that occurred around noon. Patient states that if he covers either his right or left eye it goes away, he notes it is not as bad when he is staring straight ahead but if he turns his head to the side he has double vision he denies any headache, no numbness tingling or weakness. No changes to speech. No difficulty with movement. He denies any facial droop. No nausea or vomiting, no dizziness or vertigo. Notes some mild constipation no urinary symptoms. Has not had similar symptoms in the past. He has not no eye pain, redness or discharge. Patient notes he was on Eliquis for 3 years until a month ago was stopped by Cardiology and takes an aspirin 81 mg daily for his atrial fibrillation. Patient has had a prior two-vessel CABG, and prior hip fracture. Denies any allergies to medications no tobacco has 1 alcoholic drink nightly no recreational drugs. Follows with Dr. Gomez for Cardiology. Follows with Dr. Plata for primary care. 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 On Anticoagulants: No Related Data Home Medications ?Medication ?Instructions ?Recorded ?Confirmed ASPIRIN (Aspirin EC) 81 mg PO Q DAY ##0 11/30/10 05/10/25 latanoprost 0.005 % eye drops 1 drp OPHTH QDAY ##0 11/23/11 05/10/25 (Xalatan) cholecalciferol (vitamin D3) 125 5,000 unit PO DAILY 04/18/19 05/10/25 mcg (5,000 unit) capsule tsvbugeazcxy-evwcymxq-nghxrw tablet 1 tab PO DAILY 04/18/19 05/10/25 omega-3 fatty acids-fish oil 360 1 cap PO DAILY 04/18/19 05/10/25 mg-1,200 mg capsule (Fish Oil) timolol 0.5 % eye drops 1 drop EYE-BOTH .Q MORNING 12/17/19 05/10/25 spironolactone 25 mg tablet 12.5 mg PO DAILY 05/15/21 05/10/25 carvedilol 6.25 mg tablet 6.25 mg PO BID 10/08/21 05/10/25 torsemide 20 mg tablet 20 mg PO DAILY 11/23/21 05/10/25 lisinopril 5 mg tablet 5 mg PO BID 06/01/22 05/10/25 acetaminophen 325 mg tablet 325 - 650 mg PO Q6H PRN fever or 10/01/22 05/10/25 (Tylenol) pain esomeprazole magnesium 1 tab PO DAILY 10/01/22 05/10/25 polyethylene glycol 3350 17 17 g PO DAILY PRN constipation 10/01/22 05/10/25 gram/dose oral powder (Miralax) magnesium oxide 400 mg (241.3 mg See Rx Instructions PO BID 01/03/24 05/10/25 magnesium) tablet allopurinol 300 mg tablet 300 mg PO DAILY 11/05/24 05/10/25 Previous Rx's ?Medication ?Instructions ?Recorded atorvastatin 40 mg tablet 40 mg PO HS #90 tabs 04/18/19 tamsulosin 0.4 mg capsule 0.8 mg (2 x 0.4 mg) PO BEDTIME 07/05/24 Held on 05/10/25. 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 Paroxysmal atrial fibrillation BPH w urinary obs/LUTS Closed hip fracture Hyperparathyroidism Hypercalcemia Rheumatoid arthritis GERD without esophagitis Ischemic cardiomyopathy Bilateral carotid artery disease Permanent atrial fibrillation Aortic stenosis CAD (coronary atherosclerotic disease) (11/30/10) Essential (primary) hypertension (02/09/16) Chronic gout, unspecified, without tophus (tophi) (11/30/10) 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) Hyperglycemia Hyperlipidemia Surgical History S/P left atrial appendage ligation (~09/29/21) 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) Social History marital status: household members: spouse [facility] pets and animals: No education level: master's degree current occupational exposures/hazards: No jennifer/yazdanism: Baptism special 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: No travel history: over 6 months ago seatbelt use: always water heater temp set < 120 deg: Yes working smoke detector in home: Yes fire extinguisher in home: Yes carbon monox detector in home: Yes firearms in home: No do you feel safe at home: Yes Smoking Status: Never smoker alcohol intake: current during the past year weight has: remained stable well-balanced diet: daily or most days daily servings fruits/ve-4 caffeine: Yes eating out: rarely or never Type(s) of exercise: sedentary lifestyle Smoking Status: Never smoker alcohol intake frequency: other Exam Narrative Exam Narrative: GEN: well nourished, well appearing male, alert and oriented x 3, patient appears to be in mild distress. HEENT: Atraumatic, pupils are equal round reactive to light, extraocular movements are intact, no nystagmus appreciated, nares are clear, TMs are clear with no fluid, there is no conjunctival pallor. Throat is clear without any exudates, erythema, tonsillar enlargement or uvular deviation, no facial droop HEART: Regular rate and rhythm without murmur, clicks, rubs. Pulses are equal in upper and lower extremities LUNGS:Lungs clear to auscultation, no wheezes, rales, crackles, chest moves symmetrically ABD:bowel sounds normal, soft, non-tender, no guarding, rebound, rigidity, no masses noted, no hepatosplenomegaly :No CVA tenderness MSCL: Non-tender, no muscle atrophy, muscles strength 5/5 upper and lower extremities, full range of motion, normal gait NEURO:CN 2-12 intact, sensation normal, Finger nose finger test normal with right hand, patient has difficulty with left, heel leon test normal. No dysarthria or aphasia Initial Vital Signs Initial Vital Signs: Vital Signs Temperature 98.3 F 05/10/25 14:41 Pulse Rate 64 05/10/25 14:41 Respiratory Rate 18 05/10/25 14:41 Blood Pressure 167/80 H 05/10/25 14:41 Pulse Oximetry 100 05/10/25 14:41 Oxygen Delivery Method Room Air 05/10/25 14:41 Scores NIH Stroke Scale Level of Conciousness: Alert, keenly responsive Ask month/age: Answers both questions correctly. Open/close eyes, close hand: Performs both tasks correctly Best gaze horizontal: Normal Visual davis: Partial hemianopia (questionable) Facial palsy: Normal symetrical movement Left arm drift: No drift for full 10 sec Right arm drift: No drift for full 10 sec Left leg drift: No drift for full 5 sec Right leg drift: No drift for full 5 sec Limb ataxia: Present in one limb Sensory on face/arms/legs: Normal, no sensory loss Best language: No aphasia, normal Dysarthria: Normal Extinction or inattention: No abnormality Total NIH Stroke scale score: 2 Course Orders Ordered: ED Orders 05/10/25 14:[address] angio head and neck Stat EKG-12 Lead Stat 05/10/25 15:00 Complete Blood Count AUTO DIFF Stat Comprehensive Metabolic Panel Stat ETOH [Ethanol (ETOH)] Stat PTT Partial Thromboplastin Dejuan Stat Prothrombin Time INR Stat Troponin & CK Cardiac Panel Stat 05/10/25 16:55 Urinalysis and Microscopic Stat Urine Drug Screen, Rapid Stat Acetaminophen (Acetaminophen 325 Mg Tablet) 650 mg PO Q6H PRN PRN Reason: Fever/Mild Pain (1-3) Hydrocodone Bitart/Acetaminophen (Hydrocodone/Acet 5/325 Tablet) 1 tab PO Q4H PRN PRN Reason: Pain, Moderate (4-6) Aspirin (Aspirin Ec 325 Mg Tablet) 325 mg PO DAILY [facility] Atorvastatin Calcium (Atorvastatin 20 Mg Tablet) 40 mg PO BEDTIME [facility] Last Admin: 05/10/25 20:10 Dose: 40 mg Documented By: ELIJAH Carvedilol (Carvedilol 3.125 Mg Tablet) 6.25 mg PO BID [facility] Last Admin: 05/10/25 20:10 Dose: 6.25 mg Documented By: ELIJAH Docusate Sodium (Docusate 100 Mg Capsule) 100 mg PO BID [facility] Last Admin: 05/10/25 20:10 Dose: 100 mg Documented By: ELIJAH Lisinopril (Lisinopril 5 Mg Tablet) 5 mg PO BID [facility] Last Admin: 05/10/25 20:10 Dose: 5 mg Documented By: ELIJAH Naloxone HCl (Naloxone 0.4 Mg/Ml Vial) 0.2 mg IV Q2MIN PRN PRN Reason: Opiate Reversal Ondansetron HCl (Ondansetron 4 Mg/2 Ml Inj) 4 mg IV Q8HR PRN PRN Reason: Nausea And Vomiting Discontinued Medications Aspirin (Aspirin 81 Mg Chew Tab) 324 mg PO NOW ONE Stop: 05/10/25 16:45 Last Admin: 05/10/25 16:51 Dose: 324 mg Documented By: ZULEIMA Vital Signs Vital signs: Vital Signs - 8 hr 05/10/25 15:18 05/10/25 15:20 05/10/25 15:20 Pulse Rate 69 63 Respiratory Rate 21 24 Blood Pressure 173/99 H Pulse Oximetry 93 100 05/10/25 15:30 05/10/25 15:31 05/10/25 15:31 Pulse Rate 64 66 Respiratory Rate 20 25 H Blood Pressure 157/75 H Pulse Oximetry 98 97 05/10/25 16:00 05/10/25 16:01 05/10/25 16:01 Pulse Rate 55 L 59 L Respiratory Rate 22 23 Blood Pressure 170/76 H Pulse Oximetry 97 97 05/10/25 16:30 05/10/25 16:30 05/10/25 17:00 Pulse Rate 61 74 Respiratory Rate 25 H 25 H Blood Pressure 174/135 H Pulse Oximetry 98 05/10/25 17:24 05/10/25 17:24 05/10/25 17:30 Pulse Rate 60 57 L Respiratory Rate 25 H 22 Blood Pressure 189/84 H Pulse Oximetry 98 98 05/10/25 17:30 Pulse Rate Respiratory Rate Blood Pressure 191/90 H Pulse Oximetry MDM - Neuro Symptoms/Deficit Lab Data 05/10/25 15:00 05/10/25 15:00 Labs: Lab Results 05/10/25 05/10/25 05/10/25 Range/Units 15:00 16:55 16:55 WBC 6.5 (4.5-11.0) X10^3/uL RBC 4.18 L (4.5-5.9) X10^6/uL Hgb 14.1 (13.5-17.5) g/dL Hct 42.5 (41-53) % MCV 101.6 H (80-100) fL MCH 33.8 (26-34) PG MCHC 33.3 (30-36) % RDW 15.2 H (11.6-14.8) % Plt Count 158 (150-400) X10^3/uL Neut % (Auto) 73.0 (50-75) % Lymph % (Auto) 16.0 L (25-40) % Hart % (Auto) 8.5 (3-14) % Eos % (Auto) 1.8 L (2-4) % Baso % (Auto) 0.7 (0-2) % Neut # (Auto) 4700 (6978-2984) /uL Lymph # (Auto) 1000 L (4907-8625) /uL Hart # (Auto) 500 (0-900) /uL Eos # (Auto) 100 (0-450) /uL Baso # (Auto) 0 (0-100) /uL PT 12.0 (9.4-12.5) SECONDS INR 1.1 (0.9-1.3) APTT 31 (25.1-36.5) SECONDS Sodium 134 L (137-145) mmol/L Potassium 4.6 (3.4-5.1) mmol/L Chloride 100 (98-107) mmol/L Carbon Dioxide 28 (22-32) mmol/L BUN 19 (9-20) mg/dL Creatinine 0.92 (0.66-1.25) mg/dL Estimated GFR > 60 (>60) mL/min BUN/Creatinine Ratio 20.7 (6-22) Glucose 110 H (70-99) mg/dL POC Whole Bld Glucose 119 H (70-99) mg/dL Calcium 10.2 (8.4-10.2) mg/dL Total Bilirubin 1.0 (0.2-1.3) mg/dL AST 66 H (17-59) IU/L ALT 59 H (<50) IU/L Alkaline Phosphatase 91 (38-126) U/L Total Creatine Kinase < 20 L (55-170) U/L Troponin I < 0.012 (0.01-0.034) ng/mL Total Protein 6.5 (6.3-8.2) g/dL Albumin 4.0 (3.5-5.0) g/dL Globulin 2.5 (1.7-4.1) g/dL Albumin/Globulin Ratio 1.6 (1.0-2.8) Urine Color Yellow Urine Appearance Clear Urine pH 7.0 Normal (4.5-8.0) Ur Specific [place] <=1.005 (1.000-1.035) Urine Protein Negative (Negative) Urine Glucose (UA) Negative (Negative) g/dL Urine Ketones Negative (NEGATIVE) Urine Occult Blood Negative (Negative) Urine Nitrate Negative (Negative) Urine Bilirubin Negative (NEGATIVE) Urine Urobilinogen 1.0 (0.2) E.U./dL Ur Leukocyte Esterase Negative (NEGATIVE) Urine RBC None seen (0-5/HPF) Urine WBC None seen (0-5/HPF) Ur Squamous Epith Cells None seen (0-5/HPF) Urine Bacteria None seen (None) Ur Culture Indicated? Cult not indicated Vol Urine Centrifuged 10ml (spun) U Opiates 300ng/mL cut Negative (Negative) Ur Oxycodone Screen Negative (Negative) Urine Methadone Screen Negative (Negative) Ur Barbiturates Screen Negative (Negative) U Tricyclic Antidepress Negative (Negative) Ur Phencyclidine Scrn Negative (Negative) Ur Amphetamines Screen Negative (Negative) U Methamphetamines Scrn Negative (Negative) Ur MDMA Scrn (Ecstasy) Negative (Negative) U Benzodiazepines Scrn Negative (Negative) Urine Cocaine Screen Negative (Negative) U Marijuana (THC) Screen Negative (Negative) Urine Specific [place] Normal (Normal) Ethyl Alcohol < 10 (<10) mg/dL Ur Creatinine Normal (Normal) Point of Care Testing Glucose POC 112 ECG Data Attestation: I personally reviewed and interpreted this ECG as follows: Interpretation: Atrial fibrillation rate of 63 QRS of 120 QTC of 460, elevation V1 2 3 no depression, no priors available for review but patient's cardiology notes note a left bundle-branch block. [facility] Narrative Medical decision making narrative: EKG AFib no voltage criteria for LVH. Labs show white count of 6.5 hemoglobin of 14 platelets of 158, INR PTT are normal, electrolytes shows sodium 134 otherwise appropriate normal BUN and creatinine glucose of 119, calcium is 10.2, AST ALT are slightly elevated at 66 and 59 but normal bilirubin, troponins less than 0.012 with a CK less than 20. Head CT non-con shows no acute intracranial pathology. Head and neck CTA shows no significant intracranial abnormality of the head or neck. Mild atherosclerotic disease of the V2 right vertebral artery which results in less than 50% stenosis. Patient has a NIH of 2, 1 for ataxia with a his finger. One 4 possible visual field loss versus his double vision. 85-year-old male presents with diplopia onset around noon. Patient received aspirin, he is outside the window for intervention with a low NIH. Patient also had prior anticoagulant stopped secondary to bleeding. Spoke with tele stroke @ 2960 Dr. Ulloa. No lytic candidate at t his time + fairly low NIH. Stroke workup to evaluate vs extraocular cause and if positive for stroke discussion about restarting anticoagulation. MR, ECHO. Risk factors. Spoke with Dr. Duval @ 1160 accepts for observation. Patient code status is Full code, although states he has a POLST form and are unsure if he is full code. She is going to go home and retrieve it and return with it. Stroke Core Measures Exclusion Criteria TPA in CVA: Symptom Onset >3 or 4.5 Hours Discharge Plan Departure Patient Disposition: Admitted as Observation Clinical Impression: Diplopia, Acute CVA (cerebrovascular accident) Admit Date/Time: 05/10/25 17:55 Admit Provider: Shanti Duval
[2025-05-10 16:35] LABS: Ethanol (ETOH) < 10 mg/dL (<10)
[2025-05-10] MEDS: ASPIRIN 81 MG CHEW TAB 324 MG PO (16:51)
[2025-05-10 17:08] LABS: Appearance Urine UA CLEAR; Bilirubin Urine UA NEGATIVE (NEGATIVE); Color Urine UA YELLOW; Glucose Urine UA NEGATIVE (Negative); Ketones Urine UA NEGATIVE (NEGATIVE); Leukocyte Esterase Urine UA NEGATIVE (NEGATIVE); Nitrite Urine UA NEGATIVE (Negative); Occult Blood Urine UA NEGATIVE (Negative); Protein Urine UA NEGATIVE (Negative); Specific Gravity Urine UA <=1.005 (1.000-1.035); Urobilinogen Urine UA 1.0 E.U./dL (0.2); pH Urine UA 7.0 (4.5-8.0)
[2025-05-10 17:14] LABS: UR Morphine/Opiate cutoff 300 Negative (Negative); Ur Specific Gravity Normal (Normal); Urine Tetrahydrocannabinol Negative (Negative)
[2025-05-10 17:15] LABS: Urine MDMA Negative (Negative); Urine Methamphetamines Negative (Negative); Urine Tricyclic Antidepressant Negative (Negative)
[2025-05-10 17:20] LABS: Culture Indicated Urine Cult Not Indicated
--- NOTE | 2025-05-10 19:08 | DI.MRI.S_ITS ---
PROCEDURE: MR HEAD/BRAIN WO CON INDICATIONS: cva TECHNIQUE: Non-contrast axial T1 spin echo, axial T2 fast spin echo, sagittal and axial FLAIR, coronal T2 fast spin echo, axial gradient echo, axial diffusion and ADC through the brain. COMPARISON: None. FINDINGS: Image quality: Excellent. CSF spaces: Ventricles appear symmetric in size and shape. Basal cisterns are patent. No extra-axial fluid collections. Brain: No intracranial bleeds or mass effects. There is cerebral volume loss for age. There are periventricular and deep white matter chronic small vessel ischemic changes. Brainstem appears normal. Diffusion-weighted images show no acute infarct. No chronic ischemic insults. Normal intravascular flow voids are present. Skull and face: Calvarial bone marrow is normal in signal. Bilateral lens replacements. Otherwise, the orbits are unremarkable. Sinuses: Sinuses and mastoids are clear. IMPRESSION: No acute or subacute infarct. No acute intracranial abnormalities. Age-related global volume loss and chronic microvascular ischemic changes are present. Dictated by: Zechariah Arevalo M.D. on 05/11/2025 at 9:04 Approved by: Zechariah Arevalo M.D. on 05/11/2025 at 9:05
--- NOTE | 2025-05-10 19:08 | DI.ECHO.S_ITS ---
[facility]---------+ [facility] : : [address] : [address] : : [id number] : : Phone: [phone] Echocardiogram Report + + :Name: LAY DUNHAM Study Date: 05/11/2025 Height: 73 in : :Hospital ReadingLocation: Weight: 190 lb : : Gender: Male BSA: 2.1 m2 : :: 1940 Age: 85 yrs BP: 161/76 mmHg: :Reason For Study: CVA : :Ordering Physician: JUDE, : :DEEJAY Performed By: Raul Mejia : :Referring: DEEJAY ROQUE : + + Interpretation Summary 1) Normal left ventricular size with mildly to moderately reduced systolic function (EF 40-45%). Basal inferior wall is akinetic. 2) Mildly enlarged right ventricle with moderately reduced function. 3) Severe biatrial enlargement is present. 4) Doppler interrogation and injection of saline echo contrast shows no evidence for an interatrial shunt. 5) There is moderate aortic stenosis (valve area 1.1cm2, mean gradient 24mmHg, severity ratio 0.27). 6) There is mild to moderate tricuspid regurgitation. 7) The right ventricular systolic pressure is estimated to be at least 69 mmHg based on an estimated right atrial pressure of 15 mm Hg. 8) Compared to the echo done 12/01/2023, right sided hypervolemia is present on this study. Procedure: A two-dimensional transthoracic echocardiogram with color flow and Doppler was performed. The study quality was technically adequate. A saline contrast injection was performed to assess for cardiac shunting. Comparison is made with the echocardiogram of 12/01/2023. The heart rate ranged between 59-71 bpm during the study. Left Ventricle: The left ventricle is normal in size. There is mild concentric left ventricular hypertrophy. Beat to beat variability in ejection fraction calculation due to arrhythmia. The ejection fraction is estimated to be 40-45%. Basal inferior wall is akinetic. Diastolic function is indeterminate. Right Ventricle: Right ventricle appears mildly enlarged. Right ventricular systolic function is moderately reduced. Atria: The left atrium is severely dilated. The right atrium is severely dilated. Bubble study was captured on image frame(s) # [id number]. Doppler interrogation and injection of saline echo contrast shows no evidence for an interatrial shunt. Bubble study performed per protocol, negative bubble study documented with no evidence of bubbles crossing into the left atrium or left ventricle. Mitral Valve: There is mild mitral annular calcification. The mitral valve leaflets appear mildly thickened. There is no mitral valve stenosis. There is mild mitral regurgitation. Aortic Valve: The aortic valve is trileaflet. The aortic valve is moderately calcified. There is moderate aortic stenosis. The calculated aortic valve area is 1.1 cm2. The peak aortic velocity is 3.4 m/sec. The aortic valve mean gradient is 24.3 mmHg. sev ratio: 0.27. There is mild to moderate aortic regurgitation. Tricuspid Valve: The tricuspid valve leaflets are thickened and/or calcified, but open well. There is mild to moderate tricuspid regurgitation. The right ventricular systolic pressure is estimated to be at least 69 mmHg based on an estimated right atrial pressure of 15 mm Hg. Pulmonic Valve: The pulmonic valve is not well visualized. There is trace pulmonic regurgitation. Great Vessels: There is aortic root sclerosis/calcification. The aortic root is normal size. The ascending aorta is normal in size. The aortic arch could not be visualized. The pulmonary is not well visualized. The IVC is dilated (diameter is greater than 2.1 cm) and it collapses less than 50% with a sniff. This suggests a high right atrial pressure of 15 mm Hg. Pericardium/ Pleura There is no pericardial effusion. MMode/2D Measurements & Calculations LVIDd: 5.6 cm LVOT diam: 2.3 cm LVIDs: 3.9 cm Ao root diam: 3.7 cm FS: 31.4 % asc Aorta Diam: 3.7 cm IVSd: 1.3 cm LVPWd: 1.3 cm LV vu. diameter/BSA (cm/m^2): 2.7 LV sys. diameter/BSA (cm/m^2): 1.8 LA A2 area: 30.5 cm2 RA long axis: 8.1 cm LA A4 area: 31.9 cm2 RA area: 30.7 cm2 LA length (vol): 7.9 cm RA vol: 98.5 ml LA vol: 104.3 ml RA : 46.9 ml/m2 LA vol index: 49.6 ml/m2 IVC diam: 2.2 cm RVD1 (basal): 3.3 cm RVD2 (mid): 2.6 cm TAPSE: 1.3 cm Doppler Measurements & Calculations Ao V2 max: 340.8 cm/sec LVOT Max Pancho: 91.4 cm/sec Ao V2 mean: 230.1 cm/sec LV V1 max P.3 mmHg Ao max P.4 mmHg LV V1 VTI: 18.4 cm Ao mean P.3 mmHg CAROLYNE(I,D): 1.1 cm2 Ao V2 VTI: 68.3 cm CAROLYNE(V,D): 1.1 cm2 sev ratio: 0.27 CAROLYNE indexed to BSA (cm^2/m^2): 0.53 AI P1/2t: 542.9 msec AI dec slope: 239.5 cm/sec2 MV E max pancho: 103.1 cm/sec TR max pancho: 366.7 cm/sec MV A max pancho: 38.0 cm/sec TR max P.8 mmHg MV E/A: 2.7 Med Peak E' Pancho: 4.1 cm/sec E/E' med: 24.9 Lat Peak E' Pancho: 9.6 cm/sec E/E' lat: 10.7 E/e' average: 17.8 MV dec time: 0.12 sec SV(LVOT): 76.4 ml Reading Physician:02:07 PM
--- NOTE | 2025-05-10 19:12 | PM.HP.1 ---
History of Present Illness History of Present Illness Date Patient Seen: 05/10/25 Time Patient Seen: 19:13 Chief complaint: Visual disturbances, dizzy, since this AM Narrative: This is a very pleasant 85-year-old male who is under the primary care of Dr. Plata. Patient was seen a few days ago. Patient was taken off his Eliquis which he is on due to AFib due to recurrent nosebleeds. He was not a candidate for Watchman procedure because 3 years ago he had a CABG x2 and apparently they removed the atrial appendage. Patient has been taking a baby aspirin. He was in his usual state of health when today he noted double vision starting at about noon today. He arrived in the ER at 3 p.m. and given his stroke scale of 2 tPA was not indicated. 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 The case was discussed with [place] stroke team and they recommended admit with observation and echo and MRI. Patient was given 325 mg of aspirin in the ER. Past medical history: Coronary artery disease status post CABG in 2021 x2 Hyperlipidemia Hypertension Gout Chronic AFib BPH with lower urinary tract symptoms Past surgical history: Patient had a CABG x2 in 2021 Social history: Patient is his is present and he lives here in and [facility] in their own home. He has 1 son who lives in [place] and his granddaughter is in medical school Health related behavior patient has never been a smoker. He has 1 small scotch drink every night that his measures out in its a less than 1 oz of scotch. He is fairly active. Family history: Father had a stroke in his early 80s No other family history Patient denies any recent fever or cough or shortness of breath. Patient denies any chest pain Patient denies any associated symptoms he had no dysarthria or motor deficit. He has had no headache. He has had no head injury Patient denies depression or anxiety Patient denies any rashes 12 point review of systems is otherwise negative [facility] Medical History Chronic atrial fibrillation Persistent atrial fibrillation [facility] current use of anticoagulant Paroxysmal atrial fibrillation BPH w urinary obs/LUTS Closed hip fracture Hyperparathyroidism Hypercalcemia Rheumatoid arthritis GERD without esophagitis Ischemic cardiomyopathy Bilateral carotid artery disease Permanent atrial fibrillation Aortic stenosis CAD (coronary atherosclerotic disease) (11/30/10) Essential (primary) hypertension (02/09/16) Chronic gout, unspecified, without tophus (tophi) (11/30/10) 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) Hyperglycemia Hyperlipidemia Surgical History S/P left atrial appendage ligation (~09/29/21) 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) Social History marital status: household members: spouse housing: [facility] pets and animals: No education level: master's degree current occupational exposures/hazards: No jennifer/roman catholic: Zoroastrianism special 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: No travel history: over 6 months ago seatbelt use: always water heater temp set < 120 deg: Yes working smoke detector in home: Yes fire extinguisher in home: Yes carbon monox detector in home: Yes firearms in home: No do you feel safe at home: Yes Smoking Status: Never smoker alcohol intake: current during the past year weight has: remained stable well-balanced diet: daily or most days daily servings fruits/ve-4 caffeine: Yes eating out: rarely or never Type(s) of exercise: sedentary lifestyle Meds Home Medications and Allergies Home Medications ?Medication ?Instructions ?Recorded ?Confirmed ?Type ASPIRIN (Aspirin EC) 81 mg PO Q DAY ##0 11/30/10 05/07/25 History latanoprost 0.005 % eye drops 1 drp OPHTH QDAY ##0 11/23/11 05/07/25 History (Xalatan) atorvastatin 40 mg tablet 40 mg PO HS #90 tabs 04/18/19 05/07/25 Rx cholecalciferol (vitamin D3) 125 5,000 unit PO DAILY 04/18/19 05/07/25 History mcg (5,000 unit) capsule [id number]-[id number]-[id number] tablet 1 tab PO DAILY 04/18/19 05/07/25 History omega-3 fatty acids-fish oil 360 1 cap PO DAILY 04/18/19 05/07/25 History mg-1,200 mg capsule (Fish Oil) timolol 0.5 % eye drops 1 drop EYE-BOTH .Q MORNING 12/17/19 05/07/25 History spironolactone 25 mg tablet 12.5 mg PO DAILY 05/15/21 05/07/25 History carvedilol 6.25 mg tablet 6.25 mg PO BID 10/08/21 05/07/25 History torsemide 20 mg tablet 20 mg PO DAILY 11/23/21 05/07/25 History lisinopril 5 mg tablet 5 mg PO BID 06/01/22 05/07/25 History acetaminophen 325 mg tablet 325 - 650 mg PO Q6H PRN 10/01/22 05/07/25 History (Tylenol) esomeprazole magnesium [Nexium] 1 tab PO DAILY PRN 10/01/22 05/07/25 History polyethylene glycol 3350 17 17 g PO DAILY PRN 10/01/22 05/07/25 History gram/dose oral powder (Miralax) magnesium oxide 400 mg (241.3 mg See Rx Instructions PO BID 01/03/24 05/07/25 History magnesium) tablet tamsulosin 0.4 mg capsule 0.8 mg (2 x 0.4 mg) PO BEDTIME 07/05/24 05/07/25 Rx #180 caps Disabled Parking #1 ea 11/05/24 05/07/25 Rx allopurinol 300 mg tablet 300 mg PO DAILY 11/05/24 05/07/25 History Allergies Allergy/AdvReac Type Severity Reaction Status Date / Time No Known Drug Allergies Allergy Verified 05/10/25 14:49 Exam Vital Signs (past 8 hours): - 05/10/25 14:41 05/10/25 15:18 05/10/25 15:20 Temperature 98.3 F Pulse Rate 64 69 Respiratory Rate 18 21 Blood Pressure 167/80 H 173/99 H Pulse Oximetry 100 93 Oxygen Delivery Method Room Air Oxygen Flow Rate 05/10/25 15:20 05/10/25 15:30 05/10/25 15:31 Temperature Pulse Rate 63 64 Respiratory Rate 24 20 Blood Pressure 157/75 H Pulse Oximetry 100 98 Oxygen Delivery Method Oxygen Flow Rate 05/10/25 15:31 05/10/25 16:00 05/10/25 16:01 Temperature Pulse Rate 66 55 L 59 L Respiratory Rate 25 H 22 23 Blood Pressure Pulse Oximetry 97 97 97 Oxygen Delivery Method Oxygen Flow Rate 05/10/25 16:01 05/10/25 16:30 05/10/25 16:30 Temperature Pulse Rate 61 Respiratory Rate 25 H Blood Pressure 170/76 H 174/135 H Pulse Oximetry 98 Oxygen Delivery Method Oxygen Flow Rate 05/10/25 17:00 05/10/25 17:24 05/10/25 17:24 Temperature Pulse Rate 74 60 Respiratory Rate 25 H 25 H Blood Pressure 189/84 H Pulse Oximetry 98 Oxygen Delivery Method Oxygen Flow Rate 05/10/25 17:30 05/10/25 17:30 05/10/25 18:35 Temperature 97 F L Pulse Rate 57 L 61 Respiratory Rate 22 16 Blood Pressure 191/90 H 155/85 H Pulse Oximetry 98 99 Oxygen Delivery Method Oxygen Flow Rate 0 Oxygen Delivery Method Room Air Oxygen Flow Rate 0 Narrative Exam Narrative: Patient is alert and oriented in no apparent distress. His blood pressure is 150 over 80. HEENT patient is generally looking with just 1 I because then the double vision goes away. There is no nystagmus and pupils are equal round and reactive to light and extraocular muscles are intact Neck: Is supple without adenopathy Chest: Clear to auscultation without wheezes rhonchi or crackles, slightly decreased breath sounds to bases Cor irregularly irregular rhythm with a well-controlled rate Abdomen: Positive bowel sounds, soft, nontender, nondistended Extremities: No edema pulses intact Strength is 5/5 in all large muscle groups bilateral lower extremities and upper extremities. Sensations intact to light touch, pulses intact Minimal dysmetria [id number]-mi-[id number] on the left none on the rate Objective Labs 05/10/25 15:00 05/10/25 15:00 Labs: Laboratory Results - last 24 hr 05/10/25 05/10/25 05/10/25 15:00 16:55 16:55 WBC 6.5 RBC 4.18 L Hgb 14.1 Hct 42.5 MCV 101.6 H MCH 33.8 MCHC 33.3 RDW 15.2 H Plt Count 158 Neut % (Auto) 73.0 Lymph % (Auto) 16.0 L [place] % (Auto) 8.5 Eos % (Auto) 1.8 L Baso % (Auto) 0.7 Neut # (Auto) 4700 Lymph # (Auto) 1000 L [place] # (Auto) 500 Eos # (Auto) 100 Baso # (Auto) 0 PT 12.0 INR 1.1 APTT 31 Sodium 134 L Potassium 4.6 Chloride 100 Carbon Dioxide 28 BUN 19 Creatinine 0.92 Estimated GFR > 60 BUN/Creatinine Ratio 20.7 Glucose 110 H POC Whole Bld Glucose 119 H Calcium 10.2 Total Bilirubin 1.0 AST 66 H ALT 59 H Alkaline Phosphatase 91 Total Creatine Kinase < 20 L Troponin I < 0.012 Total Protein 6.5 Albumin 4.0 Globulin 2.5 Albumin/Globulin Ratio 1.6 Urine Color Yellow Urine Appearance Clear Urine pH 7.0 Normal Ur Specific [place] <=1.005 Urine Protein Negative Urine Glucose (UA) Negative Urine Ketones Negative Urine Occult Blood Negative Urine Nitrate Negative Urine Bilirubin Negative Urine Urobilinogen 1.0 Ur Leukocyte Esterase Negative Urine RBC None seen Urine WBC None seen Ur Squamous Epith Cells None seen Urine Bacteria None seen Ur Culture Indicated? Cult not indicated Vol Urine Centrifuged 10ml (spun) U Opiates 300ng/mL cut Negative Ur Oxycodone Screen Negative Urine Methadone Screen Negative Ur Barbiturates Screen Negative U Tricyclic Antidepress Negative Ur Phencyclidine Scrn Negative Ur Amphetamines Screen Negative U Methamphetamines Scrn Negative Ur MDMA Scrn (Ecstasy) Negative U Benzodiazepines Scrn Negative Urine Cocaine Screen Negative U Marijuana (THC) Screen Negative Urine Specific [place] Normal Ethyl Alcohol < 10 Ur Creatinine Normal Assessment & Plan Assessment & Plan narrative: 85-year-old male who is admitted with possible stroke as the etiology of his double vision. 1. Diplopia Plan: Patient will be admitted to the hospital under the assumption of possible CVA. He will be placed on telemetry, MRI of his head in the morning. Echo will be done tomorrow. He received an aspirin today at minimal we will give him a full aspirin daily but most likely he will need to go back on Eliquis. Will continue with his outpatient medications of lisinopril and Coreg and spironolactone patent noting how he does overnight in his blood pressure. We will start for now with the lisinopril and Coreg. We will consult PT and OT Will continue with atorvastatin 40 mg daily Assessment 2. AFib with well-controlled rate Plan: Will continue outpatient medicine and we discussed pros and cons of going back on anticoagulant we will discuss further once more data is available. Continue the lisinopril and the Coreg in the spironolactone pending echo results Assessment 3. Gout no current symptoms Plan will follow Assessment 4. Hypertension Plan: Will allow permissive blood pressures. Will continue lisinopril and Coreg and re-evaluate in a.m. consider adding back the spironolactone pending note his pressures house overall condition is Code status is full code 76 minutes was spent with patient discussing with ER physician, nursing, meeting with the patient's reviewing his clinic chart and his ER workup and formulating a plan and documentation Time-Based Coding :: [TOTAL MINUTES] spent with patient and on the chart (including review of chart, obtaining history, exam, reviewing outside data, placing orders, documenting exam and treatment plan, and counseling patient) on [DATE].
[2025-05-10] MEDS: DOCUSATE 100 MG CAPSULE PO (20:10)
[2025-05-10] MEDS: ATORVASTATIN 20 MG TABLET 40 MG PO (20:10)
[2025-05-11] VITALS (7 sets, daily range): BP systolic 134–161; BP diastolic 59–76; PULSE 56–76; RESP 15–19; TEMP 36.3–36.7; O2SAT 95–97
[2025-05-11 05:52] LABS: Add Manual Diff / Slide Review NO; Hematocrit 40.7 % (41-53); Hemoglobin 13.6 g/dL (13.5-17.5); Lymphocytes Absolute Auto 1300 /uL (1100-4500); Mean Corpuscular HGB Conc 33.3 % (30-36); Mean Corpuscular Hemoglobin 33.9 PG (26-34); Mean Corpuscular Volume 101.7 fL (80-100); Platelet Count 153 X10^3/uL (150-400)
[2025-05-11 06:00] LABS: Alanine Aminotransferase 49 IU/L (<50); Albumin 3.4 g/dL (3.5-5.0); Albumin Globulin Ratio 1.4 (1.0-2.8); Alkaline Phosphatase 76 U/L (38-126); Blood Urea Nitrogen 17 mg/dL (9-20); Calcium 9.9 mg/dL (8.4-10.2); Carbon Dioxide 25 mmol/L (22-32); Chloride 104 mmol/L (98-107); Estimated Glomerular Filt Rate > 60 mL/min (>60); Globulin 2.4 g/dL (1.7-4.1); Glucose 94 mg/dL (70-99); HEMOLYSIS < 15 (0-50); Potassium 4.0 mmol/L (3.4-5.1); Sodium 134 mmol/L (137-145); Total Protein 5.8 g/dL (6.3-8.2)
[2025-05-11] MEDS: ASPIRIN EC 325 MG TABLET PO (09:06)
--- NOTE | 2025-05-11 12:35 | PT.IIE ---
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) 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 Paroxysmal atrial fibrillation Permanent atrial fibrillation Persistent atrial fibrillation Rheumatoid arthritis Physical Therapy Inpatient Evaluation/Re-Eval M1 PT/OT-IP Prior Functional Status Start: 05/11/25 13:59 Freq: NEEDED Status: Active Protocol: Document 05/11/25 12:35 AB (Rec: 05/11/25 14:17 AB Desktop) Medical Review Prior Functional Status Medical History Yes Reviewed Communication able to make needs known; slow to respond to questions Mobility and Gait spouse provided most of pt's info: stated that pt is modified independent with all mobilities and ambulation using a hurrycane indoors and uses a 4WW for outdoor mobilities; pt stated that he has a crew trainer that comes in to walk and exercise with him Social History Household Members spouse Living Arrangements House Number of Floors ( One Floor Floors) Number of Stairs To no steps to enter Enter/Railing? Home Environment High Toilet,Walk in Shower,Built-In Shower Seat Home Equipment Four Wheel Walker,Hand Held Shower,Grab Bars In Shower Additional Social pt has a toilet safety frame and a hurrycane History Comment M2 PT-IP Current Condition Start: 05/11/25 13:59 Freq: NEEDED Status: Active Protocol: Document 05/11/25 12:35 AB (Rec: 05/11/25 14:17 AB Desktop) Physical Therapy Current Condition Current Condition Evaluation Date 05/11/25 Treatment Diagnosis diplopia; r/o CVA; difficulty in walking Onset Date 05/10/25 M3 PT-IP Subjective Start: 05/11/25 13:59 Freq: NEEDED Status: Active Protocol: Document 05/11/25 12:35 AB (Rec: 05/11/25 14:17 AB Desktop) Subjective Physical Therapy Visit Type Type Initial Evaluation Visit Start Time 12:35 Visit Stop Time 13:05 Number of ASH WORKER Visits 0 Physical Therapy Visit Comments Patient Comments agreeable to do PT Therapy Pain Assessment Pain Present Pain Present Denied Pain M4 PT-IP Mobility and Gait Start: 05/11/25 13:59 Freq: NEEDED Status: Active Protocol: Document 05/11/25 12:35 AB (Rec: 05/11/25 14:17 AB Desktop) PT-Bed Mobility Assessment Supine to Sit Supine to Sit Minimal Assistance,1 Person Assistance,Head of Bed Elevated,Bedrails PT-Transfer Assessment Sit to and From Stand Sit to and from Contact Guard Assistance,1 Person Assistance,Use of Stand Upper Extremities Equipment Transfer Assistive Gait Belt,4 Wheeled Walker Device Orthotic/Prosthetic No Devices or Brace: Transfers Transfer Destination Toilet Transfer Technique ambulated Transfer Ability Level of Assist Contact Guard Assistance,1 Person Assistance,Use of Upper Extremities Comments Mobility Comments pt in bed and spouse in room. obtained PLOF and home setup. pt with no c/o double vision. BP: 166/82. completed bed mobility supine to sit with HOB elevated requiring min A and cues. needed increase time to complete tasks and use of bed rail to assist. pt requesting to use the toilet. sit to stand CGA and ambulated to the toilet using 4WW CGA and cues. able to maintain standing using grab bar for support SBA. pt ambulated to the chair using 4WW CGA. pt can be impulsive. pt continues to not c/o double vision. Assessed eye tracking and able to track. noted R eye twitching. pt ambulated more in room using 4WW ~ 40 ft CGA and cues for safety. agreed to sit on the chair and positioned. call light and table placed within reach. left pt with spouse. informed pt and spouse to use 4WW for now even for indoor ambulation instead of the hurrycane and both agreed. Gait Assessment Gait Gait Assistance Contact Guard Assist Required: Distance (Feet) 40 Able to Maintain Yes Weight Bearing Status During Gait Assistive Devices Assistive Device Gait Belt,4 Wheeled Walker Orthotic/Prosthetic No Devices or Brace: Gait Deviations General Gait Pattern Decreased Stride Length,Decreased Feet Clearance,Step- to Gait Factors Limiting Gait Function Factors Limiting Decreased Activity Tolerance,Decreased Strength, Gait Function Difficulty Following Directions,Incoordination,Limited Range of Motion,Poor Balance,Poor Safety Awareness PT-Balance Assessment Sitting Balance and Reactions Static Sitting Good Balance Ability Dynamic Sitting Fair Balance Ability Standing Balance and Reactions Static Standing Fair Balance Ability Dynamic Standing Fair Balance Ability Device Used 4WW M5 PT-IP Objective Assessments Start: 05/11/25 13:59 Freq: NEEDED Status: Active Protocol: Document 05/11/25 12:35 AB (Rec: 05/11/25 14:17 AB Desktop) Orientation Orientation/Cognition Level of Alertness Alert Orientation Name Language Function Hard of Hearing Ability Safety Awareness Decreased Safety Awareness Memory Description Short Term Impaired Gross Range of Motion Lower Extremity ROM Assessment Within Functional Limits Strength Lower Extremity Strength Hip 4-/5 Knee 4-/5 Coordination Assessment Assessment Finger to Nose Test Normal Performance Pronation/Supination Normal Performance Test Coordination thumb to finger test: minimal impairment Comments Muscle Tone Muscle Tone WNL Yes M6 PT-IP Treatment Start: 05/11/25 13:59 Freq: NEEDED Status: Active Protocol: Document 05/11/25 12:35 AB (Rec: 05/11/25 14:17 AB Desktop) Physical Therapy Treatment Education Education Provided Safety M7 PT-IP Assessment and Plan Start: 05/11/25 13:59 Freq: NEEDED Status: Active Protocol: Document 05/11/25 12:35 AB (Rec: 05/11/25 14:17 AB Desktop) PT Summary Assessment and Plan Potential Rehabilitation Fair Potential Status of Condition Stable at Evaluation Summary Impairments Pain,ROM,Strength,Balance,Coordination,Sensation,Tone, Cognition,Bed Mobility,Transfers,Gait,Activity Tolerance Assessment Summary pt is an 85 y/o M who presented to the ED due to double vision. pt admitted to R/o CVA. MRI is negative for CVA. pt did not c/o diplopia during PT session. pt requiring CGA with mobility using 4WW. pt can be impulsive and has decrease safety awareness. pt plans to go home and spouse to assist. Goals Bed Mobility Goal Independent Transfer Goal Independent,Four Wheeled Walker Gait Goal Independent,Four Wheel Walker Gait Distance 200 Other Goals improve transfers and ambulation using hurrycane 200 ft SBA Days to Meet Goals 5 Frequency of Treatment Frequency Of Once a Day Treatment Treatment Plan Physical Therapy Bed Mobility Training,Transfer Training,Gait Training, Treatment Plan Therapeutic Exercise,Balance Retraining,Post Op Education,Discharge Planning,Hot or Cold Pack, Neuromuscular Re-ed,Coordination Retraining,Manual Therapy Recommendations To Nursing Amount of Assist 1 Person Assist Needed Discharge Recommendations PT Discharge Home with Assistance,Outpatient PT Recommendations Transportation Needs Private Vehicle at Discharge - PT assist 1
--- NOTE | 2025-05-11 12:52 | PM.PN.1 ---
Subjective Subjective Date Patient Seen: 05/11/25 Time Patient Seen: 12:52 Interval history: Patient had unremarkable night other than he was not able to sleep. He is feeling much better and is having markedly decreased double vision. He is did not develop any other neurologic symptoms overnight. He denies any chest pain or shortness a breath. Patient is tolerating p.o. without any difficulty Patient is having no nausea or vomiting or diarrhea 12 point review of systems is otherwise negative Exam Vital Signs (past 8 hours): - 05/11/25 08:59 05/11/25 09:05 05/11/25 09:06 Temperature 98.1 F Pulse Rate 68 68 68 Respiratory Rate 15 Blood Pressure 161/76 H 161/76 H 161/76 H Pulse Oximetry 95 05/11/25 12:00 Temperature 97.6 F Pulse Rate 58 L Respiratory Rate 19 Blood Pressure 156/59 H Pulse Oximetry 95 Oxygen Delivery Method Room Air Oxygen Flow Rate 0 Narrative Exam Narrative: Patient is alert and oriented x3. is at bedside. She states he is at his baseline. Patient is slightly slow to answer questions but also appears to be hard of hearing. HEENT is unremarkable specifically no nystagmus and extraocular muscles are intact and pupils equal round and reactive to light Neck: Supple Chest: Clear to auscultation without wheezes rhonchi or crackles Cor irregularly irregular rhythm at a well-controlled rate with 3/6 systolic ejection murmur loudest at the left upper sternal border high pitched Abdomen: Positive bowel sounds, soft, nontender, and nondistended Extremities no edema pulses intact Neurologic exam is nonfocal Objective Labs 05/11/25 05:28 05/11/25 05:28 Labs: Laboratory Results - last 24 hr 05/10/25 05/10/25 05/10/25 15:00 16:55 16:55 WBC 6.5 RBC 4.18 L Hgb 14.1 Hct 42.5 MCV 101.6 H MCH 33.8 MCHC 33.3 RDW 15.2 H Plt Count 158 Neut % (Auto) 73.0 Lymph % (Auto) 16.0 L Mcnairy % (Auto) 8.5 Eos % (Auto) 1.8 L Baso % (Auto) 0.7 Neut # (Auto) 4700 Lymph # (Auto) 1000 L Mcnairy # (Auto) 500 Eos # (Auto) 100 Baso # (Auto) 0 PT 12.0 INR 1.1 APTT 31 Sodium 134 L Potassium 4.6 Chloride 100 Carbon Dioxide 28 BUN 19 Creatinine 0.92 Estimated GFR > 60 BUN/Creatinine Ratio 20.7 Glucose 110 H POC Whole Bld Glucose 119 H Calcium 10.2 Total Bilirubin 1.0 AST 66 H ALT 59 H Alkaline Phosphatase 91 Total Creatine Kinase < 20 L Troponin I < 0.012 Total Protein 6.5 Albumin 4.0 Globulin 2.5 Albumin/Globulin Ratio 1.6 Urine Color Yellow Urine Appearance Clear Urine pH 7.0 Normal Ur Specific [place] <=1.005 Urine Protein Negative Urine Glucose (UA) Negative Urine Ketones Negative Urine Occult Blood Negative Urine Nitrate Negative Urine Bilirubin Negative Urine Urobilinogen 1.0 Ur Leukocyte Esterase Negative Urine RBC None seen Urine WBC None seen Ur Squamous Epith Cells None seen Urine Bacteria None seen Ur Culture Indicated? Cult not indicated Vol Urine Centrifuged 10ml (spun) U Opiates 300ng/mL cut Negative Ur Oxycodone Screen Negative Urine Methadone Screen Negative Ur Barbiturates Screen Negative U Tricyclic Antidepress Negative Ur Phencyclidine Scrn Negative Ur Amphetamines Screen Negative U Methamphetamines Scrn Negative Ur MDMA Scrn (Ecstasy) Negative U Benzodiazepines Scrn Negative Urine Cocaine Screen Negative U Marijuana (THC) Screen Negative Urine Specific [place] Normal Ethyl Alcohol < 10 Ur Creatinine Normal 05/11/25 05:28 WBC 8.5 RBC 4.00 L Hgb 13.6 Hct 40.7 L MCV 101.7 H MCH 33.9 MCHC 33.3 RDW 14.9 H Plt Count 153 Neut % (Auto) 75.7 H Lymph % (Auto) 14.7 L Mcnairy % (Auto) 7.4 Eos % (Auto) 1.7 L Baso % (Auto) 0.5 Neut # (Auto) 6400 Lymph # (Auto) 1300 Mcnairy # (Auto) 600 Eos # (Auto) 100 Baso # (Auto) 0 PT INR APTT Sodium 134 L Potassium 4.0 Chloride 104 Carbon Dioxide 25 BUN 17 Creatinine 0.82 Estimated GFR > 60 BUN/Creatinine Ratio 20.7 Glucose 94 POC Whole Bld Glucose Calcium 9.9 Total Bilirubin 1.1 AST 38 ALT 49 Alkaline Phosphatase 76 Total Creatine Kinase Troponin I Total Protein 5.8 L Albumin 3.4 L Globulin 2.4 Albumin/Globulin Ratio 1.4 Urine Color Urine Appearance Urine pH Ur Specific [place] Urine Protein Urine Glucose (UA) Urine Ketones Urine Occult Blood Urine Nitrate Urine Bilirubin Urine Urobilinogen Ur Leukocyte Esterase Urine RBC Urine WBC Ur Squamous Epith Cells Urine Bacteria Ur Culture Indicated? Vol Urine Centrifuged U Opiates 300ng/mL cut Ur Oxycodone Screen Urine Methadone Screen Ur Barbiturates Screen U Tricyclic Antidepress Ur Phencyclidine Scrn Ur Amphetamines Screen U Methamphetamines Scrn Ur MDMA Scrn (Ecstasy) U Benzodiazepines Scrn Urine Cocaine Screen U Marijuana (THC) Screen Urine Specific [place] Ethyl Alcohol Ur Creatinine PFSH Medical History Chronic atrial fibrillation Persistent atrial fibrillation [facility] current use of anticoagulant Paroxysmal atrial fibrillation BPH w urinary obs/LUTS Closed hip fracture Hyperparathyroidism Hypercalcemia Rheumatoid arthritis GERD without esophagitis Ischemic cardiomyopathy Bilateral carotid artery disease Permanent atrial fibrillation Aortic stenosis CAD (coronary atherosclerotic disease) (11/30/10) Essential (primary) hypertension (02/09/16) Chronic gout, unspecified, without tophus (tophi) (11/30/10) 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) Hyperglycemia Hyperlipidemia Surgical History S/P left atrial appendage ligation (~09/29/21) 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) Social History marital status: household members: spouse housing: [facility] pets and animals: No education level: master's degree current occupational exposures/hazards: No 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: No travel history: over 6 months ago seatbelt use: always water heater temp set < 120 deg: Yes working smoke detector in home: Yes fire extinguisher in home: Yes carbon monox detector in home: Yes firearms in home: No do you feel safe at home: Yes Smoking Status: Never smoker alcohol intake: current during the past year weight has: remained stable well-balanced diet: daily or most days daily servings fruits/ve-4 caffeine: Yes eating out: rarely or never Type(s) of exercise: sedentary lifestyle Assessment & Plan Assessment & Plan narrative: 85-year-old male who is admitted with possible stroke as the etiology of his double vision. 1. Diplopia Plan: Patient will be admitted to the hospital under the assumption of possible CVA. We will consult PT and OT Will continue with atorvastatin 40 mg daily, continue Coreg and lisinopril as outpatient. Continue full aspirin a day. 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 We will continue with a full aspirin. Pending evaluation by PT tentative plan would be home with home health tomorrow. We will continue with telemetry Assessment 2. AFib with well-controlled rate Plan: Will continue outpatient medicine and we discussed pros and cons of going back on anticoagulant we will discuss further once more data is available. Continue the lisinopril and the Coreg in the spironolactone pending echo results. Will continue with a full aspirin daily. Patient with multiple PVCs. We will check magnesium Assessment 3. Gout no current symptoms Plan will follow Assessment 4. Hypertension Plan: Will allow permissive blood pressures. Will continue lisinopril and Coreg. Spironolactone and torsemide given today and will check electrolytes. Assessment 5. DVT prophylaxis Plan: Continue with Eliquis Assessment 6. History of coronary artery disease with hyperlipidemia no current symptoms Plan: Continue lisinopril, Coreg and atorvastatin Code status is full code 55 minutes was spent with patient discussing with ER physician, nursing, meeting with the patient's reviewing his clinic chart and his ER workup and formulating a plan and documentation Time-Based Coding :: [TOTAL MINUTES] spent with patient and on the chart (including review of chart, obtaining history, exam, reviewing outside data, placing orders, documenting exam and treatment plan, and counseling patient) on [DATE]. Quality VTE Deep Vein Thrombosis/Pulmonary Embolism Present on Admission: No
[2025-05-11 13:07] LABS: Magnesium 2.1 mg/dL (1.6-2.3)
--- NOTE | 2025-05-11 14:25 | CM.DANOTE ---
Initial DCP Assessment Note. Review EMR and PT Interview. Met with patient at bedside to discuss discharge needs.PT is alert x 4 sitting up in bed. No acute distress. Patient lives with . Uses cane and walker. [facility] 2 yr ago. Payor:[facility] PCP: Summary & Plan: 85 y/o male arrived to ED via POV c/o vision problems. Admitted OBS. Dx.CVA. Plan: Head MRI, Echo, PT eval. Per MD, Home with HH in the AM. Discharge Planning/Care Management CM Discharge Assessment Start: 05/10/25 18:20 Freq: Status: Active Protocol: Document 05/11/25 14:21 (Rec: 05/11/25 14:25 [id number]) Discharge Planning Assessment Assigned Discharge Tiffany Lucero RN CM Progressive Assembler And Fitter Provider Dr. Plata Insurance Medicare Advance Directives? Yes Advance Directives No on File History Provided By Patient,Medical Record Prior Living House Arrangements Household Members spouse Type of Relies on Others transporation used prior to admit Independent with ADL No 's Is patient alert and Yes oriented? Needs Assistance Bathing,Grooming,Meal Prep,Managing Medications,Home With Chores / Shopping Comment helps DME Already Rented / FWW / Walker,Cane Owned Patient/Family Home with Home Health Preference Comment [facility] a few years ago Barriers to No Discharge Discharge Plan Home Review Status In Process Please Provide Date 05/11/25 Initial DC Assessment Was Performed Next Review Type Continued Stay Review
[2025-05-11] MEDS: DOCUSATE 100 MG CAPSULE PO (19:36)
[2025-05-11] MEDS: ATORVASTATIN 20 MG TABLET 40 MG PO (19:36)
[2025-05-11] MEDS: MAGNESIUM OXIDE 400 MG TABLET PO (20:18)
[2025-05-11] MEDS: TAMSULOSIN 0.4 MG CAPSULE 0.8 MG PO (20:18)
[2025-05-11] MEDS: LATANOPROST 0.005% OPHTH 2.5 ML 1 DROPS EYE-BOTH (20:19)
--- NOTE | 2025-05-11 22:13 | PC.NURSE ---
lisinopril order duplicated. consulted with Dr. Saunders and pharmacist and one order dc'd. vss. remains afib 59 bpm
[2025-05-12] VITALS: BP 158/98; PULSE 52; RESP 18; TEMP 36.6; O2SAT 97
[2025-05-12 04:00] VITALS: BP 142/73; PULSE 61; RESP 17; TEMP 36.6; O2SAT 97
[2025-05-12] MEDS: PANTOPRAZOLE DR 20 MG TABLET PO (05:32)
[2025-05-12 06:39] LABS: Blood Urea Nitrogen 18 mg/dL (9-20); Calcium 10.0 mg/dL (8.4-10.2); Carbon Dioxide 28 mmol/L (22-32); Chloride 102 mmol/L (98-107); Estimated Glomerular Filt Rate > 60 mL/min (>60); Glucose 105 mg/dL (70-99); HEMOLYSIS < 15 (0-50); Magnesium 2.0 mg/dL (1.6-2.3); Potassium 3.9 mmol/L (3.4-5.1); Sodium 133 mmol/L (137-145)
[2025-05-12 08:28] VITALS: BP 142/73; PULSE 51
[2025-05-12 08:30] VITALS: BP 142/43; PULSE 51
[2025-05-12] MEDS: DOCUSATE 100 MG CAPSULE PO (08:30)
[2025-05-12] MEDS: SPIRONOLACTONE 25 MG TABLET 12.5 MG PO (08:30)
[2025-05-12] MEDS: MULTIVITAMIN 1 TABLET 1 TAB PO (08:30)
[2025-05-12] MEDS: CHOLECALCIFEROL (VITAMIN D3) 5,000 UNIT TABLET 5000 UNIT PO (08:30)
[2025-05-12] MEDS: ENOXAPARIN 40 MG/0.4 ML SYRINGE SUBCUT (08:30)
[2025-05-12] MEDS: FISH OIL 1,000 MG CAPSULE 1000 MG PO (08:30)
[2025-05-12] MEDS: MAGNESIUM OXIDE 400 MG TABLET PO (08:30)
[2025-05-12] MEDS: TORSEMIDE 10 MG TABLET 20 MG PO (08:30)
[2025-05-12] MEDS: ASPIRIN EC 81 MG TABLET PO (08:30)
[2025-05-12 08:45] VITALS: BP 100/63; PULSE 63; RESP 16; TEMP 36.1; O2SAT 99
[2025-05-12 12:15] VITALS: BP 158/69; PULSE 55; RESP 19; TEMP 36.6; O2SAT 99
--- NOTE | 2025-05-12 13:05 | PM.DS.1 ---
History of Present Illness History of Present Illness Chief complaint: Visual disturbances, dizzy, since this AM Narrative: This is a very pleasant 85-year-old male who is under the primary care of Dr. Plata. Patient was seen a few days ago. Patient was taken off his Eliquis which he is on due to AFib due to recurrent nosebleeds. He was not a candidate for Watchman procedure because 3 years ago he had a CABG x2 and apparently they removed the atrial appendage. Patient has been taking a baby aspirin. He was in his usual state of health when today he noted double vision starting at about noon today. He arrived in the ER at 3 p.m. and given his stroke scale of 2 tPA was not indicated. 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 The case was discussed with [facility] stroke team and they recommended admit with observation and echo and MRI. Patient was given 325 mg of aspirin in the ER. Past medical history: Coronary artery disease status post CABG in 2021 x2 Hyperlipidemia Hypertension Gout Chronic AFib BPH with lower urinary tract symptoms Past surgical history: Patient had a CABG x2 in 2021 Social history: Patient is his is present and he lives here in and [facility] in their own home. He has 1 son who lives in [place] and his granddaughter is in medical school Health related behavior patient has never been a smoker. He has 1 small scotch drink every night that his measures out in its a less than 1 oz of scotch. He is fairly active. Family history: Father had a stroke in his early 80s No other family history Patient denies any recent fever or cough or shortness of breath. Patient denies any chest pain Patient denies any associated symptoms he had no dysarthria or motor deficit. He has had no headache. He has had no head injury Patient denies depression or anxiety Patient denies any rashes 12 point review of systems is otherwise negative Discharge Providers Provider Date of admission: 05/10/25 17:55 Discharge Date: 05/12/25 Primary care physician: Shukri Plata MD Consults: 05/10/25 18:51 Consult to Pharmacy Routine Comment: Recently stopped anticoagulation 05/10/25 19:05 Consult to Discharge Planning Routine Comment: Consult to Occupational Therapy Evaluate & Treat Comment: Physician Instructions: Evaluate and treat Consult to Physical Therapy Evaluate & Treat Comment: Physician Instructions: Evaluate and Treat Discharge provider: Shanti Duval MD Summary Hospital Course Discharge Diagnosis: Assessment 1. Diplopia, resolved, thought to be secondary to TIA and no evidence of CVA on MRI Assessment 2. AFib with well-controlled rate Assessment 3. Systolic heart failure, chronic without acute exacerbation Assessment 4. Aortic stenosis Assessment 5. BPH Assessment 6. Hypertension Assessment 7. Hyperlipidemia Hospital Course: Patient developed sudden onset of double vision and was admitted to the hospital. 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 He was given a full aspirin daily and previously was on 81 mg tablet daily in his outpatient medications were continued. His echo showed 1) Normal left ventricular size with mildly to moderately reduced systolic function (EF 40-45%). Basal inferior wall is akinetic. 2) Mildly enlarged right ventricle with moderately reduced function. 3) Severe biatrial enlargement is present. 4) Doppler interrogation and injection of saline echo contrast shows no evidence for an interatrial shunt. 5) There is moderate aortic stenosis (valve area 1.1cm2, mean gradient 24mmHg, severity ratio 0.27). 6) There is mild to moderate tricuspid regurgitation. 7) The right ventricular systolic pressure is estimated to be at least 69 mmHg based on an estimated right atrial pressure of 15 mm Hg. 8) Compared to the echo done 12/01/2023, right sided hypervolemia is present on this study. He was evaluated by PT and his symptoms completely resolved markedly improved by hospital day 2. And completely resolved by the end of hospital day 2 inpatient was discharged home in stable and improved condition on hospital day 3. Patient will have follow up with his PCP Dr. Plata next week. My recommendation would be to go back on anticoagulation but will leave this up to Dr. Plata and Cardiology. Also fluid status will have to be monitored due to hypervolemia noted on his echo. He did not get his torsemide the day of the echo so perhaps this was contributing. Patient is having no symptoms of shortness a breath at the time of discharge. He was feeling great and wanted to go home. He will be discharged home with home health. He will also see ammonia worker. He will continue his outpatient medications of allopurinol 300 mg daily atorvastatin 40 mg daily, carvedilol 6.25 twice daily, lisinopril 5 mg twice daily, Nexium 20 mg daily Xalatan drops 1 daily, magnesium 400 mg daily, multivitamin, spironolactone 12.5 mg daily and tamsulosin 0.4 mg daily and torsemide 20 mg daily. Status at Discharge Cognitive/behavioral status at discharge: oriented Functional status at discharge: independent ambulation Overall status at discharge: patient is back to baseline Exam Vital Signs (past 8 hours): - 05/12/25 08:28 05/12/25 08:30 05/12/25 08:45 Temperature 96.9 F L Pulse Rate 51 L 51 L 63 Respiratory Rate 16 Blood Pressure 142/73 H 142/43 H 100/63 Pulse Oximetry 99 Oxygen Flow Rate 0 05/12/25 12:15 Temperature 97.9 F Pulse Rate 55 L Respiratory Rate 19 Blood Pressure 158/69 H Pulse Oximetry 99 Oxygen Flow Rate 0 Oxygen Delivery Method Room Air Oxygen Flow Rate 0 Narrative Exam Narrative: Afebrile vital signs are stable HEENT is unremarkable Neck: Supple without adenopathy, no jugular venous distention or bruits Chest: Clear to auscultation without wheezes rhonchi or crackles but slightly decreased breath sounds bibasilar Cor: Irregularly irregular rhythm at a well-controlled rate Abdomen: Positive bowel sounds, soft, nontender, nondistended Extremities no edema pulses intact Neurologic exam is nonfocal Objective Labs 05/11/25 05:28 05/12/25 05:52 Labs: Laboratory Results - last 24 hr 05/11/25 05/12/25 05:28 05:52 Sodium 133 L Potassium 3.9 Chloride 102 Carbon Dioxide 28 BUN 18 Creatinine 0.89 Estimated GFR > 60 BUN/Creatinine Ratio 20.2 Glucose 105 H Calcium 10.0 Magnesium 2.1 2.0 PFSH Medical History Chronic atrial fibrillation Persistent atrial fibrillation group home current use of anticoagulant Paroxysmal atrial fibrillation BPH w urinary obs/LUTS Closed hip fracture Hyperparathyroidism Hypercalcemia Rheumatoid arthritis GERD without esophagitis Ischemic cardiomyopathy Bilateral carotid artery disease Permanent atrial fibrillation Aortic stenosis CAD (coronary atherosclerotic disease) (11/30/10) Essential (primary) hypertension (02/09/16) Chronic gout, unspecified, without tophus (tophi) (11/30/10) 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) Hyperglycemia Hyperlipidemia Surgical History S/P left atrial appendage ligation (~09/29/21) 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) Social History marital status: household members: spouse housing: [facility] pets and animals: No education level: master's degree current occupational exposures/hazards: No jennifer/advent: [employer] special 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: No travel history: over 6 months ago seatbelt use: always water heater temp set < 120 deg: Yes working smoke detector in home: Yes fire extinguisher in home: Yes carbon monox detector in home: Yes firearms in home: No do you feel safe at home: Yes Smoking Status: Never smoker alcohol intake: current during the past year weight has: remained stable well-balanced diet: daily or most days daily servings fruits/ve-4 caffeine: Yes eating out: rarely or never Type(s) of exercise: sedentary lifestyle Discharge Assessment & Plan Assessment and Plan Assessment: Assessment 1. Diplopia, resolved, thought to be secondary to TIA and no evidence of CVA on MRI Assessment 2. AFib with well-controlled rate Assessment 3. Systolic heart failure, chronic without acute exacerbation Assessment 4. Aortic stenosis Assessment 5. BPH Assessment 6. Hypertension Assessment 7. Hyperlipidemia Plan of Treatment: DC to home with home health Follow up with Dr. Plata next week Follow up with ammonia worker farshad Follow up with orthopaedic surgeon Continue outpatient medications except for baby aspirin changed to 324 mg aspirin daily Discharge Plan Discharge Plan Patient Disposition: Home Discharge orders & Medications Prescriptions: Continued latanoprost [Xalatan] 0.005 % drops 1 drp OPHTH QDAY Qty: 0 spironolactone 25 mg tablet 12.5 mg PO DAILY torsemide 20 mg tablet 20 mg PO DAILY tamsulosin 0.4 mg capsule 0.8 mg PO BEDTIME Qty: 180 3RF atorvastatin 40 mg tablet 40 mg PO HS Qty: 90 1RF [id number] Tablet 1 tab PO DAILY omega-3 fatty acids-fish oil [Fish Oil] 360-1,200 mg capsule 1 cap PO DAILY cholecalciferol (vitamin D3) 5,000 unit capsule 5,000 unit PO DAILY timolol 0.5 % drops 1 drop EYE-BOTH .Q MORNING esomeprazole magnesium [Nexium] 1 tab PO DAILY polyethylene glycol 3350 [Miralax] 17 gram/dose powder 17 g PO DAILY PRN (Reason: constipation) acetaminophen [Tylenol] 325 mg tablet 325 - 650 mg PO Q6H PRN (Reason: fever or pain) magnesium oxide 400 mg (241.3 mg magnesium) tablet See Rx Instructions PO BID Patient Comments: 2 in am and one in pm Rx Instructions: orally twice a day; allopurinol 300 mg tablet 300 mg PO DAILY (DME) Disabled Parking See Rx Instructions .ROUTE .MEDSUPPLY Qty: 1 0RF Rx Instructions: Patient qualifies for disabled parking as per the attached form. carvedilol 6.25 mg tablet 6.25 mg PO BID Patient Comments: take 1 tablet by mouth twice a day with meals lisinopril 5 mg tablet 5 mg PO BID Changed ASPIRIN (Aspirin EC) 324 mg PO Q DAY Qty: 30 0RF Follow up/Referrals: Shukri Plata MD [Primary Care Provider, Internal Medicine] Discharge Health Status Multidrug resistant organism: No MDRO Diet/Activity/Treatments Diet: Low-sodium Visit Report/Discharge Packet Stand Alone Forms: Patient Portal/API, Stroke Signs & Symptoms Discharge Data Primary Care Provider: Shukri Plata Attending Provider: Shukri Plata Admit Date/Time: 05/10/25 17:55 Quality VTE Deep Vein Thrombosis/Pulmonary Embolism Present on Admission: No
--- NOTE | 2025-05-12 13:23 | CM.DPNOTE ---
DCP note CONCRETE WORKER reviewed EMR per provider cleared to dc home today. PT=home with assistance. per previous CM notes, pt and spouse eager for [facility] resumption. CONCRETE WORKER met with pt and spouse in room. pt and spouse report understanding that pt may be mobilizing too well for HH but asked this CONCRETE WORKER send referral anyway in case he qualifies. denies other CM needs at this time. CONCRETE WORKER sent HH ref to [facility] per pt preference. f2f/order done. P: dc home today with spouse and potentially [facility] to follow pending official acceptance. CM team will continue to follow in case any additional DCP needs should arise CHRISTAL Mobley
== END 2025-05-12 14:00 | disposition home or self-care (01) ==
LOC: ED 17:19 → AC 17:56
PROVIDERS: Emergency Medicine; Family Medicine; Admitting Provider Internal Medicine; Emergency Provider Emergency Medicine; PCP Internal Medicine; Referring Provider Emergency Medicine; Visit Provider Internal Medicine
DX: R42 Dizziness and giddiness (principal); H53.2 Diplopia; I48.20 Chronic atrial fibrillation, unspecified; I11.0 Hypertensive heart disease with heart failure; I50.22 Chronic systolic (congestive) heart failure; I25.10 Atherosclerotic heart disease of native coronary artery without angina pectoris; E78.5 Hyperlipidemia, unspecified; I35.0 Nonrheumatic aortic (valve) stenosis; N40.0 Benign prostatic hyperplasia without lower urinary tract symptoms; R29.702 NIHSS score 2; Z95.1 Presence of aortocoronary bypass graft; Z79.82 Long term (current) use of aspirin; Z82.3 Family history of stroke
CPT/HCPCS: 36415; 70450; 70496; 70498; 70551; 80048; 80053; 80305; 80320; 81001; 82550; 82962; 83735; 84484; 85025; 85610; 85730; 93005; 93010; 93306; 96372; 97161; 97530; 99284; G0378; A9270; J1650; Q9967

== ENCOUNTER → 2025-05-16 08:58 | Outpatient (CLI) | payer MEDICARE, OTHER, SELFPAY ==
[2025-05-10 19:47] VITALS: BMI 25.0
[2025-05-16 10:35] LABS: Add Manual Diff / Slide Review NO; Hematocrit 42.2 % (41-53); Hemoglobin 14.2 g/dL (13.5-17.5); Lymphocytes Absolute Auto 900 /uL (1100-4500); Mean Corpuscular HGB Conc 33.7 % (30-36); Mean Corpuscular Hemoglobin 33.9 PG (26-34); Mean Corpuscular Volume 100.7 fL (80-100); Platelet Count 182 X10^3/uL (150-400)
[2025-05-16 10:43] LABS: Hemoglobin A1C% w Est Avg Glu 5.5 % (4.0-6.0)
[2025-05-16 11:05] LABS: Alanine Aminotransferase 33 IU/L (<50); Albumin 3.9 g/dL (3.5-5.0); Albumin Globulin Ratio 1.7 (1.0-2.8); Alkaline Phosphatase 92 U/L (38-126); Blood Urea Nitrogen 18 mg/dL (9-20); Calcium 10.6 mg/dL (8.4-10.2); Carbon Dioxide 27 mmol/L (22-32); Chloride 101 mmol/L (98-107); Cholesterol 109 mg/dL (140-199); Estimated Glomerular Filt Rate > 60 mL/min (>60); Globulin 2.3 g/dL (1.7-4.1); Glucose 115 mg/dL (70-99); HDL Cholesterol 56 mg/dL (40-60); HEMOLYSIS 16 (0-50); Magnesium 2.1 mg/dL (1.6-2.3); Potassium 5.2 mmol/L (3.4-5.1); Sodium 134 mmol/L (137-145); Total Protein 6.2 g/dL (6.3-8.2); Triglycerides 89 mg/dL (35-150); Uric Acid 4.0 mg/dL (3.5-8.5)
== END ==
PROVIDERS: PCP Internal Medicine; Referring Provider Internal Medicine; Visit Provider Internal Medicine
DX: I10 Essential (primary) hypertension (principal); R73.9 Hyperglycemia, unspecified; I48.20 Chronic atrial fibrillation, unspecified; E78.2 Mixed hyperlipidemia; I25.10 Atherosclerotic heart disease of native coronary artery without angina pectoris; E83.52 Hypercalcemia; M1A.9XX0 Chronic gout, unspecified, without tophus (tophi)
CPT/HCPCS: 36415; 80053; 80061; 83036; 83735; 84550; 85025